=== PATIENT | female | born 1935 | race Caucasian/White ===

== ENCOUNTER → 2021-10-20 10:34 | Outpatient (CLI) | payer MEDICARE, SELFPAY ==
--- NOTE | ~2021-10-20 | US_ITS ---
EXAMINATION: US renal BI DATE: 10/20/2021 10:54 INDICATION: Chronic kidney disease, stage 3 unspecified TECHNIQUE: Multiple grayscale and Doppler ultrasound images of the kidneys were obtained. COMPARISON: None. FINDINGS: The right kidney measures 10.7 x 5.0 x 5.3 cm. The left kidney measures 8.4 x 5.0 x 4.3 cm. The kidne ys demonstrate normal parenchymal echogenicity. No renal mass. There is no hydronephrosis. The bladde r is normal. IMPRESSION: Unremarkable renal sonogram findings. Reviewed, dictated and finalized at location K.
== END ==
PROVIDERS: PCP Family Medicine; Visit Provider Internal Medicine
DX: N18.30 Chronic kidney disease, stage 3 unspecified (principal)
CPT/HCPCS: 76775

== ENCOUNTER 2023-04-22 17:14 | Emergency (ER) | payer MEDICARE, SELFPAY ==
[2023-04-22] VITALS (7 sets, daily range): BP systolic 117–131; BP diastolic 68–79; PULSE 60–91; RESP 17–18; TEMP 36.4–36.6; O2SAT 97–99
--- NOTE | ~2023-04-22 | CT_ITS ---
EXAMINATION: CT brain wo con INDICATION: Unsteady gait and weakness COMPARISON: None TECHNIQUE: Standard unenhanced head CT. The dose-length product (DLP) was 605.33 mGy-cm. The mA was a djusted according to patient size. Iterative reconstruction technique was employed. FINDINGS: No acute intraparenchymal hemorrhage. No evidence of mass lesion. No evidence of acute infa rction. There is mild periventricular and subcortical hypodensity probably related to small vessel is chemic disease. There is mild prominence of the sulci and ventricles related to cerebral atrophy. Int racranial calcified cerebral atherosclerosis is noted. No extra-axial collections. No mass effect or midline shift. Changes in the globes are likely from ocular lens surgery. There is mild mucosal thick ening of the paranasal sinuses. There are bilateral mastoid effusions. IMPRESSION: 1. No acute intracranial abnormality. 2. Age related findings. 3. Bilateral mastoid effusions. Reviewed, dictated and finalized at location F. PATIONAL THERAPY PROGRAM DIRECTOR
--- NOTE | ~2023-04-22 | XR_ITS ---
EXAMINATION: XR chest 1V portable INDICATION: Shortness of breath TECHNIQUE: Portable AP chest at 1945 hours COMPARISON: None available FINDINGS: There is mild atelectasis of the mid and lower lung zones. No pleural effusion or pneumotho rax. The heart size is normal. IMPRESSION: 1. Mild atelectasis of the mid and lower lung zones. Reviewed, dictated and finalized at location F. ICULUM AND ASSESSMENT DIRECTOR
--- NOTE | ~2023-04-22 | XR_ITS ---
EXAMINATION: XR shoulder LT min 2V INDICATION: Shoulder pain TECHNIQUE: Four views of the left shoulder are submitted. COMPARISON: None FINDINGS: Normal alignment. No fracture. 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 Soft tissues are unremarkable. IMPRESSION: 1. No acute osseous abnormality. Reviewed, dictated and finalized at location F. ESSING MACHINE OPERATOR
--- NOTE | 2023-04-22 19:27 | ECG_ITS ---
Measurements Intervals Reading Rate: 58 P: 83 AL: 181 QRS: -15 QRSD: 101 T: 23 QT: 418 QTc: 412 Interpretive Statements SINUS BRADYCARDIA LOW QRS VOLTAGE IN PRECORDIAL LEADS LEFT VENTRICULAR HYPERTROPHY WITH ST-T CHANGE CONSIDER ANTERIOR INFARCT, AGE INDETERMINATE BASELINE ARTIFACT- I, II, III, AVR, AVL, AVF, V3 ABNORMAL ECG NO PREVIOUS ECG AVAILABLE FOR COMPARISON Electronically Signed On 04-22-2023 20:24:36 MACHINE ROOM OPERATOR by Joseph Mccain D.O.
--- NOTE | 2023-04-22 20:02 | ED.GENADULT ---
HPI - General Adult General Chief complaint: Weakness Stated complaint: SOB, left shoulder pain Time Seen by Provider: 04/22/23 19:17 History of Present Illness HPI narrative: Patient is a 87-year-old female who presents emergency department with chief complaint of generalized weakness that has been increasing over the last week. Patient reports that the she has also had some discomfort in her left shoulder. The patient reports he has not seen her primary care provider about dose denies fever denies chills denies urinary symptoms. Related Data Home Medications Medication Instructions Recorded Confirmed aspirin 81 mg tablet,delayed 81 mg PO DAILY 01/08/19 02/04/23 release (Bogdan Low Dose Aspirin) ergocalciferol (vitamin D2) 1,250 1,250 mcg PO WEEKLY 12/16/21 02/04/23 mcg (50,000 unit) capsule (Vitamin D2) Allergies Allergy/AdvReac Type Severity Reaction Status Date / Time nitrofurantoin Allergy Unknown unknown Verified 02/04/23 14:18 [From Macrobid] Review of Systems Review of Systems: A 10 system review of systems was completed on the patient and is negative except for what is stated in the HPI. Nursing and ancillary documentation was reviewed. [facility] Past Medical History Medical History CKD (chronic kidney disease) Depression HLD (hyperlipidemia) Hypertensive CKD (chronic kidney disease) Hypothyroidism IgA nephropathy Vitamin D deficiency Family History Family History Mother Hypertension Heart disease Social History Social History Smoking status: Never smoker Second hand tobacco smoke exposure: No Alcohol intake: never Substance use: never Substance use type: does not use Living arrangements: alone Occupation/Education: retired Gender identity (if verbalized by the patient): Female Sexual Orientation (if Verbalized by the Patient): Straight or Heterosexual Exam Narrative: GENERAL: Well-appearing, well-nourished, and in no acute distress. HEAD: Normocephalic, atraumatic. EYES: PERRLA and EOMI. ENT: Nares clear, no rhinorrhea or epistaxis. Mucous membranes moist. NECK: Supple. CHEST: Clear to auscultation. No respiratory distress. HEART: Regular rate and rhythm. No murmur heard. Normal peripheral pulses. ABDOMEN: Soft, nontender, nondistended, normal active bowel sounds. EXTREMITIES: Normal range of motion. No edema. SKIN: Warm, dry, no rash. NEURO: No focal deficits. Alert and oriented x3. PSYCH: Normal mood and affect. Course Vital Signs Vital signs: Vital Signs Temperature 36.4 C 04/22/23 17:23 Pulse Rate 91 04/22/23 17:23 Respiratory Rate 18 04/22/23 17:23 Blood Pressure 124/79 04/22/23 17:23 Pulse Oximetry 97 04/22/23 17:23 Oxygen Delivery Room Air 04/22/23 17:23 Temperature 36.4 C 04/22/23 17:23 Pulse Rate 80 04/22/23 21:07 Respiratory Rate 18 04/22/23 17:23 Blood Pressure 131/73 04/22/23 21:07 Pulse Oximetry 97 04/22/23 20:08 Oxygen Delivery Room Air 04/22/23 20:08 Medical Decision Making [facility] Narrative Medical decision making narrative: Differential diagnosis includes UTI, electrolyte abnormality, dehydration, pneumonia, CVA, ACS CT head showed no acute abnormalities chest x-ray showed no significant abnormalities laboratory studies were obtained showed a normal white blood cell count electrolytes showed a BUN of 27 creatinine 1.1 the patient did receive fluids in the emergency department troponin was less than 0.012 BNP was slightly elevated at 325 given the patient's age is within normal limits. Procalcitonin 0.1 urinalysis showed 1+ leukocyte esterase 11-20 white blood cells and 4+ bacteria and positive nitrate Patient will be started on Augmentin after reviewing of the patient's previous urine cul
[2023-04-22] MEDS: SODIUM CHLORIDE 0.9% IV 1,000 ML 500 ML IV CONT (20:14)
[2023-04-22 20:15] LABS: Basophils Percent Auto 0.6 % (0.2-1.2); Eosinophils Absolute Auto 0.2 K/mm3 (0-0.3); Hematocrit 40.5 % (37.0-47.0); Hemoglobin 13.4 g/dL (12.0-15.0); Immature Granulocyte Absolute 0.02 K/mm3 (0.00-0.031); Immature Granulocyte Percent A 0.3 % (0-0.5); Lymphocytes Percent Auto 24.7 % (18.3-44.2); Mean Corpuscular HGB Conc 33.1 g/dl (32-36); Mean Corpuscular Hemoglobin 33.8 pg (26-34); Mean Corpuscular Volume 102.3 fl (80-100); Mean Platelet Volume 9.4 fl (7.4-10.4); Monocytes Absolute Auto 0.7 K/mm3 (0.1-0.6); Monocytes Percent Auto 10.7 % (2.6-8.5); Neutrophils Absolute Auto 4.2 K/mm3 (1.3-6.7); Neutrophils Percent Auto 60.7 % (45.5-73.1); Platelet Count Result 176 k/mm3 (150-375); Red Blood Count 3.96 M/mm3 (4.2-5.4); White Blood Count 6.9 K/mm3 (4.5-10.0)
[2023-04-22 20:19] LABS: Appearance Urine Clear (Clear); Bacteria Urine 4+ /hpf; Bilirubin Urine Negative (Negative); Blood Urine Negative (Negative); Color Urine Yellow (Yellow); Glucose Urine UA Negative (Negative); Ketones Urine Negative (Negative); Leukocyte Esterase Ur 1+ LEU/UL (Negative); Nitrate Urine Positive (Negative); Non Pathogenic Casts 0-2; Protein Urine Negative (Negative); RBC Urine 0-2 /hpf (0-2); Specific Grav Ur 1.011 (1.001-1.035); Squamous Epithelial Cell Urine None seen /hpf (Few); Urobilinogen Urine 0.2 mg/dL (<2.0)
[2023-04-22 20:27] LABS: Alanine Aminotransferase 21 U/L (6-35); Albumin Level 4.3 g/dL (3.5-5.1); Alkaline Phosphatase 69 U/L (38-126); Anion Gap 7 mmol/L (8-16); Aspartate Amino Transferase 31 U/L (14-36); Bilirubin,Total 0.7 mg/dL (0.2-1.3); Blood Urea Nitrogen 27 mg/dL (7-17); Calcium 10.4 mg/dL (8.4-10.2); Carbon Dioxide 28 mmol/L (22-30); Chloride 102 mmol/L (98-107); Estimated CRCL calculation 33 ml/min; Estimated Glomerular Filt Rate 47; Glucose 102 mg/dL (65-110); Magnesium 2.2 mg/dL (1.6-2.3); Potassium 3.8 mmol/L (3.4-5.0); Sodium 137 mmol/L (137-145)
[2023-04-22 20:29] LABS: Add Urine Microscopic? YES
[2023-04-22 20:35] LABS: Partial Thromboplastin Time 27.1 SECONDS (22.3-36.8)
[2023-04-22 20:38] LABS: Troponin I < 0.012 ng/mL (0.000-0.034)
[2023-04-22 20:50] LABS: Influenza A QL RT-PCR Negative (Negative); Influenza B QL RT-PCR Negative (Negative); RSV RNA, RT-PCR Negative (Negative); SARS-CoV-2 RNA PCR Negative (Negative)
[2023-04-22 20:53] LABS: Procalcitonin 0.1 ng/mL
[2023-04-22 21:22] LABS: Lipase 225 U/L (23-300)
[2023-04-22 21:32] LABS: NT Pro B Type Natriuretic Pept 325 pg/mL (19.9-100)
--- NOTE | 2023-04-22 22:07 | PC.NURSE ---
Patient states she is not supposed to take Augmentin. Patient unable to recall why she cannot take Augmentin. Notified EDP Dr. Moss.
== END 2023-04-22 22:20 | disposition home or self-care (01) ==
PROVIDERS: Emergency Provider Emergency Medicine; PCP Family Medicine
DX: N39.0 Urinary tract infection, site not specified (principal); R53.1 Weakness; Z20.822 Contact with and (suspected) exposure to COVID-19; I12.9 Hypertensive chronic kidney disease with stage 1 through stage 4 chronic kidney disease, or unspecified chronic kidney disease; N18.9 Chronic kidney disease, unspecified; E03.9 Hypothyroidism, unspecified; E78.5 Hyperlipidemia, unspecified; F32.A Depression, unspecified; Z79.82 Long term (current) use of aspirin
CPT/HCPCS: 36415; 70450; 71045; 73030; 80053; 81001; 83605; 83690; 83735; 83880; 84145; 84484; 85025; 85610; 85730; 87077; 87086; 87088; 87186; 87637; 93005; 96360; 96361; 99284; J7030

== ENCOUNTER 2024-03-27 16:33 | Inpatient (IN) | payer MEDICARE, SELFPAY ==
--- NOTE | ~2024-03-27 | XR_ITS ---
EXAMINATION: XR chest 1V portable DATE: 04/01/2024 09:33 INDICATION: Congestive heart failure TECHNIQUE: frontal view of the chest was obtained. COMPARISON: Chest radiograph dated 03/30/2024 FINDINGS: There is been some decrease in airspace opacities in bilateral mid and lower lung zones which include s likely small bilateral pleural effusions. Calcified nodule at the right lower lung zone consistent with old granulomatous disease. No pneumothorax. Cardiomegaly. Distal tip of a left internal jugular central venous catheter at the cephalad superior vena cava. IMPRESSION: 1. Interval decrease in opacities in bilateral mid and lower lung zones consistent with decreasing sm all bilateral pleural effusions with associated atelectasis and/or pneumonia. 2. Cardiomegaly. Reviewed, dictated and finalized at location A. UARD LOOM FIXER IMPRESSION: 1. Interval decrease in opacities in bilateral mid and lower lung zones consist ent with decreasing small bilateral pleural effusions with associated atelectas is and/or pneumonia. 2. Cardiomegaly.
--- NOTE | ~2024-03-27 | CT_ITS ---
CT of the Abdomen and Pelvis: Indication: Abdominal pain Technique: 2.5 mm axial scans were obtained through the abdomen and pelvis following intravenous adm inistration of 100 cc of Omnipaque 350. Dose reduction technique was used on this scan by utilizing a utomated exposure control and iterative reconstruction technique. The dose-length product (DLP) was 7 12.85 mGy-cm. Findings: Scans through the lung bases demonstrate minimal atelectatic changes and calcified right b asilar granuloma. The liver, spleen, pancreas, gallbladder, adrenals and right kidney are within normal limits. There i s a 6 mm distal left ureteral stone (axial image 136), with mild to moderate left hydroureteronephros is to this level, and asymmetric left perinephric stranding/fluid. There are atherosclerotic calcific ations of the aorta. No lymphadenopathy. No bowel obstruction or bowel wall thickening. There is no evidence to suggest acute appendicitis. Images through the pelvis were performed. Urinary bladder unremarkable. 5.6 cm right ovarian cyst pre sent. No ascites. T12 compression fracture present. Impression: 6 mm distal left ureteral stone with mild to moderate left hydroureteronephrosis and asymmetric left perinephric stranding/fluid. 5.6 cm right ovarian cyst. Gynecologic follow-up advised given patient age and size of the cystic les ion. T12 compression fracture, age-indeterminate. Reviewed, dictated and finalized at [facility]. LY CONSULTANT Impression: 6 mm distal left ureteral stone with mild to moderate left hydroureteronephrosi s and asymmetric left perinephric stranding/fluid. 5.6 cm right ovarian cyst. Gynecologic follow-up advised given patient age and size of the cystic lesion. T12 compression fracture, age-indeterminate.
--- NOTE | ~2024-03-27 | XR_ITS ---
CHEST RADIOGRAPH CLINICAL HISTORY: chest discomfort . COMPARISON: 04/22/2023 TECHNIQUE: Single portable view of the chest. FINDINGS The cardiomediastinal silhouette is enlarged, unchanged. Increased interstitial markings are identified bilaterally, findings suggesting mild pulmonary vascul ar congestion. Calcified granuloma within the right mid to lower lung field. The lungs are otherwise clear. IMPRESSION: Mild pulmonary vascular focal infiltrate or effusion. Reviewed, dictated and finalized at location A. ONAL ATTENDANT
--- NOTE | ~2024-03-27 | XR_ITS ---
INTRAOPERATIVE FLUOROSCOPY: CLINICAL HISTORY: 88 years old Female; LEFT STENT WITH RETROGRADE PROCEDURE COMMENTS: Limited intraoperative fluoroscopy of the left flank was performed. CUMULATIVE DOSE: 26.3 mGy FLUOROSCOPY TIME: 50 seconds FINDINGS/IMPRESSION: Please refer to operative note for further details. Reviewed, dictated and finalized at location A. HING MUSIC LESSONS
--- NOTE | ~2024-03-27 | XR_ITS ---
EXAMINATION: XR chest 1V portable DATE: 03/29/2024 14:12 INDICATION: Increased oxygen requirement. TECHNIQUE: A single frontal view of the chest was obtained. COMPARISON: Chest view 03/28/2024, chest CT 03/28/2024 FINDINGS: There are airspace opacities in the lower lung zones. There is an interstitial pattern in t he lungs, consistent with pulmonary edema. A calcified right lung nodule and calcified right hilar ly mph nodes are consistent with old granulomatous disease. There are small pleural effusions. No pneumo thorax. The heart size is normal. A left internal jugular central venous catheter is seen with tip in the superior vena cava. IMPRESSION: 1. Worsened small pleural effusions. 2. Mild pulmonary edema. 3. Airspace opacities in the lower lung zones, consistent with atelectasis versus pneumonia. Reviewed, dictated and finalized at location A. N ANATOMY TEACHER IMPRESSION: 1. Worsened small pleural effusions. 2. Mild pulmonary edema. 3. Airspace opacities in the lower lung zones, consistent with atelectasis vers us pneumonia.
--- NOTE | ~2024-03-27 | CT_ITS ---
Clinical Indication: Hypoxia CT Scan of the Chest with Contrast: Technique: Contiguous sections were acquired throughout the chest after intravenous administration of 100 cc of Omnipaque 350. Dose reduction technique was used on this scan by utilizing automated expos ure control and iterative reconstruction technique. The dose-length product (DLP) was 617.28 mGy-cm. Findings: Thyroid gland is enlarged with substernal extension of the left thyroid lobe. There is no evidence of any significant mediastinal, hilar or axillary lymphadenopathy. There is no filling defect in the pu lmonary arterial tree to suggest pulmonary embolus. There is no evidence of aortic dissection or aneu rysm. There is no evidence of pleural or pericardial effusion. Probable minimal bibasilar atelectatic changes. No suspicious pulmonary nodule or consolidation. Images through the upper abdomen reveal mild to moderate left hydronephrosis and asymmetric left david nephric stranding/fluid. Small hiatal hernia noted. T12 compression fracture noted. Impression: No evidence of pulmonary embolus, aortic dissection, or aortic aneurysm. No significant pulmonary abnormality. Mild to moderate left hydronephrosis and asymmetric left perinephric stranding. Consider more distal left ureteral stone. T12 compression fracture, age-indeterminate. Reviewed, dictated and finalized at [facility]. ER AGENT Impression: No evidence of pulmonary embolus, aortic dissection, or aortic aneurysm. No significant pulmonary abnormality. Mild to moderate left hydronephrosis and asymmetric left perinephric stranding. Consider more distal left ureteral stone. T12 compression fracture, age-indeterminate.
--- NOTE | ~2024-03-27 | XR_ITS ---
EXAMINATION: XR chest port-a-cath/central DATE: 03/28/2024 08:32 INDICATION: Central line placement. TECHNIQUE: A single frontal view of the chest was obtained. COMPARISON: Chest single view 03/27/2024, CT chest 03/28/2024 FINDINGS: There is mild atelectasis in the mid and lower lung zones. No pleural effusion or pneumotho rax. Cardiomegaly is noted. A left internal jugular central venous catheter is seen with tip in the s uperior vena cava. IMPRESSION: 1. Central line tip in the superior vena cava. 2. Mild atelectasis in the mid and lower lung zones. 3. Cardiomegaly. Reviewed, dictated and finalized at location A. SHING TRIMMER
--- NOTE | ~2024-03-27 | XR_ITS ---
Portable chest x-ray Comparison: 03/29/2024 Clinical History: Pulmonary edema Findings: Left-sided central venous line is unchanged. Moderate to advanced pulmonary edema pattern present with small bilateral pleural effusions. Cardiomediastinal silhouette is stable. Bones and so ft tissues are unremarkable. Impression: Moderate to advanced pulmonary edema pattern with small bilateral pleural effusions. Stable cardiomegaly. Stable support line. Reviewed, dictated and finalized at location . AGE BRINE WORKER Impression: Moderate to advanced pulmonary edema pattern with small bilateral pleural effus ions. Stable cardiomegaly. Stable support line.
--- OUTSIDE RECORDS SUMMARY | 2024-03-27 16:38 | XMS_ITS | Referral Summary ---
Author Organization [facility] [address] [facility] [address] [place] [address] Care Team Providers Care Turn Laster Name Role Phone Julián Wells MD Primary Care Provider Social History Tobacco Use Types Packs/Day Years Used Date Smoking Tobacco: Never Assessed Personal Safety Answer Date Recorded Getting School Help Needed Not on file 05/05 Comments Unknown Sex and Gender Information Value Date Recorded Sex Assigned at Not on file Legal Sex Female 9:16 PM RUG CLEANING SUPERVISOR Gender Identity Not on file Sexual Orientation Not on file Last Filed Vital Signs Vital Sign Reading Time Taken Comments Blood Pressure 127/76 12/31/2014 8:14 AM RUG CLEANING SUPERVISOR Pulse 95 12/31/2014 8:14 AM RUG CLEANING SUPERVISOR Temperature - - Respiratory Rate - - Oxygen Saturation - - Inhaled Oxygen Concentration - - Weight 66.8 kg (147 lb 4.3 oz) 12/30/2014 3:34 P M RUG CLEANING SUPERVISOR Height 170.2 cm (5' 7.01 ) 12/30/2014 3:34 PM CS T Body Mass Index 23.06 12/30/2014 3:34 PM RUG CLEANING SUPERVISOR Plan of Treatment Not on file Insurance [employer] MCR ADV REF Care Teams Turn Laster Relationship Specialty Start Date End Date Julián Wells MD [address] [facility] [address] [place] [address] PCP - General Family Medicine 11/06/20
--- OUTSIDE RECORDS SUMMARY | 2024-03-27 16:38 | XMS_ITS | Data Portability ---
Author Organization [place] [employer] [facility], Main Office Address [address] [place] [address] Care Team Providers Care Gusset Maker Name Role Phone ANAY INGRAM Primary Care Provider Assessment Encounter Date Assessment Date Assessment LastModified by Organization Details LastModified Time 01/18/2023 01/18/2023 This note is dictated and transcribed by [employer]. Clinical Appeals Rn variances may occur. Despite proofreading, typographical errors may occur. Occasional wrong-word or 'sxkhe-e-wnne' substitutions may have occurred due to the inherent limitations of voice recording. Read the chart carefully and recognize, using context, where substitutions have occurred. Not available 01/18/2023 14:16:35 08/09/2023 08/09/2023 This note is dictated and transcribed by [employer]. Clinical Appeals Rn variances may occur. Despite proofreading, typographical errors may occur. Occasional wrong-word or 'nrxvd-h-nfli' substitutions may have occurred due to the inherent limitations of voice recording. Read the chart carefully and recognize, using context, where substitutions have occurred. Not available 08/09/2023 17:17:28 11/08/2023 11/08/2023 This note is dictated and transcribed by [employer]. Clinical Appeals Rn variances may occur. Despite proofreading, typographical errors may occur. Occasional wrong-word or 'cxyvd-n-rotp' substitutions may have occurred due to the inherent limitations of voice recording. Read the chart carefully and recognize, using context, where substitutions have occurred. Not available 11/08/2023 16:52:19 03/13/2024 03/13/2024 This note is dictated and transcribed by [employer]. Clinical Appeals Rn variances may occur. Despite proofreading, typographical errors may occur. Occasional wrong-word or 'yxukv-i-sovs' substitutions may have occurred due to the inherent limitations of voice recording. Read the chart carefully and recognize, using context, where substitutions have occurred. [email or web address] Not available 03/14/2024 10:38:32 Plan of Treatment Reminders Order Date Submit Date Provider Last Modified By Organization Details Last Modified Time Details Appointments Establish ed Patient 15 2024 02:00P M Rodri Chacon DPM Not available Not available Not available Lab None recorded. Referral None recorded. Procedures None recorded. Surgeries None recorded. Imaging None recorded. Medication Orders clotrimaz ole 1 % topical cream 2022 023 [id number], [address] [place], [address], 01/18/2023 14:12:16 betametha sone dipropion ate 0.05 % topical cream 2022 023 [email or web address] [id number] [address] [place], [address], 08/09/2023 15:13:22 Miconazor b AF 2 % topical powder 2022 023 [id number], [address] [place], [address], 01/18/2023 14:13:11 clotrimaz ole 1 % topical cream 2023 024 [id number], [address] [place], [address], 04/19/2023 14:50:23 Miconazor b AF 2 % topical powder 2023 024 [facility] #[id number], [address] [place], [address], 04/19/2023 14:50:24 Patient TargetsNo targets recorded. Patient InstructionsNo instructions recorded. Reason for Referral None Reported. Problems Name Problem SNOMED Code Status Onset Date Resolution Date Notes Provider Name and Address Organization Details Recorded Time Dry skin 71435338 Active 2021 Not Available [facility] 3 15:17:16 Atopic dermatitis 94465247 Active 2021 Not Available [facility] 3 15:17:16 Onychomycosis of toenails 503817262 Active 2020 Not Available [facility] 3 15:17:16 Eczema 76374986 Active 2020 Not Available [facility] 3 15:17:16 Acute nephropathy 67891003 Active 2018 Not Available [facility] 3 15:17:16 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 Procedures Surgical History Date Name Laterality Status Provider Name and Address Organization Details Recorded Time 5 Nail Debridement completed Rodri Chacon DPM [address], [address], [place], [address], [place] [facility] [employer] 03/14/2024 10:37:32 4 Nail Debridement completed Rodri Chacon DPM [address], [address], [place], [address], [facility] [employer] [facility] [employer] [facility] 11/08/2023 16:52:08 4 Nail Debridement completed Rodri Chacon DPM [address], [address], [place], [address], [employer] [facility] [employer] [facility] 08/11/2023 13:54:04 4 Nail Debridement completed Rodri Chacon DPM [address], [address], [place], [address], [employer] [facility] [employer] [facility] 04/19/2023 14:50:32 3 Nail Debridement completed Rodri Chacon DPM [address], [address], [place], [address], [employer] [facility] [employer] [facility] 01/18/2023 14:15:01 3 Nail Debridement completed Rodri Chacon DPM [address], [place], [address], [employer] [facility] [employer] 05/11/2022 11:40:34 Imaging Results None recorded. Procedure Notes None recorded. Medical Equipment None Reported. Medications Name Sig Start Date Stop Date Status Note LastModified by Organization Details LastModified Time losartan 50 mg tablet Take 1 tablet every day by oral route for 90 days. active Not Available Not Available No t Available amoxicilli n 500 mg capsule TAKE 1 CAPSULE BY MOUTH EVERY 8 HOURS FOR 7 DAYS active Not Available Not Available No t Available furosemide 40 mg tablet TAKE 1 TABLET BY MOUTH EVERY DAY active Not Available Not Available No t Available atorvastat in 40 mg tablet TAKE 1 TABLET BY MOUTH EVERY DAY active Not Available Not Available No t Available carvedilol 25 mg tablet TAKE 1 TABLET BY MOUTH EVERY 12 HOURS *MUST TAKE WITH A MEAL/NERY D active Not Available Not Available No t Available potassium chloride ER 10 mEq capsule,ex tended release TAKE 1 CAPSULE BY MOUTH EVERY DAY active Not Available Not Available No t Available cefuroxime axetil 250 mg tablet TAKE 1 TABLET BY MOUTH EVERY 12 HOURS FOR 7 DAYS 06/18 /2024 completed Not Available Not Available Not Available carvedilol 12.5 mg tablet 12.5 MG ORALLY EVERY 12 HOURS MUST ADMINIST ER WITH A MEAL/NERY D 08/08 completed Not Available Not Available Not Available ampicillin 500 mg capsule Take 1 capsule every 6 hours by oral route. 03/30 completed Not Available Not Available Not Available prednisone 5 mg tablet TAKE 1/2 TABLET DAILY BY MOUTH FOR 90 DAYS active Not Available Not Available No t Available amlodipine 2.5 mg tablet TAKE 1 TABLET BY MOUTH EVERY DAY 08/08 completed Not Available Not Available Not Available potassium chloride ER 10 mEq tablet,ext ended release TAKE ONE TABLET TWICE DAILY 08/11 completed Not Available Not Available Not Available ciprofloxa john 250 mg tablet TAKE 1 TABLET BY MOUTH EVERY 12 HOURS FOR 10 DAYS active Not Available Not Available No t Available amlodipine 5 mg tablet TAKE 1 TABLET BY MOUTH EVERY DAY 08/08 completed Not Available Not Available Not Available ciprofloxa john 500 mg tablet TAKE 1 TABLET BY MOUTH EVERY 12 HOURS FOR 10 DAYS active Not Available Not Available No t Available tramadol 50 mg tablet TAKE 1 TABLET BY MOUTH EVERY 12 HOURS NEEDED FOR PAIN active Not Available Not Available No t Available triamcinol one acetonide 0.1 % topical cream APPLY A THIN LAYER TO THE AFFECTED AREA(S) BY TOPICAL ROUTE 2 TIMES PER DAY, 10 days active Not Available Not Available No t Available levothyrox ine 100 mcg tablet TAKE 1 TABLET BY MOUTH EVERY DAY 08/08 completed Not Available Not Available Not Available ofloxacin 0.3 % ear drops INSTILL 3-4 DROPS INTO THE RIGHT EAR EVERY 12 HOURS X7 DAYS active Not Available Not Available No t Available amlodipine 10 mg tablet TAKE 1 TABLET BY MOUTH EVERY DAY active Not Available Not Available No t Available desloratad ine 5 mg tablet TAKE ONE TABLET DAILY NEEDED 08/11 completed Not Available Not Available Not Available prednisone 2.5 mg tablet TAKE 1 TABLET BY MOUTH DAILY active Not Available Not Available No t Available cephalexin 500 mg capsule TAKE 1 CAPSULE BY MOUTH TWICE A DAY FOR 14 DAYS (2 WEEKS) 04/06 completed Not Available Not Available Not Available triamcinol one acetonide 0.1 % topical ointment APPLY TO THE AFFECTED AREA(S) ON THE BODY TWICE DAILY FOR 2 3 WEEKS, AVOIDING THE ARMPITS/ GROIN/FA CE 04/06 completed Not Available Not Available Not Available clotrimazo le-betamet hasone 1 %-0.05 % topical cream APPLY TO AFFECTED AREA TWICE A DAY IN THE MORNING AND IN THE EVENING FOR 2 WEEKS 08/08 completed Not Available Not Available Not Available betamethas one dipropiona te 0.05 % topical cream APPLY A THIN LAYER TO THE AFFECTED AREA(S) OF FOOT TWICE DAILY X10 DAYS 08/08 completed Not Available Not Available Not Available sertraline 25 mg tablet TAKE 1 TABLET BY MOUTH EVERY DAY 08/08 completed Not Available Not Available Not Available cephalexin 500 mg tablet TAKE 1 TABLET BY MOUTH EVERY 8 HOURS X5 DAYS 08/08 completed Not Available Not Available Not Available ergocalcif nadira (vitamin D2) 1,250 mcg (50,000 unit) capsule TAKE 1 CAPSULE BY MOUTH ONCE MONTHLY active Not Available Not Available No t Available clobetasol 0.05 % topical ointment APPLY TO THE AFFECTED AREA(S) ON THE BODY TWICE DAILY FOR 3 WEEKS. AVOID THE FACE/ARM PITS/HENRY IN 05/21 completed Not Available Not Available Not Available triamcinol one acetonide 0.1 % lotion APPLY A THIN LAYER TO THE AFFECTED AREA(S) ON THE LOWER LEGS TWICE DAILY 08/08 completed Not Available Not Available Not Available estradiol 0.01% (0.1 mg/gram) vaginal cream APPLY BEFORE BED NIGHTLY FOR 4 WEEKS VAGINAL 30 DAYS active Not Available Not Available No t Available methylpred nisolone 4 mg tablets in a dose pack TAKE 1 DOSE PACK BY MOUTH DIRECTED 08/08 completed Not Available Not Available Not Available ketoconazo le 2 % topical cream APPLY 1 APPLICAT ION ONTO THE TOENAIL ON BOTH FEET ONCE DAILY 08/08 completed Not Available Not Available Not Available cefdinir 300 mg capsule TAKE 1 CAPSULE BY MOUTH EVERY 12 HOURS FOR 10 DAYS 08/08 completed Not Available Not Available Not Available losartan 100 mg tablet TAKE 1 TABLET BY MOUTH EVERY DAY 08/08 completed Not Available Not Available Not Available clotrimazo le 1 % topical cream APPLY TO THE AFFECTED AND SURROUND ING AREAS OF SKIN BY TOPICAL ROUTE 2 TIMES PER DAY IN THE MORNING AND EVENING, 10 days active Not Available Not Available No t Available sertraline 50 mg tablet TAKE 1 & 1/2 TABLETS BY MOUTH EVERY DAY active Not Available Not Available No t Available calcitriol 0.25 mcg capsule TAKE 1 CAPSULE BY MOUTH EVERY DAY active Not Available Not Available No t Available irbesartan 300 mg tablet TAKE 1 TABLET BY MOUTH EVERY DAY active Not Available Not Available No t Available levothyrox ine 112 mcg tablet TAKE 1 TABLET BY MOUTH EVERY DAY active Not Available Not Available No t Available amoxicilli n 875 mg-potassi um clavulanat e 125 mg tablet TAKE 1 TABLET BY MOUTH EVERY 12 HOURS FOR 10 DAYS active Not Available Not Available No t Available amoxicilli n 500 mg-potassi um clavulanat e 125 mg tablet TAKE 1 TABLET BY MOUTH EVERY 12 HOURS 04/06 completed Not Available Not Available Not Available valsartan 160 mg tablet TAKE ONE TABLET DAILY 10/27 completed Due to recall Not Available Not Available Not Available Pneumovax- 23 25 mcg/0.5 mL injection syringe active Not Available Not Available Not Available ciprofloxa john 0.3 %-dexameth asone 0.1 % ear drops,susp ension INSTILL 4-5 DROPS INTO THE RIGHT EAR TWICE DAILY X7 DAYS active Not Available Not Available No t Available nitrofuran toin monohydrat e/macrocry stals 100 mg capsule TAKE 1 CAPSULE EVERY 12 HOURS FOR 10 DAYS 08/08 completed Not Available Not Available Not Available aspirin 81 mg 2016 active Not Available Not Available Not Avai lable Calcium 500 2 qd 2017 active Not Available Not Available Not Avai lable Miconazorb AF 2 % topical powder APPLY TO THE AFFECTED AREA(S) feet once daily in the morning 2023 active Not Available Not Available Not Avai lable Fish Oil 1,000 mg (120 mg-180 mg) capsule Take every day by oral route. 2016 active Not Available Not Available Not Avai lable Fluzone High-Dose 4256-0582 (PF) 180 mcg/0.5 mL intramuscu lar syringe 08/11 completed Not Available Not Available Not Available Shingrix (PF) 50 mcg/0.5 mL intramuscu lar suspension , kit TO BE ADMINIST ERED BY PHARMACI ST FOR IMMUNIZA TION 06/18 /2024 completed Not Available Not Available Not Available Fluzone High-Dose 3390-9022 (PF) 180 mcg/0.5 mL intramuscu lar syringe 12/12 completed Not Available Not Available Not Available Fluad 2018- 65yr up(PF)45 mcg(15 mcgx3)/0.5 mL intramuscu lar syringe 12/13 completed Not Available Not Available Not Available Vitals Date Recorded Body height Heart rate Respiratory rate Oxygen saturation Oxygen saturation in Arterial blood by Pulse oximetry Systolic blood pressure Diastolic blood pressure Provider Name and Address Organization Details Last Updated DateTime 3 165.1 cm 61 /min 14 /min 98 % 98 % 137 mm[Hg] 72 mm[Hg] Gisel Carroll [facility] 3 14:11:27 Date Recorded Body height Heart rate Respiratory rate Oxygen saturation Oxygen saturation in Arterial blood by Pulse oximetry Systolic blood pressure Diastolic blood pressure Provider Name and Address Organization Details Last Updated DateTime 4 165.1 cm 60 /min 14 /min 98 % 98 % 81 mm[Hg] 43 mm[Hg] Gisel Carroll [employer] [facility] 4 14:32:50 Date Recorded Body height Heart rate Respiratory rate Oxygen saturation Oxygen saturation in Arterial blood by Pulse oximetry Systolic blood pressure Diastolic blood pressure Provider Name and Address Organization Details Last Updated DateTime 4 165.1 cm 59 /min 14 /min 98 % 98 % 115 mm[Hg] 55 mm[Hg] Gisel Carroll [employer] [facility] 4 15:13:55 Date Recorded Body height Respiratory rate Body temperature Body mass index (BMI) Body weight Heart rate Oxygen saturation Oxygen saturation in Arterial blood by Pulse oximetry Systolic blood pressure Diastolic blood pressure Provider Name and Address Organization Details Last Updated DateTime 4 165.1 cm 14 /min 98.7 [degF] 27.6 kg/m2 49993.3 3 g 66 /min 97 % 97 % 120 mm[Hg] 82 mm[Hg] Xiao Villarreal [facility] 4 16:27:20 Date Recorded Body height Body mass index (BMI) Body weight Heart rate Respiratory rate Oxygen saturation Oxygen saturation in Arterial blood by Pulse oximetry Systolic blood pressure Diastolic blood pressure Provider Name and Address Organization Details Last Updated DateTime 5 165.1 cm 27.6 kg/m2 44755.3 3 g 64 /min 14 /min 97 % 97 % 94 mm[Hg] 55 mm[Hg] Gisel GAMA - [employer] [place] [employer] [facility] 5 14:11:18 Social History Question Answer Notes LastModified by Organizat ion Details LastModified Time Tobacco Smoking Status Never Smoker Not Available [facility] 04/21/2022 15:14:07 What Is Your Level Of Alcohol Consumption? None [id number] Information not available 04/21/2022 What Is Your Level Of Caffeine Consumption? Occasional [id number] Information not available 04/21/2022 What Was The Date Of Your Most Recent Tobacco Screening? 09/22/2020 [id number] Information not available 04/21/2022 Do You Use Any Illicit Or Recreational Drugs? No [id number] Information not available 04/21/2022 Has Tobacco Cessation Counseling Been Provided? No [id number] Information not available 04/21/2022 Do You Or Have You Ever Used Any Other Forms Of Tobacco Or Nicotine? No [id number] Information not available 04/21/2022 Sex: Unknown Functional Status None recorded. Mental Status None recorded. Family History Relationship Description Onset Age of this Age Resolved Age Notes LastModified by Organization Details LastModified Time Father Diabetes mellitus [id number] Not available 04/21/2022 15:14:10 Mother Arthritis [id number] Not available 04/21/2022 15:14:10 Mother Heart disease [id number] Not available 04/21/2022 15:14:10 Medical History No medical history recorded. Gynecological HistoryNo gynecological history recorded. Obstetrics History GPAL:G 0 P 0 0 0 0 Immunizations Vaccine Type Date Status Note Provider Nam e and Address Organization Details Recorded Time influenza, unspecified formulation 8 completed Not Available [facility] 04/21/2022 15:20:53 Influenza, split virus, quadrivalent, preservative 9 completed Not Available [facility] 04/21/2022 15:20:53 pneumococcal polysaccharide PPV23 9 completed Not Available [facility] 04/21/2022 15:20:53 influenza, unspecified formulation 7 completed Not Available [facility] 04/21/2022 15:20:53 pneumococcal polysaccharide PPV23 7 completed Not Available [facility] 04/21/2022 15:20:53 Past Encounters Encounter ID Performer Location Encounter Start Date Encounter Closed Date Diagnosis/Indication Diagnosis SNOMED-CT Code Diagnosis ICD10 Code Diagnosis Note [id number] [facility] [place] [address], [facility] [address] [place] [address] 09/22/2020 00:00:00 09/22/2020 11:26:04 [id number] [facility] [place] [address], [address] [address] 10/06/2020 00:00:00 10/06/2020 12:06:59 [id number] [facility] [place] [address], [address] [address] 12/22/2020 00:00:00 12/22/2020 11:48:02 [id number] [facility] [place] [address], [facility] [address] [place] [address] 04/06/2021 00:00:00 04/06/2021 12:23:07 [id number] [facility] [place] [address], [address] [address] 04/20/2021 00:00:00 04/20/2021 11:36:55 [id number] [facility] [place] [address], [facility] [address] [place] [address] 05/21/2021 00:00:00 05/21/2021 11:10:36 [id number] [facility] [place] [address], [address] [address] 06/04/2021 00:00:00 06/04/2021 11:40:48 [id number] [facility] [place] [address], [address] [address] 09/10/2021 00:00:00 09/10/2021 13:51:09 [id number] [facility] [place] [address] [facility], [address] [address] 12/10/2021 00:00:00 12/10/2021 14:56:21 [id number] Rodri Chacon DPM [facility] [place] [address], [address] [address] 05/11/2022 11:22:01 05/11/2022 14:14:45 Onychomycosis of toenails 693897539 B35.1 reviewed treatment options with patientNai ls 1 through 10 were debrided with sharp mechanical debridemen t without incident. Nails were debrided and greater than 50% length and thickness where needed.Rx ketoconazo leFollow-u p in 3 months Pain in toe 927187169 M7 9.674 secondary to thickened toenailDeb rided todayConti nue offloading Educated on offloading optionsFol low-up in 3 months possible total nail avulsion if continues to be problemati c and painful [id number] Rodri Chacon DPM [facility] [place] [address] [place] [address], [address] [address] 01/18/2023 14:00:16 01/19/2023 09:56:41 Tinea pedis 6349909 B35.3 educated on foot hygiene and shoe hygienefol low-up in 2 weeks if not resolved Onychomyco sis of toenails 534977301 B35.1 reviewed treatment options with patientNai ls 1 through 10 were debrided with sharp mechanical debridemen t without incident. Nails were debrided and greater than 50% length and thickness where needed.Rx clotrimazo le- apply to nails dailyFollo w-up in 3 months Atopic dermatitis 635033 01 L20.9 Rx betamethas one [id number] Rodri Chacon DPM [facility] [place] [address], [address] [address] 04/19/2023 14:19:30 04/22/2023 08:03:54 Tinea pedis 6714393 B35.3 educated on foot hygiene and shoe hygienefol low-up in 2 weeks if not resolved Onychomyco sis of toenails 640921556 B35.1 reviewed treatment options with patientNai ls 1 through 10 were debrided with sharp mechanical debridemen t without incident. Nails were debrided and greater than 50% length and thickness where needed.Rx clotrimazo le- apply to nails dailyFollo w-up in 3 months [id number] Rodri Chacon DPM [facility] [address], [address] [address] 08/09/2023 15:08:07 08/12/2023 09:43:05 Dystrophia unguium 85798332 L60.3 nails debrided without incident Unable to cut own toenails 421160992 Z74.1 Pain in toe 870026944 M7 9.674 secondary to thickened toenailCon tinue offloading Educated on offloading optionsFol low-up in 3 months possible total nail avulsion if continues to be problemati c and painful [id number] [facility] [address], [address] [address] 11/08/2023 15:59:27 11/09/2023 15:38:51 Pain in toe 378419309 M79.674 secondary to thickened toenailCon tinue offloading Educated on offloading optionsFol low-up in 3 months possible total nail avulsion if continues to be problemati c and painful Dystrophia unguium 33871 009 L60.3 nails debrided without incident Unable to cut own toenails 286669089 Z74.1 [id number] Rodri Chacon DPM [facility] Pod[facility] [address], [address] [address] 03/13/2024 13:56:30 03/19/2024 11:51:24 Dystrophia unguium 76425361 L60.3 nails debrided without incident Unable to cut own toenails 212485470 Z74.1 Health Concerns Section Related Observation LastModified by Organization Detai ls LastModified Time None Recorded Concern Status LastModified by Organization Details LastModified Time None Recorded Advance Directives Directive None Recorded Payers Encounter Date Sequence Insurance Name Policy Number Policy Parmar Covered Member ID Parmar Member ID Guarantor Name 01/18/2023 1 [employer] (MEDICARE REPLACEMENT HMO) [id number] Vianca M Evangelist [id number] Vianca M Leeds 04/19/2023 1 [employer] (MEDICARE REPLACEMENT HMO) [id number] Vianca M Evangelist [id number] Vianca M Evangelist 08/09/2023 1 [employer] (MEDICARE REPLACEMENT HMO) [id number] Vianca M Leeds [id number] Vianca M Leeds 11/08/2023 1 [employer] (MEDICARE REPLACEMENT HMO) [id number] Vianca M Leeds [id number] Vianca M Leeds 03/13/2024 1 [employer] (MEDICARE REPLACEMENT HMO) [id number] Vianca M Leeds [id number] Vianca M Leeds Notes Date Note Type Note Provider Name and Address Organization Details Recorded Time 01/18/2023 text/html . Patient is an 87-year-old female who returns the office for a itchy rash on the dorsal foot and ankle area. Patient has several open dermal excoriations secondary to scratching. Patient states that the medications prescribed resolve the issue but does not remember which medication it was. Patient states that she has no acute signs of infection. Patient states her toenails are also thick and long and would like to have them cut as she is unable to cut them. Patient denies any other complaints. Rodri Chacon DPM [address], [address], [place], [address], [facility] [place] [employer] 01/18/2023 14:16:51 04/19/2023 text/html . Patient is a 87-year-old female who returns for routine foot care. Patient states overall she's doing well. She continues to have thickening of the toenails which she cannot cut them and states they are painful. Patient denies any redness or drainage. Patient states that she did develop the rash on the dorsal foot about a week ago. Patient Will continue the topical antifungal powder. Patient denies any other complaints. Rodri Chacon DPM [address], [place], [address], [place] 04/21/2023 20:15:36 08/09/2023 text/html . Patient is an 87-year-old female who returns the office for follow-up on routine foot care. Patient states her nails are long and painful she is unable to cut them. Patient states that they are causing pain in her shoes with walking. Patient denies any redness or drainage. Patient denies any other complaints. Rodri Chacon DPM [address], [place], [address], [place] 08/11/2023 13:54:31 11/08/2023 text/html . Patient is an 87-year-old female who returns the office for painful thick toenails. Patient denies any open wounds or injury the foot. Patient denies any other complaints. Rodri Chacon DPM [address], [place], [address], [place] 11/08/2023 16:52:31 03/13/2024 text/html . Patient is at 88-year-old female. She returns to the office for routine foot care. Patient denies any new complaints or wounds of the feet. She states that she has thick and painful toenails and is unable to cut them. Patient denies any other complaints. Rodri Chacon DPM [address], [place], [address], [place] 03/14/2024 10:38:50 OBGyn Episode No OBEpisode recorded.
--- OUTSIDE RECORDS SUMMARY | 2024-03-27 16:38 | XMS_ITS | Clinical Summary ---
Author Organization [facility] Address [address] 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,non-owned Affiliates and Associated Physician Practices is amultiple site organization consisting of ambulatory clinics and hospital sitesin [place], [place], [place] and [place]. This disclosure is being madepursuant to the Care Everywhere program and may not contain all information available regarding this patient. Last updated 17.[facility] Allergies No known active allergies Medications * Be aware that medications may not be up to date on this document. Alwaysverify current medications with the patient. Medication Sig Dispensed Refills Start Date End Date Status diclofenac sodium (VOLTAREN) 75 MG tablet Take 1 Tab by mouth 2 times daily. 60 Tab 4 07/01/2010 Active Active Problems Problem Noted Date Diagnosed Date Degeneration of lumbar or lumbosacral interverte bral disc 07/06/2010 Lumbosacral spondylosis 07/06/2010 Social History Tobacco Use Types Packs/Day Years Used Date Smoking Tobacco: Never Smokeless Tobacco: Never Alcohol Use Standard Drinks/Week Comments No 0 (1 standard drink = 0.6 oz pur e alcohol) Sex and Gender Information Value Date Recorded Sex Assigned at Not on file Gender Identity Not on file Sexual Orientation Not on file Last Filed Vital Signs Vital Sign Reading Time Taken Comments Blood Pressure - - Pulse - - Temperature - - Respiratory Rate - - Oxygen Saturation - - Inhaled Oxygen Concentration - - Weight 75.8 kg (167 lb) 07/06/2010 9:59 AM CDT Height 170.2 cm (5' 7 ) 07/06/2010 9:59 AM CDT Body Mass Index 26.16 07/06/2010 9:59 AM CDT Plan of Treatment Health Maintenance Due Date Last Done Comments BONE DENSITY TESTING 1936 DTAP/TDAP/TD VACCINES (1 - Tdap) 11/18/1955 PNEUMOCOCCAL VACCINE 50+ (1 of 1 - PCV) 1986 ZOSTER VACCINE (1 of 2) 1986 Respiratory Syncytial Virus (RSV) Vaccine Pt: or over 60 yrs (1 - 1-dose 75+ series) 11/18/2011 COVID-19 VACCINE ( - 2023-2 5 season) 2023 INFLUENZA VACCINE (#1) 2023 DEPRESSION SCREENING 02/22/2024 HEPATITIS B VACCINE Aged Out No longe r eligible based on patient's age to complete this topic HIB VACCINE Aged Out No longer eligi ble based on patient's age to complete this topic HPV VACCINE Aged Out No longer eligi ble based on patient's age to complete this topic MENINGOCOCCAL (Group B) VACCINE Aged Out No longer eligible based on patient's age to complete this topic MENINGOCOCCAL VACCINE Aged Out No nancy chidi eligible based on patient's age to complete this topic
--- OUTSIDE RECORDS SUMMARY | 2024-03-27 16:38 | XMS_ITS | Clinical Summary ---
Author Organization [facility] [facility] [address] Address [address] [place] [address] Care Team Providers Care Gas Leak Inspector Name Role Phone Julián Wells MD Primary Care Provider Social History Tobacco Use Types Packs/Day Years Used Date Smoking Tobacco: Never Assessed Personal Safety Answer Date Recorded Getting School Help Needed Not on file 05/05 Comments Unknown Sex and Gender Information Value Date Recorded Sex Assigned at Not on file Legal Sex Female 9:16 PM PAPER CONSERVATOR Gender Identity Not on file Sexual Orientation Not on file Last Filed Vital Signs Vital Sign Reading Time Taken Comments Blood Pressure 127/76 12/31/2014 8:14 AM PAPER CONSERVATOR Pulse 95 12/31/2014 8:14 AM PAPER CONSERVATOR Temperature - - Respiratory Rate - - Oxygen Saturation - - Inhaled Oxygen Concentration - - Weight 66.8 kg (147 lb 4.3 oz) 12/30/2014 3:34 P M PAPER CONSERVATOR Height 170.2 cm (5' 7.01 ) 12/30/2014 3:34 PM CS T Body Mass Index 23.06 12/30/2014 3:34 PM PAPER CONSERVATOR Plan of Treatment Not on file Insurance [employer] MCR ADV REF Care Teams Gas Leak Inspector Relationship Specialty Start Date End Date Julián Wells MD [address] [facility] [address] [place] [address] PCP - General Family Medicine 11/06/20
--- OUTSIDE RECORDS SUMMARY | 2024-03-27 16:38 | XMS_ITS | Patient Health Summary ---
Author Organization [facility] Address [address] [facility] [place] [address] Care Team Providers Care General Office Assistant Name Role Phone Unavailable Primary Care Provider Unavailabl e Note from [facility],non-owned Affiliates and Associated Physician Practices is amultiple site organization consisting of ambulatory clinics and hospital sitesin [place], [place], [place] and [place]. This disclosure is being madepursuant to the Care Everywhere program and may not contain all information available regarding this patient. Last updated 17.[facility] Allergies No known active allergies Medications * Be aware that medications may not be up to date on this document. Alwaysverify current medications with the patient. * diclofenac sodium (VOLTAREN) 75 MG tablet(Started 07/01/2010) Take 1 Tab by mouth 2 times daily. 4 refills left Active Problems Problem Noted Date Diagnosed Date [...]
--- OUTSIDE RECORDS SUMMARY | 2024-03-27 16:38 | XMS_ITS | CONTINUITY OF CARE DOCUMENT ---
Author Name lauryn, franciscoser Address Unknown Organization [facility] Address [address] [place] [address] Phone [phone] Care Team Providers Care Nuclear Medicine Tech Name Role Phone Darrell ANDINO, Sugey Unavailable [phone] DACIA ANDINO, ASHOK Unavailable CHRISTY REYNOSO MD Unavailable PROBLEMS Condition Status Date Provider Notes Hypothyroidism active CHRISTY REYNOSO MD Anemia active CHRISTY REYNOSO MD HTN essential active CHRISTY REYNOSO MD Unspecified hypothyroidism active ELBERT ZAMORA MD Other and unspecified peripheral vertigo active 10/25 CHRISTY REYNOSO MD Edema active CHRISTY REYNOSO MD Hyperlipidemia active CHRISTY REYNOSO MD ENCOUNTERS Date Type Provider Location Encounter Diag nosis - In-person encounter Office Visit CHRISTY REYNOSO MD [facility] - In-person encounter Office Visit CHRISTY REYNOSO MD [facility] - In-person encounter Office Visit CHRISTY REYNOSO MD [place] [facility] - In-person encounter Office Visit CHRISTY REYNOSO MD [place] [facility] - In-person encounter Office Visit CHRISTY REYNOSO MD [place] [facility] - In-person encounter Office Visit CHRISTY REYNOSO MD [place] [facility] - In-person encounter Office Visit CHRISTY REYNOSO MD [place] [facility] - In-person encounter Office Visit CHRISTY REYNOSO MD [place] [facility] - In-person encounter Office Visit CHRISTY REYNOSO MD [place] [facility] - In-person encounter Office Visit CHRISTY REYNOSO MD [place] [facility] - In-person encounter Office Visit CHRISTY REYNOSO MD [place] [facility] - In-person encounter Office Visit CHRISTY REYNOSO MD [facility] Hyperlipidemia - In-person encounter Office Visit CHRISTY REYNOSO MD [place] [facility] - In-person encounter Office Visit CHRISTY REYNOSO MD [facility] - In-person encounter Office Visit CHRISTY REYNOSO MD [place] [facility] - In-person encounter Office Visit CHRISTY REYNOSO MD [place] [facility] - In-person encounter Office Visit CHRISTY REYNOSO MD [place] [facility] - In-person encounter Office Visit CHRISTY REYNOSO MD [place] [facility] - In-person encounter Office Visit CHRISTY REYNOSO MD [place] [facility] - In-person encounter Office Visit CHRISTY REYNOSO MD [place] [facility] - In-person encounter Office Visit CHRISTY REYNOSO MD [place] [facility] - In-person encounter Office Visit CHRISTY REYNOSO MD [place] [facility] - In-person encounter Office Visit CHRISTY REYNOSO MD [place] [facility] - In-person encounter Office Visit CHRISTY REYNOSO MD [place] [facility] - In-person encounter Office Visit CHRISTY REYNOSO MD [place] [facility] - In-person encounter Office Visit CHRISTY REYNOSO MD [place] [facility] - In-person encounter Office Visit CHRISTY REYNOSO MD [place] [facility] - In-person encounter Office Visit CHRISTY REYNOSO MD [place] [facility] - In-person encounter Office Visit CHRISTY REYNOSO MD [place] [facility] - In-person encounter Office Visit CHRISTY REYNOSO MD [facility] Other and unspecified peripheral vertigoEdema - In-person encounter Office Visit CHRISTY REYNOSO MD [facility] - In-person encounter Office Visit CHRISTY REYNOSO MD [facility] HTN essentialUnspecified hypothyroidism - In-person encounter Office Visit Chelsey Elizalde [facility] - In-person encounter Office Visit Chelsey Elizalde [facility] - In-person encounter Office Visit [facility] - In-person encounter Office Visit Chelsey Elizalde [facility] - In-person encounter Office Visit Chelsey Elizalde [facility] - In-person encounter Office Visit Chelsey Elizalde [facility] - In-person encounter Office Visit Chelsey Elizalde [facility] - In-person encounter Office Visit Chelsey Elizalde [facility] - In-person encounter Office Visit Chelsey Elizalde [facility] - In-person encounter Office Visit Chelsey Elizalde [facility] - In-person encounter Office Visit Chelsey Elizalde [facility] - In-person encounter Office Visit [facility] ALLERGIES No Known Drug Allergies RESULTS Date Observation Value Provider Reference Range Interpretation Location triiodothyronine uptake 1.0 TBI [facility] 0.8-1.3 thyroxine, serum, total 7.9 ???G/DL [facility] 4.5-11.7 thyroid stimulating hormone, serum 4.61 ?IU /ML [facility] 0.27-4.20 High very low density lipoproteins 13.2 mg/dL [facility] 5.0-40.0 LDL/HDL (low-density lipoprotein/high-de nsity lipoprotein) ratio 0 mg/dL [facility] 0-5 lipoprotein, beta, serum, point, quantitative, calculated 22 mg/dL [facility] 0-100 HDL cholesterol, serum 70 mg/dL [facility] 45-65 High cholesterol, serum 105 mg/dL [facility] 0-200 triglyceride, serum, fasting 66 mg/dL [facility] 0-150 Estimated Glomerular Filtration Rate (calc) 74 (?) [facility] >59 chloride, serum 106 mmol/L [facility] 98-107 potassium, serum 3.7 mmol/L [facility] 3.5-5.1 sodium, serum 148 mmol/L [facility] 136-145 High creatinine, serum 0.8 mg/dL [facility] 0.5-0.9 carbon dioxide, venous blood 28 mmol/L [facility] 23-31 albumin, serum 4.3 g/dL [facility] 3.5-5.2 calcium, serum 9.4 mg/dL [facility] 8.6-10.2 aspartate aminotransferase (SGOT), serum 15 1/L [facility] 0-32 alkaline phosphatase, serum 50 1/L [facility] 40-130 alanine aminotransferase (SGPT), serum 14 1/L [facility] 0-33 protein, total, serum 6.3 g/dL [facility] 6.6-8.7 Low bilirubin, serum, total 0.5 mg/dL [facility] 0.0-1.2 urea nitrogen, blood 16 mg/dL [facility] 8-23 blood glucose, random 102 mg/dL [facility] 74-99 High hemoglobin A1C, blood, as % of total hemoglobin 5.6 % [facility] 4.0-5.6 platelet count 194 THOUSAND /UL [facility] 203-098 3716/11 /16 Absolute Basophils 0.0 CELLS/UL [facility] 0.0-0.2 Absolute Monocytes 0.5 CELLS/UL [facility] 0.2-1.0 Absolute Lymphocytes 1.25 CELLS/UL [facility] 0.85-3.90 Absolute Neutrophils 2.5 CELLS/UL [facility] 1.5-7.8 mean corpuscular volume, RBC 107 fL [facility] 75-100 High mean corpuscular hemoglobin concentration, RBC 32 G/DL [facility] 31-38 mean corpuscular hemoglobin, RBC 34 pg [facility] 25-35 hematocrit, blood 42 % [facility] 35-55 hemoglobin, blood 13.3 g/dL [facility] 11.5-16.5 erythrocyte count, whole blood 4.0 MILLION/ UL [facility] 3.5-5.5 free thyroxine index 7.6 ??g/dL [facility] 4.4 - 11.4 triiodothyronine uptake 1.0 TBI [facility] 0.8 - 1.3 thyroxine, serum, total 7.6 ??G/DL [facility] 4.5 - 11.7 thyroid stimulating hormone, serum 2.770 ??IU/ML [facility] 0.270 - 4.200 very low density lipoproteins 15.8 mg/dL [facility] 5.0 - 40.0 LDL/HDL (low-density lipoprotein/high-de nsity lipoprotein) ratio 0.4 RATIO [facility] - lipoprotein, beta, serum, point, quantitative, calculated 33.2 (?) [facility] 0.0 - 100.0 HDL cholesterol, serum 75.0 mg/dL [facility] 45.0 - 65.0 High cholesterol, serum 124.0 mg/dL [facility] 0.0 - 200.0 triglyceride, serum, fasting 79.0 mg/dL [facility] 0.0 - 150.0 anion gap, serum 11.0 [facility] - albumin/globulin ratio, serum 1.4 g/dL [facility] 1.1 - 2.5 globulin, serum 2.7 [facility] 2.3 - 3.8 urea nitrogen/creatinine ratio, serum 16.7 [facility] - Estimated Glomerular Filtration Rate (calc) 64.2 (?) [facility] 59.0 - chloride, serum 104.0 mmol/L [facility] 98.0 - 107.0 potassium, serum 3.7 mmol/L [facility] 3.5 - 5.1 sodium, serum 147.0 mmol/L [facility] 136.0 - 145.0 High creatinine, serum 0.9 mg/dL [facility] 0.5 - 1.0 carbon dioxide, venous blood 32.0 mmol/L [facility] 23.0 - 31.0 High albumin, serum 3.9 g/dL [facility] 3.5 - 5.2 calcium, serum 10.0 mg/dL [facility] 8.6 - 10.2 aspartate aminotransferase (SGOT), serum 13.0 1/L [facility] 0.0 - 32.0 alkaline phosphatase, serum 53.0 1/L [facility] 40.0 - 130.0 alanine aminotransferase (SGPT), serum 16.0 1/L [facility] 0.0 - 33.0 protein, total, serum 6.6 g/dL [facility] 6.6 - 8.7 bilirubin, serum, total 0.5 mg/dL [facility] 0.0 - 1.2 urea nitrogen, blood 15.0 mg/dL [facility] 8.0 - 23.0 blood glucose, random 103.0 mg/dL [facility] 74.0 - 99.0 High red blood cell distribution width, size density 54.2 fL [facility] - immature granulocytes, percentage of total cells, blood 0.3 % [facility] - nucleated red blood cells as percent of blood leukocytes 0.0 % [facility] - red blood cell (erythrocyte) count, per high power field 0.0 10*3/UL [facility] - eosinophils as percent of blood leukocytes 2.1 % [facility] - neutrophils as percent of blood leukocytes 57.0 % [facility] - Absolute Neutrophils 3.8 CELLS/UL [facility] 1.5 - 7.8 basophils as percent of blood leukocytes 0.8 % [facility] - Absolute Basophils 0.1 CELLS/UL [facility] 0.0 - 0.2 monocytes as percent of blood leukocytes 10.0 % [facility] - Absolute Monocytes 0.7 CELLS/UL [facility] 0.2 - 1.0 lymphocytes as percent of blood leukocytes 29.8 % [facility] - Absolute Lymphocytes 2.0 CELLS/UL [facility] 0.9 - 3.9 mean platelet volume 10.7 (?) [facility] - platelet count 214.0 THOUSAND /UL [facility] 100.0 - 400.0 mean corpuscular hemoglobin concentration, RBC 31.3 G/DL [facility] 31.0 - 38.0 mean corpuscular hemoglobin, RBC 33.3 pg [facility] 25.0 - 35.0 mean corpuscular volume, RBC 106.2 fL [facility] 75.0 - 100.0 High hematocrit, blood 46.0 % [facility] 35.0 - 55.0 hemoglobin, blood 14.4 g/dL [facility] 11.5 - 16.5 erythrocyte count, whole blood 4.3 MILLION/ UL [facility] 3.5 - 5.5 hemoglobin A1C, blood, as % of total hemoglobin 5.6 % [facility] 4.0 - 5.6 thyroxine, serum, total 6.7 ??G/DL [facility] 4.5 - 11.7 thyroid stimulating hormone, serum 4.330 ??IU/ML [facility] 0.270 - 4.200 High very low density lipoproteins 14.2 mg/dL [facility] 5.0 - 40.0 LDL/HDL (low-density lipoprotein/high-de nsity lipoprotein) ratio 0.3 RATIO [facility] - lipoprotein, beta, serum, point, quantitative, calculated 21.8 (?) [facility] 0.0 - 100.0 HDL cholesterol, serum 79.0 mg/dL [facility] 45.0 - 65.0 High cholesterol, serum 115.0 mg/dL [facility] 0.0 - 200.0 triglyceride, serum, fasting 71.0 mg/dL [facility] 0.0 - 150.0 anion gap, serum 12.2 [facility] - albumin/globulin ratio, serum 2.7 g/dL [facility] 1.1 - 2.5 High globulin, serum 2.3 [facility] 2.3 - 3.8 urea nitrogen/creatinine ratio, serum 15.6 [facility] - Estimated Glomerular Filtration Rate (calc) 64.4 (?) [facility] 59.0 - chloride, serum 101.8 mmol/L [facility] 98.0 - 107.0 potassium, serum 3.8 mmol/L [facility] 3.5 - 5.1 sodium, serum 144.0 mmol/L [facility] 136.0 - 145.0 creatinine, serum 0.9 mg/dL [facility] 0.5 - 0.9 carbon dioxide, venous blood 30.0 mmol/L [facility] 23.0 - 31.0 albumin, serum 4.2 g/dL [facility] 3.5 - 5.2 calcium, serum 9.8 mg/dL [facility] 8.6 - 10.2 aspartate aminotransferase (SGOT), serum 26.0 1/L [facility] 0.0 - 32.0 alkaline phosphatase, serum 59.0 1/L [facility] 40.0 - 130.0 alanine aminotransferase (SGPT), serum 34.0 1/L [facility] 0.0 - 33.0 High protein, total, serum 6.5 g/dL [facility] 6.6 - 8.7 Low bilirubin, serum, total 0.6 mg/dL [facility] 0.0 - 1.2 urea nitrogen, blood 14.0 mg/dL [facility] 8.0 - 23.0 blood glucose, random 101.0 mg/dL [facility] 74.0 - 99.0 High red blood cell distribution width, size density 51.4 fL [facility] - mean platelet volume 10.3 (?) [facility] - platelet count 212.0 THOUSAND /UL [facility] 100.0 - 400.0 mean corpuscular hemoglobin concentration, RBC 31.8 G/DL [facility] 31.0 - 38.0 mean corpuscular hemoglobin, RBC 33.0 pg [facility] 25.0 - 35.0 mean corpuscular volume, RBC 103.8 fL [facility] 75.0 - 100.0 High hematocrit, blood 40.9 % [facility] 35.0 - 55.0 hemoglobin, blood 13.0 g/dL [facility] 11.5 - 16.5 erythrocyte count, whole blood 3.9 MILLION/ UL [facility] 3.5 - 5.5 hemoglobin A1C, blood, as % of total hemoglobin 5.8 % [facility] 4.0 - 6.0 red blood cell distribution width, size density 52.3 fL [facility] - immature granulocytes, percentage of total cells, blood 0.2 % [facility] - nucleated red blood cells as percent of blood leukocytes 0.5 % [facility] - red blood cell (erythrocyte) count, per high power field 0.0 10*3/UL [facility] - eosinophils as percent of blood leukocytes 3.6 % [facility] - neutrophils as percent of blood leukocytes 60.2 % [facility] - Absolute Neutrophils 2.5 CELLS/UL [facility] 1.5 - 7.8 basophils as percent of blood leukocytes 1.0 % [facility] - Absolute Basophils 0.0 CELLS/UL [facility] 0.0 - 0.2 monocytes as percent of blood leukocytes 10.1 % [facility] - Absolute Monocytes 0.4 CELLS/UL [facility] 0.2 - 1.0 lymphocytes as percent of blood leukocytes 24.9 % [facility] - Absolute Lymphocytes 1.0 CELLS/UL [facility] 0.9 - 3.9 mean platelet volume 10.3 (?) [facility] - platelet count 256.0 THOUSAND /UL [facility] 100.0 - 400.0 mean corpuscular hemoglobin concentration, RBC 31.1 G/DL [facility] 31.0 - 38.0 mean corpuscular hemoglobin, RBC 32.1 pg [facility] 25.0 - 35.0 mean corpuscular volume, RBC 103.2 fL [facility] 75.0 - 100.0 High hematocrit, blood 45.7 % [facility] 35.0 - 55.0 hemoglobin, blood 14.2 g/dL [facility] 11.5 - 16.5 erythrocyte count, whole blood 4.4 MILLION/ UL [facility] 3.5 - 5.5 prothrombin time (patient) 10.4 s [facility] 9.0 - 11.5 international normalized ratio (INR) 1.0 [facility] 0.9 - 1.1 very low density lipoproteins 34.4 mg/dL [facility] 5.0 - 40.0 LDL/HDL (low-density lipoprotein/high-de nsity lipoprotein) ratio 3.0 RATIO [facility] - HDL cholesterol, serum 83.0 mg/dL [facility] 45.0 - 65.0 High cholesterol, serum 364.0 mg/dL [facility] 0.0 - 200.0 High Triglycerides-direc t 172.0 mg/dL [facility] 0.0 - 150.0 High urea nitrogen/creatinine ratio, serum 26.3 [facility] - Estimated Glomerular Filtration Rate (calc) 73.7 (?) [facility] 59.0 - chloride, serum 102.2 mmol/L [facility] 98.0 - 107.0 potassium, serum 4.7 mmol/L [facility] 3.5 - 5.1 sodium, serum 141.0 mmol/L [facility] 136.0 - 145.0 creatinine, serum 0.8 mg/dL [facility] 0.5 - 0.9 carbon dioxide, venous blood 28.0 mmol/L [facility] 23.0 - 31.0 calcium, serum 8.4 mg/dL [facility] 8.6 - 10.2 Low urea nitrogen, blood 21.0 mg/dL [facility] 8.0 - 23.0 Glucose Urine 107.0 mg/dL [facility] 74.0 - 99.0 High international normalized ratio (INR) 1.0 Kassandra Roquecatherinevaruncolleenshannen Normal prothrombin time (patient) 12.1 s Kassandra Franklin red blood cell distribution width, size density 50.6 fL [facility] - immature granulocytes, percentage of total cells, blood 0.2 % [facility] - nucleated red blood cells as percent of blood leukocytes 0.0 % [facility] - red blood cell (erythrocyte) count, per high power field 0.0 10*3/UL [facility] - eosinophils as percent of blood leukocytes 2.8 % [facility] - neutrophils as percent of blood leukocytes 67.3 % [facility] - Absolute Neutrophils 3.9 CELLS/UL [facility] 1.5 - 7.8 basophils as percent of blood leukocytes 1.0 % [facility] - Absolute Basophils 0.1 CELLS/UL [facility] 0.0 - 0.2 monocytes as percent of blood leukocytes 7.1 % [facility] - Absolute Monocytes 0.4 CELLS/UL [facility] 0.2 - 1.0 lymphocytes as percent of blood leukocytes 21.6 % [facility] - Absolute Lymphocytes 1.3 CELLS/UL [facility] 0.9 - 3.9 mean platelet volume 10.3 (?) [facility] - platelet count 262.0 THOUSAND /UL [facility] 100.0 - 400.0 mean corpuscular hemoglobin concentration, RBC 31.8 G/DL [facility] 31.0 - 38.0 mean corpuscular hemoglobin, RBC 32.3 pg [facility] 25.0 - 35.0 mean corpuscular volume, RBC 101.4 fL [facility] 75.0 - 100.0 High hematocrit, blood 44.3 % [facility] 35.0 - 55.0 hemoglobin, blood 14.1 g/dL [facility] 11.5 - 16.5 erythrocyte count, whole blood 4.4 MILLION/ UL [facility] 3.5 - 5.5 thyroid stimulating hormone, serum 10.150 ?IU/M L [facility] 0.270 - 4.200 High very low density lipoproteins 70.6 mg/dL [facility] 5.0 - 40.0 High LDL/HDL (low-density lipoprotein/high-de nsity lipoprotein) ratio 2.8 RATIO [facility] - HDL cholesterol, serum 70.0 mg/dL [facility] 45.0 - 65.0 High cholesterol, serum 340.0 mg/dL [facility] 0.0 - 200.0 High Triglycerides-direc t 353.0 mg/dL [facility] 0.0 - 150.0 High anion gap, serum 11.6 [facility] - albumin/globulin ratio, serum 1.0 g/dL [facility] 1.1 - 2.5 Low globulin, serum 2.3 [facility] 2.3 - 3.8 urea nitrogen/creatinine ratio, serum 17.5 [facility] - Estimated Glomerular Filtration Rate (calc) 73.7 (?) [facility] 59.0 - chloride, serum 103.4 mmol/L [facility] 98.0 - 107.0 potassium, serum 4.0 mmol/L [facility] 3.5 - 5.1 sodium, serum 143.0 mmol/L [facility] 136.0 - 145.0 creatinine, serum 0.8 mg/dL [facility] 0.5 - 0.9 carbon dioxide, venous blood 28.0 mmol/L [facility] 23.0 - 31.0 albumin, serum 2.1 g/dL [facility] 3.5 - 5.2 Low calcium, serum 8.8 mg/dL [facility] 8.6 - 10.2 aspartate aminotransferase (SGOT), serum 30.0 1/L [facility] 0.0 - 32.0 alkaline phosphatase, serum 69.0 1/L [facility] 40.0 - 130.0 alanine aminotransferase (SGPT), serum 29.0 1/L [facility] 0.0 - 33.0 protein, total, serum 4.4 g/dL [facility] 6.6 - 8.7 Low urea nitrogen, blood 14.0 mg/dL [facility] 8.0 - 23.0 Glucose Urine 101.0 mg/dL [facility] 74.0 - 99.0 High bilirubin, serum, total 0.1 mg/dL [facility] 0.0 - 1.2 HISTORY OF MEDICATION USE Medication Status Instructions Dates Provider Indications Com ments FISH OIL CAPSULE active 2 CAPSULES THRE E TIMES DAILY 8 CHRISTY REYNOSO MD OSCAL 500/200 D-3 500-200 MG-UNIT ORAL TABLET active ONE TABLET TWICE DAILY 8 CHRISTY REYNOSO MD ASPIRIN 81 MG ORAL TABLET active ONE TAB. DAILY 8 CHRISTY REYNOSO MD DIOVAN 160 MG ORAL TABLET active ONE TABLET TWICE DAILY 8 CHRISTY REYNOSO MD TRAMADOL HCL 50 MG ORAL TABLET active ONE TABLET DAILY NEEDED 8 CHRISTY REYNOSO MD VITAMIN D3 74587 UNIT ORAL CAPSULE active ONE CAPSULE TWICE WEEKLY 8 CHRISTY REYNOSO MD PREDNISONE 5 MG ORAL TABLET active ONE TABLET DAILY 8 CHRISTY REYNOSO MD POTASSIUM CHLORIDE DOROTHEA ER 10 MEQ ORAL TABLET EXTENDED RELEASE active ONE TAB. DAILY 5 CHRISTY REYNOSO MD CARVEDILOL 25 MG ORAL TABLET active one tab twice daily 5 CHRISTY REYNOSO MD NIFEDIPINE ER 60 MG ORAL TABLET EXTENDED RELEASE 24 HOUR completed ONE TABLET DAILY 5 - 8 CHRISTY REYNOSO MD ATORVASTATIN CALCIUM 40 MG ORAL TABLET active ONE TABLET DAILY 5 CHRISTY REYNOSO MD FUROSEMIDE 40 MG ORAL TABLET active ONE TABLET DAILY 5 CHRISTY REYNOSO MD MECLIZINE HCL 12.5 MG ORAL TABLET completed ONE TABLET IN THE EVENING NEEDED 4 - 5 CHRISTY REYNOSO MD SERTRALINE HCL 25 MG ORAL TABLET active 1 TABLET DAILY 4 CHRISTY REYNOSO MD ASPIRIN 81 MG ORAL TABLET completed ONE TAB. DAILY 2 - 5 CHRISTY REYNOSO MD DICLOFENAC SODIUM 75 MG ORAL TABLET DELAYED RELEASE completed TWO TABLETS ONCE OR TWICE WEEKLY NEEDED 2 - 5 CHRISTY REYNOSO MD OS-EDWIN CALCIUM + D3 500-200 MG-UNIT ORAL TABLET completed ONE TABLET TWICE DAILY 2 - 5 CHRISTY REYNOSO MD LEVOXYL 100 MCG ORAL TABLET active ONE TAB. DAILY 2 CHRISTY REYNOSO MD NORVASC 10 MG ORAL TABLET completed ONE TAB. DAILY 2 - 5 CHRISTY REYNOSO MD [place]AN POTASSIUM 50 MG ORAL TABLET completed ONE TABLET DAILY 5 - 8 CHRISTY REYNOSO MD INSURANCE PROVIDERS Payer name Policy type / Coverage type [id number] Other [id number] TREATMENT PLAN Date Name HEMOGLOBIN A1c THYROID PANEL WITH T SH, 3RD GENERATION LIPID PANEL COMPREHENSIVE METABO LIC PANEL, W/EGFR CBC (INCLUDES DIFF/P LT) THYROID PANEL HEMOGLOBIN A1c LIPID PANEL COMPREHENSIVE METABO LIC PANEL W/EGFR CBC (INCLUDES DIFF/P LT) T-4 (THYROXINE), TOT AL TSH, 3RD GENERATION HEMOGLOBIN A1c LIPID PANEL COMPREHENSIVE METABO LIC PANEL W/EGFR CBC (H/H, RBC, INDIC ES, WBC, PLT) PROTHROMBIN TIME WIT H INR CBC (INCLUDES DIFF/P LT) LIPID PANEL BASIC METABOLIC PANE L W/EGFR TSH, 3RD GENERATION W/REFLEX TO FT4 LIPID PANEL COMPREHENSIVE METABO LIC PANEL W/EGFR CBC (INCLUDES DIFF/P LT) HISTORY OF PROCEDURES Procedure Date Procedure Name Provider Procedure Notes S tatus Etta Hurt MD complet ed
--- OUTSIDE RECORDS SUMMARY | 2024-03-27 16:38 | XMS_ITS | Referral Summary ---
Author Organization [facility] Address [address] [place] [address] Care Team Providers Care Supervisor Product Inspection Name Role Phone Unavailable Primary Care Provider Unavailabl e Source Comments [facility],non-owned Affiliates and Associated Physician Practices is amultiple site organization consisting of ambulatory clinics and hospital sitesin [place], [place], [place] and [place]. This disclosure is being madepursuant to the Care Everywhere program and may not contain all information available regarding this patient. Last updated 17.[employer] [facility] Allergies No known active allergies Medications * [...] 07/06/2010 9:59 AM CDT Plan of Treatment Not on file
[2024-03-27 19:14] VITALS: BP 134/75; PULSE 104; RESP 18; TEMP 37.4; O2SAT 96
[2024-03-27 22:39] LABS: Add Urine Microscopic? YES; Appearance Urine Cloudy (Clear); Bacteria Urine 4+ /hpf; Bilirubin Urine Negative (Negative); Blood Urine 1+ (Negative); Color Urine Yellow (Yellow); Glucose Urine UA Negative (Negative); Ketones Urine Negative (Negative); Leukocyte Esterase Ur 1+ LEU/UL (Negative); Nitrate Urine Positive (Negative); Non Pathogenic Casts 0-2; Protein Urine Trace mg/dL (Negative); Specific Grav Ur 1.011 (1.001-1.035); Squamous Epithelial Cell Urine Few /hpf (Few); Urobilinogen Urine 0.2 mg/dL (<2.0); WBC Urine 21-50 /hpf (0-3)
--- OUTSIDE RECORDS SUMMARY | 2024-03-27 22:56 | XMS_ITS | Referral Summary ---
Author Organization [email or web address] Address [address] [place] [address] Care Team Providers Care Cloth Pattern Maker Name Role Phone Unavailable Primary Care Provider Unavailabl e Source Comments [email or web address],non-owned Affiliates and Associated Physician Practices is amultiple site organization consisting of ambulatory clinics and hospital sitesin [place], [place], [place] and [place]. This disclosure is being madepursuant to the Care Everywhere program and may not contain all information available regarding this patient. Last updated 11/11/[employer] [email or web address] Allergies No known active allergies Medications * [...]
--- OUTSIDE RECORDS SUMMARY | 2024-03-27 22:56 | XMS_ITS | Clinical Summary ---
Author Organization [facility] [address] [address] Address [address] [place] [address] Care Team Providers Care Machine Worker Name Role Phone Julián Wells MD Primary Care Provider Social History Tobacco Use Types Packs/Day Years Used Date Smoking Tobacco: Never Assessed Personal Safety Answer Date Recorded Getting School Help Needed Not on file 05/05 Comments Unknown Sex and Gender Information Value Date Recorded Sex Assigned at Not on file Legal Sex Female 9:16 PM FOOD CASHIER Gender Identity Not on file Sexual Orientation Not on file Last Filed Vital Signs Vital Sign Reading Time Taken Comments Blood Pressure 127/76 12/31/2014 8:14 AM FOOD CASHIER Pulse 95 12/31/2014 8:14 AM FOOD CASHIER Temperature - - Respiratory Rate - - Oxygen Saturation - - Inhaled Oxygen Concentration - - Weight 66.8 kg (147 lb 4.3 oz) 12/30/2014 3:34 P M FOOD CASHIER Height 170.2 cm (5' 7.01 ) 12/30/2014 3:34 PM CS T Body Mass Index 23.06 12/30/2014 3:34 PM FOOD CASHIER Plan of Treatment Not on file Insurance [employer] MCR ADV REF Care Teams Machine Worker Relationship Specialty Start Date End Date Julián Wells MD [address] [facility] [address] [place] [address] PCP - General Family Medicine 11/06/20
--- OUTSIDE RECORDS SUMMARY | 2024-03-27 22:56 | XMS_ITS | Referral Summary ---
Author Organization [facility] [address] [facility] [address] Address [address] [place] [address] Care Team Providers Care Leach Runner Name Role Phone Julián Wells MD Primary Care Provider Social History Tobacco Use Types Packs/Day Years Used Date Smoking Tobacco: Never Assessed Personal Safety Answer Date Recorded Getting School Help Needed Not on file 05/05 Comments Unknown Sex and Gender Information Value Date Recorded Sex Assigned at Not on file Legal Sex Female 9:16 PM PRE BILLING SPECIALIST Gender Identity Not on file Sexual Orientation Not on file Last Filed Vital Signs Vital Sign Reading Time Taken Comments Blood Pressure 127/76 12/31/2014 8:14 AM PRE BILLING SPECIALIST Pulse 95 12/31/2014 8:14 AM PRE BILLING SPECIALIST Temperature - - Respiratory Rate - - Oxygen Saturation - - Inhaled Oxygen Concentration - - Weight 66.8 kg (147 lb 4.3 oz) 12/30/2014 3:34 P M PRE BILLING SPECIALIST Height 170.2 cm (5' 7.01 ) 12/30/2014 3:34 PM CS T Body Mass Index 23.06 12/30/2014 3:34 PM PRE BILLING SPECIALIST Plan of Treatment Not on file Insurance [employer] MCR ADV REF Care Teams Leach Runner Relationship Specialty Start Date End Date Julián Wells MD [address] [facility] [address] [place] [address] PCP - General Family Medicine 11/06/20
--- OUTSIDE RECORDS SUMMARY | 2024-03-27 22:56 | XMS_ITS | Patient Health Summary ---
Author Organization [facility] Address [address] [facility] [place] [address] Care Team Providers Care Sausage Linker Name Role Phone Unavailable Primary Care Provider Unavailabl e Note from [facility],non-owned Affiliates and Associated Physician Practices is amultiple site organization consisting of ambulatory clinics and hospital sitesin [place], [place], [place] and [place]. This disclosure is being madepursuant to the Care Everywhere program and may not contain all information available regarding this patient. Last updated 17.[facility] Allergies No known active allergies Medications * [...]
--- OUTSIDE RECORDS SUMMARY | 2024-03-27 22:57 | XMS_ITS | CONTINUITY OF CARE DOCUMENT ---
Author Name lauryn, franciscoser Address Unknown Organization [facility] Address [address] [place] [address] Phone [phone] Care Team Providers Care Golf Sales Manager Name Role Phone Darrell ANDINO, Sugey Unavailable [phone] DACIA ANDINO, ASHOK Unavailable [phone] CHRISTY REYNOSO MD Unavailable PROBLEMS Condition Status [...] In-person encounter Office Visit CHRISTY REYNOSO MD [place] - In-person encounter Office Visit CHRISTY REYNOSO MD [place] - In-person encounter Office Visit CHRISTY REYNOSO MD [place] [facility] - In-person encounter Office Visit CHRISTY REYNOSO MD [place] [facility] - In-person encounter Office Visit CHRISTY REYNOSO MD [place] [facility] - In-person encounter Office Visit CHRISTY REYNOSO MD [place] [facility] - In-person encounter Office Visit CHRISTY REYNOSO MD [place] [facility] - In-person encounter Office Visit CHRISTY REYNOSO MD [place] [facility] - In-person encounter Office Visit CHRISTY REYNOSO MD [place] [facility] - In-person encounter Office Visit CHRISTY REYNOSO MD [place] [facility] - In-person encounter Office Visit CHRISTY REYNOSO MD [place] [facility] - In-person encounter Office Visit CHRISTY REYNOSO MD [place] [facility] Hyperlipidemia - In-person encounter Office Visit CHRISTY REYNOSO MD [place] [facility] - In-person encounter Office Visit CHRISTY REYNOSO MD [place] [facility] - In-person encounter Office Visit CHRISTY REYNOSO MD [place] [facility] - In-person encounter Office Visit CHRISTY REYNOSO MD [place] [facility] - In-person encounter Office Visit CHRISTY REYNOSO MD [place] [facility] - In-person encounter Office Visit CHRISTY REYNOSO MD [place] [facility] - In-person encounter Office Visit CHRISTY REYNOSO MD [place] [facility] - In-person encounter Office Visit CHRISTY REYNOSO MD [place] [facility] - In-person encounter Office Visit CHRISTY REYNOSO MD [place] [facility] - In-person encounter Office Visit CHRISTY REYNOSO MD [place] [facility] - In-person encounter Office Visit CHRISTY REYNOSO MD [place] [facility] - In-person encounter Office Visit CHRISTY REYNOSO MD [place] [facility] - In-person encounter Office Visit CHRISTY REYNOSO MD [place] [facility] - In-person encounter Office Visit CHRISTY REYNOSO MD [place] [facility] - In-person encounter Office Visit CHRISTY REYNOSO MD [place] [facility] - In-person encounter Office Visit CHRISTY REYNOSO MD [facility] - In-person encounter Office Visit CHRISTY REYNOSO MD [facility] - In-person encounter Office Visit CHRISTY REYNOSO MD [facility] Other and unspecified peripheral vertigoEdema - In-person encounter Office Visit CHRISTY REYNOSO MD [facility] - In-person encounter Office Visit CHRISTY REYNOSO MD [facility] HTN essentialUnspecified hypothyroidism - In-person encounter Office Visit Chelsey Elizalde [facility] [place] - In-person encounter Office Visit Chelsey Elizalde [facility] - In-person encounter Office Visit Chelsey [facility] - In-person encounter Office Visit Chelsey Elizalde [place] - In-person encounter Office Visit Chelsey Elizalde [facility] - In-person encounter Office Visit Chelsey Elizalde [facility] [place] - In-person encounter Office Visit Chelsey Elizalde [place] [facility] - In-person encounter Office Visit Chelsey Elizalde [place] - In-person encounter Office Visit Chelsey Elizalde [facility] - In-person encounter Office Visit Chelsey Elizalde [facility] - In-person encounter Office Visit Chelsey Elizalde [facility] - In-person encounter Office Visit Chelsey [facility] ALLERGIES No Known Drug Allergies RESULTS [...] 4.0-5.6 platelet count 194 THOUSAND /UL [employer] [phone]/11 /16 Absolute Basophils 0.0 CELLS/UL [employer] 0.0-0.2 [...] cell distribution width, size density 54.2 fL [facility] - immature granulocytes, percentage of total cells, blood 0.3 % [facility] - nucleated red blood cells as percent of blood leukocytes 0.0 % [facility] - red blood cell (erythrocyte) count, per high power field 0.0 10*3/UL [facility] - eosinophils as percent of blood leukocytes 2.1 % [facility] - neutrophils as percent of blood leukocytes 57.0 % [facility] - Absolute Neutrophils 3.8 CELLS/UL [employer] 1.5 - 7.8 basophils as percent of blood leukocytes 0.8 % [facility] - Absolute Basophils 0.1 CELLS/UL [employer] 0.0 - 0.2 monocytes as percent of blood leukocytes 10.0 % [facility] - Absolute Monocytes 0.7 CELLS/UL [employer] 0.2 - 1.0 lymphocytes as percent of blood leukocytes 29.8 % [facility] - Absolute Lymphocytes 2.0 CELLS/UL [employer] 0.9 - 3.9 mean platelet volume 10.7 (?) [facility] - platelet count 214.0 THOUSAND /UL [employer] [...] NEEDED 8 CHRISTY REYNOSO MD VITAMIN D3 30098 UNIT ORAL CAPSULE active ONE CAPSULE TWICE [...] THE EVENING NEEDED 4 - 5 CHRISTY REYONSO MD SERTRALINE HCL 25 MG ORAL TABLET [...] Payer name Policy type / Coverage type [place] [employer] party ID [employer] HMO Other [id number] TREATMENT PLAN Date Name HEMOGLOBIN A1c THYROID [...]
--- OUTSIDE RECORDS SUMMARY | 2024-03-27 22:57 | XMS_ITS | Clinical Summary ---
Author Organization [facility] [employer] Address [address] [place] [address] Care Team Providers Care Derrick Man Name Role Phone Unavailable Primary Care Provider Unavailabl e Source Comments [facility] [employer],non-owned Affiliates and Associated Physician Practices is amultiple site organization consisting of ambulatory clinics and hospital sitesin [place], [place], [place] and [place]. This disclosure is being madepursuant to the Care Everywhere program and may not contain all information available regarding this patient. Last updated 17.[facility] [employer] Allergies No known active allergies Medications * [...]
[2024-03-27 22:58] VITALS: O2SAT 91
--- NOTE | 2024-03-27 22:59 | PC.NURSE ---
pts family who is at bedside believes that pt has a UTI and says pts urine has a strong odor. Pt states she is feeling better and no longer is having back pain
[2024-03-27 23:01] VITALS: BP 114/65; O2SAT 88
[2024-03-27 23:16] VITALS: BP 104/60; O2SAT 92
[2024-03-27 23:30] VITALS: O2SAT 90
[2024-03-27 23:31] VITALS: BP 112/66; O2SAT 95
--- NOTE | 2024-03-27 23:41 | ED.BACK ---
HPI - Back Pain/Injury General Chief Complaint: Back Pain/Injury Stated Complaint: Nausea, back pain, chest discomfort, no pain Time Seen by Provider: 03/27/24 22:53 Source: patient and family (daughter and son) Mode of arrival: ambulatory (brought by family) Limitations: no limitations History of Present Illness HPI Narrative: Patient presents with complaint of generally not feeling well. She lives by herself. She had been nauseated and with low back pain. Endorses chest discomfort but not isha pain. Occasionally short of breath. Had been having nausea but no vomiting. No fevers or chills. COughing a little, not productive. No sick contacts. When asked about flank pain she states no. She has been weak. History of CKD for which she sees flooring salesperson Dr Ramírez. She lives across the [address] from her granddaughter. Does not wear oxygen at baseline. Has had some loose stool but not bloody. Possibly on antibiotics 2 weeks ago. Related Data Home Medications ?Medication ?Instructions ?Recorded ?Confirmed ?Last Taken ?Type aspirin 81 mg tablet,delayed 81 mg PO DAILY 01/08/19 03/28/24 03/27/24 History release (Bogdan Low Dose Aspirin) calcium 500 mg tablet 1,000 mg PO DAILY 03/28/24 03/28/24 03/27/24 History relaxium 03/28/24 03/26/24 History vinia 03/28/24 03/27/24 History Allergies Allergy/AdvReac Type Severity Reaction Status Date / Time nitrofurantoin (From Allergy Unknown unknown Verified 03/22/24 13:06 Macrobid) [facility] Past Medical History Medical History Sepsis Vitamin D deficiency Depression Hypothyroidism HLD (hyperlipidemia) CKD (chronic kidney disease) Hypertensive CKD (chronic kidney disease) IgA nephropathy Family History Family History Mother Hypertension Heart disease Social History Social History (Updated 03/30/24 @ 06:11 by Ale Medina MD) Social History: Has a son and daughter. Smoking status: Never smoker Second hand tobacco smoke exposure: No Alcohol intake: never Substance use: never Substance use type: does not use Do You Feel Safe in your Home?: Yes Lack of Transportation: YES Lack of Food: Never True Current Housing: I Have Housing Concerned About Future Housing: No Difficulty Paying Gas/Electric Bills: No Difficulty Paying for Meds: No Currently Unemployed: No Education: High School Diploma/GED Difficulty w/ Childcare or Family Care: No Living arrangements: alone Additional living arrangements comments: Granddaughter lives across the street Occupation/Education: retired Gender identity (if verbalized by the patient): Female Sexual Orientation (if Verbalized by the Patient): Straight or Heterosexual Spiritual care concerns: No Exam Narrative: GENERAL: Well-appearing, well-nourished, and in no acute distress. HEAD: Normocephalic, atraumatic. EYES: Non injected, non icteric ENT: Nares clear, no rhinorrhea or epistaxis. NECK: Supple. CHEST: Speaking in full sentences. No respiratory distress. Lungs clear to auscultation. Nasal cannula in place. HEART: Regular rate and rhythm. . ABDOMEN: Soft, nondistended. No tenderness to palpation. EXTREMITIES: Normal range of motion. No lower extremity edema. SKIN: Warm, dry, no rash. NEURO: No focal deficits. Alert and oriented x3. PSYCH: Normal mood and affect. Course Vital Signs Vital signs: Vital Signs Temperature 99.3 F 03/27/24 19:14 Pulse Rate 104 H 03/27/24 19:14 Respiratory Rate 18 03/27/24 19:14 Blood Pressure 134/75 03/27/24 19:14 Pulse Oximetry 96 03/27/24 19:14 Oxygen Delivery Room Air 03/27/24 19:14 Temperature 98 F 03/30/24 04:00 Pulse Rate 74 03/30/24 05:01 Respiratory Rate 13 03/30/24 05:01 Blood Pressure 104/61 03/30/24 05:01 Pulse Oximetry 98 03/30/24 05:01 Oxygen Delivery High Flow Therapy with Nasal Cannula 03/29/24 15:07 Oxygen Flow Rate 50 03/29/24 15:07 Fraction of Inspired Oxygen 65 03/29/24 15:07 Procedures ABG Interpretation ABG Interpretation 1: ABG Results: pH 7.493 / pCO2 27.9 / p O2 53.0 / P CO3 20.9 Acute primary respiratory alkalosis; metabolic acidosis Central Line Placement Left IJ: Central Line Date: 03/28/24 Discussed w/ the patient/family/POA,the placement of a central venous catheter, including its clinical necessity/indication & associated potential risks, benifits and alternatives.: Yes Time Out Performed: Yes Patient Placed on Monitor/Pulse Ox: Yes Max. Sterile Barrier Technique: Caps and large sterile sheet Central Line Prep: 2% chlorhexidine scrub and sterile drapes applied Technique: US-Guided Local Anesthetic: lidocaine 1% Amount of anesthesia used (mL): 3 Ultrasound Used for Placement: Yes Central Line Lumen Inserted: triple Post Procedure: sutured in place, good blood return, all ports aspirated, flushed, capped and sterile dressing applied Post Procedure X-Ray: tip of catheter in good position and no pneumothorax seen Patient Tolerated Procedure: well and no complications Complications: none MDM - Back Pain/Injury MDM Narrative Medical decision making narrative: Patient presents with generally not feeling well. She has been weak and nauseated and occasionally short of breath with soem chest discomfort. Also coughing a little with low back pain. In the emergency department she is afebrile with vital signs notable for mild tachycardia. Urinalysis is concerning for urinary tract infection. Previous culture from 02/07/2023 is reviewed which at that time grew E coli which was resistant to ampicillin, ciprofloxacin, levofloxacin and indeterminate 2 cefuroxime but was sensitive to: amoxicillin/clavulanic acid, cefepime, ceftriaxone, ertapenem, gentamicin, imipenem, meropenem, nitrofurantoin, potato, tetracycline, tobramycin, and Bactrim. Will give first dose of ceftriaxone. Patient is noted to be hypoxic on room air by report from the nurse, although initially not hypoxic she was 87% on room air when brought back to ED room and thus nasal cannula was applied and she is on this at the time of my examination. Hyponatremia and hypokalemia. Patient already receiving 500 cc IV fluid to start. Will replete potassium. Dimer is elevated greater than 1. Will proceed with CT imaging. She does appear to have an RICHARD, will add additional 500cc given this and for renal protection given proceeding with CT. Leukocytosis and thrombocytopenia. Troponin is elevated, NSTEMI. 3 hr troponin is ordered and patient to be given aspirin. Elevated BNP. On reassessment she states she did recall having some pain along her left lateral abdomen. CT abd/pelvis ordered. CT shows no acute pulmonary embolism. Called to bedside at 3:15 a.m. given patient is having more labored breathing. She appears to be using more abdominal muscles. She denies any increased work of breathing however she is not hypoxic ranging from 82-84% on 2LPM. Uptitrated to 4LPM with only improvement to 86%. Will put on NRB and obtain stat EKG as well given now heart rate in the high 120s-low 130s. Obstructing stone seen on CT imaging. Discussed with urologist Dr. Goldstein at 4:50 a.m. who recommends making patient NPO. She then becomes hypotensive. Notified Dr Mccurdy. 2nd liter fluid bolus with minimal response. 3rd bolus ordered; still hypotensive as nearly assisted infused so peripehral pressors ordered and started after 3rd L completed but remains hypotensive. DIscussed with patient and she verifies understanding of the need for central line. She does ask numerous times that her family be notified. Attempted to call both son and daughter prior to performing Central Line procedure but no answer. Told the propellant charge zone assembler to please notify her family if they call back. Patient otherwise has capacity to make medical decisions for herself, just wanted them to be aware. Central line inserted as above due to need for administration of vasoactive substances. Discussed with Dr Lewis and hospitalist Dr Vergara. ICU orders placed. Dr Mccurdy in the ED to assess patient and notes she will be the priority this morning to the OR. he is able to contact family and notify them/provide updates. == Critical Care: 1 or more organ systems involved at risk of decompensation and requiring frequent intervention and assessment. Time spent includes discussing with patient and family, ordering and interpreting studies, discussing with consulting / admitting teams, documenting, etc. Time spent is independent of separately billable procedures. Differential Diagnosis Differential diagnosis: Likely other (acute viral syndrome/influenza/covid; UTI/pyelonephritis, PNA; acute heart failure; pulmonary embolism) Lab Data Attestation: I reviewed the patient's lab results. 03/30/24 04:26 03/30/24 04:26 Labs: Lab Results 03/27/24 03/27/24 03/28/24 Range/Units 22:26 23:56 00:03 WBC 16.0 H (4.5-10.0) K/mm3 RBC 3.73 L (4.2-5.4) M/mm3 Hgb 12.8 (12.0-15.0) g/dL Hct 37.6 (37.0-47.0) % MCV 100.8 H (80-100) fl MCH 34.3 H (26-34) pg MCHC 34.0 (32-36) g/dl RDW 14.0 (11.5-14.5) % Plt Count 115 L (150-375) k/mm3 MPV 10.3 (7.4-10.4) fl Immature Gran % (Auto) Not Reportable Neut % (Auto) Not Reportable Lymph % (Auto) Not Reportable [place] % (Auto) Not Reportable Eos % (Auto) Not Reportable Baso % (Auto) Not Reportable Lymph # (Auto) Not Reportable [place] # (Auto) Not Reportable Eos # (Auto) Not Reportable Baso # (Auto) Not Reportable Abs Immat Gran (auto) Not Reportable Absolute Neuts (auto) Not Reportable Absolute Nucleated RBC Not Reportable Total Counted 100 Neutrophils % (Manual) 86 H (46-73) % Band Neutrophils % 10 H (0-6) % Lymphocytes % (Manual) 1 L (18-44) % Monocytes % (Manual) 3 (3-9) % Nucleated RBC % Not Reportable Abs Neuts (Manual) 15.36 H (1.7-7.2) K/mm3 Abs Lymphs (Manual) 0.16 L (1.1-4.5) K/mm3 Abs Monocytes (Manual) 0.48 (0.1-0.90) K/mm3 Platelet Estimate Decreased (Adequate) Ovalocytes 1+ Schistocytes None seen PT 16.4 H (11.1-14.7) Seconds INR 1.3 APTT 28.2 (22.3-36.8) Seconds D-Dimer 3.05 H (<0.48) ug/mL Sodium 131 L (137-145) mmol/L Potassium 3.1 L (3.4-5.0) mmol/L Chloride 102 (98-107) mmol/L Carbon Dioxide 19 L (22-30) mmol/L Anion Gap 10 (4-12) mmol/L BUN 32 H (7-17) mg/dL Creatinine 1.47 H (0.7-1.0) mg/dL Estim Creat Clear Calc 23 ml/min Estimated GFR 34 L (59 - ) Glucose 127 H (65-110) mg/dL Calcium 8.9 (8.4-10.2) mg/dL Magnesium 1.8 (1.6-2.3) mg/dL Total Bilirubin 1.0 (0.2-1.3) mg/dL AST 26 (14-36) U/L ALT 20 (6-35) U/L Alkaline Phosphatase 73 (38-126) U/L Total Creatine Kinase 128 (30-135) U/L Troponin I 0.085 H* (0.000-0.034) ng/mL NT-Pro-B Natriuret Pep 4320 H (19.9-100) pg/mL Total Protein 6.0 L (6.3-8.2) g/dL Albumin 3.4 L (3.5-5.1) g/dL TSH 2.480 (0.465-4.680) uIU/mL Urine Color Yellow (Yellow) Urine Appearance Cloudy H (Clear) Urine pH 7.0 (5.0-9.0) Ur Specific [place] 1.011 (1.001-1.035) Urine Protein Trace (Negative) mg/dL Urine Glucose (UA) Negative (Negative) mg/dL Urine Ketones Negative (Negative) mg/dL Ur Blood (Man) 1+ H (Negative) Urine Nitrate Positive H (Negative) Urine Bilirubin Negative (Negative) Urine Urobilinogen 0.2 (<2.0) mg/dL Leukocyte Esterase Rfl 1+ H (Negative) AMAIRANI/UL Urine RBC 3-5 H (0-2) /hpf Urine WBC 21-50 H (0-3) /hpf Ur Squamous Epith Cells Few (Few) /hpf Urine Bacteria 4+ /hpf Urine Casts 0-2 Influenza A (RT-PCR) Negative (Negative) Influenza B (RT-PCR) Negative (Negative) RSV (RT-PCR) Negative (Negative) SARS-CoV-2 RNA (RT-PCR) Negative (Negative) 03/28/24 Range/Units 03:33 WBC (4.5-10.0) K/mm3 RBC (4.2-5.4) M/mm3 Hgb (12.0-15.0) g/dL Hct (37.0-47.0) % MCV (80-100) fl MCH (26-34) pg MCHC (32-36) g/dl RDW (11.5-14.5) % Plt Count (150-375) k/mm3 MPV (7.4-10.4) fl Immature Gran % (Auto) Neut % (Auto) Lymph % (Auto) [place] % (Auto) Eos % (Auto) Baso % (Auto) Lymph # (Auto) [place] # (Auto) Eos # (Auto) Baso # (Auto) Abs Immat Gran (auto) Absolute Neuts (auto) Absolute Nucleated RBC Total Counted Neutrophils % (Manual) (46-73) % Band Neutrophils % (0-6) % Lymphocytes % (Manual) (18-44) % Monocytes % (Manual) (3-9) % Nucleated RBC % Abs Neuts (Manual) (1.7-7.2) K/mm3 Abs Lymphs (Manual) (1.1-4.5) K/mm3 Abs Monocytes (Manual) (0.1-0.90) K/mm3 Platelet Estimate (Adequate) Ovalocytes Schistocytes PT (11.1-14.7) Seconds INR APTT (22.3-36.8) Seconds D-Dimer (<0.48) ug/mL Sodium (137-145) mmol/L Potassium (3.4-5.0) mmol/L Chloride (98-107) mmol/L Carbon Dioxide (22-30) mmol/L Anion Gap (4-12) mmol/L BUN (7-17) mg/dL Creatinine (0.7-1.0) mg/dL Estim Creat Clear Calc ml/min Estimated GFR (59 - ) Glucose (65-110) mg/dL Calcium (8.4-10.2) mg/dL Magnesium (1.6-2.3) mg/dL Total Bilirubin (0.2-1.3) mg/dL AST (14-36) U/L ALT (6-35) U/L Alkaline Phosphatase (38-126) U/L Total Creatine Kinase (30-135) U/L Troponin I 0.089 H* (0.000-0.034) ng/mL NT-Pro-B Natriuret Pep (19.9-100) pg/mL Total Protein (6.3-8.2) g/dL Albumin (3.5-5.1) g/dL TSH (0.465-4.680) uIU/mL Urine Color (Yellow) Urine Appearance (Clear) Urine pH (5.0-9.0) Ur Specific [place] (1.001-1.035) Urine Protein (Negative) mg/dL Urine Glucose (UA) (Negative) mg/dL Urine Ketones (Negative) mg/dL Ur Blood (Man) (Negative) Urine Nitrate (Negative) Urine Bilirubin (Negative) Urine Urobilinogen (<2.0) mg/dL Leukocyte Esterase Rfl (Negative) AMAIRANI/UL Urine RBC (0-2) /hpf Urine WBC (0-3) /hpf Ur Squamous Epith Cells (Few) /hpf Urine Bacteria /hpf Urine Casts Influenza A (RT-PCR) (Negative) Influenza B (RT-PCR) (Negative) RSV (RT-PCR) (Negative) SARS-CoV-2 RNA (RT-PCR) (Negative) Imaging Data Radiologist's impression: STAT RAD CTA Chest: Lungs: No focal consolidation, pleural effusion, or pneumothorax. Atelectasis at the lung bases. Vasculature: No acute pulmonary embolism. Atherosclerotic changes the a order. Thyroid: Enlarged left thyroid gland. Mediastinum and lymph nodes. Within normal limits. Superior abdomen: Hepatic steatosis. Left-sided perinephric stranding. Small hiatal hernia. Musculoskeletal: Degenerative changes Impression: No acute pulmonary embolism. STAT RAD CT Abd /Pelvis with Contrast: Obstructing 9 mm stone in the left distal ureter. Mild hydronephrosis of the left kidney with delayed nephrogram and perinephric stranding. ECG Data EKG #1: Attestation: I personally reviewed and interpreted this ECG as follows: ECG completion date: 03/28/24 ECG completion time: 00:22 Interpretation: Normal sinus rhythm at a rate of 89 beats per minute. WI interval 154. QRS 109. QT/QTC 370/417. EKG #2: Attestation: I personally reviewed and interpreted this ECG as follows: ECG completion date: 03/28/24 ECG completion time: 03:24 Interpretation: Sinus tachycardia at a rate of 121 beats per minute. WI interval 162. QRS 101. QT/QTC 3 weight/380. Good R-wave progression across the precordial leads. Critical Care Time Critical Care Time Critical Care Time: Yes Total Critical Care Time: 45 Discharge Plan Discharge Clinical Impression: UTI (urinary tract infection), Hyponatremia, Hypokalemia, RICHARD (acute kidney injury), Leukocytosis, Thrombocytopenia, Non-ST elevation PR (NSTEMI), Elevated brain natriuretic peptide (BNP) level, Enlarged thyroid gland, Hepatic steatosis, Calculus of distal left ureter, Hydronephrosis of left kidney, Hypotension Patient Disposition: Still a Patient Condition: Critical
[2024-03-28] VITALS (54 sets, daily range): BP systolic 71–161; BP diastolic 49–105; PULSE 74–129; RESP 15–34; TEMP 36.6–37.4; O2SAT 81–100
[2024-03-28 00:25] LABS: Alveolar/Arterial O2 Gradient 113.7 mmHg; Base Excess ABG -1.1 mEq/l (+/-2.0); Fractional Inspired Oxygen 28 %; HCO3 ABG 20.9 mEq/l (22.0-26.0); Oxygen Saturation ABG 90.6 % (95.0-100.0); Oxyhemoglobin 88.9 % THb (90.0-100.0); PCO2 ABG 27.9 mmHg (35.0-45.0); PO2 FiO2 Ratio Arterial Blood 1.89 %; Total Hemoglobin 13.6 g/dL (12.0-18.0); pH ABG 7.493 (7.350-7.450)
[2024-03-28 00:26] LABS: Device NASAL CANNULA; Modified Allen's Test Pass; Site Drawn RIGHT RADIAL
[2024-03-28 00:26] LABS: Alanine Aminotransferase 20 U/L (6-35); Albumin Level 3.4 g/dL (3.5-5.1); Alkaline Phosphatase 73 U/L (38-126); Anion Gap 10 mmol/L (4-12); Aspartate Amino Transferase 26 U/L (14-36); Blood Urea Nitrogen 32 mg/dL (7-17); Calcium 8.9 mg/dL (8.4-10.2); Carbon Dioxide 19 mmol/L (22-30); Chloride 102 mmol/L (98-107); Estimated CRCL calculation 23 ml/min; Estimated Glomerular Filt Rate 34; Glucose 127 mg/dL (65-110); INR 1.3; Partial Thromboplastin Time 28.2 Seconds (22.3-36.8); Potassium 3.1 mmol/L (3.4-5.0); Prothrombin Time 16.4 Seconds (11.1-14.7); Sodium 131 mmol/L (137-145)
[2024-03-28] MEDS: ONDANSETRON INJ 4 MG/2 ML VIAL IV PUSH (00:30)
[2024-03-28] MEDS: SODIUM CHLORIDE 0.9% IV 500 ML 999 ML IV CONT ×2 (00:30→01:50)
[2024-03-28 00:43] LABS: D Dimer 3.05 ug/mL (<0.48)
[2024-03-28 00:45] LABS: NT Pro B Type Natriuretic Pept 4320 pg/mL (19.9-100)
[2024-03-28 00:47] LABS: Hematocrit 37.6 % (37.0-47.0); Hemoglobin 12.8 g/dL (12.0-15.0); Mean Corpuscular Hemoglobin 34.3 pg (26-34); Mean Corpuscular Volume 100.8 fl (80-100); Mean Platelet Volume 10.3 fl (7.4-10.4); Platelet Count Result 115 k/mm3 (150-375); Red Blood Count 3.73 M/mm3 (4.2-5.4)
[2024-03-28 00:49] LABS: Influenza A QL RT-PCR Negative (Negative); Influenza B QL RT-PCR Negative (Negative); RSV RNA, RT-PCR Negative (Negative); SARS-CoV-2 RNA PCR Negative (Negative)
[2024-03-28 01:00] LABS: Band Neutrophils Percent 10 % (0-6); Lymphocytes Absolute Manual 0.16 K/mm3 (1.1-4.5); Lymphocytes Percent Manual 1 % (18-44); Monocytes Absolute Manual 0.48 K/mm3 (0.1-0.90); Monocytes Percent Manual 3 % (3-9); Neutrophils Absolute Manual 15.36 K/mm3 (1.7-7.2); Neutrophils Percent Manual 86 % (46-73); Platelet Estimate Decreased (Adequate); Total Cells Counted 100
[2024-03-28 01:01] LABS: Ovalocytes 1+; Schistocytes None Seen
[2024-03-28 01:05] LABS: Troponin I 0.085 ng/mL (0.000-0.034)
[2024-03-28 01:16] LABS: Creatine Kinase 128 U/L (30-135); Magnesium 1.8 mg/dL (1.6-2.3)
[2024-03-28] MEDS: ASPIRIN 81 MG CHEWABLE TABLET 324 MG PO (01:50)
[2024-03-28] MEDS: POTASSIUM BICARBONATE 25 MEQ TABEF 50 MEQ PO (01:51)
--- NOTE | 2024-03-28 02:14 | PC.NURSE ---
ptt had episode of incontinence of stool, pt cleaned up and placed on purewick. Pt attempted to drink PO potassium, she states she began throwing up, pt states she is not nauseous but says I just choked a little bit that's why I threw up
--- NOTE | 2024-03-28 03:14 | ECG_ITS ---
Test Date: 2024-03-28 00:22:17 Measurements Intervals [place] Rate: 89 P: 46 AL: 154 QRS: -5 QRSD: 109 T: 21 QT: 370 QTc: 452 Interpretive Statements SINUS RHYTHM WITH OCCASIONAL SUPRAVENTRICULAR PREMATURE COMPLEXES LOW QRS VOLTAGE IN PRECORDIAL LEADS POSSIBLE ANTERIOR MYOCARDIAL INFARCTION , PROBABLY OLD CONSIDER INFERIOR INFARCT, AGE INDETERMINATE BASELINE WANDER- II, III, AVR, AVL, AVF ABNORMAL ECG No previous ECG available for comparison Electronically Signed On 03-28-2024 07:01:10 BAKERY MANAGER by Joseph Mccain D.O.
--- NOTE | 2024-03-28 03:15 | ECG_ITS ---
Test Date: 2024-03-28 03:24:32 Measurements Intervals [place] Rate: 121 P: 58 AK: 162 QRS: 15 QRSD: 101 T: 48 QT: 308 QTc: 439 Interpretive Statements SINUS TACHYCARDIA DELAYED PRECORDIAL R/S TRANSITION LOW QRS VOLTAGE IN PRECORDIAL LEADS CONSIDER ANTERIOR INFARCT, AGE INDETERMINATE BORDERLINE ST-T WAVE ABNORMALITY- LAT/HIGH LAT LEADS BASELINE ARTIFACT- I, II, III, AVR, AVL, AVF, V1-V6 ABNORMAL ECG Compared to ECG 03/28/2024 00:22:17 HEART RATE HAS INCREASED Electronically Signed On 03-28-2024 07:12:22 IT TECHNICIAN by Joseph Mccain D.O.
[2024-03-28] MEDS: ACETAMINOPHEN 500 MG TABLET 1000 MG PO (03:40)
[2024-03-28 04:02] LABS: Troponin I 0.089 ng/mL (0.000-0.034)
--- NOTE | 2024-03-28 04:33 | PC.NURSE ---
Pt abdomen appears distended, pts daughter says pts abdomen always looks as distended as it is today, pts daughter says pts abdomen appears more red than usual
[2024-03-28] MEDS: SODIUM CHLORIDE 0.9% IV 1,000 ML 999 ML IV CONT ×2 (05:45→06:34)
[2024-03-28] MEDS: NOREPINEPHRINE 8 MG/D5W 250 ML 8 MG/250 ML BAG 9.38 MG IV CONT (06:33)
--- NOTE | 2024-03-28 06:59 | PC.NURSE ---
Dr. Medina attempted to contact pts daughter saurav and pts son stiven upon pt request to inform them of pt blood pressure and central line insertion, neither call was answered. Messages left
--- NOTE | 2024-03-28 08:41 | PC.NURSE ---
Report called to Perry in the OR
--- NOTE | 2024-03-28 09:10 | WPDANESEPPF ---
Anes - Initial Pre Proc Eval Procedure: Operation Date: 03/28/24 09:30 Proposed Procedures p Cystoscopy, Left Stent Placement - Basilia Mccurdy MD Date/Time: 03/28/24 09:10 Surgeon: Magali Vergara DO Pre Op Diagnosis: septic stone, hypotensive on pressors; NSTEMI Patient Data Age: 88 Gender: F Height: 1.68 m Weight: 75.3 kg Last Vital Signs Temp 37.4 C 03/27/24 19:14 Pulse 96 03/28/24 08:06 Resp 31 H 03/28/24 08:06 BP 90/69 L 03/28/24 08:06 Pulse Ox 97 03/28/24 08:06 O2 Del Method Room Air 03/27/24 19:14 Allergies Allergy/AdvReac Type Severity Reaction Status Date / Time nitrofurantoin (From Allergy Unknown unknown Verified 03/22/24 13:06 Macrobid) Home Medications ?Medication ?Instructions ?Recorded ?Confirmed ?Type aspirin 81 mg tablet,delayed 81 mg PO DAILY 01/08/19 03/22/24 History release (Bogdan Low Dose Aspirin) prednisone 2.5 mg tablet 2.5 mg PO DAILY #90 tabs 08/08/23 03/22/24 Rx ergocalciferol (vitamin D2) 1,250 50,000 unit PO MONTHLY #12 caps 08/12/23 03/22/24 Rx mcg (50,000 unit) capsule irbesartan 300 mg tablet See Rx Instructions .Route 08/12/23 03/22/24 Rx .COMPLEX #90 tabs levothyroxine 112 mcg tablet See Rx Instructions .Route 08/15/23 03/22/24 Rx .COMPLEX #90 tabs amlodipine 10 mg tablet 10 mg PO DAILY #90 tabs 09/06/23 03/22/24 Rx atorvastatin 40 mg tablet See Rx Instructions .Route 11/18/23 03/22/24 Rx .COMPLEX #90 tabs furosemide 40 mg tablet See Rx Instructions .Route 12/23/23 03/22/24 Rx .COMPLEX #90 tabs potassium chloride 10 mEq See Rx Instructions .Route 12/23/23 03/22/24 Rx capsule,extended release .COMPLEX #90 caps sertraline 50 mg tablet 75 mg (1.5 x 50 mg) PO DAILY 90 02/10/24 03/22/24 Rx days #135 tabs carvedilol 12.5 mg tablet 12.5 mg PO Q12H #60 tabs 03/22/24 03/22/24 Rx naloxone 4 mg/actuation nasal 4 mg intranasal Q3M PRN opioid 03/22/24 03/22/24 Rx spray (Narcan) overdose #2 ea omega 4-tnh-anx-fish oil 1,200 mg 3 cap PO DAILY #1 cap 03/22/24 03/22/24 Rx (144 mg-216 mg) capsule (Fish Oil) tramadol 50 mg tablet 50 mg PO Q12H PRN pain #60 tabs 03/22/24 03/22/24 Rx Laboratory Tests 03/27/24 03/27/24 03/28/24 22:26 23:56 00:03 WBC 16.0 H K/mm3 (4.5-10.0) RBC 3.73 L M/mm3 (4.2-5.4) Hgb 12.8 g/dL (12.0-15.0) Hct 37.6 % (37.0-47.0) MCV 100.8 H fl (80-100) MCH 34.3 H pg (26-34) MCHC 34.0 g/dl (32-36) RDW 14.0 % (11.5-14.5) Plt Count 115 L k/mm3 (150-375) MPV 10.3 fl (7.4-10.4) Immature Gran % (Auto) Not Reportable Neut % (Auto) Not Reportable Lymph % (Auto) Not Reportable [place] % (Auto) Not Reportable Eos % (Auto) Not Reportable Baso % (Auto) Not Reportable Lymph # (Auto) Not Reportable [place] # (Auto) Not Reportable Eos # (Auto) Not Reportable Baso # (Auto) Not Reportable Abs Immat Gran (auto) Not Reportable Absolute Neuts (auto) Not Reportable Absolute Nucleated RBC Not Reportable Total Counted 100 Neutrophils % (Manual) 86 H % (46-73) Band Neutrophils % 10 H % (0-6) Lymphocytes % (Manual) 1 L % (18-44) Monocytes % (Manual) 3 % (3-9) Nucleated RBC % Not Reportable Abs Neuts (Manual) 15.36 H K/mm3 (1.7-7.2) Abs Lymphs (Manual) 0.16 L K/mm3 (1.1-4.5) Abs Monocytes (Manual) 0.48 K/mm3 (0.1-0.90) Platelet Estimate Decreased (Adequate) Ovalocytes 1+ Schistocytes None seen PT 16.4 H Seconds (11.1-14.7) INR 1.3 APTT 28.2 Seconds (22.3-36.8) D-Dimer 3.05 H ug/mL (<0.48) Puncture Site ABG pH ABG pCO2 ABG pO2 ABG PO2/FiO2 Ratio ABG HCO3 ABG O2 Saturation ABG O2 Content ABG Base Excess A-a Gradient Oxyhemoglobin Total Hemoglobin O2 Delivery Device O2 Liters/Min FiO2 Sodium 131 L mmol/L (137-145) Potassium 3.1 L mmol/L (3.4-5.0) Chloride 102 mmol/L (98-107) Carbon Dioxide 19 L mmol/L (22-30) Anion Gap 10 mmol/L (4-12) BUN 32 H mg/dL (7-17) Creatinine 1.47 H mg/dL (0.7-1.0) Estim Creat Clear Calc 23 ml/min Estimated GFR 34 L (59 - ) Glucose 127 H mg/dL (65-110) Calcium 8.9 mg/dL (8.4-10.2) Magnesium 1.8 mg/dL (1.6-2.3) Total Bilirubin 1.0 mg/dL (0.2-1.3) AST 26 U/L (14-36) ALT 20 U/L (6-35) Alkaline Phosphatase 73 U/L (38-126) Total Creatine Kinase 128 U/L (30-135) Troponin I 0.085 H* ng/mL (0.000-0.034) NT-Pro-B Natriuret Pep 4320 H pg/mL (19.9-100) Total Protein 6.0 L g/dL (6.3-8.2) Albumin 3.4 L g/dL (3.5-5.1) TSH 2.480 uIU/mL (0.465-4.680) Urine Color Yellow (Yellow) Urine Appearance Cloudy H (Clear) Urine pH 7.0 (5.0-9.0) Ur Specific [place] 1.011 (1.001-1.035) Urine Protein Trace mg/dL (Negative) Urine Glucose (UA) Negative mg/dL (Negative) Urine Ketones Negative mg/dL (Negative) Ur Blood (Man) 1+ H (Negative) Urine Nitrate Positive H (Negative) Urine Bilirubin Negative (Negative) Urine Urobilinogen 0.2 mg/dL (<2.0) Leukocyte Esterase Rfl 1+ H AMAIRANI/UL (Negative) Urine RBC 3-5 H /hpf (0-2) Urine WBC 21-50 H /hpf (0-3) Ur Squamous Epith Cells Few /hpf (Few) Urine Bacteria 4+ /hpf Urine Casts 0-2 Influenza A (RT-PCR) Negative (Negative) Influenza B (RT-PCR) Negative (Negative) RSV (RT-PCR) Negative (Negative) SARS-CoV-2 RNA (RT-PCR) Negative (Negative) 03/28/24 03/28/24 00:12 03:33 WBC RBC Hgb Hct MCV MCH MCHC RDW Plt Count MPV Immature Gran % (Auto) Neut % (Auto) Lymph % (Auto) [place] % (Auto) Eos % (Auto) Baso % (Auto) Lymph # (Auto) [place] # (Auto) Eos # (Auto) Baso # (Auto) Abs Immat Gran (auto) Absolute Neuts (auto) Absolute Nucleated RBC Total Counted Neutrophils % (Manual) Band Neutrophils % Lymphocytes % (Manual) Monocytes % (Manual) Nucleated RBC % Abs Neuts (Manual) Abs Lymphs (Manual) Abs Monocytes (Manual) Platelet Estimate Ovalocytes Schistocytes PT INR APTT D-Dimer Puncture Site Right radial ABG pH 7.493 H (7.350-7.450) ABG pCO2 27.9 L mmHg (35.0-45.0) ABG pO2 53.0 L mmHg (80.0-100.0) ABG PO2/FiO2 Ratio 1.89 % ABG HCO3 20.9 L mEq/l (22.0-26.0) ABG O2 Saturation 90.6 L % (95.0-100.0) ABG O2 Content 17.0 %vol (16.0-22.0) ABG Base Excess -1.1 mEq/l (+/-2.0) A-a Gradient 113.7 mmHg Oxyhemoglobin 88.9 L % THb (90.0-100.0) Total Hemoglobin 13.6 g/dL (12.0-18.0) O2 Delivery Device Nasal cannula O2 Liters/Min 2.0 LPM FiO2 28 % Sodium Potassium Chloride Carbon Dioxide Anion Gap BUN Creatinine Estim Creat Clear Calc Estimated GFR Glucose Calcium Magnesium Total Bilirubin AST ALT Alkaline Phosphatase Total Creatine Kinase Troponin I 0.089 H* ng/mL (0.000-0.034) NT-Pro-B Natriuret Pep Total Protein Albumin TSH Urine Color Urine Appearance Urine pH Ur Specific [place] Urine Protein Urine Glucose (UA) Urine Ketones Ur Blood (Man) Urine Nitrate Urine Bilirubin Urine Urobilinogen Leukocyte Esterase Rfl Urine RBC Urine WBC Ur Squamous Epith Cells Urine Bacteria Urine Casts Influenza A (RT-PCR) Influenza B (RT-PCR) RSV (RT-PCR) SARS-CoV-2 RNA (RT-PCR) Patient hx anesthesia problems: none Family hx anesthesia problems: none Results Review: All pre-operative results and documents have been reviewed as part of the pre-operative evaluation. [facility] Past Medical History Medical History Sepsis Vitamin D deficiency Depression Hypothyroidism HLD (hyperlipidemia) CKD (chronic kidney disease) Hypertensive CKD (chronic kidney disease) IgA nephropathy Family History Family History Mother Hypertension Heart disease Social History Social History Smoking status: Never smoker Second hand tobacco smoke exposure: No Alcohol intake: never Substance use: never Substance use type: does not use Living arrangements: alone Occupation/Education: retired Gender identity (if verbalized by the patient): Female Sexual Orientation (if Verbalized by the Patient): Straight or Heterosexual Anes - Eval Final PreProcedure Day of Procedure 03/28/24 09:10 Patient weight: overweight Heart: tachycardia Lungs: decreased breath sounds Airway: Mallampati scale class II Neurological: alert and oriented Last oral intake: >/= 8 hours ASA classification: IV Emergent: yes Anesthetic plan: proceed Anesthesia type and monitoring: general Results Review: All pre-operative results and documents have been reviewed as part of the pre-operative evaluation. Informed Consent: The patient's anesthetic plan and its attendant risks and benefits were discussed with the patient/family/POA. Questions were solicited and answers provided to the satisfaction of the patient/family/POA.
--- NOTE | 2024-03-28 09:36 | SUR.OPER ---
Left renal pelvis culture
--- NOTE | 2024-03-28 09:44 | P.OP_ITS ---
Procedure Note - Detailed Date of Procedure 03/28/24 Pre-op Diagnosis septic stone- Left distal ureter, hypotensive on pressors; NSTEMI Post-op Diagnosis Same Procedure Performed Cystoscopy, left retrograde pyelogram, left ureteral stent insertion, Marshall catheter insertion Surgeon Basilia Mccurdy MD Anesthesia MAC Description of Procedure Informed consent was obtained. Patient taken the operating. She was given preoperative IV antibiotics in the emergency department. She was given minimal MAC anesthetic due to her septic condition. Sales Office Assistant imaging revealed residual contrast from recent CT scan present in both kidneys and a distended bladder, there was left hydroureteronephrosis and delicate right collecting system. A 22 F cystoscope was inserted through the urethra into the bladder. Bladder was emptied with infected appearing urine evacuated. We inspected the bladder and there was inflammation consistent with her known UTI, no other mucosal abnormalities. The patient had bilateral orthotopic orifices. We identified the left ureteral orifice was cannulated. Urine from left collecting system sent for culture. A gentle retrograde pyelogram was performed to confirm correct placement of the wire and then over a wire a 6 F variable length stent was placed with a curl in the upper pole and a curl in bladder. The bladder was then emptied with Marshall catheter. Patient was then transferred directly to the ICU in critical condition. Complications No immediate complications Condition Critical Disposition ICU
--- NOTE | 2024-03-28 09:58 | SUR.OPER ---
specimen delivered to [facility]
--- NOTE | 2024-03-28 10:08 | ADMGEN ---
This patient, Vianca Blanca, was admitted to Intensive Care Unit-7. Patient/family oriented to hospital policies and general routines including ID bracelet, bed and alarms, visiting hours, pain management, procedures, bathroom and other care routines, personal items, smoking policy, room service/diet, and visiting hours. Information on how to activate the Rapid Response Team has been discussed. Patient/Family are encouraged to report perceived risks to care and to ask questions if they do not understand what they are told or what they should do.
--- NOTE | 2024-03-28 10:40 | P.HP_ITS ---
H&P: HPI History of Present Illness Date/Time: 03/28/24 10:40 Chief Complaint: Back pain Narrative: 88 years old lady with history of hypertension, CKD, IgA nephropathy, hypothyroidism, hyperlipidemia, present ED with a chief complaint of back. Patient had sudden bilateral flank pain yesterday, associated with nausea denies vomiting diarrhea. Patient also has chills, denies fever. Patient has dysuria, cannot pass urine. Patient denies chest pain shortness breath, headache, focal weakness. Patient feels generally weak. Patient was brought to ED for evaluation treatment. Upon arrival to ED, patient has low-grade fever 99.3, tachycardia 104, tachycardia 129 hypertension 80/57, lab showed leukocytosis 1600,, ABG showed hypoxemic respiratory failure, chemistry showed hyponatremia 131, hypokalemia 3.1, elevated BUN creatinine ratio 32/1.47, baseline creatinine 1.1 April 21, UA shows pyuria and microscopic hematuria, cloudy urine, elevated troponin, elevated BNP 4320, I read the EKG, EKG shows sinus tachycardia 121, no specific ST or T-wave changes. X-ray showed cardiomegaly, atelectasis in mid and lower lung zone. CT scan showed left hydronephrosis, pyelonephritis, distal urethral stone. Patient received antibiotics, vasopressors, and patient underwent emergent cystoscope, left ureter stone insertion, [facility] Past Medical History Medical History Sepsis Vitamin D deficiency Depression Hypothyroidism HLD (hyperlipidemia) CKD (chronic kidney disease) Hypertensive CKD (chronic kidney disease) IgA nephropathy Family History Family History Mother Hypertension Heart disease Social History Social History Smoking status: Never smoker Second hand tobacco smoke exposure: No Alcohol intake: never Substance use: never Substance use type: does not use Do You Feel Safe in your Home?: Yes Lack of Transportation: YES Lack of Food: Never True Current Housing: I Have Housing Concerned About Future Housing: No Difficulty Paying Gas/Electric Bills: No Difficulty Paying for Meds: No Currently Unemployed: No Education: High School Diploma/GED Difficulty w/ Childcare or Family Care: No Living arrangements: alone Occupation/Education: retired Gender identity (if verbalized by the patient): Female Sexual Orientation (if Verbalized by the Patient): Straight or Heterosexual Spiritual care concerns: No Meds Home Medications and Allergies Home Medications ?Medication ?Instructions ?Recorded ?Confirmed ?Type aspirin 81 mg tablet,delayed 81 mg PO DAILY 01/08/19 03/28/24 History release (Bogdan Low Dose Aspirin) prednisone 2.5 mg tablet 2.5 mg PO DAILY #90 tabs 08/08/23 03/28/24 Rx ergocalciferol (vitamin D2) 1,250 50,000 unit PO MONTHLY #12 caps 08/12/23 03/28/24 Rx mcg (50,000 unit) capsule irbesartan 300 mg tablet See Rx Instructions .Route 08/12/23 03/28/24 Rx .COMPLEX #90 tabs levothyroxine 112 mcg tablet See Rx Instructions .Route 08/15/23 03/28/24 Rx .COMPLEX #90 tabs amlodipine 10 mg tablet 10 mg PO DAILY #90 tabs 09/06/23 03/28/24 Rx atorvastatin 40 mg tablet See Rx Instructions .Route 11/18/23 03/28/24 Rx .COMPLEX #90 tabs furosemide 40 mg tablet See Rx Instructions .Route 12/23/23 03/28/24 Rx .COMPLEX #90 tabs potassium chloride 10 mEq See Rx Instructions .Route 12/23/23 03/28/24 Rx capsule,extended release .COMPLEX #90 caps sertraline 50 mg tablet 75 mg (1.5 x 50 mg) PO DAILY 90 02/10/24 03/28/24 Rx days #135 tabs carvedilol 12.5 mg tablet 12.5 mg PO Q12H #60 tabs 03/22/24 03/28/24 Rx naloxone 4 mg/actuation nasal 4 mg intranasal Q3M PRN opioid 03/22/24 03/28/24 Rx spray (Narcan) overdose #2 ea omega 1-ilg-qsx-fish oil 1,200 mg 3 cap PO DAILY #1 cap 03/22/24 03/28/24 Rx (144 mg-216 mg) capsule (Fish Oil) tramadol 50 mg tablet 50 mg PO Q12H PRN pain #60 tabs 03/22/24 03/28/24 Rx calcium 500 mg tablet 1,000 mg PO DAILY 03/28/24 03/28/24 History relaxium 03/28/24 History vinia 03/28/24 History Allergies Allergy/AdvReac Type Severity Reaction Status Date / Time nitrofurantoin (From Allergy Unknown unknown Verified 03/22/24 13:06 Macrobid) Vital Signs Vital Signs - 24 hr 03/27/24 19:14 03/27/24 22:58 03/27/24 23:01 Temperature 99.3 F Pulse Rate 104 H Respiratory Rate 18 Blood Pressure 134/75 114/65 Pulse Oximetry 96 91 88 L Oxygen Delivery Room Air 03/27/24 23:16 03/27/24 23:30 03/27/24 23:31 Temperature Pulse Rate Respiratory Rate Blood Pressure 104/60 112/66 Pulse Oximetry 92 90 95 Oxygen Delivery 03/28/24 01:22 03/28/24 02:17 03/28/24 02:49 Temperature Pulse Rate 92 100 122 H Respiratory Rate 24 H 24 H 33 H Blood Pressure 99/65 L 112/91 H 142/105 H Pulse Oximetry 93 93 Oxygen Delivery 03/28/24 03:12 03/28/24 03:17 03/28/24 04:12 Temperature Pulse Rate 129 H 120 H 115 H Respiratory Rate 34 H 34 H 29 H Blood Pressure 142/105 H 161/95 H 110/78 Pulse Oximetry 81 L 97 97 Oxygen Delivery 03/28/24 04:28 03/28/24 05:30 03/28/24 05:45 Temperature Pulse Rate 100 96 Respiratory Rate 34 H 29 H 26 H Blood Pressure 79/51 L 71/49 L Pulse Oximetry 98 99 98 Oxygen Delivery 03/28/24 05:46 03/28/24 06:20 03/28/24 06:33 Temperature Pulse Rate 95 94 95 Respiratory Rate 24 H 26 H Blood Pressure 82/54 L 73/53 L Pulse Oximetry 99 100 Oxygen Delivery 03/28/24 06:49 03/28/24 06:54 03/28/24 07:02 Temperature Pulse Rate 103 H 94 92 Respiratory Rate Blood Pressure 75/53 L 80/57 L 81/64 L Pulse Oximetry Oxygen Delivery 03/28/24 07:31 03/28/24 07:50 03/28/24 08:06 Temperature Pulse Rate 91 91 96 Respiratory Rate 27 H 31 H Blood Pressure 83/61 L 76/53 L 90/69 L Pulse Oximetry 98 97 Oxygen Delivery Exam Narrative: GENERAL: Ill-appearing in no acute distress. Well-nourished. - EYES: EOMI. Anicteric. - HENT: Moist mucous membranes. - LUNGS: Clear to auscultation bilateral ly, no wheezing, rhonchi, or rales. - CARDIOVASCULAR: Regular rate and rhyth m. No murmur. No JVD. - ABDOMEN: Soft, non-tender and non-dist ended. No palpable masses. - EXTREMITIES: No edema. Peripheral puls es 2+. Non-tender. - NEUROLOGIC: No focal neurological defi cits. CN II-XII grossly intact. - PSYCHIATRIC: Awake, Alert and oriented x 3. Appropriate mood and affect. - SKIN: No rashes or lesions. Warm. - LYMPH: No cervical lymphadenopathy. H&P: Results Labs Labs: Short CBC 03/28/24 Range/Units 00:03 WBC 16.0 H (4.5-10.0) K/mm3 Hgb 12.8 (12.0-15.0) g/dL Hct 37.6 (37.0-47.0) % Plt Count 115 L (150-375) k/mm3 BMP 03/28/24 00:03 Sodium 131 L Potassium 3.1 L Chloride 102 Carbon Dioxide 19 L BUN 32 H Creatinine 1.47 H Glucose 127 H Calcium 8.9 Cardiac Enzymes 03/28/24 03/28/24 Range/Units 00:03 03:33 Total Creatine Kinase 128 (30-135) U/L Troponin I 0.085 H* 0.089 H* (0.000-0.034) ng/mL Liver Function 03/28/24 Range/Units 00:03 Total Bilirubin 1.0 (0.2-1.3) mg/dL AST 26 (14-36) U/L ALT 20 (6-35) U/L Alkaline Phosphatase 73 (38-126) U/L Albumin 3.4 L (3.5-5.1) g/dL Urine 03/27/24 Range/Units 22:26 Urine Color Yellow (Yellow) Urine Appearance Cloudy H (Clear) Urine pH 7.0 (5.0-9.0) Ur Specific [place] 1.011 (1.001-1.035) Urine Protein Trace (Negative) mg/dL Urine Glucose (UA) Negative (Negative) mg/dL Assessment and Plan Assessment and plan (1) Septic shock: Code(s): A41.9 - Sepsis, unspecified organism; R65.21 - Severe sepsis with septic shock Status: Acute (2) Non-ST elevation [place] (NSTEMI): Code(s): I21.4 - Non-ST elevation (NSTEMI) myocardial infarction Status: Acute (3) Hypothyroidism: Code(s): E03.9 - Hypothyroidism, unspecified Status: Acute (4) Hyponatremia: Code(s): E87.1 - Hypo-osmolality and hyponatremia Status: Acute (5) Acute kidney injury superimposed on stage 1 chronic kidney disease: Code(s): N17.9 - Acute kidney failure, unspecified; N18.1 - Chronic kidney disease, stage 1 Status: Acute (6) Hypertensive CKD (chronic kidney disease): Code(s): I12.9 - Hypertensive chronic kidney disease with stage 1 through stage 4 chronic kidney disease, or unspecified chronic kidney disease Status: Acute (7) RICHARD (acute kidney injury): Code(s): N17.9 - Acute kidney failure, unspecified Status: Acute (8) Calculus of distal left ureter: Code(s): N20.1 - Calculus of ureter Status: Acute (9) UTI (urinary tract infection): Code(s): N39.0 - Urinary tract infection, site not specified Status: Acute (10) Pyelonephritis: Code(s): N12 - Tubulo-interstitial nephritis, not specified as acute or chronic Status: Acute Plan Septic shock, pyelonephritis, obstructing kidney stone Upon arrival to ED patient had low-grade fever 99.3, tachycardia 104, tachycardia 129 hypertension 80/57, lab showed leukocytosis 1600, consistent with criteria of septic shock, resulting from pyelonephritis due to obstructing kidney stone UA shows pyuria and microscopic hematuria, cloudy urine CT scan showed left hydronephrosis, pyelonephritis, distal urethral stone. Patient received ceftriaxone 2 g IV once and continue ceftriaxone 2 g IV daily, added vancomycin IV Patient received fluid resuscitation and norepinephrine IV Titrate vasopressors to keep map above 65, patient underwent emergent cystoscope, left ureter stone insertion Appreciate consultation of color specialist and urologist Acute respiratory failure Upon arrival to ED, patient was found have hypoxemia ABG showed hypoxemic respiratory failure, CT shows no PE but med atelectasis Likely resulting from sepsis Continue O2 therapy to keep pulse ox above 95 RICHARD on CKD, hyponatremia, hypokalemia Likely secondary to septic shock, UTI, inadequate intake of of electrolyte Patient is on fluid resuscitation with lactated Ringer and vasopressor repleted with potassium chloride Avoid nephrotoxic medication Follow-up BMP NSTEMI Possible demand ischemia elevated troponin, elevated BNP 4320, I read the EKG, EKG shows sinus tachycardia 121, no specific ST or T-wave changes. Received aspirin 325 mg once 81 mg daily p.o. Lipitor 40 mg daily p.o. Follow-up echocardiogram Consult service secretary Acute heart failure elevated BNP 4320 Pending echocardiogram Patient is on norepinephrine IV Consult service secretary Hypothyroidism continue Synthroid 112 mcg daily p.o. Thrombocytopenia Platelet 371401 lower than baseline, likely secondary to septic shock No active bleeding Essential hypertension Hold amlodipine 10 mg daily p.o., cortisol 12.5 mg b.i.d. p.o.irbesartan 300 mg daily p.o. due to septic shock Patient condition is critical, prognosis poor Monitor patient closely in ICU I have discussed case with color specialist Patient may stay more than 2 midnight in the hospital based on patient's conditions and clinic evaluations Hospitalist MIPS Advance Care Plan I have confirmed that the patient's Advanced Care Plan is present, code status is documented, or surrogate decision maker is listed in patient medical record.: Yes Medication Reconciliation I have utilized all available resources to obtain, update and review the patients current medications (includes all prescriptions, OTC, herbals, cannabis, and nutritional supplements).: Yes
[2024-03-28 11:23] LABS: Hemoglobin 11.5 g/dL (12.0-15.0); Immature Platelet Fraction Pct 3.9 % (0.9-11.2); Mean Corpuscular HGB Conc 32.9 g/dl (32-36); Mean Corpuscular Hemoglobin 34.5 pg (26-34); Mean Corpuscular Volume 105.1 fl (80-100); Mean Platelet Volume 10.2 fl (7.4-10.4); Platelet Count Result 97 k/mm3 (150-375); Red Blood Count 3.33 M/mm3 (4.2-5.4); Red Cell Distribution Width 14.6 % (11.5-14.5); White Blood Count 19.6 K/mm3 (4.5-10.0)
[2024-03-28 11:33] LABS: Lactic Acid Reflex 2.9 mmol/L (0.7-2.0)
[2024-03-28 11:34] LABS: INR 1.8; Prothrombin Time 20.8 Seconds (11.1-14.7)
[2024-03-28 11:35] LABS: Alanine Aminotransferase 23 U/L (6-35); Albumin Level 2.8 g/dL (3.5-5.1); Alkaline Phosphatase 87 U/L (38-126); Anion Gap 9 mmol/L (4-12); Aspartate Amino Transferase 41 U/L (14-36); Bilirubin,Total 0.9 mg/dL (0.2-1.3); Blood Urea Nitrogen 30 mg/dL (7-17); Calcium 7.7 mg/dL (8.4-10.2); Carbon Dioxide 20 mmol/L (22-30); Chloride 104 mmol/L (98-107); Creatine Kinase 830 U/L (30-135); Estimated CRCL calculation 23 ml/min; Estimated Glomerular Filt Rate 35; Glucose 123 mg/dL (65-110); Lipase 33 U/L (23-300); Magnesium 1.5 mg/dL (1.6-2.3); Partial Thromboplastin Time 37.1 Seconds (22.3-36.8); Phosphorus 4.4 mg/dL (2.5-4.5); Potassium 4.1 mmol/L (3.4-5.0); Sodium 133 mmol/L (137-145)
[2024-03-28] MEDS: LACTATED RINGERS 1,000 ML 75 ML IV CONT (11:40)
[2024-03-28] MEDS: ATORVASTATIN 40 MG TABLET PO (11:41)
[2024-03-28] MEDS: LEVOTHYROXINE SODIUM 112 MCG TABLET PO (11:41)
[2024-03-28 11:53] LABS: Total Cells Counted 100
[2024-03-28 11:54] LABS: Band Neutrophils Percent 13 % (0-6); Lymphocytes Absolute Manual 0.78 K/mm3 (1.1-4.5); Lymphocytes Percent Manual 4 % (18-44); Monocytes Absolute Manual 0.98 K/mm3 (0.1-0.90); Monocytes Percent Manual 5 % (3-9); Neutrophils Absolute Manual 17.83 K/mm3 (1.7-7.2); Neutrophils Percent Manual 78 % (46-73); Platelet Estimate Decreased (Adequate)
[2024-03-28 11:55] LABS: Anisocytosis 1+; Burr Cells 3+; Macrocytosis 1+ (NORMAL); Schistocytes None Seen
[2024-03-28] MEDS: VANCOMYCIN 2,000 MG/NS 500 ML 2,000 MG/500 ML BAG 250 MG IVPB (12:00)
--- NOTE | 2024-03-28 12:20 | P.CONCA_ITS ---
Assessment and Plan Assessment and plan (1) Elevated troponin: Code(s): R79.89 - Other specified abnormal findings of blood chemistry Status: Acute Assessment and Plan: Elevated troponins are likely secondary to acute coronary syndrome. More likely from either septic state in and of itself or from renal failure. No evidence of acute left plaque rupture. Will repeat a troponin on her now. 2D echocardiogram Doppler will be ordered and reviewed. Assuming no significant bump in troponin or surprising result from her echo such as the cardiomyopathy or wall motion abnormality, would continue supportive care for her septic shock and gradually restart her home regimen when able or needed (2) Hypotension: Code(s): I95.9 - Hypotension, unspecified Status: Acute Assessment and Plan: Related 2 septic shock (3) HLD (hyperlipidemia): Code(s): E78.5 - Hyperlipidemia, unspecified Status: Acute Assessment and Plan: On statin (4) Septic shock: Code(s): A41.9 - Sepsis, unspecified organism; R65.21 - Severe sepsis with septic shock Status: Acute Assessment and Plan: Related to ureteral stone (5) History of hypertension: Code(s): Z86.79 - Personal history of other diseases of the circulatory system Status: Acute Assessment and Plan: History of hypertension but now currently hypotensive secondary to shock. Gradually reintroduce her meds when need be. History of Present Illness History of Present Illness Consult date/time: 03/28/24 12:20 Requesting physician: Ale Medina MD Consult reason: pre-op evaluation and Other (Elevated troponin, non STEMI) Reason For Visit: septic stone, hypotensive on pressors; NSTEMI Narrative: Date of service 03/28/2024 Reason consultation: Elevated troponin, non-STEMI Requesting provider: Dr. Medina History: 88-year-old with a history of hypertension, CKD, IgA nephropathy, hypothyroidism, hyperlipidemia, present ED with a chief complaint of back pain. She was found to be tachycardic hypotensive with an elevated white blood cell count. CT scan shows left hydronephrosis pyelonephritis and distal uteral stone. In the process workup troponin was performed was minimally elevated. Cardiology was therefore consulted. Patient states she had a few seconds of discomfort left upper chest yesterday which was brief and transient. Overall though she has been having some cloudy urine at some back and flank pain. She denies any recent exertional chest pain, syncope, presyncope, paroxysmal nocturnal dyspnea, orthopnea, edema palpitations. EKG does not show any acute ST or T-wave abnormalities. Review of Systems 2 Review of Systems: All systems reviewed & are unremarkable except as noted in HPI and below Constitutional: Constitutional: Reports weakness Eyes: Eyes: Denies blurry vision ENT: Reports Normal hearing present Cardiovascular: Cardiovascular: Reports chest pain Respiratory: Respiratory: Denies hemoptysis Gastrointestinal: Gastrointestinal: Denies abdominal pain Genitourinary: Genitourinary: Denies hematuria Musculoskeletal: Musculoskeletal: Denies back pain Integumentary/Breasts: Skin/Breast: Denies dry skin Neurologic: Denies Abnormal speech present Psychiatric: Psychiatric: Denies anxiety Endocrine: Endocrine: Denies excessive sweating Hematologic/Lymphatic: Hematologic/Lymphatic: Denies easy bleeding Allergic/Immunologic: Allergic/Immunologic: Denies GI upset with certain foods PMFSH Past Medical History Medical History Sepsis Vitamin D deficiency Depression Hypothyroidism HLD (hyperlipidemia) CKD (chronic kidney disease) Hypertensive CKD (chronic kidney disease) IgA nephropathy Family History Family History Mother Hypertension Heart disease Social History Social History Smoking status: Never smoker Second hand tobacco smoke exposure: No Alcohol intake: never Substance use: never Substance use type: does not use Do You Feel Safe in your Home?: Yes Lack of Transportation: YES Lack of Food: Never True Current Housing: I Have Housing Concerned About Future Housing: No Difficulty Paying Gas/Electric Bills: No Difficulty Paying for Meds: No Currently Unemployed: No Education: High School Diploma/GED Difficulty w/ Childcare or Family Care: No Living arrangements: alone Occupation/Education: retired Gender identity (if verbalized by the patient): Female Sexual Orientation (if Verbalized by the Patient): Straight or Heterosexual Spiritual care concerns: No Meds Home Medications and Allergies Home Medications ?Medication ?Instructions ?Recorded ?Confirmed ?Type aspirin 81 mg tablet,delayed 81 mg PO DAILY 01/08/19 03/28/24 History release (Bogdan Low Dose Aspirin) prednisone 2.5 mg tablet 2.5 mg PO DAILY #90 tabs 06/17/24 02/05/25 Rx ergocalciferol (vitamin D2) 1,250 50,000 unit PO MONTHLY #12 caps 08/12/23 03/28/24 Rx mcg (50,000 unit) capsule irbesartan 300 mg tablet See Rx Instructions .Route 08/12/23 03/28/24 Rx .COMPLEX #90 tabs levothyroxine 112 mcg tablet See Rx Instructions .Route 08/15/23 03/28/24 Rx .COMPLEX #90 tabs amlodipine 10 mg tablet 10 mg PO DAILY #90 tabs 09/06/23 03/28/24 Rx atorvastatin 40 mg tablet See Rx Instructions .Route 11/18/23 03/28/24 Rx .COMPLEX #90 tabs furosemide 40 mg tablet See Rx Instructions .Route 12/23/23 03/28/24 Rx .COMPLEX #90 tabs potassium chloride 10 mEq See Rx Instructions .Route 12/23/23 03/28/24 Rx capsule,extended release .COMPLEX #90 caps sertraline 50 mg tablet 75 mg (1.5 x 50 mg) PO DAILY 90 02/10/24 03/28/24 Rx days #135 tabs carvedilol 12.5 mg tablet 12.5 mg PO Q12H #60 tabs 03/22/24 03/28/24 Rx naloxone 4 mg/actuation nasal 4 mg intranasal Q3M PRN opioid 03/22/24 03/28/24 Rx spray (Narcan) overdose #2 ea omega 6-ers-vrv-fish oil 1,200 mg 3 cap PO DAILY #1 cap 03/22/24 03/28/24 Rx (144 mg-216 mg) capsule (Fish Oil) tramadol 50 mg tablet 50 mg PO Q12H PRN pain #60 tabs 03/22/24 03/28/24 Rx calcium 500 mg tablet 1,000 mg PO DAILY 03/28/24 03/28/24 History relaxium 03/28/24 History vinia 03/28/24 History Allergies Allergy/AdvReac Type Severity Reaction Status Date / Time nitrofurantoin (From Allergy Unknown unknown Verified 03/22/24 13:06 Macrobid) Vital Signs Vital Signs - 24 hr 03/27/24 19:14 03/27/24 22:58 03/27/24 23:01 Temperature 37.4 C Pulse Rate 104 H Respiratory Rate 18 Blood Pressure 134/75 114/65 Pulse Oximetry 96 91 88 L Oxygen Delivery Room Air Oxygen Flow Rate Fraction of Inspired Oxygen 03/27/24 23:16 03/27/24 23:30 03/27/24 23:31 Temperature Pulse Rate Respiratory Rate Blood Pressure 104/60 112/66 Pulse Oximetry 92 90 95 Oxygen Delivery Oxygen Flow Rate Fraction of Inspired Oxygen 03/28/24 01:22 03/28/24 02:17 03/28/24 02:49 Temperature Pulse Rate 92 100 122 H Respiratory Rate 24 H 24 H 33 H Blood Pressure 99/65 L 112/91 H 142/105 H Pulse Oximetry 93 93 Oxygen Delivery Oxygen Flow Rate Fraction of Inspired Oxygen 03/28/24 03:12 03/28/24 03:17 03/28/24 04:12 Temperature Pulse Rate 129 H 120 H 115 H Respiratory Rate 34 H 34 H 29 H Blood Pressure 142/105 H 161/95 H 110/78 Pulse Oximetry 81 L 97 97 Oxygen Delivery Oxygen Flow Rate Fraction of Inspired Oxygen 03/28/24 04:28 03/28/24 05:30 03/28/24 05:45 Temperature Pulse Rate 100 96 Respiratory Rate 34 H 29 H 26 H Blood Pressure 79/51 L 71/49 L Pulse Oximetry 98 99 98 Oxygen Delivery Oxygen Flow Rate Fraction of Inspired Oxygen 03/28/24 05:46 03/28/24 06:20 03/28/24 06:33 Temperature Pulse Rate 95 94 95 Respiratory Rate 24 H 26 H Blood Pressure 82/54 L 73/53 L Pulse Oximetry 99 100 Oxygen Delivery Oxygen Flow Rate Fraction of Inspired Oxygen 03/28/24 06:49 03/28/24 06:54 03/28/24 07:02 Temperature Pulse Rate 103 H 94 92 Respiratory Rate Blood Pressure 75/53 L 80/57 L 81/64 L Pulse Oximetry Oxygen Delivery Oxygen Flow Rate Fraction of Inspired Oxygen 03/28/24 07:31 03/28/24 07:50 03/28/24 08:06 Temperature Pulse Rate 91 91 96 Respiratory Rate 27 H 31 H Blood Pressure 83/61 L 76/53 L 90/69 L Pulse Oximetry 98 97 Oxygen Delivery Oxygen Flow Rate Fraction of Inspired Oxygen 03/28/24 11:44 Temperature Pulse Rate 85 Respiratory Rate 18 Blood Pressure Pulse Oximetry 95 Oxygen Delivery High Flow Therapy with Na Oxygen Flow Rate 40 Fraction of Inspired Oxygen 50 Exam 2 Narrative: Awake alert oriented appears to be no acute distress. Appears stated age Const: General: comfortable and no acute distress HENMT: Face/Nose/Sinus: Normal nares present Mouth: Yes moist mucous membranes Eyes: Sclera: sclerae normal Neck: Neck: supple and no JVD Chest: Other: No reproducible chest wall pain to palpation Resp: Effort & Inspection: normal respiratory effort Auscultation: d iminished lung sounds Cardio: Rate: tachycardic Rhythm: regular rhythm Heart sounds: no murmurs GI: Inspection: non-distended GI Palp: Yes Soft to palpation Skin: General skin exam: normal color and no rashes or lesions noted Neuro: Speech: normal speech Extrem: General: normal to inspection Psych: Mental Status: mental status grossly normal Affect: normal affect Results Labs and Meds 03/28/24 11:10 03/28/24 11:10 Lab results: Cardiac Enzymes 03/28/24 03/28/24 03/28/24 Range/Units 00:03 03:33 11:10 AST 26 41 H (14-36) U/L Troponin I 0.085 H* 0.089 H* (0.000-0.034) ng/mL Coagulation 03/28/24 03/28/24 Range/Units 00:03 11:10 PT 16.4 H 20.8 H D (11.1-14.7) Seconds APTT 28.2 37.1 H (22.3-36.8) Seconds CBC 03/28/24 03/28/24 Range/Units 00:03 11:10 WBC 16.0 H 19.6 H (4.5-10.0) K/mm3 RBC 3.73 L 3.33 L (4.2-5.4) M/mm3 Hgb 12.8 11.5 L (12.0-15.0) g/dL Hct 37.6 35.0 L (37.0-47.0) % Plt Count 115 L 97 L (150-375) k/mm3 Lymph # (Auto) Not Reportable Not Reportable [place] # (Auto) Not Reportable Not Reportable Eos # (Auto) Not Reportable Not Reportable Baso # (Auto) Not Reportable Not Reportable Comprehensive Metabolic Panel 03/28/24 03/28/24 Range/Units 00:03 11:10 Sodium 131 L 133 L (137-145) mmol/L Potassium 3.1 L 4.1 (3.4-5.0) mmol/L Chloride 102 104 (98-107) mmol/L Carbon Dioxide 19 L 20 L (22-30) mmol/L BUN 32 H 30 H (7-17) mg/dL Creatinine 1.47 H 1.43 H (0.7-1.0) mg/dL Glucose 127 H 123 H (65-110) mg/dL Calcium 8.9 7.7 L (8.4-10.2) mg/dL AST 26 41 H (14-36) U/L ALT 20 23 (6-35) U/L Alkaline Phosphatase 73 87 (38-126) U/L Total Protein 6.0 L 6.0 L (6.3-8.2) g/dL Albumin 3.4 L 2.8 L (3.5-5.1) g/dL Intake and Output 03/27/24 03/28/24 03/28/24 23:59 07:59 15:59 Intake Total 2072.4 1000 Balance 2072.4 1000 Intake: IV 2072.4 1000 Norepinephrine 8 mg/D5w 250 ml 22.4 8 mg In 250 ml @ 5 MCG/MIN 9. 375 mls/hr IV CONT .Q24H DANE Rx #:[id number] Sodium Chloride 0.9% IV 1,000 1000 1000 ml @ 999 mls/hr IV CONT .Q1H1M STA Rx#:[id number] Sodium Chloride 0.9% IV 500 ml 1000 @ 999 mls/hr IV CONT .Q31M STA Rx#:[id number] cefTRIAXone 1 GM/NS 50 ML 1 gm 50 In 50 ml @ 100 mls/hr IVPB ONCE STA Rx#:[id number] EKG is personally reviewed and independently interpreted showing sinus tachycardia and delayed R-wave progression. Nonspecific ST and T-wave abnormality. Abnormal ECG
[2024-03-28 12:33] LABS: MRSA (PCR) NOT DETECTED (NOT DETECTE)
[2024-03-28] MEDS: CENTRAL LINE FLUSH 10 ML IV PUSH ×2 (13:15→21:31)
[2024-03-28] MEDS: ACETAMINOPHEN 325 MG TABLET 650 MG PO ×2 (13:33→19:43)
[2024-03-28 14:07] LABS: Troponin I 0.473 ng/mL (0.000-0.034)
[2024-03-28] MEDS: NOREPINEPHRINE 8 MG/D5W 250 ML 8 MG/250 ML BAG 41.25 MG IV CONT (14:11)
[2024-03-28 14:18] LABS: Reflex Lactic Acid Yes or No Add Lactic
--- NOTE | 2024-03-28 14:49 | P.CONIN_ITS ---
Assessment and Plan Assessment and plan (1) Septic shock: Code(s): A41.9 - Sepsis, unspecified organism; R65.21 - Severe sepsis with septic shock Status: Acute Assessment and Plan: Patient presented with back pain, left flank pain. UA reflective of UTI, patient has left ureteral stone with hydronephrosis -03/28: Status post cystoscopy, left retrograde pyelogram, left ureteral stent insertion, Marshall catheter insertion -received 3 L IV fluid bolus in the ER despite which she was hypotensive, central line was inserted and patient started on Levophed -continue Levophed, maintain MAP > 65 mmHg at all times for adequate end organ perfusion -patient started on ceftriaxone 2 g IV Q 24 hours and vancomycin (03/28) -patient has a history of multiple E coli UTIs in the past susceptible to ceftriaxone -03/28: blood cultures have been obtained and pending -03/27: Urine cultures have been obtained and pending (2) RICHARD (acute kidney injury): Code(s): N17.9 - Acute kidney failure, unspecified Status: Acute Assessment and Plan: Acute kidney injury likely related to septic shock, hypotension, UTI, pyelonephritis -adequately fluid-resuscitated -continue maintenance IV fluids -monitor urine output, electrolytes and renal function (3) Calculus of distal left ureter: Code(s): N20.1 - Calculus of ureter Status: Acute Assessment and Plan: Status post cystoscopy, left retrograde pyelogram, left ureteral stent insertion, Marshall catheter insertion -appreciate urology following the patient (4) Hydronephrosis of left kidney: Code(s): N13.30 - Unspecified hydronephrosis Status: Acute Assessment and Plan: As above (5) HLD (hyperlipidemia): Code(s): E78.5 - Hyperlipidemia, unspecified Status: Acute Assessment and Plan: Continue statin (6) History of hypertension: Code(s): Z86.79 - Personal history of other diseases of the circulatory system Status: Acute Assessment and Plan: Will hold all antihypertensives for now as patient is in septic shock and on vasopressors (7) Hypothyroidism: Code(s): E03.9 - Hypothyroidism, unspecified Status: Acute Assessment and Plan: Continue levothyroxine (8) Thrombocytopenia: Code(s): D69.6 - Thrombocytopenia, unspecified Status: Acute Assessment and Plan: Thrombocytopenia likely related to septic shock, -hold subQ heparin for now -continue to monitor platelet level (9) UTI (urinary tract infection): Code(s): N39.0 - Urinary tract infection, site not specified Status: Acute Assessment and Plan: Urine was reflective of UTI, cultures have been obtained, continue antibiotics as above Plan DVT prophylaxis: SCDs Stress ulcer prophylaxis: [place] not applicable Nutrition: Heart healthy diet Code Status: Modified code, meds only Critical Care Time Spent: 49 minutes -discussed with patient and her family at bedside and updated them with patient's condition and plan of care. They are aware the patient was blood pressure support medication, antibiotics. They aware that she did receive a stent in the left ureter. I answered all question Due to a high probability of clinically significant, life threatening deterioration, the patient required my highest level of preparedness to intervene emergently and I personally spent this critical care time directly and personally managing the patient. This critical care time included obtaining a history; examining the patient; pulse oximetry; ordering and review of studies; arranging urgent treatment with development of a management plan; evaluation of patient's response to treatment; frequent reassessment; and discussions with other providers. It was exclusive of separately billable procedures and treating other patients and teaching time. Please see Assessment and Plan section and the rest of the note for further information on patient assessment and treatment This dictation may have been done utilizing a voice recognition system. Attempts have been made to correct errors. However, there may be uncorrected grammatical, spelling, and recognitions errors present. Combat Control Manager Consult Note Consult date: 03/28/24 Reason for consult: Septic shock, left flank pain, back pain, hypotension, leukocytosis 03/28: Status post cystoscopy, left retrograde pyelogram, left ureteral stent insertion, Marshall catheter insertion HPI: Vianca Blanca is a 88 year old female with past medical history of sepsis, depression, hypothyroidism, hyperlipidemia, chronic d kidney disease, IgA nephropathy presented the ED with chief complains of back pain and left flank pain and not feeling well. Patient was also lethargic. In the ER patient was found to be tachycardic and hypotensive urinalysis was concerning for UTI. Patient will also hypoxic. She received a total of 3 L IV fluid bolus due to hypotension. CT abdomen and pelvis showed a 6 mm distal left ureteral stone with [id number] left hydronephrosis and asymmetric left perinephric stranding/fluid. 5.6 cm right ovarian cyst. T12 compression fracture age indeterminate. Patient also had a CTA chest due to hypoxia. No evidence of pulmonary embolism, aortic dissection or aortic aneurysm. No significant pulmonary MR abnormality, [id number] left hydronephrosis and asymmetric left perinephric standing T12 compression fracture age indeterminate. Urology to evaluate the patient in the ER for hydronephrosis had a left ureteral stone. In the ER patient was hypotensive despite receiving 3 L IV fluids, central line was inserted and patient was started on Levophed. Patient was taken to the OR, Status post cystoscopy, left retrograde pyelogram, left ureteral stent insertion, Marshall catheter insertion. Patient was transferred from the PACU to the ICU for further management. Patient seen and examined the ICU upon arrival, patient is awake, alert, denies any back pain or left flank in at this time. Patient was still under the influence of anesthesia, was hypoxic, was placed initially on non-rebreather which was switched high-flow therapy Airvo. Remains on Levophed patient is currently afebrile. Continues to have urine output. Denies any chest pain, abdominal pain, nausea, vomiting at this time. Review of Systems 2 Review of Systems: All systems reviewed & are unremarkable except as noted in HPI and below PMFSH Past Medical History Medical History Sepsis Vitamin D deficiency Depression Hypothyroidism HLD (hyperlipidemia) CKD (chronic kidney disease) Hypertensive CKD (chronic kidney disease) IgA nephropathy Family History Family History Mother Hypertension Heart disease Social History Social History Smoking status: Never smoker Second hand tobacco smoke exposure: No Alcohol intake: never Substance use: never Substance use type: does not use Do You Feel Safe in your Home?: Yes Lack of Transportation: YES Lack of Food: Never True Current Housing: I Have Housing Concerned About Future Housing: No Difficulty Paying Gas/Electric Bills: No Difficulty Paying for Meds: No Currently Unemployed: No Education: High School Diploma/GED Difficulty w/ Childcare or Family Care: No Living arrangements: alone Occupation/Education: retired Gender identity (if verbalized by the patient): Female Sexual Orientation (if Verbalized by the Patient): Straight or Heterosexual Spiritual care concerns: No Meds Home Medications and Allergies Home Medications ?Medication ?Instructions ?Recorded ?Confirmed ?Type aspirin 81 mg tablet,delayed 81 mg PO DAILY 01/08/19 03/28/24 History release (Bogdan Low Dose Aspirin) prednisone 2.5 mg tablet 2.5 mg PO DAILY #90 tabs 08/08/23 03/28/24 Rx ergocalciferol (vitamin D2) 1,250 50,000 unit PO MONTHLY #12 caps 08/12/23 03/28/24 Rx mcg (50,000 unit) capsule irbesartan 300 mg tablet See Rx Instructions .Route 08/12/23 03/28/24 Rx .COMPLEX #90 tabs levothyroxine 112 mcg tablet See Rx Instructions .Route 08/15/23 03/28/24 Rx .COMPLEX #90 tabs amlodipine 10 mg tablet 10 mg PO DAILY #90 tabs 09/06/23 03/28/24 Rx atorvastatin 40 mg tablet See Rx Instructions .Route 11/18/23 03/28/24 Rx .COMPLEX #90 tabs furosemide 40 mg tablet See Rx Instructions .Route 12/23/23 03/28/24 Rx .COMPLEX #90 tabs potassium chloride 10 mEq See Rx Instructions .Route 12/23/23 03/28/24 Rx capsule,extended release .COMPLEX #90 caps sertraline 50 mg tablet 75 mg (1.5 x 50 mg) PO DAILY 90 02/10/24 03/28/24 Rx days #135 tabs carvedilol 12.5 mg tablet 12.5 mg PO Q12H #60 tabs 03/22/24 03/28/24 Rx naloxone 4 mg/actuation nasal 4 mg intranasal Q3M PRN opioid 03/22/24 03/28/24 Rx spray (Narcan) overdose #2 ea omega 2-fyr-fko-fish oil 1,200 mg 3 cap PO DAILY #1 cap 03/22/24 03/28/24 Rx (144 mg-216 mg) capsule (Fish Oil) tramadol 50 mg tablet 50 mg PO Q12H PRN pain #60 tabs 03/22/24 03/28/24 Rx calcium 500 mg tablet 1,000 mg PO DAILY 03/28/24 03/28/24 History relaxium 03/28/24 History vinia 03/28/24 History Allergies Allergy/AdvReac Type Severity Reaction Status Date / Time nitrofurantoin (From Allergy Unknown unknown Verified 03/22/24 13:06 Macrobid) Vital Signs Vital Signs - 24 hr 03/27/24 19:14 03/27/24 22:58 03/27/24 23:01 Temperature 99.3 F Pulse Rate 104 H Respiratory Rate 18 Blood Pressure 134/75 114/65 Pulse Oximetry 96 91 88 L Oxygen Delivery Room Air Oxygen Flow Rate Fraction of Inspired Oxygen 03/27/24 23:16 03/27/24 23:30 03/27/24 23:31 Temperature Pulse Rate Respiratory Rate Blood Pressure 104/60 112/66 Pulse Oximetry 92 90 95 Oxygen Delivery Oxygen Flow Rate Fraction of Inspired Oxygen 03/28/24 01:22 03/28/24 02:17 03/28/24 02:49 Temperature Pulse Rate 92 100 122 H Respiratory Rate 24 H 24 H 33 H Blood Pressure 99/65 L 112/91 H 142/105 H Pulse Oximetry 93 93 Oxygen Delivery Oxygen Flow Rate Fraction of Inspired Oxygen 03/28/24 03:12 03/28/24 03:17 03/28/24 04:12 Temperature Pulse Rate 129 H 120 H 115 H Respiratory Rate 34 H 34 H 29 H Blood Pressure 142/105 H 161/95 H 110/78 Pulse Oximetry 81 L 97 97 Oxygen Delivery Oxygen Flow Rate Fraction of Inspired Oxygen 03/28/24 04:28 03/28/24 05:30 03/28/24 05:45 Temperature Pulse Rate 100 96 Respiratory Rate 34 H 29 H 26 H Blood Pressure 79/51 L 71/49 L Pulse Oximetry 98 99 98 Oxygen Delivery Oxygen Flow Rate Fraction of Inspired Oxygen 03/28/24 05:46 03/28/24 06:20 03/28/24 06:33 Temperature Pulse Rate 95 94 95 Respiratory Rate 24 H 26 H Blood Pressure 82/54 L 73/53 L Pulse Oximetry 99 100 Oxygen Delivery Oxygen Flow Rate Fraction of Inspired Oxygen 03/28/24 06:49 03/28/24 06:54 03/28/24 07:02 Temperature Pulse Rate 103 H 94 92 Respiratory Rate Blood Pressure 75/53 L 80/57 L 81/64 L Pulse Oximetry Oxygen Delivery Oxygen Flow Rate Fraction of Inspired Oxygen 03/28/24 07:31 02/05/25 07:50 03/28/24 08:06 Temperature Pulse Rate 91 91 96 Respiratory Rate 27 H 31 H Blood Pressure 83/61 L 76/53 L 90/69 L Pulse Oximetry 98 97 Oxygen Delivery Oxygen Flow Rate Fraction of Inspired Oxygen 03/28/24 10:00 03/28/24 11:44 03/28/24 12:00 Temperature 98.3 F Pulse Rate 90 85 87 Respiratory Rate 18 23 H Blood Pressure 101/59 L 124/100 H Pulse Oximetry 95 94 Oxygen Delivery High Flow Therapy with Na Oxygen Flow Rate 40 Fraction of Inspired Oxygen 50 03/28/24 12:00 03/28/24 13:30 03/28/24 13:45 Temperature Pulse Rate 84 83 83 Respiratory Rate Blood Pressure 124/100 H 101/67 100/69 Pulse Oximetry Oxygen Delivery Oxygen Flow Rate Fraction of Inspired Oxygen 03/28/24 14:00 03/28/24 14:11 03/28/24 14:15 Temperature 99.0 F Pulse Rate 81 95 87 Respiratory Rate 25 H Blood Pressure 102/68 102/68 104/62 Pulse Oximetry 95 Oxygen Delivery Oxygen Flow Rate Fraction of Inspired Oxygen 03/28/24 14:36 03/28/24 14:43 Temperature Pulse Rate 84 91 Respiratory Rate 18 Blood Pressure 105/69 Pulse Oximetry 95 Oxygen Delivery High Flow Therapy with Na Oxygen Flow Rate 40 Fraction of Inspired Oxygen 50 Exam 2 Narrative: General: Pleasant female in no acute this HEENT:? Pupils equal and reactive, sclerae is clear, moist oral mucosa Neck:? Supple Respiratory:? Clear to auscultation bilaterally, decreased at bases, adequate air entry Cardiac:? S1 S2 is normal, regular rate and rhythm Abdomen:? Soft, nontender, nondistended, normoactive bowel sounds Extremities:? No edema, palpable pedal pulses Neuro:? Patient is awake, alert, oriented, nonfocal, answers to questions appropriately and follows simple commands in all extremities Skin:? No skin lesions noted Psych:? Normal mentation and affect Results Labs 03/28/24 11:10 03/28/24 11:10 Labs: Short CBC 03/28/24 03/28/24 Range/Units 00:03 11:10 WBC 16.0 H 19.6 H (4.5-10.0) K/mm3 Hgb 12.8 11.5 L (12.0-15.0) g/dL Hct 37.6 35.0 L (37.0-47.0) % Plt Count 115 L 97 L (150-375) k/mm3 BMP 03/28/24 03/28/24 00:03 11:10 Sodium 131 L 133 L Potassium 3.1 L 4.1 Chloride 102 104 Carbon Dioxide 19 L 20 L BUN 32 H 30 H Creatinine 1.47 H 1.43 H Glucose 127 H 123 H Calcium 8.9 7.7 L Cardiac Enzymes 03/28/24 03/28/24 03/28/24 Range/Units 00:03 03:33 11:10 Total Creatine Kinase 128 830 H (30-135) U/L Troponin I 0.085 H* 0.089 H* (0.000-0.034) ng/mL 03/28/24 Range/Units 13:30 Total Creatine Kinase (30-135) U/L Troponin I 0.473 H* (0.000-0.034) ng/mL Liver Function 03/28/24 03/28/24 Range/Units 00:03 11:10 Total Bilirubin 1.0 0.9 (0.2-1.3) mg/dL AST 26 41 H (14-36) U/L ALT 20 23 (6-35) U/L Alkaline Phosphatase 73 87 (38-126) U/L Albumin 3.4 L 2.8 L (3.5-5.1) g/dL Urine 03/27/24 Range/Units 22:26 Urine Color Yellow (Yellow) Urine Appearance Cloudy H (Clear) Urine pH 7.0 (5.0-9.0) Ur Specific [place] 1.011 (1.001-1.035) Urine Protein Trace (Negative) mg/dL Urine Glucose (UA) Negative (Negative) mg/dL
[2024-03-28 15:30] LABS: Lactic Acid 2.4 mmol/L (0.7-2.0)
[2024-03-28] MEDS: MAGNESIUM SULF 2 GM/WATER 50ML 2 GM/50 ML BAG IVPB (16:32)
[2024-03-28 19:10] LABS: Troponin I 0.536 ng/mL (0.000-0.034)
[2024-03-28] MEDS: cefTRIAXone 2 GM/NS 100 ML 2 GM/100 ML BAG IVPB (21:31)
[2024-03-28] MEDS: NOREPINEPHRINE 8 MG/D5W 250 ML 8 MG/250 ML BAG 18.75 MG IV CONT (22:06)
[2024-03-29] VITALS (60 sets, daily range): BP systolic 81–130; BP diastolic 50–80; PULSE 74–109; RESP 12–25; TEMP 36.3–38.4; O2SAT 90–97
[2024-03-29] MEDS: HYDROcodone/acetaminophen (*CRX) 5-325 MG TABLET 1 TAB PO ×3 (00:06→22:38)
[2024-03-29] MEDS: LACTATED RINGERS 1,000 ML 75 ML IV CONT (01:00)
[2024-03-29] MEDS: CENTRAL LINE FLUSH 10 ML IV PUSH ×3 (06:15→20:49)
[2024-03-29] MEDS: LEVOTHYROXINE SODIUM 112 MCG TABLET PO (06:15)
[2024-03-29 06:45] LABS: Hematocrit 34.7 % (37.0-47.0); Hemoglobin 11.3 g/dL (12.0-15.0); Immature Platelet Fraction Pct 4.4 % (0.9-11.2); Mean Corpuscular HGB Conc 32.6 g/dl (32-36); Mean Corpuscular Hemoglobin 34.2 pg (26-34); Mean Corpuscular Volume 105.2 fl (80-100); Mean Platelet Volume 10.2 fl (7.4-10.4); Platelet Count Result 75 k/mm3 (150-375); Red Cell Distribution Width 14.7 % (11.5-14.5); White Blood Count 15.9 K/mm3 (4.5-10.0)
[2024-03-29 06:50] LABS: Alanine Aminotransferase 25 U/L (6-35); Albumin Level 2.7 g/dL (3.5-5.1); Alkaline Phosphatase 89 U/L (38-126); Anion Gap 9 mmol/L (4-12); Aspartate Amino Transferase 50 U/L (14-36); Bilirubin,Total 0.9 mg/dL (0.2-1.3); Blood Urea Nitrogen 32 mg/dL (7-17); Calcium 7.7 mg/dL (8.4-10.2); Carbon Dioxide 19 mmol/L (22-30); Chloride 104 mmol/L (98-107); Estimated CRCL calculation 29 ml/min; Estimated Glomerular Filt Rate 39; Glucose 86 mg/dL (65-110); Lactic Acid Reflex 1.3 mmol/L (0.7-2.0); Magnesium 2.1 mg/dL (1.6-2.3); Phosphorus 4.1 mg/dL (2.5-4.5); Potassium 3.8 mmol/L (3.4-5.0); Sodium 132 mmol/L (137-145)
[2024-03-29] MEDS: ASPIRIN 81 MG ENTERIC TABLET PO (09:00)
[2024-03-29] MEDS: ATORVASTATIN 40 MG TABLET PO (09:00)
[2024-03-29] MEDS: PERFLUTREN LIPID MICROSPHERES 1.5 ML VIAL DILUTED TO 10 ML TOTAL VOLUME IV PUSH (09:45)
[2024-03-29 10:03] LABS: Neutrophils Percent Manual 79 % (46-73); Total Cells Counted 100
[2024-03-29 10:04] LABS: Band Neutrophils Percent 17 % (0-6); Burr Cells 1+; Lymphocytes Absolute Manual 0.31 K/mm3 (1.1-4.5); Monocytes Absolute Manual 0.31 K/mm3 (0.1-0.90); Monocytes Percent Manual 2 % (3-9); Neutrophils Absolute Manual 15.26 K/mm3 (1.7-7.2); Platelet Estimate Decreased (Adequate); Schistocytes None Seen
[2024-03-29] MEDS: NOREPINEPHRINE 8 MG/D5W 250 ML 8 MG/250 ML BAG 11.25 MG IV CONT (11:00)
--- NOTE | 2024-03-29 11:09 | ECHO_ITS ---
Patient Info Name: Vianca Blanca Age: 88 years : 1935 Gender: Female Ht: 66 in Wt: 166 lbs BSA: 1.89 m2 HR: 95 bpm BP: 129 / 75 mmHg Technical Quality: Poor Exam Date: 03/29/2024 9:12 AM Exam Location: Echo Lab Patient Status: Inpatient Admit Date: 03/28/2024 Staff Ordering Physician: Wali Middleton MD Insurance Rater: Edy Koenig RDCS Attending Provider: Magali Vergara DO Exam Type: CA echo dop color flow w con Study Info Indications - ELEVATED TROPONIN - HYPOTENSION Complete two-dimensional, color flow and Doppler transthoracic echocardiogram is performed with contrast to opacify the left ventricle and to improve the deliniation of the left ventricle endocardial borders. Contrast/Agitated Saline Contrast/Ag. Saline: Definity Amount: 2.00 ml Existing IV Access: Yes Reason for Poor Study: poor echocardiographic windows Summary 1. The left ventricle is normal in size and systolic function. There is mild concentric left ventricular hypertrophy. The left ventricular ejection fraction is visually estimated to be 55-60%. 2. The right ventricle is mildly dilated with reduced systolic function. RV strain pattern is present. Left Ventricle The left ventricle is normal in size and systolic function. There is mild concentric left ventricular hypertrophy. The left ventricular ejection fraction is visually estimated to be 55-60%. Right Ventricle The right ventricle is mildly dilated with reduced systolic function. RV strain pattern is present. Left Atria The left atrium is normal size. Right Atria The right atrium is normal size. Atrial Septum The atrial septum is not well visualized. Aortic Valve The aortic valve leaflets are not well visualized. There is at least mild aortic stenosis by Doppler gradients. Pulmonic Valve The pulmonic valve is not well visualized. There is no color Doppler evidence of pulmonic valve regurgitation. Mitral Valve The mitral valve is normal. There is no significant mitral regurgitation in this study. Tricuspid Valve The tricuspid valve is not well visualized. There is no detectable tricuspid regurgitation by color Doppler. Pericardium/Pleural Pericardium is normal in appearance with no evidence for significant pericardial effusion. Inferior Vena Cava Inferior vena cava is not well visualized. Left Ventricular Outflow Tract Name Value Normal LVOT 2D LVOT Diameter 1.97 cm LVOT Doppler LVOT Peak Gradient 3 mmHg LVOT Mean Gradient 2 mmHg LVOT VTI 20.39 cm LVOT VTI/AV VTI Ratio 0.66 LVOT Stroke Volume 49.68 ml LVOT CO 4.00 l/min LVOT CI 2.16 L/min/m2 Pulmonic Valve Name Value Normal RVOT Doppler RVOT Peak Gradient 4 mmHg PV Doppler PV Peak Gradient 4 mmHg Mitral Valve Name Value Normal MV Doppler MV Decel Schuyler 551.72 cm/s2 MV PHT 0 s MV Area (PHT) 8.18 cm2 4.00-5.00 MV Diastolic Function MV E Peak Velocity 51.16 cm/s MV A Peak Velocity 95.11 cm/s MV E/A 0.54 MV Decel Time 0 s MV Annular TDI MV E/e' (Septal) 7.78 <=8.00 MV E/e' (Lateral) 7.21 <=8.00 MV E/e' (Average) 7.49 Tricuspid Valve Name Value Normal Estimated PAP/RSVP RA Pressure 10 mmHg <=5 Aorta Name Value Normal Ascending Aorta Ao Root Diameter (MM) 3.63 cm Ao Root Diam Index (MM) 1.92 cm/m2 Aortic Valve Name Value Normal AV Doppler AV Peak Velocity 167.27 cm/s AV Peak Gradient 10 mmHg AV Mean Gradient 7 mmHg AV VTI 30.78 cm AV Area (Cont Eq VTI) 1.69 cm2 >=3.00 AV Area (Cont Eq Patrick) 1.70 cm2 AV Regurgitation 2D LVOT Area 3.05 cm2 Ventricles Name Value Normal LV Dimensions 2D/MM IVS Diastolic Thickness (2D) 1.20 cm 0.60-1.00 LVID Diastole (2D) 3.46 cm 3.80-5.20 LVIW Diastolic Thickness (2D) 1.48 cm 0.60-0.90 LVID Systole (2D) 2.58 cm 2.20-3.50 LVOT Diameter 1.97 cm LV Mass (2D Cubed) 158.51 g 67.00-162.00 LV Mass Index (2D Cubed) 0.01 g/cm2 0.00-0.01 Relative Wall Thickness (2D) 0.86 LV Fractional Shortening/Ejection Fraction 2D/MM LV Fractional Shortening (2D) 31 % 27-45 LV EF (2D Teicholz) 59 % 54-74 LV Diastolic Volume (4C MOD) 67.71 ml LV EF (4C MOD) 57 % LV Diastolic Volume (2C MOD) 68.28 ml LV EF (2C MOD) 58 % LV Diastolic Volume (BP MOD) 71.25 ml 46.00-106.00 LV Diastolic Volume Index (BP MOD) 0.04 l/m2 0.03-0.06 LV Systolic Volume (BP MOD) 31.87 ml 14.00-42.00 LV Systolic Volume Index (BP MOD) 0.02 l/m2 0.01-0.02 LV EF (BP MOD) 55 % 54-74 LV Diastolic Length (4C) 7.95 cm LV Systolic Length (4C) 6.95 cm LV Stroke Volume (4C MOD) 38.45 ml Atria Name Value Normal LA Dimensions LA Dimension (MM) 3.99 cm 2.70-3.80 LA Volume (4C A-L) 40.15 ml LA Volume (BP A-L) 54.90 ml RA Dimensions RA Area (4C) 20.54 cm2 <=18.00 Report Signatures
[2024-03-29] MEDS: ACETAMINOPHEN 325 MG TABLET 650 MG PO ×2 (12:53→20:36)
--- NOTE | 2024-03-29 13:43 | IVDEFINITY ---
Prior to administration of IV Definity the patient was educated on the risks and benefits of the imaging enhancing agent including potential adverse side effects. The patient verbalized understanding. Allergies were verified. No exclusion criteria were identified and at least one of the following inclusion criteria were met: 1) physician request, 2) patient technically difficult to image (per the [place] [employer] guidelines of two or more segments not discernable within the apical view), or 3) questionable left ventricular function. ?
--- NOTE | 2024-03-29 13:53 | WPDINTPN ---
Progress Note: A&P Assessment and Plan (1) Septic shock: Code(s): A41.9 - Sepsis, unspecified organism; R65.21 - Severe sepsis with septic shock Status: Acute Assessment and Plan: Patient presented with back pain, left flank pain. UA reflective of UTI, patient has left ureteral stone with hydronephrosis -03/28: Status post cystoscopy, left retrograde pyelogram, left ureteral stent insertion, Marshall catheter insertion -received 3 L IV fluid bolus in the ER despite which she was hypotensive, central line was inserted and patient started on Levophed -continue Levophed, maintain MAP > 65 mmHg at all times for adequate end organ perfusion -continue ceftriaxone 2 g IV Q 24 hours -03/29: DC vancomycin vancomycin -patient has a history of multiple E coli UTIs in the past susceptible to ceftriaxone -03/28: blood cultures have been obtained and pending -03/27: Urine cultures growing E coli, susceptible to ceftriaxone (2) RICHARD (acute kidney injury): Code(s): N17.9 - Acute kidney failure, unspecified Status: Acute Assessment and Plan: Acute kidney injury likely related to septic shock, hypotension, UTI, pyelonephritis -adequately fluid-resuscitated -continue maintenance IV fluids -renal function improving, adequate urine output -monitor urine output, electrolytes and renal function (3) Calculus of distal left ureter: Code(s): N20.1 - Calculus of ureter Status: Acute Assessment and Plan: Status post cystoscopy, left retrograde pyelogram, left ureteral stent insertion, Marshall catheter insertion -appreciate urology following the patient (4) Hydronephrosis of left kidney: Code(s): N13.30 - Unspecified hydronephrosis Status: Acute Assessment and Plan: As above (5) HLD (hyperlipidemia): Code(s): E78.5 - Hyperlipidemia, unspecified Status: Acute Assessment and Plan: Continue statin (6) History of hypertension: Code(s): Z86.79 - Personal history of other diseases of the circulatory system Status: Acute Assessment and Plan: Will hold all antihypertensives for now as patient is in septic shock and on vasopressors (7) Hypothyroidism: Code(s): E03.9 - Hypothyroidism, unspecified Status: Acute Assessment and Plan: Continue levothyroxine (8) Thrombocytopenia: Code(s): D69.6 - Thrombocytopenia, unspecified Status: Acute Assessment and Plan: Thrombocytopenia likely related to septic shock, -hold subQ heparin for now -continue to monitor platelet level (9) UTI (urinary tract infection): Code(s): N39.0 - Urinary tract infection, site not specified Status: Acute Assessment and Plan: Urine was reflective of UTI, cultures have been obtained, continue antibiotics as above Plan DVT prophylaxis: SCDs Stress ulcer prophylaxis: Not applicable Nutrition: Heart healthy diet Code Status: Modified code, meds only Critical Care Time Spent: 32 minutes -discussed with patient and her family at bedside and updated them with patient's condition and plan of care. They are aware the patient was blood pressure support medication, antibiotics. They aware that she did receive a stent in the left ureter. I answered all question Due to a high probability of clinically significant, life threatening deterioration, the patient required my highest level of preparedness to intervene emergently and I personally spent this critical care time directly and personally managing the patient. This critical care time included obtaining a history; examining the patient; pulse oximetry; ordering and review of studies; arranging urgent treatment with development of a management plan; evaluation of patient's response to treatment; frequent reassessment; and discussions with other providers. It was exclusive of separately billable procedures and treating other patients and teaching time. Please see Assessment and Plan section and the rest of the note for further information on patient assessment and treatment This dictation may have been done utilizing a voice recognition system. Attempts have been made to correct errors. However, there may be uncorrected grammatical, spelling, and recognitions errors present. Subjective Date/time seen: 03/29/24 13:53 Interval history: Reason for consult: Septic shock, left flank pain, back pain, hypotension, leukocytosis 03/28: Status post cystoscopy, left retrograde pyelogram, left ureteral stent insertion, Marshall catheter insertion 03/29/2024: Patient seen and examined the ICU, the is awake, alert, oriented x3. Levophed is being weaned down. Patient feels generalized weakness, denies any chest pain, shortness of breath, abdominal pain, nausea vomiting. Urine output has been adequate, patient has been afebrile. Urine cultures growing E coli susceptible to ceftriaxone Review of Systems Review of Systems: All systems reviewed & are unremarkable except as noted in HPI and below Exam Narrative: General: Pleasant female in no acute distress HEENT:? Pupils equal and reactive, sclerae is clear, moist oral mucosa Neck:? Supple Respiratory:? Coarse breath sounds bilaterally, decreased at bases, adequate air entry Cardiac:? S1 S2 is normal, regular rate and rhythm Abdomen:? Soft, nontender, nondistended, normoactive bowel sounds Extremities:? No edema, palpable pedal pulses Neuro:? Patient is awake, alert, oriented, nonfocal, answers to questions appropriately and follows simple commands in all extremities Skin:? No skin lesions noted Psych:? Normal mentation and affect Objective Data Vital Signs Vital Signs: Vital Signs - 24 hr 03/28/24 14:00 03/28/24 14:00 03/28/24 14:11 Temperature 99.0 F Pulse Rate 81 81 95 Respiratory Rate 25 H Blood Pressure 102/68 102/68 Pulse Oximetry 95 Oxygen Delivery Oxygen Flow Rate Fraction of Inspired Oxygen 03/28/24 14:15 03/28/24 14:36 03/28/24 14:43 Temperature Pulse Rate 87 84 91 Respiratory Rate 18 Blood Pressure 104/62 105/69 Pulse Oximetry 95 Oxygen Delivery High Flow Therapy with Na Oxygen Flow Rate 40 Fraction of Inspired Oxygen 50 03/28/24 14:45 03/28/24 15:00 03/28/24 15:15 Temperature Pulse Rate 82 78 79 Respiratory Rate Blood Pressure 95/61 L 92/59 L 96/63 L Pulse Oximetry Oxygen Delivery Oxygen Flow Rate Fraction of Inspired Oxygen 03/28/24 15:30 03/28/24 16:00 03/28/24 16:00 Temperature 99.3 F Pulse Rate 80 75 Respiratory Rate 19 Blood Pressure 95/64 L 90/58 L Pulse Oximetry 95 92 Oxygen Delivery High Flow Therapy with Na Oxygen Flow Rate 40 Fraction of Inspired Oxygen 50 03/28/24 16:00 03/28/24 16:00 03/28/24 17:15 Temperature Pulse Rate 75 74 76 Respiratory Rate Blood Pressure 89/61 L 94/61 L Pulse Oximetry Oxygen Delivery Oxygen Flow Rate Fraction of Inspired Oxygen 03/28/24 17:30 03/28/24 17:45 03/28/24 18:00 Temperature Pulse Rate 75 77 77 Respiratory Rate Blood Pressure 94/59 L 98/61 L Pulse Oximetry Oxygen Delivery Oxygen Flow Rate Fraction of Inspired Oxygen 03/28/24 18:00 03/28/24 18:00 03/28/24 18:15 Temperature Pulse Rate 77 77 77 Respiratory Rate 24 H Blood Pressure 93/61 L 93/61 L 98/64 L Pulse Oximetry 91 Oxygen Delivery Oxygen Flow Rate Fraction of Inspired Oxygen 03/28/24 18:30 03/28/24 18:45 03/28/24 19:01 Temperature Pulse Rate 79 77 77 Respiratory Rate Blood Pressure 95/66 L 102/64 99/68 L Pulse Oximetry Oxygen Delivery Oxygen Flow Rate Fraction of Inspired Oxygen 03/28/24 19:15 03/28/24 20:00 03/28/24 20:00 Temperature 98.9 F Pulse Rate 87 91 83 Respiratory Rate 16 Blood Pressure 102/88 109/63 95/59 L Pulse Oximetry 95 Oxygen Delivery Oxygen Flow Rate Fraction of Inspired Oxygen 03/28/24 20:00 03/28/24 20:45 03/28/24 21:50 Temperature Pulse Rate 86 76 87 Respiratory Rate 16 Blood Pressure 116/77 Pulse Oximetry 95 Oxygen Delivery High Flow Therapy with Na Oxygen Flow Rate 40 Fraction of Inspired Oxygen 65 03/28/24 21:58 03/28/24 22:00 03/28/24 22:06 Temperature 97.9 F Pulse Rate 92 93 95 Respiratory Rate 27 H Blood Pressure 116/77 120/75 Pulse Oximetry 94 Oxygen Delivery Oxygen Flow Rate Fraction of Inspired Oxygen 03/28/24 22:06 03/28/24 22:30 03/28/24 22:45 Temperature Pulse Rate 95 96 93 Respiratory Rate 21 H 21 H Blood Pressure 120/75 121/68 114/64 Pulse Oximetry 93 92 Oxygen Delivery Oxygen Flow Rate Fraction of Inspired Oxygen 03/28/24 23:07 03/28/24 23:15 03/28/24 23:27 Temperature Pulse Rate 92 100 99 Respiratory Rate 22 H 22 H Blood Pressure 111/62 81/68 L 106/67 Pulse Oximetry 95 85 L Oxygen Delivery Oxygen Flow Rate Fraction of Inspired Oxygen 03/28/24 23:30 03/28/24 23:30 03/29/24 00:00 Temperature 98.7 F Pulse Rate 92 78 78 Respiratory Rate 23 H 15 15 Blood Pressure 98/60 L 86/52 L Pulse Oximetry 93 93 93 Oxygen Delivery High Flow Therapy with Na Oxygen Flow Rate 60 Fraction of Inspired Oxygen 65 03/29/24 00:00 03/29/24 00:00 03/29/24 00:15 Temperature Pulse Rate 78 90 80 Respiratory Rate 16 Blood Pressure 86/52 L 98/58 L Pulse Oximetry 91 Oxygen Delivery Oxygen Flow Rate Fraction of Inspired Oxygen 03/29/24 01:15 03/29/24 01:15 03/29/24 01:42 Temperature Pulse Rate 80 76 77 Respiratory Rate 17 17 Blood Pressure 88/50 L 88/50 L 89/55 L Pulse Oximetry 92 93 Oxygen Delivery Oxygen Flow Rate Fraction of Inspired Oxygen 03/29/24 02:00 03/29/24 02:00 03/29/24 02:00 Temperature Pulse Rate 81 78 77 Respiratory Rate 16 Blood Pressure 102/57 L 102/57 L Pulse Oximetry 93 Oxygen Delivery Oxygen Flow Rate Fraction of Inspired Oxygen 03/29/24 04:00 03/29/24 04:00 03/29/24 04:00 Temperature 97.6 F Pulse Rate 86 76 79 Respiratory Rate 16 Blood Pressure 96/63 L 96/63 L Pulse Oximetry 94 Oxygen Delivery Oxygen Flow Rate Fraction of Inspired Oxygen 03/29/24 04:10 03/29/24 06:00 03/29/24 06:00 Temperature Pulse Rate 81 95 95 Respiratory Rate 16 15 Blood Pressure 129/75 Pulse Oximetry 92 91 Oxygen Delivery High Flow Therapy with Na Oxygen Flow Rate 60 Fraction of Inspired Oxygen 65 03/29/24 06:00 03/29/24 06:15 03/29/24 06:18 Temperature Pulse Rate 93 109 H 93 Respiratory Rate 20 Blood Pressure 129/75 130/74 130/74 Pulse Oximetry 90 Oxygen Delivery Oxygen Flow Rate Fraction of Inspired Oxygen 03/29/24 06:24 03/29/24 06:25 03/29/24 06:30 Temperature Pulse Rate 94 95 103 H Respiratory Rate 25 H 21 H Blood Pressure 120/75 120/75 124/73 Pulse Oximetry 95 92 Oxygen Delivery Oxygen Flow Rate Fraction of Inspired Oxygen 03/29/24 06:31 03/29/24 06:45 03/29/24 07:00 Temperature Pulse Rate 96 97 88 Respiratory Rate 19 Blood Pressure 124/73 123/73 91/58 L Pulse Oximetry 94 Oxygen Delivery Oxygen Flow Rate Fraction of Inspired Oxygen 03/29/24 08:00 03/29/24 08:00 03/29/24 08:00 Temperature 97.3 F L Pulse Rate 79 79 76 Respiratory Rate 12 Blood Pressure 92/58 L 92/58 L Pulse Oximetry 95 Oxygen Delivery Oxygen Flow Rate Fraction of Inspired Oxygen 03/29/24 08:00 03/29/24 08:51 03/29/24 09:00 Temperature Pulse Rate 74 95 Respiratory Rate 20 19 Blood Pressure 123/68 Pulse Oximetry 95 93 93 Oxygen Delivery High Flow Therapy with Na High Flow Therapy with Na Oxygen Flow Rate 50 50 Fraction of Inspired Oxygen 75 75 03/29/24 09:00 03/29/24 09:15 03/29/24 09:30 Temperature Pulse Rate 95 91 89 Respiratory Rate Blood Pressure 123/68 114/67 105/64 Pulse Oximetry Oxygen Delivery Oxygen Flow Rate Fraction of Inspired Oxygen 03/29/24 09:45 03/29/24 10:00 03/29/24 10:00 Temperature Pulse Rate 88 90 90 Respiratory Rate 20 Blood Pressure 110/80 106/62 106/62 Pulse Oximetry 95 Oxygen Delivery Oxygen Flow Rate Fraction of Inspired Oxygen 03/29/24 10:00 03/29/24 10:41 03/29/24 11:00 Temperature Pulse Rate 90 74 Respiratory Rate Blood Pressure 86/59 L Pulse Oximetry 95 Oxygen Delivery High Flow Therapy with Na Oxygen Flow Rate 50 Fraction of Inspired Oxygen 70 03/29/24 11:00 03/29/24 12:00 03/29/24 12:00 Temperature Pulse Rate 74 75 Respiratory Rate Blood Pressure 86/59 L Pulse Oximetry 90 Oxygen Delivery High Flow Therapy with Na Oxygen Flow Rate 50 Fraction of Inspired Oxygen 70 03/29/24 12:00 03/29/24 12:00 03/29/24 12:15 Temperature 99.0 F Pulse Rate 75 75 95 Respiratory Rate 22 H Blood Pressure 109/62 109/62 109/75 Pulse Oximetry 90 Oxygen Delivery Oxygen Flow Rate Fraction of Inspired Oxygen 03/29/24 12:30 03/29/24 12:45 03/29/24 13:00 Temperature Pulse Rate 92 92 85 Respiratory Rate Blood Pressure 127/61 120/72 106/74 Pulse Oximetry Oxygen Delivery Oxygen Flow Rate Fraction of Inspired Oxygen 03/29/24 13:15 03/29/24 13:30 03/29/24 13:45 Temperature Pulse Rate 81 81 84 Respiratory Rate Blood Pressure 118/66 108/66 107/63 Pulse Oximetry Oxygen Delivery Oxygen Flow Rate Fraction of Inspired Oxygen Intake/Output Intake/Output: Intake & Output 03/26/24 03/27/24 03/28/2403/29/25 23:59 23:59 23:59 23:59 Intake Total 3952.5 3182.5 Output Total 550 1275 Balance 3402.5 1907.5 Meds/Results Medications: Active Medications Generic Name Dose Route Start Last Admin Trade Name Freq PRN Reason Stop Dose Admin Acetaminophen 650 mg 03/28/24 13:18 03/29/24 12:53 Acetaminophen 325 Mg Tablet PO 650 mg Q6H PRN Administration Mild Pain (1-3) or Fever Hydrocodone Bitart/Acetaminophen 1 tab 03/28/24 23:39 03/29/24 06:14 Hydrocodone/Acetaminophen (*Crx) 5-325 Mg Tablet PO 1 tab Q4H PRN Administration Pain Rated 4-6 Aspirin 81 mg 03/29/24 09:00 03/29/24 09:00 Aspirin 81 Mg Enteric Tablet PO 81 mg DAILY DANE Administration Atorvastatin Calcium 40 mg 03/28/24 11:05 03/29/24 09:00 Atorvastatin 40 Mg Tablet PO 40 mg DAILY DANE Administration Heparin Sodium (Porcine) 5,000 units 03/28/24 14:00 03/28/24 13:25 Heparin Sodium 5,000 Units/Ml Vial SUB-Q Not Given Q8HR DANE Norepinephrine Bitartrate 8 mg in 250 mls @ 0 mls/hr 03/28/24 06:25 03/29/24 13:45 Levophed 8 Mg/D5w 250 Ml IV CONT 0 mcg/min .Q0M DANE 0 mls/hr Titration Protocol Ceftriaxone Sodium 2 gm in 100 mls @ 200 mls/hr 03/28/24 21:00 03/28/24 22:05 Rocephin 2 Gm/Ns 100 Ml IVPB Infused Q24H DANE Infusion Levothyroxine Sodium 112 mcg 03/28/24 11:05 03/29/24 06:15 Levothyroxine Sodium 112 Mcg Tablet PO 112 mcg DAILY@0630 DANE Administration Ondansetron HCl 4 mg 03/28/24 07:31 Ondansetron Inj 4 Mg/2 Ml Vial IV PUSH Q4H PRN Nausea Sodium Chloride 10 ml 03/28/24 14:00 03/29/24 06:15 Central Line Flush IV PUSH 10 ml Q8HR DANE Administration Sodium Chloride 20 ml 03/28/24 08:28 Central Line Flush IV PUSH PRN PRN after blood draws Radiology Results: ITS Impressions Chest CTA 03/28/24 05:32 Impression: No evidence of pulmonary embolus, aortic dissection, or aortic aneurysm. No significant pulmonary abnormality. Mild to moderate left hydronephrosis and asymmetric left perinephric stranding. Consider more distal left ureteral stone. T12 compression fracture, age-indeterminate. Abdomen/Pelvis CT 03/28/24 06:01 Impression: 6 mm distal left ureteral stone with mild to moderate left hydroureteronephrosis and asymmetric left perinephric stranding/fluid. 5.6 cm right ovarian cyst. Gynecologic follow-up advised given patient age and size of the cystic lesion. T12 compression fracture, age-indeterminate. Chest X-Ray 03/28/24 08:33 IMPRESSION: 1. Central line tip in the superior vena cava. 2. Mild atelectasis in the mid and lower lung zones. 3. Cardiomegaly. Labs Labs: Laboratory Results - last 24 hr 03/28/24 03/28/24 03/28/24 13:30 15:12 18:34 WBC RBC Hgb Hct MCV MCH MCHC RDW Plt Count MPV Immature Gran % (Auto) Neut % (Auto) Lymph % (Auto) [place] % (Auto) Eos % (Auto) Baso % (Auto) Lymph # (Auto) [place] # (Auto) Eos # (Auto) Baso # (Auto) Abs Immat Gran (auto) Absolute Neuts (auto) Absolute Nucleated RBC Total Counted Neutrophils % (Manual) Band Neutrophils % Lymphocytes % (Manual) Monocytes % (Manual) Nucleated RBC % Abs Neuts (Manual) Abs Lymphs (Manual) Abs Monocytes (Manual) Platelet Estimate % Immature Plt Fraction Orient Cells Schistocytes Sodium Potassium Chloride Carbon Dioxide Anion Gap BUN Creatinine Estim Creat Clear Calc Estimated GFR Glucose Lactic Acid 2.4 H Calcium Phosphorus Magnesium Total Bilirubin AST ALT Alkaline Phosphatase Troponin I 0.473 H* 0.536 H* Total Protein Albumin 03/29/24 06:33 WBC 15.9 H RBC 3.30 L Hgb 11.3 L Hct 34.7 L MCV 105.2 H MCH 34.2 H MCHC 32.6 RDW 14.7 H Plt Count 75 L MPV 10.2 Immature Gran % (Auto) Not Reportable Neut % (Auto) Not Reportable Lymph % (Auto) Not Reportable [place] % (Auto) Not Reportable Eos % (Auto) Not Reportable Baso % (Auto) Not Reportable Lymph # (Auto) Not Reportable [place] # (Auto) Not Reportable Eos # (Auto) Not Reportable Baso # (Auto) Not Reportable Abs Immat Gran (auto) Not Reportable Absolute Neuts (auto) Not Reportable Absolute Nucleated RBC Not Reportable Total Counted 100 Neutrophils % (Manual) 79 H Band Neutrophils % 17 H Lymphocytes % (Manual) 2.0 L Monocytes % (Manual) 2 L Nucleated RBC % Not Reportable Abs Neuts (Manual) 15.26 H Abs Lymphs (Manual) 0.31 L Abs Monocytes (Manual) 0.31 Platelet Estimate Decreased % Immature Plt Fraction 4.4 [place] Cells 1+ Schistocytes None seen Sodium 132 L Potassium 3.8 Chloride 104 Carbon Dioxide 19 L Anion Gap 9 BUN 32 H Creatinine 1.29 H Estim Creat Clear Calc 29 Estimated GFR 39 L Glucose 86 Lactic Acid 1.3 Calcium 7.7 L Phosphorus 4.1 Magnesium 2.1 Total Bilirubin 0.9 AST 50 H ALT 25 Alkaline Phosphatase 89 Troponin I Total Protein 5.0 L Albumin 2.7 L
[2024-03-29] MEDS: FUROSEMIDE INJ 40 MG/4 ML VIAL IV PUSH (14:32)
--- NOTE | 2024-03-29 15:36 | P.PNUR_ITS ---
Progress Note: A&P Assessment and Plan (1) Septic shock: Code(s): A41.9 - Sepsis, unspecified organism; R65.21 - Severe sepsis with septic shock Status: Acute (2) UTI (urinary tract infection): Code(s): N39.0 - Urinary tract infection, site not specified Status: Acute (3) Calculus of distal left ureter: Code(s): N20.1 - Calculus of ureter Status: Acute (4) Hydronephrosis of left kidney: Code(s): N13.30 - Unspecified hydronephrosis Status: Acute (5) Acute kidney injury superimposed on stage 1 chronic kidney disease: Code(s): N17.9 - Acute kidney failure, unspecified; N18.1 - Chronic kidney disease, stage 1 Status: Acute Plan [id number] admitted 03/28/24 with septic shock requiring pressor support, RICHARD, UTI, obstructing left ureteral stone, hydronephrosis. s/p left ureteral stent and indwelling Marshall placement with Dr. Mccurdy 03/28/24. She remains in the ICU for critical care management. Urine culture - gram negative bacilli. Blood culture pending on IV ceftriaxone. Marshall draining clear yellow. Persistent leukocytosis, WBC 15.9 from 19.6. Renal function improving, Cr 1.29 from 1.47 (baseline 1.1). Afebrile. - Maintain indwelling Marshall while in the ICU. Void trial prior to discharge - Agree with culture-directed abx - Plan for outpatient stone treatment/stent management in the coming weeks with Dr. Mccurdy after she recovers from acute illness. Subjective Subjective Date/Time Seen: 03/29/24 15:36 Interval history: Fatigued, drowsy on exam. Patient continues to recover in ICU. High-flow O2 requirement. Family at bedside, updates given. Exam Const: Other: Drowsy, fatigued, weakness Resp: Other: High-flow O2 requirement Urinary Catheter: Urinary Catheter: patent and draining and urine clear Objective Data Vital Signs Vital Signs: Vital Signs - 24 hr 03/28/24 16:00 03/28/24 16:00 03/28/24 16:00 Temperature 99.3 F Pulse Rate 75 75 Respiratory Rate 19 Blood Pressure 90/58 L Pulse Oximetry 95 92 Oxygen Delivery High Flow Therapy with Na Oxygen Flow Rate 40 Fraction of Inspired Oxygen 50 03/28/24 16:00 03/28/24 17:15 03/28/24 17:30 Temperature Pulse Rate 74 76 75 Respiratory Rate Blood Pressure 89/61 L 94/61 L 94/59 L Pulse Oximetry Oxygen Delivery Oxygen Flow Rate Fraction of Inspired Oxygen 03/28/24 17:45 03/28/24 18:00 03/28/24 18:00 Temperature Pulse Rate 77 77 77 Respiratory Rate Blood Pressure 98/61 L 93/61 L Pulse Oximetry Oxygen Delivery Oxygen Flow Rate Fraction of Inspired Oxygen 03/28/24 18:00 03/28/24 18:15 03/28/24 18:30 Temperature Pulse Rate 77 77 79 Respiratory Rate 24 H Blood Pressure 93/61 L 98/64 L 95/66 L Pulse Oximetry 91 Oxygen Delivery Oxygen Flow Rate Fraction of Inspired Oxygen 03/28/24 18:45 03/28/24 19:01 03/28/24 19:15 Temperature Pulse Rate 77 77 87 Respiratory Rate Blood Pressure 102/64 99/68 L 102/88 Pulse Oximetry Oxygen Delivery Oxygen Flow Rate Fraction of Inspired Oxygen 03/28/24 20:00 03/28/24 20:00 03/28/24 20:00 Temperature 98.9 F Pulse Rate 91 83 86 Respiratory Rate 16 Blood Pressure 109/63 95/59 L Pulse Oximetry 95 Oxygen Delivery Oxygen Flow Rate Fraction of Inspired Oxygen 03/28/24 20:45 03/28/24 21:50 03/28/24 21:58 Temperature 97.9 F Pulse Rate 76 87 92 Respiratory Rate 16 27 H Blood Pressure 116/77 116/77 Pulse Oximetry 95 94 Oxygen Delivery High Flow Therapy with Na Oxygen Flow Rate 40 Fraction of Inspired Oxygen 65 03/28/24 22:00 03/28/24 22:06 03/28/24 22:06 Temperature Pulse Rate 93 95 95 Respiratory Rate Blood Pressure 120/75 120/75 Pulse Oximetry Oxygen Delivery Oxygen Flow Rate Fraction of Inspired Oxygen 03/28/24 22:30 03/28/24 22:45 03/28/24 23:07 Temperature Pulse Rate 96 93 92 Respiratory Rate 21 H 21 H Blood Pressure 121/68 114/64 111/62 Pulse Oximetry 93 92 Oxygen Delivery Oxygen Flow Rate Fraction of Inspired Oxygen 03/28/24 23:15 03/28/24 23:27 03/28/24 23:30 Temperature Pulse Rate 100 99 92 Respiratory Rate 22 H 22 H 23 H Blood Pressure 81/68 L 106/67 98/60 L Pulse Oximetry 95 85 L 93 Oxygen Delivery Oxygen Flow Rate Fraction of Inspired Oxygen 03/28/24 23:30 03/29/24 00:00 03/29/24 00:00 Temperature 98.7 F Pulse Rate 78 78 78 Respiratory Rate 15 15 Blood Pressure 86/52 L 86/52 L Pulse Oximetry 93 93 Oxygen Delivery High Flow Therapy with Na Oxygen Flow Rate 60 Fraction of Inspired Oxygen 65 03/29/24 00:00 03/29/24 00:15 03/29/24 01:15 Temperature Pulse Rate 90 80 80 Respiratory Rate 16 Blood Pressure 98/58 L 88/50 L Pulse Oximetry 91 Oxygen Delivery Oxygen Flow Rate Fraction of Inspired Oxygen 03/29/24 01:15 03/29/24 01:42 03/29/24 02:00 Temperature Pulse Rate 76 77 81 Respiratory Rate 17 17 Blood Pressure 88/50 L 89/55 L 102/57 L Pulse Oximetry 92 93 Oxygen Delivery Oxygen Flow Rate Fraction of Inspired Oxygen 03/29/24 02:00 03/29/24 02:00 03/29/24 04:00 Temperature Pulse Rate 78 77 86 Respiratory Rate 16 Blood Pressure 102/57 L 96/63 L Pulse Oximetry 93 Oxygen Delivery Oxygen Flow Rate Fraction of Inspired Oxygen 03/29/24 04:00 03/29/24 04:00 03/29/24 04:10 Temperature 97.6 F Pulse Rate 76 79 81 Respiratory Rate 16 16 Blood Pressure 96/63 L Pulse Oximetry 94 92 Oxygen Delivery High Flow Therapy with Na Oxygen Flow Rate 60 Fraction of Inspired Oxygen 65 03/29/24 06:00 03/29/24 06:00 03/29/24 06:00 Temperature Pulse Rate 95 95 93 Respiratory Rate 15 Blood Pressure 129/75 129/75 Pulse Oximetry 91 Oxygen Delivery Oxygen Flow Rate Fraction of Inspired Oxygen 03/29/24 06:15 03/29/24 06:18 03/29/24 06:24 Temperature Pulse Rate 109 H 93 94 Respiratory Rate 20 25 H Blood Pressure 130/74 130/74 120/75 Pulse Oximetry 90 95 Oxygen Delivery Oxygen Flow Rate Fraction of Inspired Oxygen 03/29/24 06:25 03/29/24 06:30 03/29/24 06:31 Temperature Pulse Rate 95 103 H 96 Respiratory Rate 21 H Blood Pressure 120/75 124/73 124/73 Pulse Oximetry 92 Oxygen Delivery Oxygen Flow Rate Fraction of Inspired Oxygen 03/29/24 06:45 03/29/24 07:00 03/29/24 08:00 Temperature 97.3 F L Pulse Rate 97 88 79 Respiratory Rate 19 12 Blood Pressure 123/73 91/58 L 92/58 L Pulse Oximetry 94 95 Oxygen Delivery Oxygen Flow Rate Fraction of Inspired Oxygen 03/29/24 08:00 03/29/24 08:00 03/29/24 08:00 Temperature Pulse Rate 79 76 Respiratory Rate Blood Pressure 92/58 L Pulse Oximetry 95 Oxygen Delivery High Flow Therapy with Na Oxygen Flow Rate 50 Fraction of Inspired Oxygen 75 03/29/24 08:51 03/29/24 09:00 03/29/24 09:00 Temperature Pulse Rate 74 95 95 Respiratory Rate 20 19 Blood Pressure 123/68 123/68 Pulse Oximetry 93 93 Oxygen Delivery High Flow Therapy with Na Oxygen Flow Rate 50 Fraction of Inspired Oxygen 75 03/29/24 09:15 03/29/24 09:30 03/29/24 09:45 Temperature Pulse Rate 91 89 88 Respiratory Rate Blood Pressure 114/67 105/64 110/80 Pulse Oximetry Oxygen Delivery Oxygen Flow Rate Fraction of Inspired Oxygen 03/29/24 10:00 03/29/24 10:00 03/29/24 10:00 Temperature Pulse Rate 90 90 90 Respiratory Rate 20 Blood Pressure 106/62 106/62 Pulse Oximetry 95 Oxygen Delivery Oxygen Flow Rate Fraction of Inspired Oxygen 03/29/24 10:41 03/29/24 11:00 03/29/24 11:00 Temperature Pulse Rate 74 74 Respiratory Rate Blood Pressure 86/59 L 86/59 L Pulse Oximetry 95 Oxygen Delivery High Flow Therapy with Na Oxygen Flow Rate 50 Fraction of Inspired Oxygen 70 03/29/24 12:00 03/29/24 12:00 03/29/24 12:00 Temperature 99.0 F Pulse Rate 75 75 Respiratory Rate 22 H Blood Pressure 109/62 Pulse Oximetry 90 90 Oxygen Delivery High Flow Therapy with Na Oxygen Flow Rate 50 Fraction of Inspired Oxygen 70 03/29/24 12:00 03/29/24 12:15 03/29/24 12:30 Temperature Pulse Rate 75 95 92 Respiratory Rate Blood Pressure 109/62 109/75 127/61 Pulse Oximetry Oxygen Delivery Oxygen Flow Rate Fraction of Inspired Oxygen 03/29/24 12:45 03/29/24 13:00 03/29/24 13:15 Temperature Pulse Rate 92 85 81 Respiratory Rate Blood Pressure 120/72 106/74 118/66 Pulse Oximetry Oxygen Delivery Oxygen Flow Rate Fraction of Inspired Oxygen 03/29/24 13:30 03/29/24 13:45 03/29/24 14:00 Temperature Pulse Rate 81 84 84 Respiratory Rate Blood Pressure 108/66 107/63 98/71 L Pulse Oximetry Oxygen Delivery Oxygen Flow Rate Fraction of Inspired Oxygen 03/29/24 14:00 03/29/24 14:00 03/29/24 14:39 Temperature 98.3 F Pulse Rate 82 82 Respiratory Rate 19 Blood Pressure 98/71 L Pulse Oximetry 94 93 Oxygen Delivery High Flow Therapy with Na Oxygen Flow Rate 50 Fraction of Inspired Oxygen 65 03/29/24 14:47 03/29/24 15:00 03/29/24 15:07 Temperature Pulse Rate 94 Respiratory Rate Blood Pressure 114/72 Pulse Oximetry 93 Oxygen Delivery High Flow Therapy with Na High Flow Therapy with Na Oxygen Flow Rate 50 50 Fraction of Inspired Oxygen 65 Intake/Output Intake/Output: Intake & Output 03/26/24 03/27/24 03/28/24 03/29/24 23:59 23:59 23:59 23:59 Intake Total 3952.5 3182.5 Output Total 550 1275 Balance 3402.5 1907.5 Meds/Results Medications: Active Medications Generic Name Dose Route Start Last Admin Trade Name Freq PRN Reason Stop Dose Admin Acetaminophen 650 mg 03/28/24 13:18 03/29/24 12:53 Acetaminophen 325 Mg Tablet PO 650 mg Q6H PRN Administration Mild Pain (1-3) or Fever Hydrocodone Bitart/Acetaminophen 1 tab 03/28/24 23:39 03/29/24 06:14 Hydrocodone/Acetaminophen (*Crx) 5-325 Mg Tablet PO 1 tab Q4H PRN Administration Pain Rated 4-6 Aspirin 81 mg 03/29/24 09:00 03/29/24 09:00 Aspirin 81 Mg Enteric Tablet PO 81 mg DAILY DANE Administration Atorvastatin Calcium 40 mg 03/28/24 11:05 03/29/24 09:00 Atorvastatin 40 Mg Tablet PO 40 mg DAILY DANE Administration Heparin Sodium (Porcine) 5,000 units 03/28/24 14:00 03/28/24 13:25 Heparin Sodium 5,000 Units/Ml Vial SUB-Q Not Given Q8HR DANE Norepinephrine Bitartrate 8 mg in 250 mls @ 0 mls/hr 03/28/24 06:25 03/29/24 15:00 Levophed 8 Mg/D5w 250 Ml IV CONT 0 mcg/min .Q0M DANE 0 mls/hr Titration Protocol Ceftriaxone Sodium 2 gm in 100 mls @ 200 mls/hr 03/28/24 21:00 03/28/24 22:05 Rocephin 2 Gm/Ns 100 Ml IVPB Infused Q24H DANE Infusion Levothyroxine Sodium 112 mcg 03/28/24 11:05 03/29/24 06:15 Levothyroxine Sodium 112 Mcg Tablet PO 112 mcg DAILY@0630 DANE Administration Ondansetron HCl 4 mg 03/28/24 07:31 Ondansetron Inj 4 Mg/2 Ml Vial IV PUSH Q4H PRN Nausea Sodium Chloride 10 ml 03/28/24 14:00 03/29/24 14:32 Central Line Flush IV PUSH 10 ml Q8HR DANE Administration Sodium Chloride 20 ml 03/28/24 08:28 Central Line Flush IV PUSH PRN PRN after blood draws Radiology Results: ITS Impressions Chest CTA 03/28/24 05:32 Impression: No evidence of pulmonary embolus, aortic dissection, or aortic aneurysm. No significant pulmonary abnormality. Mild to moderate left hydronephrosis and asymmetric left perinephric stranding. Consider more distal left ureteral stone. T12 compression fracture, age-indeterminate. Abdomen/Pelvis CT 03/28/24 06:01 Impression: 6 mm distal left ureteral stone with mild to moderate left hydroureteronephrosis and asymmetric left perinephric stranding/fluid. 5.6 cm right ovarian cyst. Gynecologic follow-up advised given patient age and size of the cystic lesion. T12 compression fracture, age-indeterminate. Chest X-Ray 03/29/24 14:17 IMPRESSION: 1. Worsened small pleural effusions. 2. Mild pulmonary edema. 3. Airspace opacities in the lower lung zones, consistent with atelectasis versus pneumonia. Labs Labs: Laboratory Results - last 24 hr 03/28/24 03/29/24 18:34 06:33 WBC 15.9 H RBC 3.30 L Hgb 11.3 L Hct 34.7 L MCV 105.2 H MCH 34.2 H MCHC 32.6 RDW 14.7 H Plt Count 75 L MPV 10.2 Immature Gran % (Auto) Not Reportable Neut % (Auto) Not Reportable Lymph % (Auto) Not Reportable [place] % (Auto) Not Reportable Eos % (Auto) Not Reportable Baso % (Auto) Not Reportable Lymph # (Auto) Not Reportable [place] # (Auto) Not Reportable Eos # (Auto) Not Reportable Baso # (Auto) Not Reportable Abs Immat Gran (auto) Not Reportable Absolute Neuts (auto) Not Reportable Absolute Nucleated RBC Not Reportable Total Counted 100 Neutrophils % (Manual) 79 H Band Neutrophils % 17 H Lymphocytes % (Manual) 2.0 L Monocytes % (Manual) 2 L Nucleated RBC % Not Reportable Abs Neuts (Manual) 15.26 H Abs Lymphs (Manual) 0.31 L Abs Monocytes (Manual) 0.31 Platelet Estimate Decreased % Immature Plt Fraction 4.4 [place] Cells 1+ Schistocytes None seen Sodium 132 L Potassium 3.8 Chloride 104 Carbon Dioxide 19 L Anion Gap 9 BUN 32 H Creatinine 1.29 H Estim Creat Clear Calc 29 Estimated GFR 39 L Glucose 86 Lactic Acid 1.3 Calcium 7.7 L Phosphorus 4.1 Magnesium 2.1 Total Bilirubin 0.9 AST 50 H ALT 25 Alkaline Phosphatase 89 Troponin I 0.536 H* Total Protein 5.0 L Albumin 2.7 L
[2024-03-29] MEDS: ONDANSETRON INJ 4 MG/2 ML VIAL IV PUSH (17:16)
[2024-03-29] MEDS: cefTRIAXone 2 GM/NS 100 ML 2 GM/100 ML BAG IVPB (20:38)
[2024-03-29] MEDS: NOREPINEPHRINE 8 MG/D5W 250 ML 8 MG/250 ML BAG 7.5 MG IV CONT (22:30)
[2024-03-30] VITALS (71 sets, daily range): BP systolic 84–118; BP diastolic 52–80; PULSE 61–101; RESP 10–25; TEMP 36.6–37; O2SAT 89–99
[2024-03-30 04:33] LABS: Basophils Absolute Auto 0.1 K/mm3 (0.0-0.1); Basophils Percent Auto 0.6 % (0.2-1.2); Eosinophils Absolute Auto 0.2 K/mm3 (0-0.3); Eosinophils Percent Auto 1.6 % (0-4.4); Hematocrit 31.4 % (37.0-47.0); Hemoglobin 10.3 g/dL (12.0-15.0); Immature Granulocyte Absolute 0.05 K/mm3 (0.00-0.031); Immature Granulocyte Percent A 0.4 % (0-0.5); Immature Platelet Fraction Pct 4.6 % (0.9-11.2); Lymphocytes Absolute Auto 0.54 K/mm3 (0.9-3.2); Lymphocytes Percent Auto 3.9 % (18.3-44.2); Mean Corpuscular HGB Conc 32.8 g/dl (32-36); Mean Corpuscular Hemoglobin 33.7 pg (26-34); Mean Corpuscular Volume 102.6 fl (80-100); Mean Platelet Volume 10.4 fl (7.4-10.4); Monocytes Absolute Auto 0.9 K/mm3 (0.1-0.6); Monocytes Percent Auto 6.5 % (2.6-8.5); Red Blood Count 3.06 M/mm3 (4.2-5.4); Red Cell Distribution Width 14.6 % (11.5-14.5); White Blood Count 13.8 K/mm3 (4.5-10.0)
[2024-03-30 04:50] LABS: Alanine Aminotransferase 22 U/L (6-35); Albumin Level 2.4 g/dL (3.5-5.1); Alkaline Phosphatase 91 U/L (38-126); Anion Gap 4 mmol/L (4-12); Aspartate Amino Transferase 35 U/L (14-36); Bilirubin,Total 0.6 mg/dL (0.2-1.3); Blood Urea Nitrogen 33 mg/dL (7-17); Calcium 7.5 mg/dL (8.4-10.2); Carbon Dioxide 24 mmol/L (22-30); Chloride 101 mmol/L (98-107); Estimated CRCL calculation 30 ml/min; Estimated Glomerular Filt Rate 40; Glucose 106 mg/dL (65-110); Magnesium 2.1 mg/dL (1.6-2.3); Phosphorus 3.3 mg/dL (2.5-4.5); Potassium 3.2 mmol/L (3.4-5.0); Sodium 129 mmol/L (137-145)
[2024-03-30 04:51] LABS: Lactic Acid Reflex 0.8 mmol/L (0.7-2.0)
[2024-03-30 04:55] LABS: Anisocytosis 1+; Burr Cells 2+; Ovalocytes 1+; Platelet Count Result 84 k/mm3 (150-375); Platelet Estimate Decreased (Adequate); Schistocytes None Seen
[2024-03-30] MEDS: LEVOTHYROXINE SODIUM 112 MCG TABLET PO (06:36)
[2024-03-30] MEDS: CENTRAL LINE FLUSH 10 ML IV PUSH ×3 (06:36→20:21)
[2024-03-30] MEDS: ONDANSETRON INJ 4 MG/2 ML VIAL IV PUSH ×2 (08:25→20:22)
[2024-03-30] MEDS: ASPIRIN 81 MG ENTERIC TABLET PO (08:25)
[2024-03-30] MEDS: ATORVASTATIN 40 MG TABLET PO (08:25)
[2024-03-30] MEDS: KCL 40 MEQ/WATER 100 ML 100 ML 25 ML IVPB (08:27)
[2024-03-30] MEDS: ALBUMIN HUMAN 25% 25 GM/100 ML 100 ML IVPB (08:28)
--- NOTE | 2024-03-30 09:16 | WPDINTPN ---
Progress Note: A&P Assessment and Plan (1) Septic shock: Code(s): A41.9 - Sepsis, unspecified organism; R65.21 - Severe sepsis with septic shock Status: Acute Assessment and Plan: Patient presented with back pain, left flank pain. UA reflective of UTI, patient has left ureteral stone with hydronephrosis -03/28: Status post cystoscopy, left retrograde pyelogram, left ureteral stent insertion, Marshall catheter insertion -received 3 L IV fluid bolus in the ER despite which she was hypotensive, central line was inserted and patient started on Levophed -continue Levophed, maintain MAP > 65 mmHg at all times for adequate end organ perfusion -continue ceftriaxone 2 g IV Q 24 hours -03/29: DC vancomycin vancomycin -patient has a history of multiple E coli UTIs in the past susceptible to ceftriaxone -03/28: blood cultures no growth so far -03/27: Urine cultures growing E coli, susceptible to ceftriaxone (2) RICHARD (acute kidney injury): Code(s): N17.9 - Acute kidney failure, unspecified Status: Acute Assessment and Plan: Acute kidney injury likely related to septic shock, hypotension, UTI, pyelonephritis -adequately fluid-resuscitated -continue maintenance IV fluids -renal function improving, adequate urine output after receiving Lasix 40 mg IV x1 on 03/29 -will replace potassium -continue to monitor urine output, renal function and electrolyte (3) Calculus of distal left ureter: Code(s): N20.1 - Calculus of ureter Status: Acute Assessment and Plan: Status post cystoscopy, left retrograde pyelogram, left ureteral stent insertion, Mar[place] catheter insertion -appreciate urology following the patient (4) Hydronephrosis of left kidney: Code(s): N13.30 - Unspecified hydronephrosis Status: Acute Assessment and Plan: As above (5) HLD (hyperlipidemia): Code(s): E78.5 - Hyperlipidemia, unspecified Status: Acute Assessment and Plan: Continue statin (6) History of hypertension: Code(s): Z86.79 - Personal history of other diseases of the circulatory system Status: Acute Assessment and Plan: Will hold all antihypertensives for now as patient is in septic shock and on vasopressors (7) Hypothyroidism: Code(s): E03.9 - Hypothyroidism, unspecified Status: Acute Assessment and Plan: Continue levothyroxine (8) Thrombocytopenia: Code(s): D69.6 - Thrombocytopenia, unspecified Status: Acute Assessment and Plan: Thrombocytopenia likely related to septic shock, -hold subQ heparin for now -platelet counts are improving, continue to monitor (9) UTI (urinary tract infection): Code(s): N39.0 - Urinary tract infection, site not specified Status: Acute Assessment and Plan: Urine was reflective of UTI, cultures have been obtained, continue antibiotics as above Plan DVT prophylaxis: SCDs, no a chemoprophylaxis secondary to thrombocytopenia Stress ulcer prophylaxis: Not applicable Nutrition: Heart healthy diet Code Status: Modified code, meds only Critical Care Time Spent: 32 minutes -will update family Due to a high probability of clinically significant, life threatening deterioration, the patient required my highest level of preparedness to intervene emergently and I personally spent this critical care time directly and personally managing the patient. This critical care time included obtaining a history; examining the patient; pulse oximetry; ordering and review of studies; arranging urgent treatment with development of a management plan; evaluation of patient's response to treatment; frequent reassessment; and discussions with other providers. It was exclusive of separately billable procedures and treating other patients and teaching time. Please see Assessment and Plan section and the rest of the note for further information on patient assessment and treatment This dictation may have been done utilizing a voice recognition system. Attempts have been made to correct errors. However, there may be uncorrected grammatical, spelling, and recognitions errors present. Subjective Date/time seen: 03/30/24 09:16 Interval history: Reason for consult: Septic shock, left flank pain, back pain, hypotension, leukocytosis 03/28: Status post cystoscopy, left retrograde pyelogram, left ureteral stent insertion, Marshall catheter insertion 03/30/2024: Patient seen and examined the ICU, is awake, alert, oriented x3. Patient was on high-flow therapy at 70% FiO2, chest x-ray yesterday showed pulmonary edema, was patient was off Levophed and was given Lasix 40 mg IV x1 with adequate urine output. Remains on high-flow therapy on 50% FiO2 with adequate O2 sats. Patient had to be restarted on Levophed overnight. Patient does not complain of any pain, shortness of breath, nausea vomiting. She just feels weak Review of Systems Review of Systems: All systems reviewed & are unremarkable except as noted in HPI and below Exam Narrative: General: Pleasant female in no acute distress HEENT:? Pupils equal and reactive, sclerae is clear, moist oral mucosa Neck:? Supple Respiratory:? Coarse breath sounds bilaterally, decreased at bases, adequate air entry Cardiac:? S1 S2 is normal, regular rate and rhythm Abdomen:? Soft, nontender, nondistended, normoactive bowel sounds Extremities:? No edema, palpable pedal pulses Neuro:? Patient is awake, alert, oriented, nonfocal, answers to questions appropriately and follows simple commands in all extremities Skin:? No skin lesions noted Psych:? Normal mentation and affect Objective Data Vital Signs Vital Signs: Vital Signs - 24 hr 03/29/24 09:30 03/29/24 09:45 03/29/24 10:00 Temperature Pulse Rate 89 88 90 Respiratory Rate 20 Blood Pressure 105/64 110/80 106/62 Pulse Oximetry 95 Oxygen Delivery Oxygen Flow Rate Fraction of Inspired Oxygen 03/29/24 10:00 03/29/24 10:00 03/29/24 10:41 Temperature Pulse Rate 90 90 Respiratory Rate Blood Pressure 106/62 Pulse Oximetry 95 Oxygen Delivery High Flow Therapy with Na Oxygen Flow Rate 50 Fraction of Inspired Oxygen 70 03/29/24 11:00 03/29/24 11:00 03/29/24 12:00 Temperature Pulse Rate 74 74 Respiratory Rate Blood Pressure 86/59 L 86/59 L Pulse Oximetry 90 Oxygen Delivery High Flow Therapy with Na Oxygen Flow Rate 50 Fraction of Inspired Oxygen 70 03/29/24 12:00 03/29/24 12:00 03/29/24 12:00 Temperature 99.0 F Pulse Rate 75 75 75 Respiratory Rate 22 H Blood Pressure 109/62 109/62 Pulse Oximetry 90 Oxygen Delivery Oxygen Flow Rate Fraction of Inspired Oxygen 03/29/24 12:15 03/29/24 12:30 03/29/24 12:45 Temperature Pulse Rate 95 92 92 Respiratory Rate Blood Pressure 109/75 127/61 120/72 Pulse Oximetry Oxygen Delivery Oxygen Flow Rate Fraction of Inspired Oxygen 03/29/24 13:00 03/29/24 13:15 03/29/24 13:30 Temperature Pulse Rate 85 81 81 Respiratory Rate Blood Pressure 106/74 118/66 108/66 Pulse Oximetry Oxygen Delivery Oxygen Flow Rate Fraction of Inspired Oxygen 03/29/24 13:45 03/29/24 14:00 03/29/24 14:00 Temperature 98.3 F Pulse Rate 84 84 82 Respiratory Rate 19 Blood Pressure 107/63 98/71 L 98/71 L Pulse Oximetry 94 Oxygen Delivery Oxygen Flow Rate Fraction of Inspired Oxygen 03/29/24 14:00 03/29/24 14:39 03/29/24 14:47 Temperature Pulse Rate 82 Respiratory Rate Blood Pressure Pulse Oximetry 93 Oxygen Delivery High Flow Therapy with Na High Flow Therapy with Na Oxygen Flow Rate 50 50 Fraction of Inspired Oxygen 65 03/29/24 15:00 03/29/24 15:07 03/29/24 16:00 Temperature Pulse Rate 94 87 Respiratory Rate Blood Pressure 114/72 Pulse Oximetry 93 Oxygen Delivery High Flow Therapy with Na Oxygen Flow Rate 50 Fraction of Inspired Oxygen 65 03/29/24 16:00 03/29/24 16:00 03/29/24 18:00 Temperature 98.5 F Pulse Rate 87 92 88 Respiratory Rate 19 Blood Pressure 105/65 105/65 94/59 L Pulse Oximetry 93 Oxygen Delivery Oxygen Flow Rate Fraction of Inspired Oxygen 03/29/24 18:00 03/29/24 18:00 03/29/24 20:00 Temperature Pulse Rate 88 88 85 Respiratory Rate 18 Blood Pressure 94/56 L 93/53 L Pulse Oximetry 95 Oxygen Delivery Oxygen Flow Rate Fraction of Inspired Oxygen 03/29/24 20:00 03/29/24 20:00 03/29/24 20:31 Temperature 101.2 F H Pulse Rate 87 89 89 Respiratory Rate 16 15 Blood Pressure 93/53 L 81/71 L Pulse Oximetry 94 94 Oxygen Delivery Oxygen Flow Rate Fraction of Inspired Oxygen 03/29/24 20:36 03/29/24 20:41 03/29/24 21:00 Temperature 101.2 F H Pulse Rate 92 89 Respiratory Rate 23 H 17 Blood Pressure 111/59 L 98/61 L Pulse Oximetry 95 97 Oxygen Delivery Oxygen Flow Rate Fraction of Inspired Oxygen 03/29/24 21:30 03/29/24 22:00 03/29/24 22:00 Temperature Pulse Rate 92 82 77 Respiratory Rate 17 15 Blood Pressure 84/53 L 81/51 L 81/51 L Pulse Oximetry 95 96 Oxygen Delivery Oxygen Flow Rate Fraction of Inspired Oxygen 03/29/24 22:00 03/29/24 22:02 03/29/24 22:13 Temperature Pulse Rate 80 84 82 Respiratory Rate 16 15 Blood Pressure 87/52 L 92/50 L Pulse Oximetry 96 96 Oxygen Delivery Oxygen Flow Rate Fraction of Inspired Oxygen 03/29/24 22:15 03/29/24 22:30 03/29/24 22:31 Temperature Pulse Rate 78 80 81 Respiratory Rate 17 Blood Pressure 92/50 L 99/65 L 99/65 L Pulse Oximetry 96 Oxygen Delivery Oxygen Flow Rate Fraction of Inspired Oxygen 03/29/24 22:45 03/29/24 23:00 03/29/24 23:00 Temperature Pulse Rate 79 78 77 Respiratory Rate 21 H Blood Pressure 104/62 103/61 104/62 Pulse Oximetry 96 Oxygen Delivery Oxygen Flow Rate Fraction of Inspired Oxygen 03/29/24 23:01 03/29/24 23:15 03/29/24 23:16 Temperature Pulse Rate 79 79 80 Respiratory Rate 20 17 Blood Pressure 103/61 89/65 L 89/65 L Pulse Oximetry 96 95 Oxygen Delivery Oxygen Flow Rate Fraction of Inspired Oxygen 03/29/24 23:30 03/29/24 23:31 03/29/24 23:45 Temperature Pulse Rate 78 80 78 Respiratory Rate 16 Blood Pressure 96/61 L 96/61 L 97/57 L Pulse Oximetry 95 Oxygen Delivery Oxygen Flow Rate Fraction of Inspired Oxygen 03/29/24 23:46 03/30/24 00:00 03/30/24 00:00 Temperature Pulse Rate 79 79 79 Respiratory Rate 18 Blood Pressure 97/57 L 94/56 L Pulse Oximetry 95 Oxygen Delivery Oxygen Flow Rate Fraction of Inspired Oxygen 03/30/24 00:01 03/30/24 00:15 03/30/24 00:16 Temperature 98.4 F Pulse Rate 79 77 77 Respiratory Rate 17 18 Blood Pressure 94/56 L 84/53 L 84/53 L Pulse Oximetry 96 96 Oxygen Delivery Oxygen Flow Rate Fraction of Inspired Oxygen 03/30/24 00:30 03/30/24 00:31 03/30/24 00:45 Temperature Pulse Rate 74 75 69 Respiratory Rate 15 Blood Pressure 94/56 L 94/56 L 88/53 L Pulse Oximetry 96 Oxygen Delivery Oxygen Flow Rate Fraction of Inspired Oxygen 03/30/24 00:46 03/30/24 01:00 03/30/24 01:01 Temperature Pulse Rate 70 67 68 Respiratory Rate 13 13 Blood Pressure 88/53 L 85/52 L 85/52 L Pulse Oximetry 96 96 Oxygen Delivery Oxygen Flow Rate Fraction of Inspired Oxygen 03/30/24 01:15 03/30/24 01:16 03/30/24 01:30 Temperature Pulse Rate 70 70 67 Respiratory Rate 12 Blood Pressure 100/57 L 100/57 L 85/57 L Pulse Oximetry 96 Oxygen Delivery Oxygen Flow Rate Fraction of Inspired Oxygen 03/30/24 01:33 03/30/24 01:45 03/30/24 01:46 Temperature Pulse Rate 71 64 69 Respiratory Rate 14 20 Blood Pressure 85/57 L 98/54 L 98/54 L Pulse Oximetry 95 96 Oxygen Delivery Oxygen Flow Rate Fraction of Inspired Oxygen 03/30/24 02:00 03/30/24 02:00 03/30/24 02:01 Temperature Pulse Rate 69 61 61 Respiratory Rate 20 Blood Pressure 87/52 L 87/52 L Pulse Oximetry 97 Oxygen Delivery Oxygen Flow Rate Fraction of Inspired Oxygen 03/30/24 02:15 03/30/24 02:16 03/30/24 02:30 Temperature Pulse Rate 66 66 66 Respiratory Rate 21 H Blood Pressure 91/56 L 91/56 L 107/60 Pulse Oximetry 96 Oxygen Delivery Oxygen Flow Rate Fraction of Inspired Oxygen 03/30/24 02:31 03/30/24 02:45 03/30/24 02:46 Temperature Pulse Rate 70 66 66 Respiratory Rate 11 L 14 Blood Pressure 107/60 85/57 L 85/57 L Pulse Oximetry 97 97 Oxygen Delivery Oxygen Flow Rate Fraction of Inspired Oxygen 03/30/24 03:00 03/30/24 03:01 03/30/24 03:15 Temperature Pulse Rate 66 66 63 Respiratory Rate 15 Blood Pressure 88/53 L 88/53 L 91/58 L Pulse Oximetry 97 Oxygen Delivery Oxygen Flow Rate Fraction of Inspired Oxygen 03/30/24 03:15 03/30/24 03:30 03/30/24 03:31 Temperature Pulse Rate 63 63 63 Respiratory Rate 12 14 Blood Pressure 91/58 L 95/57 L 95/57 L Pulse Oximetry 97 97 Oxygen Delivery Oxygen Flow Rate Fraction of Inspired Oxygen 03/30/24 03:45 03/30/24 03:45 03/30/24 04:00 Temperature Pulse Rate 81 81 78 Respiratory Rate 19 Blood Pressure 107/59 L 107/59 L 96/59 L Pulse Oximetry 97 Oxygen Delivery Oxygen Flow Rate Fraction of Inspired Oxygen 03/30/24 04:00 03/30/24 04:00 03/30/24 04:01 Temperature 98 F Pulse Rate 78 78 80 Respiratory Rate 12 11 L Blood Pressure 96/59 L 96/59 L Pulse Oximetry 97 97 Oxygen Delivery Oxygen Flow Rate Fraction of Inspired Oxygen 03/30/24 04:15 03/30/24 04:16 03/30/24 04:30 Temperature Pulse Rate 79 79 77 Respiratory Rate 12 Blood Pressure 100/62 100/62 98/63 L Pulse Oximetry 97 Oxygen Delivery Oxygen Flow Rate Fraction of Inspired Oxygen 03/30/24 04:31 03/30/24 04:45 03/30/24 04:45 Temperature Pulse Rate 70 69 68 Respiratory Rate 10 L 12 Blood Pressure 98/63 L 100/58 L 100/58 L Pulse Oximetry 98 97 Oxygen Delivery Oxygen Flow Rate Fraction of Inspired Oxygen 03/30/24 05:00 03/30/24 05:01 03/30/24 05:15 Temperature Pulse Rate 72 74 70 Respiratory Rate 13 Blood Pressure 104/61 104/61 91/56 L Pulse Oximetry 98 Oxygen Delivery Oxygen Flow Rate Fraction of Inspired Oxygen 03/30/24 05:16 03/30/24 05:30 03/30/24 05:32 Temperature Pulse Rate 75 71 72 Respiratory Rate 15 11 L Blood Pressure 91/56 L 109/62 109/62 Pulse Oximetry 98 95 Oxygen Delivery Oxygen Flow Rate Fraction of Inspired Oxygen 03/30/24 05:45 03/30/24 05:46 03/30/24 06:00 Temperature Pulse Rate 74 70 73 Respiratory Rate 13 Blood Pressure 101/60 101/60 104/60 Pulse Oximetry 99 Oxygen Delivery Oxygen Flow Rate Fraction of Inspired Oxygen 03/30/24 06:00 03/30/24 06:01 03/30/24 06:15 Temperature Pulse Rate 73 71 69 Respiratory Rate 12 Blood Pressure 104/60 100/59 L Pulse Oximetry 97 Oxygen Delivery Oxygen Flow Rate Fraction of Inspired Oxygen 03/30/24 06:15 03/30/24 06:30 03/30/24 06:31 Temperature Pulse Rate 69 70 73 Respiratory Rate 12 14 Blood Pressure 100/59 L 105/62 91/80 L Pulse Oximetry 98 97 Oxygen Delivery Oxygen Flow Rate Fraction of Inspired Oxygen 03/30/24 06:36 03/30/24 06:39 03/30/24 06:45 Temperature Pulse Rate 80 75 72 Respiratory Rate 12 15 Blood Pressure 87/71 L 105/62 105/66 Pulse Oximetry 99 96 Oxygen Delivery Oxygen Flow Rate Fraction of Inspired Oxygen 03/30/24 06:53 03/30/24 07:00 03/30/24 07:00 Temperature Pulse Rate 73 69 69 Respiratory Rate 11 L 12 Blood Pressure 105/66 98/59 L 98/59 L Pulse Oximetry 98 97 Oxygen Delivery Oxygen Flow Rate Fraction of Inspired Oxygen 03/30/24 08:00 03/30/24 08:00 03/30/24 08:00 Temperature 98.2 F Pulse Rate 71 71 76 Respiratory Rate 18 18 Blood Pressure 109/69 Pulse Oximetry 96 96 Oxygen Delivery High Flow Therapy with Na Oxygen Flow Rate 50 Fraction of Inspired Oxygen 60 03/30/24 09:10 Temperature Pulse Rate 67 Respiratory Rate 13 Blood Pressure Pulse Oximetry 97 Oxygen Delivery High Flow Therapy with Na Oxygen Flow Rate 50 Fraction of Inspired Oxygen 53 Intake/Output Intake/Output: Intake & Output 03/27/24 03/28/24 03/29/24 03/30/24 23:59 23:59 23:59 23:59 Intake Total 3952.5 3409.5 887.3 Output Total 550 2675 900 Balance 3402.5 734.5 -12.7 Meds/Results Medications: Active Medications Generic Name Dose Route Start Last Admin Trade Name Freq PRN Reason Stop Dose Admin Acetaminophen 650 mg 03/28/24 13:18 03/29/24 20:36 Acetaminophen 325 Mg Tablet PO 650 mg Q6H PRN Administration Mild Pain (1-3) or Fever Hydrocodone Bitart/Acetaminophen 1 tab 03/28/24 23:39 03/29/24 22:38 Hydrocodone/Acetaminophen (*Crx) 5-325 Mg Tablet PO 1 tab Q4H PRN Administration Pain Rated 4-6 Aspirin 81 mg 03/29/24 09:00 03/30/24 08:25 Aspirin 81 Mg Enteric Tablet PO 81 mg DAILY DANE Administration Atorvastatin Calcium 40 mg 03/28/24 11:05 03/30/24 08:25 Atorvastatin 40 Mg Tablet PO 40 mg DAILY DANE Administration Heparin Sodium (Porcine) 5,000 units 03/28/24 14:00 03/28/24 13:25 Heparin Sodium 5,000 Units/Ml Vial SUB-Q Not Given Q8HR [facility] Ceftriaxone Sodium 2 gm in 100 mls @ 200 mls/hr 03/28/24 21:00 03/29/24 21:08 Rocephin 2 Gm/Ns 100 Ml IVPB Infused Q24H DANE Infusion Norepinephrine Bitartrate 8 mg in 250 mls @ 5.625 mls/hr 03/29/24 22:50 03/30/24 07:00 Levophed 8 Mg/D5w 250 Ml IV CONT 3 mcg/min .Q24H DANE 5.63 mls/hr Titration Protocol 3 MCG/MIN Potassium Chloride 100 mls @ 25 mls/hr 03/30/24 07:29 03/30/24 08:27 Kcl 40 Meq/Water 100 Ml IVPB 03/30/24 11:28 25 mls/hr ONCE ONE Administration Levothyroxine Sodium 112 mcg 03/28/24 11:05 03/30/24 06:36 Levothyroxine Sodium 112 Mcg Tablet PO 112 mcg DAILY@0630 DANE Administration Ondansetron HCl 4 mg 03/28/24 07:31 03/30/24 08:25 Ondansetron Inj 4 Mg/2 Ml Vial IV PUSH 4 mg Q4H PRN Administration Nausea Sodium Chloride 10 ml 03/28/24 14:00 03/30/24 06:36 Central Line Flush IV PUSH 10 ml Q8HR DANE Administration Sodium Chloride 20 ml 03/28/24 08:28 Central Line Flush IV PUSH PRN PRN after blood draws Radiology Results: ITS Impressions Chest CTA 03/28/24 05:32 Impression: No evidence of pulmonary embolus, aortic dissection, or aortic aneurysm. No significant pulmonary abnormality. Mild to moderate left hydronephrosis and asymmetric left perinephric stranding. Consider more distal left ureteral stone. T12 compression fracture, age-indeterminate. Abdomen/Pelvis CT 03/28/24 06:01 Impression: 6 mm distal left ureteral stone with mild to moderate left hydroureteronephrosis and asymmetric left perinephric stranding/fluid. 5.6 cm right ovarian cyst. Gynecologic follow-up advised given patient age and size of the cystic lesion. T12 compression fracture, age-indeterminate. Chest X-Ray 03/30/24 06:48 Impression: Moderate to advanced pulmonary edema pattern with small bilateral pleural effusions. Stable cardiomegaly. Stable support line. Labs Labs: Laboratory Results - last 24 hr 03/29/24 03/30/24 06:33 04:26 WBC 13.8 H RBC 3.06 L Hgb 10.3 L Hct 31.4 L MCV 102.6 H MCH 33.7 MCHC 32.8 RDW 14.6 H Plt Count 84 L MPV 10.4 Immature Gran % (Auto) 0.4 Neut % (Auto) 87.0 H Lymph % (Auto) 3.9 L [place] % (Auto) 6.5 Eos % (Auto) 1.6 Baso % (Auto) 0.6 Lymph # (Auto) 0.54 L [place] # (Auto) 0.9 H Eos # (Auto) 0.2 Baso # (Auto) 0.1 Abs Immat Gran (auto) 0.05 H Absolute Neuts (auto) 12.0 H Absolute Nucleated RBC 0.000 Total Counted 100 Neutrophils % (Manual) 79 H Band Neutrophils % 17 H Lymphocytes % (Manual) 2.0 L Monocytes % (Manual) 2 L Nucleated RBC % 0.0 Abs Neuts (Manual) 15.26 H Abs Lymphs (Manual) 0.31 L Abs Monocytes (Manual) 0.31 Platelet Estimate Decreased Decreased % Immature Plt Fraction 4.6 Anisocytosis 1+ Ovalocytes 1+ [place] Cells 1+ 2+ Schistocytes None seen None seen Sodium 129 L Potassium 3.2 L Chloride 101 Carbon Dioxide 24 Anion Gap 4 BUN 33 H Creatinine 1.26 H Estim Creat Clear Calc 30 Estimated GFR 40 L Glucose 106 Lactic Acid 0.8 Calcium 7.5 L Phosphorus 3.3 Magnesium 2.1 Total Bilirubin 0.6 AST 35 ALT 22 Alkaline Phosphatase 91 Total Protein 5.0 L Albumin 2.4 L
--- NOTE | 2024-03-30 15:33 | PCOTNOTE ---
The patient treatment was not able to be completed. Patient is working with PT for her Evaluation. Will plan to continue treatment per plan of care.
[2024-03-30] MEDS: cefTRIAXone 2 GM/NS 100 ML 2 GM/100 ML BAG IVPB (20:18)
[2024-03-30] MEDS: HYDROcodone/acetaminophen (*CRX) 5-325 MG TABLET 1 TAB PO (20:36)
[2024-03-31] VITALS (19 sets, daily range): BP systolic 98–125; BP diastolic 51–99; PULSE 70–98; RESP 16–20; TEMP 36.3–37.2; O2SAT 91–99
[2024-03-31] MEDS: LEVOTHYROXINE SODIUM 112 MCG TABLET PO (05:19)
[2024-03-31] MEDS: CENTRAL LINE FLUSH 10 ML IV PUSH ×3 (05:19→20:41)
[2024-03-31 05:45] LABS: Basophils Absolute Auto 0.1 K/mm3 (0.0-0.1); Basophils Percent Auto 0.5 % (0.2-1.2); Eosinophils Absolute Auto 0.3 K/mm3 (0-0.3); Eosinophils Percent Auto 2.6 % (0-4.4); Hematocrit 31.3 % (37.0-47.0); Hemoglobin 10.3 g/dL (12.0-15.0); Immature Granulocyte Absolute 0.05 K/mm3 (0.00-0.031); Immature Granulocyte Percent A 0.5 % (0-0.5); Immature Platelet Fraction Pct 4.8 % (0.9-11.2); Lymphocytes Absolute Auto 0.49 K/mm3 (0.9-3.2); Mean Corpuscular HGB Conc 32.9 g/dl (32-36); Mean Corpuscular Volume 103.3 fl (80-100); Mean Platelet Volume 10.3 fl (7.4-10.4); Monocytes Absolute Auto 0.9 K/mm3 (0.1-0.6); Monocytes Percent Auto 9.7 % (2.6-8.5); Neutrophils Percent Auto 81.7 % (45.5-73.1); Platelet Count Result 84 k/mm3 (150-375); Red Blood Count 3.03 M/mm3 (4.2-5.4); Red Cell Distribution Width 14.8 % (11.5-14.5); White Blood Count 9.7 K/mm3 (4.5-10.0)
[2024-03-31 06:42] LABS: Platelet Estimate Decreased (Adequate)
[2024-03-31 06:43] LABS: Acanthocytes 1+; Burr Cells 1+; Ovalocytes 1+; Schistocytes None Seen
[2024-03-31] MEDS: ASPIRIN 81 MG ENTERIC TABLET PO (08:28)
[2024-03-31] MEDS: ACETAMINOPHEN 325 MG TABLET 650 MG PO ×2 (08:28→16:44)
[2024-03-31] MEDS: ATORVASTATIN 40 MG TABLET PO (08:28)
[2024-03-31 09:40] LABS: Alanine Aminotransferase 21 U/L (6-35); Albumin Level 2.6 g/dL (3.5-5.1); Alkaline Phosphatase 98 U/L (38-126); Anion Gap 5 mmol/L (4-12); Aspartate Amino Transferase 28 U/L (14-36); Bilirubin,Total 0.5 mg/dL (0.2-1.3); Blood Urea Nitrogen 21 mg/dL (7-17); Calcium 8.3 mg/dL (8.4-10.2); Carbon Dioxide 24 mmol/L (22-30); Chloride 104 mmol/L (98-107); Estimated CRCL calculation 40 ml/min; Estimated Glomerular Filt Rate 56; Glucose 90 mg/dL (65-110); Magnesium 2.1 mg/dL (1.6-2.3); Phosphorus 2.1 mg/dL (2.5-4.5); Potassium 3.9 mmol/L (3.4-5.0); Sodium 133 mmol/L (137-145)
--- NOTE | 2024-03-31 11:08 | WPDINTPN ---
Progress Note: A&P Assessment and Plan (1) Septic shock: Code(s): A41.9 - Sepsis, unspecified organism; R65.21 - Severe sepsis with septic shock Status: Acute Assessment and Plan: Patient presented with back pain, left flank pain. UA reflective of UTI, patient has left ureteral stone with hydronephrosis -03/28: Status post cystoscopy, left retrograde pyelogram, left ureteral stent insertion, Marshall catheter insertion -received 3 L IV fluid bolus in the ER despite which she was hypotensive, central line was inserted and patient started on Levophed OFF LEVOPHED since 2:00 p.m. on 03/30/2024 -patient has a history of multiple E coli UTIs in the past susceptible to ceftriaxone -03/28: blood cultures no growth so far -03/27: Urine cultures growing E coli, susceptible to ceftriaxone -continue ceftriaxone 2 g IV Q 24 hours -03/29: DC vancomycin vancomycin (2) RICHARD (acute kidney injury): Code(s): N17.9 - Acute kidney failure, unspecified Status: Acute Assessment and Plan: Acute kidney injury likely related to septic shock, hypotension, UTI, pyelonephritis -adequately fluid-resuscitated -continue maintenance IV fluids -renal function improving, adequate urine output after receiving Lasix 40 mg IV x1 on 03/29 01/27: Auto diuresing very well -potassium has normalized after replacement -continue to monitor urine output, renal function and electrolyte (3) Calculus of distal left ureter: Code(s): N20.1 - Calculus of ureter Status: Acute Assessment and Plan: Status post cystoscopy, left retrograde pyelogram, left ureteral stent insertion, Marshall catheter insertion -appreciate urology following the patient (4) Hydronephrosis of left kidney: Code(s): N13.30 - Unspecified hydronephrosis Status: Acute Assessment and Plan: As above (5) HLD (hyperlipidemia): Code(s): E78.5 - Hyperlipidemia, unspecified Status: Acute Assessment and Plan: Continue statin (6) History of hypertension: Code(s): Z86.79 - Personal history of other diseases of the circulatory system Status: Acute Assessment and Plan: Will hold all antihypertensives for now as patient is in septic shock and on vasopressors (7) Hypothyroidism: Code(s): E03.9 - Hypothyroidism, unspecified Status: Acute Assessment and Plan: Continue levothyroxine (8) Thrombocytopenia: Code(s): D69.6 - Thrombocytopenia, unspecified Status: Acute Assessment and Plan: Thrombocytopenia likely related to septic shock, -hold subQ heparin for now -platelet counts are improving, continue to monitor (9) UTI (urinary tract infection): Code(s): N39.0 - Urinary tract infection, site not specified Status: Acute Assessment and Plan: Urine was reflective of UTI, cultures have been obtained, continue antibiotics as above Plan DVT prophylaxis: SCDs, no a chemoprophylaxis secondary to thrombocytopenia Stress ulcer prophylaxis: Not applicable Nutrition: Heart healthy diet Code Status: Modified code, meds only Critical Care Time Spent: 32 minutes Family was updated Patient may be transferred to IMU Due to a high probability of clinically significant, life threatening deterioration, the patient required my highest level of preparedness to intervene emergently and I personally spent this critical care time directly and personally managing the patient. This critical care time included obtaining a history; examining the patient; pulse oximetry; ordering and review of studies; arranging urgent treatment with development of a management plan; evaluation of patient's response to treatment; frequent reassessment; and discussions with other providers. It was exclusive of separately billable procedures and treating other patients and teaching time. Please see Assessment and Plan section and the rest of the note for further information on patient assessment and treatment This dictation may have been done utilizing a voice recognition system. Attempts have been made to correct errors. However, there may be uncorrected grammatical, spelling, and recognitions errors present. Subjective Date/time seen: 03/31/24 11:08 Interval history: Reason for consult: Septic shock, left flank pain, back pain, hypotension, leukocytosis 03/28: Status post cystoscopy, left retrograde pyelogram, left ureteral stent insertion, Marshall catheter insertion One hundred twenty-five: Patient seen and examined the ICU, remains on high-flow therapy, 30% FiO2, 30 L with adequate O2 sats. Remains off Levophed since 2:00 p.m. on 03/30/2024. Urine output has been very good. Hemodynamically stable, afebrile. States he feels better respiratory bailey but continues to remain weak. Tolerating p.o. diet Denies any chest pain nausea, vomiting at this time. Abdominal pain much improved Review of Systems Review of Systems: All systems reviewed & are unremarkable except as noted in HPI and below Exam Narrative: General: Pleasant female in no acute distress HEENT:? Pupils equal and reactive, sclerae is clear, moist oral mucosa Neck:? Supple Respiratory:? Coarse breath sounds bilaterally, decreased at bases, adequate air entry Cardiac:? S1 S2 is normal, regular rate and rhythm Abdomen:? Soft, nontender, nondistended, normoactive bowel sounds Extremities:? No edema, palpable pedal pulses Neuro:? Patient is awake, alert, oriented, nonfocal, answers to questions appropriately and follows simple commands in all extremities Skin:? No skin lesions noted Psych:? Normal mentation and affect Objective Data Vital Signs Vital Signs: Vital Signs - 24 hr 03/30/24 12:00 03/30/24 12:00 03/30/24 12:00 Temperature 98.5 F Pulse Rate 68 70 Respiratory Rate 16 Blood Pressure 105/60 105/60 Pulse Oximetry 93 96 Oxygen Delivery High Flow Therapy with Na Oxygen Flow Rate 40 Fraction of Inspired Oxygen 40 03/30/24 12:00 03/30/24 12:16 03/30/24 14:00 Temperature Pulse Rate 70 75 81 Respiratory Rate 20 Blood Pressure 107/65 Pulse Oximetry 93 Oxygen Delivery High Flow Therapy with Na Oxygen Flow Rate 40 Fraction of Inspired Oxygen 40 03/30/24 14:00 03/30/24 14:00 03/30/24 14:06 Temperature Pulse Rate 85 83 Respiratory Rate 23 H Blood Pressure 107/65 Pulse Oximetry 94 94 Oxygen Delivery High Flow Therapy with Na Oxygen Flow Rate 40 Fraction of Inspired Oxygen 35 03/30/24 14:56 03/30/24 15:05 03/30/24 15:05 Temperature Pulse Rate 78 Respiratory Rate 20 Blood Pressure Pulse Oximetry 90 89 L Oxygen Delivery High Flow Therapy with Na High Flow Therapy with Na High Flow Therapy with Na Oxygen Flow Rate 45 45 45 Fraction of Inspired Oxygen 45 45 03/30/24 16:00 03/30/24 16:00 03/30/24 16:00 Temperature 98.6 F Pulse Rate 97 101 H Respiratory Rate 25 H Blood Pressure 111/63 112/73 Pulse Oximetry 93 93 Oxygen Delivery High Flow Therapy with Na Oxygen Flow Rate 45 Fraction of Inspired Oxygen 45 03/30/24 16:00 03/30/24 18:00 03/30/24 18:00 Temperature Pulse Rate 98 94 94 Respiratory Rate 21 H Blood Pressure 109/63 Pulse Oximetry 95 Oxygen Delivery Oxygen Flow Rate Fraction of Inspired Oxygen 03/30/24 18:00 03/30/24 20:00 03/30/24 20:00 Temperature 98.3 F Pulse Rate 92 91 Respiratory Rate 20 Blood Pressure 118/70 112/72 Pulse Oximetry 96 96 Oxygen Delivery High Flow Therapy with Na Oxygen Flow Rate 45 Fraction of Inspired Oxygen 45 03/30/24 20:00 03/30/24 20:00 03/30/24 20:45 Temperature Pulse Rate 90 91 88 Respiratory Rate Blood Pressure 112/72 Pulse Oximetry 94 Oxygen Delivery High Flow Therapy with Na Oxygen Flow Rate 45 Fraction of Inspired Oxygen 45 03/30/24 22:00 03/30/24 22:00 03/30/24 22:00 Temperature Pulse Rate 84 84 84 Respiratory Rate 17 Blood Pressure 98/59 L 98/59 L Pulse Oximetry 94 Oxygen Delivery Oxygen Flow Rate Fraction of Inspired Oxygen 03/31/24 00:00 03/31/24 00:00 03/31/24 00:00 Temperature 97.5 F L Pulse Rate 79 76 Respiratory Rate 16 Blood Pressure 98/64 L Pulse Oximetry 97 97 Oxygen Delivery High Flow Therapy with Na Oxygen Flow Rate 45 Fraction of Inspired Oxygen 45 03/31/24 00:00 03/31/24 02:00 03/31/24 02:00 Temperature Pulse Rate 79 70 70 Respiratory Rate 17 Blood Pressure 98/64 L 99/67 L Pulse Oximetry 99 Oxygen Delivery Oxygen Flow Rate Fraction of Inspired Oxygen 03/31/24 02:00 03/31/24 04:00 03/31/24 04:00 Temperature Pulse Rate 70 71 Respiratory Rate Blood Pressure 99/67 L Pulse Oximetry 98 Oxygen Delivery High Flow Therapy with Na Oxygen Flow Rate 45 Fraction of Inspired Oxygen 45 03/31/24 04:00 03/31/24 04:00 03/31/24 05:00 Temperature 97.7 F Pulse Rate 71 78 Respiratory Rate 17 Blood Pressure 119/79 119/79 Pulse Oximetry 98 95 Oxygen Delivery High Flow Therapy with Na Oxygen Flow Rate 40 Fraction of Inspired Oxygen 40 03/31/24 06:00 03/31/24 06:00 03/31/24 06:00 Temperature Pulse Rate 80 80 80 Respiratory Rate 16 Blood Pressure 117/65 117/65 Pulse Oximetry 94 Oxygen Delivery Oxygen Flow Rate Fraction of Inspired Oxygen 03/31/24 08:00 03/31/24 08:00 03/31/24 08:00 Temperature 98.6 F Pulse Rate 98 98 Respiratory Rate 20 Blood Pressure 125/99 H 125/99 H Pulse Oximetry 95 96 Oxygen Delivery High Flow Therapy with Na Oxygen Flow Rate 50 Fraction of Inspired Oxygen 65 03/31/24 08:00 03/31/24 08:37 03/31/24 09:14 Temperature Pulse Rate 93 Respiratory Rate Blood Pressure Pulse Oximetry 97 92 Oxygen Delivery High Flow Therapy with Na High Flow Therapy with Na Oxygen Flow Rate 40 30 Fraction of Inspired Oxygen 40 30 Intake/Output Intake/Output: Intake & Output 03/28/24 03/29/24 03/30/24 03/31/24 23:59 23:59 23:59 23:59 Intake Total 3952.5 3409.5 2273.7 1140 Output Total 550 2675 2850 1625 Balance 3402.5 734.5 -576.3 -485 Meds/Results Medications: Active Medications Generic Name Dose Route Start Last Admin Trade Name Freq PRN Reason Stop Dose Admin Acetaminophen 650 mg 03/28/24 13:18 03/31/24 08:28 Acetaminophen 325 Mg Tablet PO 650 mg Q6H PRN Administration Mild Pain (1-3) or Fever Hydrocodone Bitart/Acetaminophen 1 tab 03/28/24 23:39 03/30/24 20:36 Hydrocodone/Acetaminophen (*Crx) 5-325 Mg Tablet PO 1 tab Q4H PRN Administration Pain Rated 4-6 Aspirin 81 mg 03/29/24 09:00 03/31/24 08:28 Aspirin 81 Mg Enteric Tablet PO 81 mg DAILY DANE Administration Atorvastatin Calcium 40 mg 03/28/24 11:05 03/31/24 08:28 Atorvastatin 40 Mg Tablet PO 40 mg DAILY DANE Administration Heparin Sodium (Porcine) 5,000 units 03/28/24 14:00 03/28/24 13:25 Heparin Sodium 5,000 Units/Ml Vial SUB-Q Not Given Q8HR [facility] Ceftriaxone Sodium 2 gm in 100 mls @ 200 mls/hr 03/28/24 21:00 03/30/24 20:48 Rocephin 2 Gm/Ns 100 Ml IVPB Infused Q24H DANE Infusion Levothyroxine Sodium 112 mcg 03/28/24 11:05 03/31/24 05:19 Levothyroxine Sodium 112 Mcg Tablet PO 112 mcg DAILY@0630 DANE Administration Ondansetron HCl 4 mg 03/28/24 07:31 03/30/24 20:22 Ondansetron Inj 4 Mg/2 Ml Vial IV PUSH 4 mg Q4H PRN Administration Nausea Sodium Chloride 10 ml 03/28/24 14:00 03/31/24 05:19 Central Line Flush IV PUSH 10 ml Q8HR DANE Administration Sodium Chloride 20 ml 03/28/24 08:28 Central Line Flush IV PUSH PRN PRN after blood draws Radiology Results: ITS Impressions Chest CTA 03/28/24 05:32 Impression: No evidence of pulmonary embolus, aortic dissection, or aortic aneurysm. No significant pulmonary abnormality. Mild to moderate left hydronephrosis and asymmetric left perinephric stranding. Consider more distal left ureteral stone. T12 compression fracture, age-indeterminate. Abdomen/Pelvis CT 03/28/24 06:01 Impression: 6 mm distal left ureteral stone with mild to moderate left hydroureteronephrosis and asymmetric left perinephric stranding/fluid. 5.6 cm right ovarian cyst. Gynecologic follow-up advised given patient age and size of the cystic lesion. T12 compression fracture, age-indeterminate. Chest X-Ray 03/30/24 06:48 Impression: Moderate to advanced pulmonary edema pattern with small bilateral pleural effusions. Stable cardiomegaly. Stable support line. Labs Labs: Laboratory Results - last 24 hr 03/31/24 05:33 WBC 9.7 RBC 3.03 L Hgb 10.3 L Hct 31.3 L MCV 103.3 H MCH 34.0 MCHC 32.9 RDW 14.8 H Plt Count 84 L MPV 10.3 Immature Gran % (Auto) 0.5 Neut % (Auto) 81.7 H Lymph % (Auto) 5.[address] [place] % (Auto) 9.7 H Eos % (Auto) 2.6 Baso % (Auto) 0.5 Lymph # (Auto) 0.[address] [place] # (Auto) 0.9 H Eos # (Auto) 0.3 Baso # (Auto) 0.1 Abs Immat Gran (auto) 0.05 H Absolute Neuts (auto) 8.0 H Absolute Nucleated RBC 0.000 Nucleated RBC % 0.0 Platelet Estimate Decreased % Immature Plt Fraction 4.8 Ovalocytes 1+ [place] Cells 1+ Acanthocytes (Spur) 1+ Schistocytes None seen Sodium 133 L Potassium 3.9 Chloride 104 Carbon Dioxide 24 Anion Gap 5 BUN 21 H D Creatinine 0.94 Estim Creat Clear Calc 40 Estimated GFR 56 L Glucose 90 Calcium 8.3 L Phosphorus 2.1 L Magnesium 2.1 Total Bilirubin 0.5 AST 28 ALT 21 Alkaline Phosphatase 98 Total Protein 6.0 L Albumin 2.6 L
--- NOTE | 2024-03-31 17:38 | PC.NURSE ---
This RN gave report to IMU RNJerilyn. This patient transferred to room 231 at 1758.
--- NOTE | 2024-03-31 18:32 | WPDUROPN2 ---
Progress Note: A&P Assessment and Plan (1) Calculus of distal left ureter: Code(s): N20.1 - Calculus of ureter Status: Acute Assessment and Plan: continue Marshall catheter; stent in place; will need definitive stone procedure once the infection has cleared. Will be outpatient surgery after she has recovered from current illness. (2) UTI (urinary tract infection): Code(s): N39.0 - Urinary tract infection, site not specified Status: Acute Assessment and Plan: Contninue antibiotics per the primary team Subjective Subjective Date/Time Seen: 03/31/24 18:32 Interval history: She is on oxygen. Marshall in place. Urine is clear. She is feeling better. Exam Urinary Catheter: Urinary Catheter: patent and draining Objective Data Vital Signs Vital Signs: Vital Signs - 24 hr 03/30/24 20:00 03/30/24 20:00 03/30/24 20:00 Temperature 36.8 C Pulse Rate 91 90 Respiratory Rate 20 Blood Pressure 112/72 Pulse Oximetry 96 96 Oxygen Delivery High Flow Therapy with Na Oxygen Flow Rate 45 Fraction of Inspired Oxygen 45 03/30/24 20:00 03/30/24 20:45 03/30/24 22:00 Temperature Pulse Rate 91 88 84 Respiratory Rate Blood Pressure 112/72 Pulse Oximetry 94 Oxygen Delivery High Flow Therapy with Na Oxygen Flow Rate 45 Fraction of Inspired Oxygen 45 03/30/24 22:00 03/30/24 22:00 03/31/24 00:00 Temperature Pulse Rate 84 84 Respiratory Rate 17 Blood Pressure 98/59 L 98/59 L Pulse Oximetry 94 97 Oxygen Delivery High Flow Therapy with Na Oxygen Flow Rate 45 Fraction of Inspired Oxygen 45 03/31/24 00:00 03/31/24 00:00 03/31/24 00:00 Temperature 36.4 C L Pulse Rate 79 76 79 Respiratory Rate 16 Blood Pressure 98/64 L 98/64 L Pulse Oximetry 97 Oxygen Delivery Oxygen Flow Rate Fraction of Inspired Oxygen 03/31/24 02:00 03/31/24 02:00 03/31/24 02:00 Temperature Pulse Rate 70 70 70 Respiratory Rate 17 Blood Pressure 99/67 L 99/67 L Pulse Oximetry 99 Oxygen Delivery Oxygen Flow Rate Fraction of Inspired Oxygen 03/31/24 04:00 03/31/24 04:00 03/31/24 04:00 Temperature 36.5 C Pulse Rate 71 71 Respiratory Rate 17 Blood Pressure 119/79 Pulse Oximetry 98 98 Oxygen Delivery High Flow Therapy with Na Oxygen Flow Rate 45 Fraction of Inspired Oxygen 45 03/31/24 04:00 03/31/24 05:00 03/31/24 06:00 Temperature Pulse Rate 78 80 Respiratory Rate Blood Pressure 119/79 Pulse Oximetry 95 Oxygen Delivery High Flow Therapy with Na Oxygen Flow Rate 40 Fraction of Inspired Oxygen 40 03/31/24 06:00 03/31/24 06:00 03/31/24 08:00 Temperature Pulse Rate 80 80 98 Respiratory Rate 16 Blood Pressure 117/65 117/65 125/99 H Pulse Oximetry 94 Oxygen Delivery Oxygen Flow Rate Fraction of Inspired Oxygen 03/31/24 08:00 03/31/24 08:00 03/31/24 08:00 Temperature 37.0 C Pulse Rate 98 93 Respiratory Rate 20 Blood Pressure 125/99 H Pulse Oximetry 95 96 Oxygen Delivery High Flow Therapy with Na Oxygen Flow Rate 50 Fraction of Inspired Oxygen 65 03/31/24 08:37 03/31/24 09:14 03/31/24 10:00 Temperature Pulse Rate 80 Respiratory Rate Blood Pressure Pulse Oximetry 97 92 Oxygen Delivery High Flow Therapy with Na High Flow Therapy with Na Oxygen Flow Rate 40 30 Fraction of Inspired Oxygen 40 30 03/31/24 12:00 03/31/24 12:00 03/31/24 12:00 Temperature 36.3 C L Pulse Rate 85 89 Respiratory Rate 19 Blood Pressure 115/51 L Pulse Oximetry 94 94 Oxygen Delivery High Flow Therapy with Na Oxygen Flow Rate 30 Fraction of Inspired Oxygen 30 03/31/24 17:50 03/31/24 18:05 Temperature Pulse Rate Respiratory Rate Blood Pressure Pulse Oximetry 94 96 Oxygen Delivery High Flow Therapy with Na High Flow Nasal Cannula Oxygen Flow Rate 30 6 Fraction of Inspired Oxygen 30 Intake/Output Intake/Output: Intake & Output 03/28/24 03/29/24 03/30/24 03/31/24 23:59 23:59 23:59 23:59 Intake Total 3952.5 3409.5 2273.7 1380 Output Total 550 1735 2850 3450 Balance 3402.5 734.5 -576.3 -2070 Meds/Results Medications: Active Medications Generic Name Dose Route Start Last Admin Trade Name Freq PRN Reason Stop Dose Admin Acetaminophen 650 mg 03/28/24 13:18 03/31/24 16:44 Acetaminophen 325 Mg Tablet PO 650 mg Q6H PRN Administration Mild Pain (1-3) or Fever Hydrocodone Bitart/Acetaminophen 1 tab 03/28/24 23:39 03/30/24 20:36 Hydrocodone/Acetaminophen (*Crx) 5-325 Mg Tablet PO 1 tab Q4H PRN Administration Pain Rated 4-6 Aspirin 81 mg 03/29/24 09:00 03/31/24 08:28 Aspirin 81 Mg Enteric Tablet PO 81 mg DAILY DANE Administration Atorvastatin Calcium 40 mg 03/28/24 11:05 03/31/24 08:28 Atorvastatin 40 Mg Tablet PO 40 mg DAILY DANE Administration Heparin Sodium (Porcine) 5,000 units 03/28/24 14:00 03/28/24 13:25 Heparin Sodium 5,000 Units/Ml Vial SUB-Q Not Given Q8HR DANE Ceftriaxone Sodium 2 gm in 100 mls @ 200 mls/hr 03/28/24 21:00 03/30/24 20:48 Rocephin 2 Gm/Ns 100 Ml IVPB Infused Q24H DANE Infusion Levothyroxine Sodium 112 mcg 03/28/24 11:05 03/31/24 05:19 Levothyroxine Sodium 112 Mcg Tablet PO 112 mcg DAILY@0630 DANE Administration Ondansetron HCl 4 mg 03/28/24 07:31 03/30/24 20:22 Ondansetron Inj 4 Mg/2 Ml Vial IV PUSH 4 mg Q4H PRN Administration Nausea Sodium Chloride 10 ml 03/28/24 14:00 03/31/24 13:44 Central Line Flush IV PUSH 10 ml Q8HR DANE Administration Sodium Chloride 20 ml 03/28/24 08:28 Central Line Flush IV PUSH PRN PRN after blood draws Radiology Results: ITS Impressions Chest CTA 03/28/24 05:32 Impression: No evidence of pulmonary embolus, aortic dissection, or aortic aneurysm. No significant pulmonary abnormality. Mild to moderate left hydronephrosis and asymmetric left perinephric stranding. Consider more distal left ureteral stone. T12 compression fracture, age-indeterminate. Abdomen/Pelvis CT 03/28/24 06:01 Impression: 6 mm distal left ureteral stone with mild to moderate left hydroureteronephrosis and asymmetric left perinephric stranding/fluid. 5.6 cm right ovarian cyst. Gynecologic follow-up advised given patient age and size of the cystic lesion. T12 compression fracture, age-indeterminate. Chest X-Ray 03/30/24 06:48 Impression: Moderate to advanced pulmonary edema pattern with small bilateral pleural effusions. Stable cardiomegaly. Stable support line. Labs Labs: Laboratory Results - last 24 hr 03/31/24 05:33 WBC 9.7 RBC 3.03 L Hgb 10.3 L Hct 31.3 L MCV 103.3 H MCH 34.0 MCHC 32.9 RDW 14.8 H Plt Count 84 L MPV 10.3 Immature Gran % (Auto) 0.5 Neut % (Auto) 81.7 H Lymph % (Auto) 5.0 L [place] % (Auto) 9.7 H Eos % (Auto) 2.6 Baso % (Auto) 0.5 Lymph # (Auto) 0.49 L [place] # (Auto) 0.9 H Eos # (Auto) 0.3 Baso # (Auto) 0.1 Abs Immat Gran (auto) 0.05 H Absolute Neuts (auto) 8.0 H Absolute Nucleated RBC 0.000 Nucleated RBC % 0.0 Platelet Estimate Decreased % Immature Plt Fraction 4.8 Ovalocytes 1+ [place] Cells 1+ Acanthocytes (Spur) 1+ Schistocytes None seen Sodium 133 L Potassium 3.9 Chloride 104 Carbon Dioxide 24 Anion Gap 5 BUN 21 H D Creatinine 0.94 Estim Creat Clear Calc 40 Estimated GFR 56 L Glucose 90 Calcium 8.3 L Phosphorus 2.1 L Magnesium 2.1 Total Bilirubin 0.5 AST 28 ALT 21 Alkaline Phosphatase 98 Total Protein 6.0 L Albumin 2.6 L
[2024-03-31] MEDS: cefTRIAXone 2 GM/NS 100 ML 2 GM/100 ML BAG IVPB (20:41)
[2024-04-01] VITALS (21 sets, daily range): BP systolic 103–133; BP diastolic 53–76; PULSE 66–99; RESP 18–28; TEMP 36.4–37.9; O2SAT 97–99
[2024-04-01] MEDS: HYDROcodone/acetaminophen (*CRX) 5-325 MG TABLET 1 TAB PO (00:30)
[2024-04-01] MEDS: CENTRAL LINE FLUSH 20 ML IV PUSH (04:13)
[2024-04-01] MEDS: CENTRAL LINE FLUSH 10 ML IV PUSH ×3 (04:13→20:35)
[2024-04-01 05:41] LABS: Alanine Aminotransferase 21 U/L (6-35); Albumin Level 2.5 g/dL (3.5-5.1); Alkaline Phosphatase 95 U/L (38-126); Anion Gap 6 mmol/L (4-12); Aspartate Amino Transferase 26 U/L (14-36); Bilirubin,Total 0.5 mg/dL (0.2-1.3); Blood Urea Nitrogen 16 mg/dL (7-17); Calcium 8.1 mg/dL (8.4-10.2); Carbon Dioxide 24 mmol/L (22-30); Chloride 105 mmol/L (98-107); Estimated CRCL calculation 46 ml/min; Estimated Glomerular Filt Rate > 60; Glucose 98 mg/dL (65-110); Magnesium 2.3 mg/dL (1.6-2.3); Phosphorus 2.2 mg/dL (2.5-4.5); Potassium 3.9 mmol/L (3.4-5.0); Sodium 135 mmol/L (137-145)
[2024-04-01 06:42] LABS: Basophils Absolute Auto 0.1 K/mm3 (0.0-0.1); Basophils Percent Auto 0.8 % (0.2-1.2); Eosinophils Absolute Auto 0.2 K/mm3 (0-0.3); Eosinophils Percent Auto 2.8 % (0-4.4); Hematocrit 32.4 % (37.0-47.0); Hemoglobin 10.4 g/dL (12.0-15.0); Immature Granulocyte Absolute 0.11 K/mm3 (0.00-0.031); Immature Granulocyte Percent A 1.5 % (0-0.5); Immature Platelet Fraction Pct 5.1 % (0.9-11.2); Lymphocytes Absolute Auto 0.55 K/mm3 (0.9-3.2); Lymphocytes Percent Auto 7.3 % (18.3-44.2); Mean Corpuscular HGB Conc 32.1 g/dl (32-36); Mean Corpuscular Hemoglobin 34.7 pg (26-34); Mean Platelet Volume 10.5 fl (7.4-10.4); Monocytes Absolute Auto 1.4 K/mm3 (0.1-0.6); Monocytes Percent Auto 19.1 % (2.6-8.5); Neutrophils Absolute Auto 5.2 K/mm3 (1.3-6.7); Neutrophils Percent Auto 68.5 % (45.5-73.1); Platelet Count Result 94 k/mm3 (150-375); White Blood Count 7.6 K/mm3 (4.5-10.0)
[2024-04-01] MEDS: LEVOTHYROXINE SODIUM 112 MCG TABLET PO (06:45)
[2024-04-01 07:36] LABS: Anisocytosis 1+; Platelet Estimate Decreased (Adequate)
[2024-04-01 07:37] LABS: Acanthocytes 1+; Crenated RBC 1+; Ovalocytes 1+; Schistocytes None Seen
[2024-04-01] MEDS: ASPIRIN 81 MG ENTERIC TABLET PO (08:16)
[2024-04-01] MEDS: ATORVASTATIN 40 MG TABLET PO (08:16)
[2024-04-01] MEDS: FUROSEMIDE INJ 40 MG/4 ML VIAL IV PUSH (08:33)
--- NOTE | 2024-04-01 09:01 | P.PNIM_ITS ---
Progress Note: A&P Assessment and Plan (1) RICHARD (acute kidney injury): Code(s): N17.9 - Acute kidney failure, unspecified Status: Acute (2) Acute kidney injury superimposed on stage 1 chronic kidney disease: Code(s): N17.9 - Acute kidney failure, unspecified; N18.1 - Chronic kidney disease, stage 1 Status: Acute (3) Septic shock: Code(s): A41.9 - Sepsis, unspecified organism; R65.21 - Severe sepsis with septic shock Status: Acute Plan Septic shock: Code(s): A41.9 - Sepsis, unspecified organism; R65.21 - Severe sepsis with septic shock Status: Acute Assessment and Plan: Patient presented with back pain, left flank pain. UA reflective of UTI, patient has left ureteral stone with hydronephrosis -03/28: Status post cystoscopy, left retrograde pyelogram, left ureteral stent insertion, Marshall catheter insertion -received 3 L IV fluid bolus in the ER despite which she was hypotensive, central line was inserted and patient started on Levophed OFF LEVOPHED since 2:00 p.m. on 03/30/2024 Urine cultures growing E coli, susceptible to ceftriaxone continue ceftriaxone 2 g IV Q 24 hours, 03/29: DC vancomycin vancomycin RICHARD (acute kidney injury): Code(s): N17.9 - Acute kidney failure, unspecified Status: Acute Assessment and Plan: Acute kidney injury likely related to septic shock, hypotension, UTI, pyelonephritis -adequately fluid-resuscitated -continue maintenance IV fluids -renal function improving, adequate urine output after receiving Lasix 40 mg IV x1 on 03/29 01/27: Auto diuresing very well -continue to monitor urine output, renal function and electrolyte Calculus of distal left ureter: Code(s): N20.1 - Calculus of ureter Status: Acute Assessment and Plan: Status post cystoscopy, left retrograde pyelogram, left ureteral stent insertion, Marshall catheter insertion -appreciate urology following the patient Hydronephrosis of left kidney: Code(s): N13.30 - Unspecified hydronephrosis Status: Acute Assessment and Plan: As above Acute respiratory failure, acute heart failure 04/01 Patient has respiratory distress today, hypoxemia Coarse breath sound bilateral base Suspecting acute heart failure due to fluid overload Provide Lasix 40 mg IV push once Follow-up chest x-ray Interval decrease in opacities in bilateral mid and lower lung zones consistent with decreasing small bilateral pleural effusions with associated atelectasis and/or pneumonia. ABG: Hypoxemic respiratory failure Continue Lasix of 20 mg b.i.d. IV push Multifocal pneumonia Changed to cefepime and add doxycycline IV. Discontinue ceftriaxone HLD (hyperlipidemia): Code(s): E78.5 - Hyperlipidemia, unspecified Status: Acute Assessment and Plan: Continue statin (6) History of hypertension: Code(s): Z86.79 - Personal history of other diseases of the circulatory system Status: Acute Assessment and Plan: Will hold all antihypertensives for now as patient is in septic shock and on vasopressors Hypothyroidism: Code(s): E03.9 - Hypothyroidism, unspecified Status: Acute Assessment and Plan: Continue levothyroxine Thrombocytopenia: Code(s): D69.6 - Thrombocytopenia, unspecified Status: Acute Assessment and Plan: Thrombocytopenia likely related to septic shock, -hold subQ heparin for now -platelet counts are improving, continue to monitor UTI (urinary tract infection): Code(s): N39.0 - Urinary tract infection, site not specified Status: Acute Assessment and Plan: Urine was reflective of UTI, cultures have been obtained, continue antibiotics as above Subjective Date/time seen: 04/01/24 09:01 Interval history: I saw examined patient today, patient has shortness breath, wheezing bilateral, cough or with a scant phlegm. Patient denies abdomen pain, back pain. Patient feels nauseous denies vomiting Exam Narrative: GENERAL: Ill-appearing, in no acute distress. Well-nourished. - EYES: EOMI. Anicteric. - HENT: Moist mucous membranes. - LUNGS: Crackles bilateral base, - CARDIOVASCULAR: Regular rate and rhyth m. No murmur. No JVD. - ABDOMEN: Soft, non-tender and non-dist ended. No palpable masses. - EXTREMITIES: No edema. Peripheral puls es 2+. Non-tender. - NEUROLOGIC: No focal neurological defi cits. CN II-XII grossly intact. - PSYCHIATRIC: Awake, Alert and oriented x 3. Appropriate mood and affect. - SKIN: No rashes or lesions. Warm. - LYMPH: No cervical lymphadenopathy. Objective Data Vital Signs Vital Signs: Vital Signs - 24 hr 03/31/24 09:14 03/31/24 10:00 03/31/24 12:00 Temperature 97.3 F L Pulse Rate 80 85 Respiratory Rate 19 Blood Pressure 115/51 L Pulse Oximetry 92 94 Oxygen Delivery High Flow Therapy with Na Oxygen Flow Rate 30 Fraction of Inspired Oxygen 30 03/31/24 12:00 03/31/24 12:00 03/31/24 14:00 Temperature Pulse Rate 89 87 Respiratory Rate Blood Pressure Pulse Oximetry 94 Oxygen Delivery High Flow Therapy with Na Oxygen Flow Rate 30 Fraction of Inspired Oxygen 30 03/31/24 16:00 03/31/24 16:00 03/31/24 16:00 Temperature 99.0 F Pulse Rate 85 83 Respiratory Rate 18 Blood Pressure 119/68 Pulse Oximetry 94 91 Oxygen Delivery High Flow Therapy with Na Oxygen Flow Rate 30 Fraction of Inspired Oxygen 30 03/31/24 17:50 03/31/24 18:00 03/31/24 18:05 Temperature Pulse Rate 87 Respiratory Rate Blood Pressure Pulse Oximetry 94 96 Oxygen Delivery High Flow Therapy with Na High Flow Nasal Cannula Oxygen Flow Rate 30 6 Fraction of Inspired Oxygen 30 03/31/24 20:00 03/31/24 20:29 03/31/24 20:30 Temperature 97.6 F Pulse Rate 74 73 73 Respiratory Rate 18 18 Blood Pressure 114/58 L Pulse Oximetry 96 96 Oxygen Delivery High Flow Nasal Cannula Oxygen Flow Rate 6 Fraction of Inspired Oxygen 03/31/24 22:00 04/01/24 00:00 04/01/24 00:09 Temperature 97.6 F Pulse Rate 72 75 72 Respiratory Rate 18 Blood Pressure 120/61 Pulse Oximetry 99 Oxygen Delivery Oxygen Flow Rate Fraction of Inspired Oxygen 04/01/24 00:30 04/01/24 02:00 04/01/24 04:00 Temperature Pulse Rate 72 78 66 Respiratory Rate 18 Blood Pressure Pulse Oximetry 99 Oxygen Delivery High Flow Nasal Cannula Oxygen Flow Rate 5 Fraction of Inspired Oxygen 04/01/24 04:11 04/01/24 04:15 04/01/24 05:49 Temperature 97.6 F Pulse Rate 66 66 77 Respiratory Rate 18 18 Blood Pressure 103/53 L Pulse Oximetry 97 97 Oxygen Delivery High Flow Nasal Cannula Oxygen Flow Rate 4 Fraction of Inspired Oxygen 04/01/24 08:00 Temperature 98.3 F Pulse Rate 97 Respiratory Rate 20 Blood Pressure 133/76 Pulse Oximetry 99 Oxygen Delivery Oxygen Flow Rate Fraction of Inspired Oxygen Intake/Output Intake/Output: Intake & Output 03/29/24 03/30/24 03/31/24 04/01/24 23:59 23:59 23:59 23:59 Intake Total 3409.5 2273.7 1960 Output Total 2675 2850 4220 800 Balance 734.5 -576.3 -2265 -800 Meds/Results Medications: Active Medications Generic Name Dose Route Start Last Admin Trade Name Freq PRN Reason Stop Dose Admin Acetaminophen 650 mg 03/28/24 13:18 03/31/24 16:44 Acetaminophen 325 Mg Tablet PO 650 mg Q6H PRN Administration Mild Pain (1-3) or Fever Hydrocodone Bitart/Acetaminophen 1 tab 03/28/24 23:39 04/01/24 00:30 Hydrocodone/Acetaminophen (*Crx) 5-325 Mg Tablet PO 1 tab Q4H PRN Administration Pain Rated 4-6 Albuterol/Ipratropium 3 ml 04/01/24 14:00 Ipratropium 0.5 Mg/Albuterol Sulfate 2.5 Mg Ampul.Neb 3 Ml INHALATION Q6HRT DANE Aspirin 81 mg 03/29/24 09:00 04/01/24 08:16 Aspirin 81 Mg Enteric Tablet PO 81 mg DAILY DANE Administration Atorvastatin Calcium 40 mg 03/28/24 11:05 04/01/24 08:16 Atorvastatin 40 Mg Tablet PO 40 mg DAILY DANE Administration Furosemide 40 mg 04/01/24 08:33 Furosemide Inj 40 Mg/4 Ml Vial IV PUSH 04/01/24 08:34 ONCE ONE Heparin Sodium (Porcine) 5,000 units 03/28/24 14:00 03/28/24 13:25 Heparin Sodium 5,000 Units/Ml Vial SUB-Q Not Given Q8HR [facility] Ceftriaxone Sodium 2 gm in 100 mls @ 200 mls/hr 03/28/24 21:00 03/31/24 21:19 Rocephin 2 Gm/Ns 100 Ml IVPB Infused Q24H DANE Infusion Levothyroxine Sodium 112 mcg 03/28/24 11:05 04/01/24 06:45 Levothyroxine Sodium 112 Mcg Tablet PO 112 mcg DAILY@0630 DANE Administration Ondansetron HCl 4 mg 03/28/24 07:31 03/30/24 20:22 Ondansetron Inj 4 Mg/2 Ml Vial IV PUSH 4 mg Q4H PRN Administration Nausea Sodium Chloride 10 ml 03/28/24 14:00 04/01/24 04:13 Central Line Flush IV PUSH 10 ml Q8HR DANE Administration Sodium Chloride 20 ml 03/28/24 08:28 04/01/24 04:13 Central Line Flush IV PUSH 20 ml PRN PRN Administration after blood draws Radiology Results: ITS Impressions Chest CTA 03/28/24 05:32 Impression: No evidence of pulmonary embolus, aortic dissection, or aortic aneurysm. No significant pulmonary abnormality. Mild to moderate left hydronephrosis and asymmetric left perinephric stranding. Consider more distal left ureteral stone. T12 compression fracture, age-indeterminate. Abdomen/Pelvis CT 03/28/24 06:01 Impression: 6 mm distal left ureteral stone with mild to moderate left hydroureteronephrosis and asymmetric left perinephric stranding/fluid. 5.6 cm right ovarian cyst. Gynecologic follow-up advised given patient age and size of the cystic lesion. T12 compression fracture, age-indeterminate. Chest X-Ray 03/30/24 06:48 Impression: Moderate to advanced pulmonary edema pattern with small bilateral pleural e ffusions. Stable cardiomegaly. Stable support line. Labs Labs: Laboratory Results - last 24 hr 03/31/24 04/01/24 04/01/24 05:33 04:32 06:09 WBC 7.6 RBC 3.00 L Hgb 10.4 L Hct 32.4 L MCV 108.0 H MCH 34.7 H MCHC 32.1 RDW 15.0 H Plt Count 94 L MPV 10.5 H Immature Gran % (Auto) 1.5 H Neut % (Auto) 68.5 Lymph % (Auto) 7.3 L [place] % (Auto) 19.1 H Eos % (Auto) 2.8 Baso % (Auto) 0.8 Lymph # (Auto) 0.55 L [place] # (Auto) 1.4 H Eos # (Auto) 0.2 Baso # (Auto) 0.1 Abs Immat Gran (auto) 0.11 H Absolute Neuts (auto) 5.2 Absolute Nucleated RBC 0.000 Nucleated RBC % 0.0 Platelet Estimate Decreased % Immature Plt Fraction 5.1 Anisocytosis 1+ Ovalocytes 1+ Crenated Cell 1+ Acanthocytes (Spur) 1+ Schistocytes None seen Sodium 133 L 135 L Potassium 3.9 3.9 Chloride 104 105 Carbon Dioxide 24 24 Anion Gap 5 6 BUN 21 H D 16 Creatinine 0.94 0.80 Estim Creat Clear Calc 40 46 Estimated GFR 56 L > 60 Glucose 90 98 Calcium 8.3 L 8.1 L Phosphorus 2.1 L 2.2 L Magnesium 2.1 2.3 Total Bilirubin 0.5 0.5 AST 28 26 ALT 21 21 Alkaline Phosphatase 98 95 Total Protein 6.0 L 5.0 L Albumin 2.6 L 2.5 L
[2024-04-01 10:58] LABS: Alveolar/Arterial O2 Gradient 240.8 mmHg; Base Excess ABG 1.5 mEq/l (+/-2.0); Fractional Inspired Oxygen 52 %; HCO3 ABG 25.5 mEq/l (22.0-26.0); Oxygen Content ABG 15.9 %vol (16.0-22.0); Oxyhemoglobin 97.2 % THb (90.0-100.0); PCO2 ABG 37.8 mmHg (35.0-45.0); PO2 ABG 87.6 mmHg (80.0-100.0); PO2 FiO2 Ratio Arterial Blood 1.68 %; Total Hemoglobin 11.6 g/dL (12.0-18.0); pH ABG 7.447 (7.350-7.450)
[2024-04-01 11:03] LABS: Device HIGH FLOW NASAL CANN; Modified Allen's Test Pass; Site Drawn RIGHT RADIAL
[2024-04-01] MEDS: IPRATROPIUM 0.5 MG/ALBUTEROL SULFATE 2.5 MG AMPUL.NEB 3 ML INHALATION ×2 (14:12→20:55)
[2024-04-01] MEDS: CEFEPIME 1 GM/NS 50 ML 1 GM/50 ML BAG IVPB (17:39)
[2024-04-01] MEDS: FUROSEMIDE INJ 40 MG/4 ML VIAL 20 MG IV PUSH (17:39)
[2024-04-01] MEDS: DOXYCYCLINE 100 MG/NS 100 ML 100 MG/100 ML BAG IVPB (17:39)
[2024-04-02] VITALS (22 sets, daily range): BP systolic 119–145; BP diastolic 62–83; PULSE 73–111; RESP 14–20; TEMP 36.1–37.5; O2SAT 92–100
[2024-04-02] MEDS: CEFEPIME 1 GM/NS 50 ML 1 GM/50 ML BAG IVPB ×3 (00:22→17:43)
[2024-04-02] MEDS: ACETAMINOPHEN 325 MG TABLET 650 MG PO ×2 (00:23→20:00)
[2024-04-02] MEDS: IPRATROPIUM 0.5 MG/ALBUTEROL SULFATE 2.5 MG AMPUL.NEB 3 ML INHALATION ×3 (01:55→20:20)
[2024-04-02] MEDS: DOXYCYCLINE 100 MG/NS 100 ML 100 MG/100 ML BAG IVPB ×2 (04:32→17:42)
[2024-04-02] MEDS: CENTRAL LINE FLUSH 20 ML IV PUSH (05:15)
[2024-04-02] MEDS: CENTRAL LINE FLUSH 10 ML IV PUSH ×2 (05:24→17:42)
[2024-04-02] MEDS: LEVOTHYROXINE SODIUM 112 MCG TABLET PO (05:25)
[2024-04-02 05:29] LABS: Basophils Percent Auto 0.5 % (0.2-1.2); Eosinophils Absolute Auto 0.1 K/mm3 (0-0.3); Eosinophils Percent Auto 1.7 % (0-4.4); Hematocrit 29.8 % (37.0-47.0); Hemoglobin 9.8 g/dL (12.0-15.0); Immature Granulocyte Absolute 0.17 K/mm3 (0.00-0.031); Immature Granulocyte Percent A 2.1 % (0-0.5); Lymphocytes Absolute Auto 0.68 K/mm3 (0.9-3.2); Lymphocytes Percent Auto 8.2 % (18.3-44.2); Mean Corpuscular HGB Conc 32.9 g/dl (32-36); Mean Corpuscular Hemoglobin 33.8 pg (26-34); Mean Corpuscular Volume 102.8 fl (80-100); Monocytes Absolute Auto 1.3 K/mm3 (0.1-0.6); Monocytes Percent Auto 15.2 % (2.6-8.5); Neutrophils Percent Auto 72.3 % (45.5-73.1); Platelet Count Result 113 k/mm3 (150-375); Red Cell Distribution Width 14.8 % (11.5-14.5); White Blood Count 8.3 K/mm3 (4.5-10.0)
[2024-04-02 05:51] LABS: Alanine Aminotransferase 25 U/L (6-35); Albumin Level 2.6 g/dL (3.5-5.1); Alkaline Phosphatase 99 U/L (38-126); Anion Gap 3 mmol/L (4-12); Aspartate Amino Transferase 28 U/L (14-36); Bilirubin,Total 0.7 mg/dL (0.2-1.3); Blood Urea Nitrogen 14 mg/dL (7-17); Calcium 8.4 mg/dL (8.4-10.2); Carbon Dioxide 30 mmol/L (22-30); Chloride 102 mmol/L (98-107); Estimated CRCL calculation 51 ml/min; Estimated Glomerular Filt Rate > 60; Glucose 108 mg/dL (65-110); Magnesium 1.7 mg/dL (1.6-2.3); Phosphorus 2.4 mg/dL (2.5-4.5); Potassium 3.5 mmol/L (3.4-5.0); Sodium 135 mmol/L (137-145)
[2024-04-02] MEDS: FUROSEMIDE INJ 40 MG/4 ML VIAL 20 MG IV PUSH ×2 (09:31→17:41)
[2024-04-02] MEDS: ASPIRIN 81 MG ENTERIC TABLET PO (09:31)
[2024-04-02] MEDS: ATORVASTATIN 40 MG TABLET PO (09:31)
--- NOTE | 2024-04-02 10:32 | PM.IMPN ---
Progress Note: A&P Assessment and Plan (1) RICHARD (acute kidney injury): Code(s): N17.9 - Acute kidney failure, unspecified Status: Acute (2) Acute kidney injury superimposed on stage 1 chronic kidney disease: Code(s): N17.9 - Acute kidney failure, unspecified; N18.1 - Chronic kidney disease, stage 1 Status: Acute (3) Septic shock: Code(s): A41.9 - Sepsis, unspecified organism; R65.21 - Severe sepsis with septic shock Status: Acute Plan Septic shock: Code(s): A41.9 - Sepsis, unspecified organism; R65.21 - Severe sepsis with septic shock Status: Acute Assessment and Plan: Patient presented with back pain, left flank pain. UA reflective of UTI, patient has left ureteral stone with hydronephrosis -03/28: Status post cystoscopy, left retrograde pyelogram, left ureteral stent insertion, Marshall catheter insertion -received 3 L IV fluid bolus in the ER despite which she was hypotensive, central line was inserted and patient started on Levophed OFF LEVOPHED since 2:00 p.m. on 03/30/2024 Urine cultures growing E coli, susceptible to ceftriaxone continue ceftriaxone 2 g IV Q 24 hours, 03/29: DC vancomycin vancomycin change to cefepime due to PNA 04/01 RICHARD (acute kidney injury): Code(s): N17.9 - Acute kidney failure, unspecified Status: Acute Assessment and Plan: Acute kidney injury likely related to septic shock, hypotension, UTI, pyelonephritis -adequately fluid-resuscitated -continue maintenance IV fluids -renal function improving, adequate urine output after receiving Lasix 40 mg IV x1 on 03/29 01/27: Auto diuresing very well -continue to monitor urine output, renal function and electrolyte Calculus of distal left ureter: Code(s): N20.1 - Calculus of ureter Status: Acute Assessment and Plan: Status post cystoscopy, left retrograde pyelogram, left ureteral stent insertion, Marshall catheter insertion -appreciate urology following the patient Hydronephrosis of left kidney: Code(s): N13.30 - Unspecified hydronephrosis Status: Acute Assessment and Plan: As above UTI (urinary tract infection): Code(s): N39.0 - Urinary tract infection, site not specified Status: Acute Assessment and Plan: Urine was reflective of UTI, antibiotics as above Acute respiratory failure, acute heart failure 04/01 Patient has respiratory distress today, hypoxemia Coarse breath sound bilateral base Suspecting acute heart failure due to fluid overload Provide Lasix 40 mg IV push once Follow-up chest x-ray Interval decrease in opacities in bilateral mid and lower lung zones consistent with decreasing small bilateral pleural effusions with associated atelectasis and/or pneumonia. ABG: Hypoxemic respiratory failure Continue Lasix of 20 mg b.i.d. IV push Multifocal pneumonia Changed to cefepime and add doxycycline IV. Discontinue ceftriaxone HLD (hyperlipidemia): Code(s): E78.5 - Hyperlipidemia, unspecified Status: Acute Assessment and Plan: Continue statin (6) History of hypertension: Code(s): Z86.79 - Personal history of other diseases of the circulatory system Status: Acute Assessment and Plan: Will hold all antihypertensives for now BP stable Hypothyroidism: Code(s): E03.9 - Hypothyroidism, unspecified Status: Acute Assessment and Plan: Continue levothyroxine Thrombocytopenia: Code(s): D69.6 - Thrombocytopenia, unspecified Status: Acute Assessment and Plan: Thrombocytopenia likely related to septic shock, -platelet counts are improving, continue to monitor Subjective Date/time seen: 04/02/24 10:32 Interval history: I saw examined patient today, patient has shortness breath, wheezing bilateral, cough or with a scant phlegm. Patient denies abdomen pain, back pain. Patient feels nauseous denies vomiting Exam Narrative: GENERAL: Ill-appearing, in no acute distress. Well-nourished. - EYES: EOMI. Anicteric. - HENT: Moist mucous membranes. - LUNGS: Crackles bilateral base, - CARDIOVASCULAR: Regular rate and rhythm. No murmur. No JVD. - ABDOMEN: Soft, non-tender and non-distended. No palpable masses. - EXTREMITIES: No edema. Peripheral pulses 2+. Non-tender. - NEUROLOGIC: No focal neurological deficits. CN II-XII grossly intact. - PSYCHIATRIC: Awake, Alert and oriented x 3. Appropriate mood and affect. - SKIN: No rashes or lesions. Warm. - LYMPH: No cervical lymphadenopathy. Objective Data Vital Signs Vital Signs: Vital Signs - 24 hr 04/01/24 12:00 04/01/24 12:00 04/01/24 12:00 Temperature 100.2 F H Pulse Rate 99 99 99 Respiratory Rate 20 20 Blood Pressure 126/70 Pulse Oximetry 98 98 Oxygen Delivery High Flow Nasal Cannula Oxygen Flow Rate 5 Fraction of Inspired Oxygen 30 04/01/24 13:28 04/01/24 14:12 04/01/24 14:22 Temperature Pulse Rate 99 71 83 Respiratory Rate 20 20 Blood Pressure Pulse Oximetry Oxygen Delivery Oxygen Flow Rate Fraction of Inspired Oxygen 04/01/24 16:00 04/01/24 16:00 04/01/24 16:00 Temperature 99.5 F Pulse Rate 83 83 92 Respiratory Rate 20 24 H Blood Pressure 113/65 Pulse Oximetry 98 98 Oxygen Delivery High Flow Nasal Cannula Oxygen Flow Rate 6 Fraction of Inspired Oxygen 30 04/01/24 16:33 04/01/24 20:00 04/01/24 20:00 Temperature 97.6 F Pulse Rate 83 76 77 Respiratory Rate 28 H Blood Pressure 117/62 Pulse Oximetry 98 Oxygen Delivery Oxygen Flow Rate Fraction of Inspired Oxygen 04/01/24 20:10 04/01/24 20:57 04/01/24 20:57 Temperature Pulse Rate 76 81 Respiratory Rate 28 H 18 Blood Pressure Pulse Oximetry 98 99 Oxygen Delivery High Flow Nasal Cannula High Flow Nasal Cannula Oxygen Flow Rate 6 5 Fraction of Inspired Oxygen 04/01/24 21:07 04/01/24 22:00 04/02/24 00:00 Temperature Pulse Rate 84 81 88 Respiratory Rate 18 Blood Pressure Pulse Oximetry Oxygen Delivery Oxygen Flow Rate Fraction of Inspired Oxygen 04/02/24 00:22 04/02/24 00:22 04/02/24 01:57 Temperature 97.7 F Pulse Rate 91 91 87 Respiratory Rate 20 20 18 Blood Pressure 125/79 Pulse Oximetry 97 97 Oxygen Delivery High Flow Nasal Cannula Oxygen Flow Rate 5 Fraction of Inspired Oxygen 04/02/24 02:00 04/02/24 02:07 04/02/24 04:00 Temperature Pulse Rate 84 90 73 Respiratory Rate 18 Blood Pressure Pulse Oximetry Oxygen Delivery Oxygen Flow Rate Fraction of Inspired Oxygen 04/02/24 04:09 04/02/24 04:10 04/02/24 06:00 Temperature 97.7 F Pulse Rate 73 73 78 Respiratory Rate 16 16 Blood Pressure 119/80 Pulse Oximetry 94 94 Oxygen Delivery High Flow Nasal Cannula Oxygen Flow Rate 4 Fraction of Inspired Oxygen 04/02/24 07:26 04/02/24 10:11 04/02/24 10:11 Temperature 97.0 F L Pulse Rate 88 87 Respiratory Rate 20 18 Blood Pressure 135/75 Pulse Oximetry 95 100 Oxygen Delivery High Flow Nasal Cannula Oxygen Flow Rate 4 Fraction of Inspired Oxygen 04/02/24 10:26 Temperature Pulse Rate 96 Respiratory Rate 18 Blood Pressure Pulse Oximetry Oxygen Delivery Oxygen Flow Rate Fraction of Inspired Oxygen Intake/Output Intake/Output: Intake & Output 03/30/24 03/31/24 04/01/24 04/02/24 23:59 23:59 23:59 23:59 Intake Total 2273.7 0023 291 2345 Output Total 2850 4225 5650 800 [facility]576.3 -4892 -5345 340 Meds/Results Medications: Active Medications Generic Name Dose Route Start Last Admin Trade Name Freq PRN Reason Stop Dose Admin Acetaminophen 650 mg 03/28/24 13:18 04/02/24 00:23 Acetaminophen 325 Mg Tablet PO 650 mg Q6H PRN Administration Mild Pain (1-3) or Fever Hydrocodone Bitart/Acetaminophen 1 tab 03/28/24 23:39 04/01/24 00:30 Hydrocodone/Acetaminophen (*Crx) 5-325 Mg Tablet PO 1 tab Q4H PRN Administration Pain Rated 4-6 Albuterol/Ipratropium 3 ml 04/01/24 14:00 04/02/24 10:11 Ipratropium 0.5 Mg/Albuterol Sulfate 2.5 Mg Ampul.Neb 3 Ml INHALATION 3 ml Q6HRT DANE Administration Aspirin 81 mg 03/29/24 09:00 04/02/24 09:31 Aspirin 81 Mg Enteric Tablet PO 81 mg DAILY DANE Administration Atorvastatin Calcium 40 mg 03/28/24 11:05 04/02/24 09:31 Atorvastatin 40 Mg Tablet PO 40 mg DAILY DANE Administration Furosemide 20 mg 04/01/24 17:00 04/02/24 09:31 Furosemide Inj 40 Mg/4 Ml Vial IV PUSH 20 mg BID ADNE Administration Heparin Sodium (Porcine) 5,000 units 03/28/24 14:00 03/28/24 13:25 Heparin Sodium 5,000 Units/Ml Vial SUB-Q Not Given Q8HR DANE Cefepime HCl 1 gm in 50 mls @ 100 mls/hr 04/01/24 16:00 04/02/24 09:30 Maxipime 1 Gm/Ns 50 Ml IVPB 100 mls/hr Q8H DANE Administration Doxycycline Hyclate 100 mg in 100 mls @ 100 mls/hr 04/01/24 17:00 04/02/24 05:32 Vibramycin 100 Mg/Ns 100 Ml IVPB Infused Q12H DANE Infusion Levothyroxine Sodium 112 mcg 03/28/24 11:05 04/02/24 05:25 Levothyroxine Sodium 112 Mcg Tablet PO 112 mcg DAILY@0630 DANE Administration Ondansetron HCl 4 mg 03/28/24 07:31 03/30/24 20:22 Ondansetron Inj 4 Mg/2 Ml Vial IV PUSH 4 mg Q4H PRN Administration Nausea Sodium Chloride 10 ml 03/28/24 14:00 04/02/24 05:24 Central Line Flush IV PUSH 10 ml Q8HR DANE Administration Sodium Chloride 20 ml 03/28/24 08:28 04/02/24 05:15 Central Line Flush IV PUSH 20 ml PRN PRN Administration after blood draws Radiology Results: ITS Impressions Chest CTA 03/28/24 05:32 Impression: No evidence of pulmonary embolus, aortic dissection, or aortic aneurysm. No significant pulmonary abnormality. Mild to moderate left hydronephrosis and asymmetric left perinephric stranding. Consider more distal left ureteral stone. T12 compression fracture, age-indeterminate. Abdomen/Pelvis CT 03/28/24 06:01 Impression: 6 mm distal left ureteral stone with mild to moderate left hydroureteronephrosis and asymmetric left perinephric stranding/fluid. 5.6 cm right ovarian cyst. Gynecologic follow-up advised given patient age and size of the cystic lesion. T12 compression fracture, age-indeterminate. Chest X-Ray 04/01/24 09:41 IMPRESSION: 1. Interval decrease in opacities in bilateral mid and lower lung zones consistent with decreasing small bilateral pleural effusions with associated atelectasis and/or pneumonia. 2. Cardiomegaly. Labs Labs: Laboratory Results - last 24 hr 04/01/24 04/02/24 10:52 05:22 WBC 8.3 RBC 2.90 L Hgb 9.8 L Hct 29.8 L MCV 102.8 H MCH 33.8 MCHC 32.9 RDW 14.8 H Plt Count 113 L MPV 10.0 Immature Gran % (Auto) 2.1 H Neut % (Auto) 72.3 Lymph % (Auto) 8.2 L [place] % (Auto) 15.2 H Eos % (Auto) 1.7 Baso % (Auto) 0.5 Lymph # (Auto) 0.68 L [place] # (Auto) 1.3 H Eos # (Auto) 0.1 Baso # (Auto) 0.0 Abs Immat Gran (auto) 0.17 H Absolute Neuts (auto) 6.0 Absolute Nucleated RBC 0.000 Nucleated RBC % 0.0 Puncture Site Right radial ABG pH 7.447 ABG pCO2 37.8 ABG pO2 87.6 ABG PO2/FiO2 Ratio 1.68 ABG HCO3 25.5 ABG O2 Saturation 97.0 ABG O2 Content 15.9 L ABG Base Excess 1.5 A-a Gradient 240.8 Oxyhemoglobin 97.2 Total Hemoglobin 11.6 L O2 Delivery Device High flow nasal warren O2 Liters/Min 8.0 FiO2 52 Sodium 135 L Potassium 3.5 Chloride 102 Carbon Dioxide 30 Anion Gap 3 L BUN 14 Creatinine 0.72 Estim Creat Clear Calc 51 Estimated GFR > 60 Glucose 108 Calcium 8.4 Phosphorus 2.4 L Magnesium 1.7 Total Bilirubin 0.7 AST 28 ALT 25 Alkaline Phosphatase 99 Total Protein 5.0 L Albumin 2.6 L
--- NOTE | 2024-04-02 16:32 | PCRCNOTE ---
Window of time for administration has passed. See next scheduled administration.
[2024-04-02] MEDS: polyethylene glycoL 3350 17 GM POWD.PACK PO (17:41)
[2024-04-03] VITALS (16 sets, daily range): BP systolic 104–139; BP diastolic 54–77; PULSE 69–101; RESP 12–22; TEMP 35.6–38.3; O2SAT 91–100
[2024-04-03] MEDS: CEFEPIME 1 GM/NS 50 ML 1 GM/50 ML BAG IVPB ×2 (00:07→09:54)
[2024-04-03] MEDS: IPRATROPIUM 0.5 MG/ALBUTEROL SULFATE 2.5 MG AMPUL.NEB 3 ML INHALATION ×4 (02:21→20:13)
[2024-04-03] MEDS: DOXYCYCLINE 100 MG/NS 100 ML 100 MG/100 ML BAG IVPB (04:30)
[2024-04-03] MEDS: ACETAMINOPHEN 325 MG TABLET 650 MG PO ×2 (04:30→16:54)
[2024-04-03] MEDS: LEVOTHYROXINE SODIUM 112 MCG TABLET PO (06:27)
[2024-04-03] MEDS: CENTRAL LINE FLUSH 10 ML IV PUSH (06:28)
[2024-04-03] MEDS: polyethylene glycoL 3350 17 GM POWD.PACK PO (09:59)
[2024-04-03] MEDS: ASPIRIN 81 MG ENTERIC TABLET PO (09:59)
[2024-04-03] MEDS: ATORVASTATIN 40 MG TABLET PO (10:00)
[2024-04-03] MEDS: FUROSEMIDE INJ 40 MG/4 ML VIAL 20 MG IV PUSH (10:02)
--- NOTE | 2024-04-03 13:24 | PM.IMPN ---
Progress Note: A&P Assessment and Plan (1) RICHARD (acute kidney injury): Code(s): N17.9 - Acute kidney failure, unspecified Status: Acute (2) Acute kidney injury superimposed on stage 1 chronic kidney disease: Code(s): N17.9 - Acute kidney failure, unspecified; N18.1 - Chronic kidney disease, stage 1 Status: Acute (3) Septic shock: Code(s): A41.9 - Sepsis, unspecified organism; R65.21 - Severe sepsis with septic shock Status: Acute Plan Septic shock: Code(s): A41.9 - Sepsis, unspecified organism; R65.21 - Severe sepsis with septic shock Status: Acute Assessment and Plan: Patient presented with back pain, left flank pain. UA reflective of UTI, patient has left ureteral stone with hydronephrosis -03/28: Status post cystoscopy, left retrograde pyelogram, left ureteral stent insertion, Marshall catheter insertion -received 3 L IV fluid bolus in the ER despite which she was hypotensive, central line was inserted and patient started on Levophed OFF LEVOPHED since 2:00 p.m. on 03/30/2024 Urine cultures growing E coli, susceptible to ceftriaxone continue ceftriaxone 2 g IV Q 24 hours, 03/29: DC vancomycin vancomycin change to cefepime due to PNA 04/01 change to cefdinir and doxy po 04/03 RICHARD (acute kidney injury): Code(s): N17.9 - Acute kidney failure, unspecified Status: Acute Assessment and Plan: Acute kidney injury likely related to septic shock, hypotension, UTI, pyelonephritis -adequately fluid-resuscitated -continue maintenance IV fluids -renal function improving, adequate urine output after receiving Lasix 40 mg IV x1 on 03/29 01/27: Auto diuresing very well -continue to monitor urine output, renal function and electrolyte Calculus of distal left ureter: Code(s): N20.1 - Calculus of ureter Status: Acute Assessment and Plan: Status post cystoscopy, left retrograde pyelogram, left ureteral stent insertion, Marshall catheter insertion -appreciate urology following the patient Hydronephrosis of left kidney: Code(s): N13.30 - Unspecified hydronephrosis Status: Acute Assessment and Plan: As above UTI (urinary tract infection): Code(s): N39.0 - Urinary tract infection, site not specified Status: Acute Assessment and Plan: Urine was reflective of UTI, antibiotics as above Acute respiratory failure, acute heart failure 04/01 Patient has respiratory distress today, hypoxemia Coarse breath sound bilateral base Suspecting acute heart failure due to fluid overload Provide Lasix 40 mg IV push once Follow-up chest x-ray Interval decrease in opacities in bilateral mid and lower lung zones consistent with decreasing small bilateral pleural effusions with associated atelectasis and/or pneumonia. ABG: Hypoxemic respiratory failure Continue Lasix of 20 mg b.i.d. IV push 04/01- now pt is on room air, dc lasix iv Multifocal pneumonia Changed to cefepime and add doxycycline IV. Discontinue ceftriaxone change to cefdinir and doxy po 04/03 HLD (hyperlipidemia): Code(s): E78.5 - Hyperlipidemia, unspecified Status: Acute Assessment and Plan: Continue statin (6) History of hypertension: Code(s): Z86.79 - Personal history of other diseases of the circulatory system Status: Acute Assessment and Plan: Will hold all antihypertensives for now BP stable Hypothyroidism: Code(s): E03.9 - Hypothyroidism, unspecified Status: Acute Assessment and Plan: Continue levothyroxine Thrombocytopenia: Code(s): D69.6 - Thrombocytopenia, unspecified Status: Acute Assessment and Plan: Thrombocytopenia likely related to septic shock, -platelet counts are improving, continue to monitor Patient is ready to be discharged, patient is waiting for placement in skilled nursing Subjective Date/time seen: 04/03/24 13:24 Interval history: I saw examined patient today, patient feels better today, still has general weakness, no new issue even over the night. Patient feels nauseous denies vomiting Exam Narrative: GENERAL: Ill-appearing, in no acute distress. Well-nourished. - EYES: EOMI. Anicteric. - HENT: Moist mucous membranes. - LUNGS: Lungs clear - CARDIOVASCULAR: Regular rate and rhythm. No murmur. No JVD. - ABDOMEN: Soft, non-tender and non-distended. No palpable masses. - EXTREMITIES: No edema. Peripheral pulses 2+. Non-tender. - NEUROLOGIC: No focal neurological deficits. CN II-XII grossly intact. - PSYCHIATRIC: Awake, Alert and oriented x 3. Appropriate mood and affect. - SKIN: No rashes or lesions. Warm. - LYMPH: No cervical lymphadenopathy. Objective Data Vital Signs Vital Signs: Vital Signs - 24 hr 04/02/24 15:12 04/02/24 16:00 04/02/24 20:00 Temperature 98.9 F Pulse Rate 98 111 H Respiratory Rate 18 Blood Pressure 141/83 H Pulse Oximetry 95 93 Oxygen Delivery Nasal Cannula Oxygen Flow Rate 2 04/02/24 20:20 04/02/24 20:20 04/02/24 20:29 Temperature Pulse Rate 93 94 Respiratory Rate 18 18 Blood Pressure Pulse Oximetry 94 Oxygen Delivery High Flow Nasal Cannula Oxygen Flow Rate 2 04/02/24 21:08 04/03/24 02:22 04/03/24 02:27 Temperature 99.5 F Pulse Rate 102 H 95 89 Respiratory Rate 14 18 18 Blood Pressure 128/62 Pulse Oximetry 93 Oxygen Delivery Oxygen Flow Rate 04/03/24 06:00 04/03/24 07:45 04/03/24 07:45 Temperature 97.8 F Pulse Rate 74 84 84 Respiratory Rate 12 18 18 Blood Pressure 124/54 L Pulse Oximetry 92 94 Oxygen Delivery Nasal Cannula Oxygen Flow Rate 2 04/03/24 07:55 04/03/24 08:00 04/03/24 08:43 Temperature 96.1 F L Pulse Rate 86 101 H 91 Respiratory Rate 18 22 H Blood Pressure 136/77 Pulse Oximetry 95 94 Oxygen Delivery Room Air Oxygen Flow Rate 04/03/24 12:58 04/03/24 13:08 Temperature Pulse Rate 86 87 Respiratory Rate 18 18 Blood Pressure Pulse Oximetry Oxygen Delivery Oxygen Flow Rate Intake/Output Intake/Output: Intake & Output 03/31/24 04/01/24 04/02/24 04/03/24 23:59 23:59 23:59 23:59 Intake Total 3015 722 8682 1540 Output Total 4220 5650 3300 3500 [facility] -[id number] [id number] [phone] -1960 Meds/Results Medications: Active Medications Generic Name Dose Route Start Last Admin Trade Name Freq PRN Reason Stop Dose Admin Acetaminophen 650 mg 03/28/24 13:18 04/03/24 04:30 Acetaminophen 325 Mg Tablet PO 650 mg Q6H PRN Administration Mild Pain (1-3) or Fever Hydrocodone Bitart/Acetaminophen 1 tab 03/28/24 23:39 04/01/24 00:30 Hydrocodone/Acetaminophen (*Crx) 5-325 Mg Tablet PO 1 tab Q4H PRN Administration Pain Rated 4-6 Albuterol/Ipratropium 3 ml 04/01/24 14:00 04/03/24 12:58 Ipratropium 0.5 Mg/Albuterol Sulfate 2.5 Mg Ampul.Neb 3 Ml INHALATION 3 ml Q6HRT DANE Administration Aspirin 81 mg 03/29/24 09:00 04/03/24 09:59 Aspirin 81 Mg Enteric Tablet PO 81 mg DAILY DANE Administration Atorvastatin Calcium 40 mg 03/28/24 11:05 04/03/24 10:00 Atorvastatin 40 Mg Tablet PO 40 mg DAILY DANE Administration Cefdinir 300 mg 04/03/24 21:00 Cefdinir 300 Mg Capsule PO Q12HR DANE Doxycycline Hyclate 100 mg 04/03/24 21:00 Doxycycline Hyclate 100 Mg Tablet PO Q12HR DANE Furosemide 20 mg 04/01/24 17:00 04/03/24 10:02 Furosemide Inj 40 Mg/4 Ml Vial IV PUSH 20 mg BID DANE Administration Heparin Sodium (Porcine) 5,000 units 03/28/24 14:00 03/28/24 13:25 Heparin Sodium 5,000 Units/Ml Vial SUB-Q Not Given Q8HR DANE Levothyroxine Sodium 112 mcg 03/28/24 11:05 04/03/24 06:27 Levothyroxine Sodium 112 Mcg Tablet PO 112 mcg DAILY@0630 DANE Administration Ondansetron HCl 4 mg 03/28/24 07:31 03/30/24 20:22 Ondansetron Inj 4 Mg/2 Ml Vial IV PUSH 4 mg Q4H PRN Administration Nausea Polyethylene Glycol 17 gm 04/02/24 09:00 04/03/24 09:59 Polyethylene Glycol 3350 17 Gm Powd.Pack PO 17 gm QAM DANE Administration Polyethylene Glycol 17 gm 04/02/24 12:56 04/02/24 17:41 Polyethylene Glycol 3350 17 Gm Powd.Pack PO 17 gm QAM PRN Administration Constipation Sodium Chloride 10 ml 03/28/24 14:00 04/03/24 06:28 Central Line Flush IV PUSH 10 ml Q8HR DANE Administration Sodium Chloride 20 ml 03/28/24 08:28 04/02/24 05:15 Central Line Flush IV PUSH 20 ml PRN PRN Administration after blood draws Radiology Results: ITS Impressions Chest CTA 03/28/24 05:32 Impression: No evidence of pulmonary embolus, aortic dissection, or aortic aneurysm. No significant pulmonary abnormality. Mild to moderate left hydronephrosis and asymmetric left perinephric stranding. Consider more distal left ureteral stone. T12 compression fracture, age-indeterminate. Abdomen/Pelvis CT 03/28/24 06:01 Impression: 6 mm distal left ureteral stone with mild to moderate left hydroureteronephrosis and asymmetric left perinephric stranding/fluid. 5.6 cm right ovarian cyst. Gynecologic follow-up advised given patient age and size of the cystic lesion. T12 compression fracture, age-indeterminate. Chest X-Ray 04/01/24 09:41 IMPRESSION: 1. Interval decrease in opacities in bilateral mid and lower lung zones consistent with decreasing small bilateral pleural effusions with associated atelectasis and/or pneumonia. 2. Cardiomegaly.
[2024-04-03] MEDS: CEFDINIR 300 MG CAPSULE PO (20:29)
[2024-04-03] MEDS: DOXYCYCLINE HYCLATE 100 MG TABLET PO (20:29)
[2024-04-04] VITALS (12 sets, daily range): BP systolic 114–138; BP diastolic 63–75; PULSE 79–110; RESP 16–20; TEMP 36.4–36.9; O2SAT 92–100
[2024-04-04] MEDS: IPRATROPIUM 0.5 MG/ALBUTEROL SULFATE 2.5 MG AMPUL.NEB 3 ML INHALATION ×4 (02:45→21:23)
[2024-04-04] MEDS: LEVOTHYROXINE SODIUM 112 MCG TABLET PO (04:58)
[2024-04-04] MEDS: ACETAMINOPHEN 325 MG TABLET 650 MG PO ×2 (09:03→18:18)
[2024-04-04] MEDS: ATORVASTATIN 40 MG TABLET PO (09:03)
[2024-04-04] MEDS: CEFDINIR 300 MG CAPSULE PO ×2 (09:03→21:54)
[2024-04-04] MEDS: DOXYCYCLINE HYCLATE 100 MG TABLET PO ×2 (09:03→21:54)
[2024-04-04] MEDS: ASPIRIN 81 MG ENTERIC TABLET PO (09:04)
--- NOTE | 2024-04-04 10:37 | PCNWS ---
Weekly nutritional screen. Patient is tolerating current diet, heart healthy with adequate intake 50-75%. No weight loss reported. No nutritional needs at this time.
--- NOTE | 2024-04-04 10:42 | PM.IMPN ---
Progress Note: A&P Assessment and Plan (1) RICHARD (acute kidney injury): Code(s): N17.9 - Acute kidney failure, unspecified Status: Acute (2) Acute kidney injury superimposed on stage 1 chronic kidney disease: Code(s): N17.9 - Acute kidney failure, unspecified; N18.1 - Chronic kidney disease, stage 1 Status: Acute (3) Septic shock: Code(s): A41.9 - Sepsis, unspecified organism; R65.21 - Severe sepsis with septic shock Status: Acute Plan Septic shock: Code(s): A41.9 - Sepsis, unspecified organism; R65.21 - Severe sepsis with septic shock Status: Acute Assessment and Plan: Patient presented with back pain, left flank pain. UA reflective of UTI, patient has left ureteral stone with hydronephrosis -03/28: Status post cystoscopy, left retrograde pyelogram, left ureteral stent insertion, Marshall catheter insertion -received 3 L IV fluid bolus in the ER despite which she was hypotensive, central line was inserted and patient started on Levophed OFF LEVOPHED since 2:00 p.m. on 03/30/2024 Urine cultures growing E coli, susceptible to ceftriaxone continue ceftriaxone 2 g IV Q 24 hours, 03/29: DC vancomycin vancomycin change to cefepime due to PNA 04/01 change to cefdinir and doxy po 04/03 RICHARD (acute kidney injury): Code(s): N17.9 - Acute kidney failure, unspecified Status: Acute Assessment and Plan: Acute kidney injury likely related to septic shock, hypotension, UTI, pyelonephritis -adequately fluid-resuscitated -continue maintenance IV fluids -renal function improving, adequate urine output after receiving Lasix 40 mg IV x1 on 03/29 01/27: Auto diuresing very well -continue to monitor urine output, renal function and electrolyte Calculus of distal left ureter: Code(s): N20.1 - Calculus of ureter Status: Acute Assessment and Plan: Status post cystoscopy, left retrograde pyelogram, left ureteral stent insertion, Marshall catheter insertion -appreciate urology following the patient Hydronephrosis of left kidney: Code(s): N13.30 - Unspecified hydronephrosis Status: Acute Assessment and Plan: As above UTI (urinary tract infection): Code(s): N39.0 - Urinary tract infection, site not specified Status: Acute Assessment and Plan: Urine was reflective of UTI, antibiotics as above Acute respiratory failure, acute heart failure 04/01 Patient has respiratory distress today, hypoxemia Coarse breath sound bilateral base Suspecting acute heart failure due to fluid overload Provide Lasix 40 mg IV push once Follow-up chest x-ray Interval decrease in opacities in bilateral mid and lower lung zones consistent with decreasing small bilateral pleural effusions with associated atelectasis and/or pneumonia. ABG: Hypoxemic respiratory failure Continue Lasix of 20 mg b.i.d. IV push 04/01- now pt is on room air, dc lasix iv Multifocal pneumonia Changed to cefepime and add doxycycline IV. Discontinue ceftriaxone change to cefdinir and doxy po 04/03 HLD (hyperlipidemia): Code(s): E78.5 - Hyperlipidemia, unspecified Status: Acute Assessment and Plan: Continue statin (6) History of hypertension: Code(s): Z86.79 - Personal history of other diseases of the circulatory system Status: Acute Assessment and Plan: Will hold all antihypertensives for now BP stable Hypothyroidism: Code(s): E03.9 - Hypothyroidism, unspecified Status: Acute Assessment and Plan: Continue levothyroxine Thrombocytopenia: Code(s): D69.6 - Thrombocytopenia, unspecified Status: Acute Assessment and Plan: Thrombocytopenia likely related to septic shock, -platelet counts are improving, continue to monitor Patient is ready to be discharged, patient is waiting for placement in [facility] Subjective Date/time seen: 04/04/24 10:42 Interval history: I saw examined patient today, patient feels better today, still has general weakness, able to ambulate with assistance, no new issue even over the night. Patient denies abdomen pain nausea vomiting diarrhea. Exam Narrative: GENERAL: in no acute distress. Well-nourished. - EYES: EOMI. Anicteric. - HENT: Moist mucous membranes. - LUNGS: Lungs clear - CARDIOVASCULAR: Regular rate and rhythm. No murmur. No JVD. - ABDOMEN: Soft, non-tender and non-distended. No palpable masses. - EXTREMITIES: No edema. Peripheral pulses 2+. Non-tender. - NEUROLOGIC: No focal neurological deficits. CN II-XII grossly intact. - PSYCHIATRIC: Awake, Alert and oriented x 3. Appropriate mood and affect. - SKIN: No rashes or lesions. Warm. - LYMPH: No cervical lymphadenopathy. Objective Data Vital Signs Vital Signs: Vital Signs - 24 hr 04/03/24 12:58 04/03/24 13:08 04/03/24 16:00 Temperature 100.1 F H Pulse Rate 86 87 69 Respiratory Rate 18 18 16 Blood Pressure 104/65 Pulse Oximetry 100 Oxygen Delivery Oxygen Flow Rate Fraction of Inspired Oxygen 04/03/24 16:54 04/03/24 17:51 04/03/24 19:44 Temperature 101 F H 98.9 F Pulse Rate 69 Respiratory Rate 16 Blood Pressure Pulse Oximetry 100 Oxygen Delivery Room Air Oxygen Flow Rate Fraction of Inspired Oxygen 30 04/03/24 20:13 04/03/24 20:16 04/03/24 21:34 Temperature 98.1 F Pulse Rate 83 99 Respiratory Rate 18 18 Blood Pressure 139/74 Pulse Oximetry 91 92 Oxygen Delivery Nasal Cannula Oxygen Flow Rate 1 Fraction of Inspired Oxygen 04/04/24 02:45 04/04/24 03:00 04/04/24 06:13 Temperature 98.5 F Pulse Rate 99 98 83 Respiratory Rate 18 18 18 Blood Pressure 138/75 Pulse Oximetry 93 Oxygen Delivery Oxygen Flow Rate Fraction of Inspired Oxygen 04/04/24 08:00 04/04/24 09:24 04/04/24 09:24 Temperature Pulse Rate 99 93 Respiratory Rate 18 Blood Pressure Pulse Oximetry 92 97 Oxygen Delivery Room Air Room Air Oxygen Flow Rate Fraction of Inspired Oxygen 04/04/24 09:37 Temperature Pulse Rate 96 Respiratory Rate 20 Blood Pressure Pulse Oximetry Oxygen Delivery Oxygen Flow Rate Fraction of Inspired Oxygen Intake/Output Intake/Output: Intake & Output 04/01/24 04/02/24 04/03/24 04/04/24 23:59 23:59 23:59 23:59 Intake Total 990 2410 2980 120 Output Total 5650 3300 [address] [facility] -[phone] -[phone] -1380 Meds/Results Medications: Active Medications Generic Name Dose Route Start Last Admin Trade Name Freq PRN Reason Stop Dose Admin Acetaminophen 650 mg 03/28/24 13:18 04/04/24 09:03 Acetaminophen 325 Mg Tablet PO 650 mg Q6H PRN Administration Mild Pain (1-3) or Fever Hydrocodone Bitart/Acetaminophen 1 tab 03/28/24 23:39 04/01/24 00:30 Hydrocodone/Acetaminophen (*Crx) 5-325 Mg Tablet PO 1 tab Q4H PRN Administration Pain Rated 4-6 Albuterol/Ipratropium 3 ml 04/01/24 14:00 04/04/24 09:23 Ipratropium 0.5 Mg/Albuterol Sulfate 2.5 Mg Ampul.Neb 3 Ml INHALATION 3 ml Q6HRT DANE Administration Aspirin 81 mg 03/29/24 09:00 04/04/24 09:04 Aspirin 81 Mg Enteric Tablet PO 81 mg DAILY DANE Administration Atorvastatin Calcium 40 mg 03/28/24 11:05 04/04/24 09:03 Atorvastatin 40 Mg Tablet PO 40 mg DAILY DANE Administration Cefdinir 300 mg 04/03/24 21:00 04/04/24 09:03 Cefdinir 300 Mg Capsule PO 300 mg Q12HR DANE Administration Doxycycline Hyclate 100 mg 04/03/24 21:00 04/04/24 09:03 Doxycycline Hyclate 100 Mg Tablet PO 100 mg Q12HR DANE Administration Heparin Sodium (Porcine) 5,000 units 03/28/24 14:00 03/28/24 13:25 Heparin Sodium 5,000 Units/Ml Vial SUB-Q Not Given Q8HR DANE Levothyroxine Sodium 112 mcg 03/28/24 11:05 04/04/24 04:58 Levothyroxine Sodium 112 Mcg Tablet PO 112 mcg DAILY@0630 DANE Administration Ondansetron HCl 4 mg 03/28/24 07:31 03/30/24 20:22 Ondansetron Inj 4 Mg/2 Ml Vial IV PUSH 4 mg Q4H PRN Administration Nausea Polyethylene Glycol 17 gm 04/02/24 09:00 04/04/24 09:03 Polyethylene Glycol 3350 17 Gm Powd.Pack PO Not Given QAM DANE Polyethylene Glycol 17 gm 04/02/24 12:56 04/02/24 17:41 Polyethylene Glycol 3350 17 Gm Powd.Pack PO 17 gm QAM PRN Administration Constipation Sodium Chloride 20 ml 03/28/24 08:28 04/02/24 05:15 Central Line Flush IV PUSH 20 ml PRN PRN Administration after blood draws Radiology Results: ITS Impressions Chest CTA 03/28/24 05:32 Impression: No evidence of pulmonary embolus, aortic dissection, or aortic aneurysm. No significant pulmonary abnormality. Mild to moderate left hydronephrosis and asymmetric left perinephric stranding. Consider more distal left ureteral stone. T12 compression fracture, age-indeterminate. Abdomen/Pelvis CT 03/28/24 06:01 Impression: 6 mm distal left ureteral stone with mild to moderate left hydroureteronephrosis and asymmetric left perinephric stranding/fluid. 5.6 cm right ovarian cyst. Gynecologic follow-up advised given patient age and size of the cystic lesion. T12 compression fracture, age-indeterminate. Chest X-Ray 04/01/24 09:41 IMPRESSION: 1. Interval decrease in opacities in bilateral mid and lower lung zones consistent with decreasing small bilateral pleural effusions with associated atelectasis and/or pneumonia. 2. Cardiomegaly.
[2024-04-04 18:37] LABS: Anion Gap 7 mmol/L (4-12); Blood Urea Nitrogen 9 mg/dL (7-17); Calcium 8.9 mg/dL (8.4-10.2); Carbon Dioxide 31 mmol/L (22-30); Chloride 98 mmol/L (98-107); Estimated CRCL calculation 68 ml/min; Estimated Glomerular Filt Rate > 60; Glucose 131 mg/dL (65-110); Sodium 136 mmol/L (137-145)
[2024-04-05] VITALS (11 sets, daily range): BP systolic 128–151; BP diastolic 73–87; PULSE 92–105; RESP 16–22; TEMP 35.8–37.2; O2SAT 91–93
[2024-04-05] MEDS: IPRATROPIUM 0.5 MG/ALBUTEROL SULFATE 2.5 MG AMPUL.NEB 3 ML INHALATION ×3 (02:31→14:27)
[2024-04-05] MEDS: LEVOTHYROXINE SODIUM 112 MCG TABLET PO (05:50)
[2024-04-05] MEDS: DOXYCYCLINE HYCLATE 100 MG TABLET PO ×2 (09:23→20:16)
[2024-04-05] MEDS: ASPIRIN 81 MG ENTERIC TABLET PO (09:23)
[2024-04-05] MEDS: polyethylene glycoL 3350 17 GM POWD.PACK PO (09:23)
[2024-04-05] MEDS: CEFDINIR 300 MG CAPSULE PO ×2 (09:23→20:16)
[2024-04-05] MEDS: ATORVASTATIN 40 MG TABLET PO (09:23)
[2024-04-05] MEDS: HYDROcodone/acetaminophen (*CRX) 5-325 MG TABLET 1 TAB PO ×2 (09:29→20:55)
--- NOTE | 2024-04-05 14:22 | P.PNIM_ITS ---
Progress Note: A&P Assessment and Plan (1) RICHARD (acute kidney injury): Code(s): N17.9 - Acute kidney failure, unspecified Status: Acute (2) Acute kidney injury superimposed on stage 1 chronic kidney disease: Code(s): N17.9 - Acute kidney failure, unspecified; N18.1 - Chronic kidney disease, stage 1 Status: Acute (3) Septic shock: Code(s): A41.9 - Sepsis, unspecified organism; R65.21 - Severe sepsis with septic shock Status: Acute Plan Septic shock: Code(s): A41.9 - Sepsis, unspecified organism; R65.21 - Severe sepsis with septic shock Status: Acute Assessment and Plan: Patient presented with back pain, left flank pain. UA reflective of UTI, patient has left ureteral stone with hydronephrosis -03/28: Status post cystoscopy, left retrograde pyelogram, left ureteral stent insertion, Marshall catheter insertion -received 3 L IV fluid bolus in the ER despite which she was hypotensive, central line was inserted and patient started on Levophed OFF LEVOPHED since 2:00 p.m. on 03/30/2024 Urine cultures growing E coli, susceptible to ceftriaxone continue ceftriaxone 2 g IV Q 24 hours, 03/29: DC vancomycin vancomycin change to cefepime due to PNA 04/01 change to cefdinir and doxy po 04/03 RICHARD (acute kidney injury): Code(s): N17.9 - Acute kidney failure, unspecified Status: Acute Assessment and Plan: Acute kidney injury likely related to septic shock, hypotension, UTI, pyelonephritis -adequately fluid-resuscitated -continue maintenance IV fluids -renal function improving, adequate urine output after receiving Lasix 40 mg IV x1 on 03/29 01/27: Auto diuresing very well -continue to monitor urine output, renal function and electrolyte Calculus of distal left ureter: Code(s): N20.1 - Calculus of ureter Status: Acute Assessment and Plan: Status post cystoscopy, left retrograde pyelogram, left ureteral stent insertion, Marshall catheter insertion -appreciate urology following the patient Hydronephrosis of left kidney: Code(s): N13.30 - Unspecified hydronephrosis Status: Acute Assessment and Plan: As above UTI (urinary tract infection): Code(s): N39.0 - Urinary tract infection, site not specified Status: Acute Assessment and Plan: Urine was reflective of UTI, antibiotics as above Acute respiratory failure, acute heart failure 04/01 Patient has respiratory distress today, hypoxemia Coarse breath sound bilateral base Suspecting acute heart failure due to fluid overload Provide Lasix 40 mg IV push once Follow-up chest x-ray Interval decrease in opacities in bilateral mid and lower lung zones consistent with decreasing small bilateral pleural effusions with associated atelectasis and/or pneumonia. ABG: Hypoxemic respiratory failure Continue Lasix of 20 mg b.i.d. IV push 04/01- now pt is on room air, dc lasix iv Multifocal pneumonia Changed to cefepime and add doxycycline IV. Discontinue ceftriaxone change to cefdinir and doxy po 04/03 HLD (hyperlipidemia): Code(s): E78.5 - Hyperlipidemia, unspecified Status: Acute Assessment and Plan: Continue statin (6) History of hypertension: Code(s): Z86.79 - Personal history of other diseases of the circulatory system Status: Acute Assessment and Plan: Will hold all antihypertensives for now BP stable Hypothyroidism: Code(s): E03.9 - Hypothyroidism, unspecified Status: Acute Assessment and Plan: Continue levothyroxine Thrombocytopenia: Code(s): D69.6 - Thrombocytopenia, unspecified Status: Acute Assessment and Plan: Thrombocytopenia likely related to septic shock, -platelet counts are improving, continue to monitor Patient is ready to be discharged, patient is waiting for placement in senior living Subjective Date/time seen: 04/05/24 14:22 Interval history: I saw examined patient today, patient feels sad today because he cannot be discharged, still has general weakness, but feels improving. She participates the rehab in-hospital. no new issue even over the night. Patient denies abdomen pain nausea vomiting diarrhea. Exam Narrative: GENERAL: in no acute distress. Well-nourished. - EYES: EOMI. Anicteric. - HENT: Moist mucous membranes. - LUNGS: Lungs clear - CARDIOVASCULAR: Regular rate and rhyth m. No murmur. No JVD. - ABDOMEN: Soft, non-tender and non-dist ended. No palpable masses. - EXTREMITIES: No edema. Peripheral puls es 2+. Non-tender. - NEUROLOGIC: No focal neurological defi cits. CN II-XII grossly intact. - PSYCHIATRIC: Awake, Alert and oriented x 3. Appropriate mood and affect. - SKIN: No rashes or lesions. Warm. - LYMPH: No cervical lymphadenopathy. Objective Data Vital Signs Vital Signs: Vital Signs - 24 hr 04/04/24 21:23 04/04/24 21:31 04/04/24 21:54 Temperature Pulse Rate 96 100 Respiratory Rate 20 20 Blood Pressure Pulse Oximetry Oxygen Delivery Room Air 04/04/24 22:38 04/05/24 02:32 04/05/24 02:41 Temperature 98.3 F Pulse Rate 79 92 98 Respiratory Rate 16 20 20 Blood Pressure 137/63 Pulse Oximetry 100 Oxygen Delivery 04/05/24 05:42 04/05/24 07:53 04/05/24 07:53 Temperature 98.9 F Pulse Rate 97 98 Respiratory Rate 16 20 Blood Pressure 133/82 Pulse Oximetry 93 93 Oxygen Delivery Room Air 04/05/24 08:07 04/05/24 08:23 Temperature 97.9 F Pulse Rate 96 97 Respiratory Rate 20 18 Blood Pressure 128/87 Pulse Oximetry 92 Oxygen Delivery Intake/Output Intake/Output: Intake & Output 04/02/24 04/03/24 04/04/24 04/05/24 23:59 23:59 23:59 23:59 Intake Total 2410 2980 480 1746 Output Total 3300 5100 2150 4000 [id number] [id number] -[id number] -[id number] Meds/Results Medications: Active Medications Generic Name Dose Route Start Last Admin Trade Name Freq PRN Reason Stop Dose Admin Acetaminophen 650 mg 03/28/24 13:18 04/04/24 18:18 Acetaminophen 325 Mg Tablet PO 650 mg Q6H PRN Administration Mild Pain (1-3) or Fever Hydrocodone Bitart/Acetaminophen 1 tab 03/28/24 23:39 04/05/24 09:29 Hydrocodone/Acetaminophen (*Crx) 5-325 Mg Tablet PO 1 tab Q4H PRN Administration Pain Rated 4-6 Albuterol/Ipratropium 3 ml 04/01/24 14:00 04/05/24 07:51 Ipratropium 0.5 Mg/Albuterol Sulfate 2.5 Mg Ampul.Neb 3 Ml INHALATION 3 ml Q6HRT DANE Administration Aspirin 81 mg 03/29/24 09:00 04/05/24 09:23 Aspirin 81 Mg Enteric Tablet PO 81 mg DAILY DANE Administration Atorvastatin Calcium 40 mg 03/28/24 11:05 04/05/24 09:23 Atorvastatin 40 Mg Tablet PO 40 mg DAILY DANE Administration Cefdinir 300 mg 04/03/24 21:00 04/05/24 09:23 Cefdinir 300 Mg Capsule PO 300 mg Q12HR DANE Administration Doxycycline Hyclate 100 mg 04/03/24 21:00 04/05/24 09:23 Doxycycline Hyclate 100 Mg Tablet PO 100 mg Q12HR DANE Administration Heparin Sodium (Porcine) 5,000 units 03/28/24 14:00 03/28/24 13:25 Heparin Sodium 5,000 Units/Ml Vial SUB-Q Not Given Q8HR DANE Levothyroxine Sodium 112 mcg 03/28/24 11:05 04/05/24 05:50 Levothyroxine Sodium 112 Mcg Tablet PO 112 mcg DAILY@0630 DANE Administration Ondansetron HCl 4 mg 03/28/24 07:31 03/30/24 20:22 Ondansetron Inj 4 Mg/2 Ml Vial IV PUSH 4 mg Q4H PRN Administration Nausea Polyethylene Glycol 17 gm 04/02/24 09:00 04/05/24 09:23 Polyethylene Glycol 3350 17 Gm Powd.Pack PO 17 gm QAM DANE Administration Polyethylene Glycol 17 gm 04/02/24 12:56 04/02/24 17:41 Polyethylene Glycol 3350 17 Gm Powd.Pack PO 17 gm QAM PRN Administration Constipation Sodium Chloride 20 ml 03/28/24 08:28 04/02/24 05:15 Central Line Flush IV PUSH 20 ml PRN PRN Administration after blood draws Radiology Results: ITS Impressions Chest CTA 03/28/24 05:32 Impression: No evidence of pulmonary embolus, aortic dissection, or aortic aneurysm. No significant pulmonary abnormality. Mild to moderate left hydronephrosis and asymmetric left perinephric stranding. Consider more distal left ureteral stone. T12 compression fracture, age-indeterminate. Abdomen/Pelvis CT 03/28/24 06:01 Impression: 6 mm distal left ureteral stone with mild to moderate left hydroureteronephrosis and asymmetric left perinephric stranding/fluid. 5.6 cm right ovarian cyst. Gynecologic follow-up advised given patient age and size of the cystic lesion. T12 compression fracture, age-indeterminate. Chest X-Ray 04/01/24 09:41 IMPRESSION: 1. Interval decrease in opacities in bilateral mid and lower lung zones consistent with decreasing small bilateral pleural effusions with associated atelectasis and/or pneumonia. 2. Cardiomegaly. Labs Labs: Laboratory Results - last 24 hr 04/04/24 18:21 Sodium 136 L Potassium 3.0 L Chloride 98 Carbon Dioxide 31 H Anion Gap 7 BUN 9 D Creatinine 0.54 L Estim Creat Clear Calc 68 Estimated GFR > 60 Glucose 131 H Calcium 8.9
[2024-04-05 15:19] LABS: Hematocrit 32.5 % (37.0-47.0); Hemoglobin 10.4 g/dL (12.0-15.0); Mean Corpuscular Hemoglobin 33.1 pg (26-34); Mean Corpuscular Volume 103.5 fl (80-100); Mean Platelet Volume 9.2 fl (7.4-10.4); Platelet Count Result 382 k/mm3 (150-375); Red Blood Count 3.14 M/mm3 (4.2-5.4); Red Cell Distribution Width 14.6 % (11.5-14.5); White Blood Count 8.5 K/mm3 (4.5-10.0)
[2024-04-05 15:33] LABS: Anion Gap 5 mmol/L (4-12); Blood Urea Nitrogen 6 mg/dL (7-17); Calcium 9.3 mg/dL (8.4-10.2); Carbon Dioxide 31 mmol/L (22-30); Chloride 101 mmol/L (98-107); Estimated CRCL calculation 72 ml/min; Estimated Glomerular Filt Rate > 60; Glucose 131 mg/dL (65-110); Potassium 3.2 mmol/L (3.4-5.0); Sodium 137 mmol/L (137-145)
--- NOTE | 2024-04-05 21:53 | PCRCNOTE ---
Out of administration timeframe for 1999 breathing treatment, see next scheduled breathing treatment at 0200.
[2024-04-06] VITALS (11 sets, daily range): BP systolic 112–151; BP diastolic 64–81; PULSE 96–109; RESP 18–20; TEMP 36.2–36.9; O2SAT 92–93
[2024-04-06] MEDS: IPRATROPIUM 0.5 MG/ALBUTEROL SULFATE 2.5 MG AMPUL.NEB 3 ML INHALATION ×4 (01:54→20:28)
[2024-04-06] MEDS: LEVOTHYROXINE SODIUM 112 MCG TABLET PO (06:11)
[2024-04-06] MEDS: HYDROcodone/acetaminophen (*CRX) 5-325 MG TABLET 1 TAB PO (06:28)
[2024-04-06] MEDS: CEFDINIR 300 MG CAPSULE PO ×2 (08:52→20:33)
[2024-04-06] MEDS: ATORVASTATIN 40 MG TABLET PO (08:52)
[2024-04-06] MEDS: DOXYCYCLINE HYCLATE 100 MG TABLET PO ×2 (08:52→20:33)
[2024-04-06] MEDS: ASPIRIN 81 MG ENTERIC TABLET PO (08:52)
--- NOTE | 2024-04-06 11:06 | PM.IMPN ---
Progress Note: A&P Assessment and Plan (1) RICHARD (acute kidney injury): Code(s): N17.9 - Acute kidney failure, unspecified Status: Acute (2) Acute kidney injury superimposed on stage 1 chronic kidney disease: Code(s): N17.9 - Acute kidney failure, unspecified; N18.1 - Chronic kidney disease, stage 1 Status: Acute (3) Septic shock: Code(s): A41.9 - Sepsis, unspecified organism; R65.21 - Severe sepsis with septic shock Status: Acute Plan Septic shock: Code(s): A41.9 - Sepsis, unspecified organism; R65.21 - Severe sepsis with septic shock Status: Acute Assessment and Plan: Patient presented with back pain, left flank pain. UA reflective of UTI, patient has left ureteral stone with hydronephrosis -03/28: Status post cystoscopy, left retrograde pyelogram, left ureteral stent insertion, Marshall catheter insertion -received 3 L IV fluid bolus in the ER despite which she was hypotensive, central line was inserted and patient started on Levophed OFF LEVOPHED since 2:00 p.m. on 03/30/2024 Urine cultures growing E coli, susceptible to ceftriaxone continue ceftriaxone 2 g IV Q 24 hours, 03/29: DC vancomycin vancomycin change to cefepime due to PNA 04/01 change to cefdinir and doxy po 04/03 Patient will finish the course of antibiotics today RICHARD (acute kidney injury): Code(s): N17.9 - Acute kidney failure, unspecified Status: Acute Assessment and Plan: Acute kidney injury likely related to septic shock, hypotension, UTI, pyelonephritis -adequately fluid-resuscitated -continue maintenance IV fluids -renal function improving, adequate urine output after receiving Lasix 40 mg IV x1 on 03/29 01/27: Auto diuresing very well -continue to monitor urine output, renal function and electrolyte Calculus of distal left ureter: Code(s): N20.1 - Calculus of ureter Status: Acute Assessment and Plan: Status post cystoscopy, left retrograde pyelogram, left ureteral stent insertion, Marshall catheter insertion -appreciate urology following the patient Hydronephrosis of left kidney: Code(s): N13.30 - Unspecified hydronephrosis Status: Acute Assessment and Plan: As above UTI (urinary tract infection): Code(s): N39.0 - Urinary tract infection, site not specified Status: Acute Assessment and Plan: Urine was reflective of UTI, antibiotics as above Acute respiratory failure, acute heart failure 04/01 Patient has respiratory distress today, hypoxemia Coarse breath sound bilateral base Suspecting acute heart failure due to fluid overload Provide Lasix 40 mg IV push once Follow-up chest x-ray Interval decrease in opacities in bilateral mid and lower lung zones consistent with decreasing small bilateral pleural effusions with associated atelectasis and/or pneumonia. ABG: Hypoxemic respiratory failure Continue Lasix of 20 mg b.i.d. IV push 04/01- now pt is on room air, dc lasix iv Multifocal pneumonia Changed to cefepime and add doxycycline IV. Discontinue ceftriaxone change to cefdinir and doxy po 04/03 Patient will finish antibiotics today April 06 HLD (hyperlipidemia): Code(s): E78.5 - Hyperlipidemia, unspecified Status: Acute Assessment and Plan: Continue statin (6) History of hypertension: Code(s): Z86.79 - Personal history of other diseases of the circulatory system Status: Acute Assessment and Plan: hold all antihypertensives for now BP stable Hypothyroidism: Code(s): E03.9 - Hypothyroidism, unspecified Status: Acute Assessment and Plan: Continue levothyroxine Thrombocytopenia: Code(s): D69.6 - Thrombocytopenia, unspecified Status: Acute Assessment and Plan: Thrombocytopenia likely related to septic shock, Resolved Patient is ready to be discharged, patient is [facility] Subjective Date/time seen: 04/06/24 11:06 Interval history: I saw examined patient in presents of patient's family today, patient was sitting in a chair, comfortable, patient has good appetite. She participates in the rehab in-hospital. no new issue even over the night. Patient denies abdomen pain nausea vomiting diarrhea. Exam Narrative: GENERAL: in no acute distress. Well-nourished. - EYES: EOMI. Anicteric. - HENT: Moist mucous membranes. - LUNGS: Lungs clear - CARDIOVASCULAR: Regular rate and rhythm. No murmur. No JVD. - ABDOMEN: Soft, non-tender and non-distended. No palpable masses. - EXTREMITIES: No edema. Peripheral pulses 2+. Non-tender. - NEUROLOGIC: No focal neurological deficits. CN II-XII grossly intact. - PSYCHIATRIC: Awake, Alert and oriented x 3. Appropriate mood and affect. - SKIN: No rashes or lesions. Warm. - LYMPH: No cervical lymphadenopathy. Objective Data Vital Signs Vital Signs: Vital Signs - 24 hr 04/05/24 14:27 04/05/24 14:41 04/05/24 16:00 Temperature 97.8 F Pulse Rate 105 H 104 H 100 Respiratory Rate 22 H 22 H 18 Blood Pressure 128/73 Pulse Oximetry 93 Oxygen Delivery 04/05/24 20:00 04/05/24 20:35 04/05/24 23:00 Temperature 96.5 F L Pulse Rate 92 Respiratory Rate 20 Blood Pressure 151/86 H Pulse Oximetry 93 91 Oxygen Delivery Room Air Room Air 04/06/24 01:58 04/06/24 02:05 04/06/24 05:35 Temperature 97.1 F L Pulse Rate 98 99 96 Respiratory Rate 20 20 20 Blood Pressure 151/81 H Pulse Oximetry 92 Oxygen Delivery 04/06/24 09:44 04/06/24 09:44 04/06/24 10:00 Temperature Pulse Rate 103 H 102 H Respiratory Rate 20 20 Blood Pressure Pulse Oximetry 93 Oxygen Delivery Room Air Intake/Output Intake/Output: Intake & Output 04/03/24 04/04/24 04/05/24 04/06/24 23:59 23:59 23:59 23:59 Intake Total 2980 480 2146 750 Output Total 5100 2150 4000 1700 Balance -3933 -2145 -0848 -950 Meds/Results Medications: Active Medications Generic Name Dose Route Start Last Admin Trade Name Freq PRN Reason Stop Dose Admin Acetaminophen 650 mg 03/28/24 13:18 04/04/24 18:18 Acetaminophen 325 Mg Tablet PO 650 mg Q6H PRN Administration Mild Pain (1-3) or Fever Hydrocodone Bitart/Acetaminophen 1 tab 03/28/24 23:39 04/06/24 06:28 Hydrocodone/Acetaminophen (*Crx) 5-325 Mg Tablet PO 1 tab Q4H PRN Administration Pain Rated 4-6 Albuterol/Ipratropium 3 ml 04/01/24 14:00 04/06/24 09:44 Ipratropium 0.5 Mg/Albuterol Sulfate 2.5 Mg Ampul.Neb 3 Ml INHALATION 3 ml Q6HRT DANE Administration Aspirin 81 mg 03/29/24 09:00 04/06/24 08:52 Aspirin 81 Mg Enteric Tablet PO 81 mg DAILY DANE Administration Atorvastatin Calcium 40 mg 03/28/24 11:05 04/06/24 08:52 Atorvastatin 40 Mg Tablet PO 40 mg DAILY DANE Administration Cefdinir 300 mg 04/03/24 21:00 04/06/24 08:52 Cefdinir 300 Mg Capsule PO 300 mg Q12HR DANE Administration Doxycycline Hyclate 100 mg 04/03/24 21:00 04/06/24 08:52 Doxycycline Hyclate 100 Mg Tablet PO 100 mg Q12HR DANE Administration Heparin Sodium (Porcine) 5,000 units 03/28/24 14:00 03/28/24 13:25 Heparin Sodium 5,000 Units/Ml Vial SUB-Q Not Given Q8HR [facility] Levothyroxine Sodium 112 mcg 03/28/24 11:05 04/06/24 06:11 Levothyroxine Sodium 112 Mcg Tablet PO 112 mcg DAILY@0630 DANE Administration Ondansetron HCl 4 mg 03/28/24 07:31 03/30/24 20:22 Ondansetron Inj 4 Mg/2 Ml Vial IV PUSH 4 mg Q4H PRN Administration Nausea Polyethylene Glycol 17 gm 04/02/24 09:00 04/06/24 08:53 Polyethylene Glycol 3350 17 Gm Powd.Pack PO Not Given QAM DANE Polyethylene Glycol 17 gm 04/02/24 12:56 04/02/24 17:41 Polyethylene Glycol 3350 17 Gm Powd.Pack PO 17 gm QAM PRN Administration Constipation Sodium Chloride 20 ml 03/28/24 08:28 04/02/24 05:15 Central Line Flush IV PUSH 20 ml PRN PRN Administration after blood draws Radiology Results: ITS Impressions Chest CTA 03/28/24 05:32 Impression: No evidence of pulmonary embolus, aortic dissection, or aortic aneurysm. No significant pulmonary abnormality. Mild to moderate left hydronephrosis and asymmetric left perinephric stranding. Consider more distal left ureteral stone. T12 compression fracture, age-indeterminate. Abdomen/Pelvis CT 03/28/24 06:01 Impression: 6 mm distal left ureteral stone with mild to moderate left hydroureteronephrosis and asymmetric left perinephric stranding/fluid. 5.6 cm right ovarian cyst. Gynecologic follow-up advised given patient age and size of the cystic lesion. T12 compression fracture, age-indeterminate. Chest X-Ray 04/01/24 09:41 IMPRESSION: 1. Interval decrease in opacities in bilateral mid and lower lung zones consistent with decreasing small bilateral pleural effusions with associated atelectasis and/or pneumonia. 2. Cardiomegaly. Labs Labs: Laboratory Results - last 24 hr 04/05/24 15:04 WBC 8.5 RBC 3.14 L Hgb 10.4 L Hct 32.5 L MCV 103.5 H MCH 33.1 MCHC 32.0 RDW 14.6 H Plt Count 382 H D MPV 9.2 Sodium 137 Potassium 3.2 L Chloride 101 Carbon Dioxide 31 H Anion Gap 5 BUN 6 L Creatinine 0.50 L Estim Creat Clear Calc 72 Estimated GFR > 60 Glucose 131 H Calcium 9.3
--- NOTE | 2024-04-06 14:10 | WPDUROPN2 ---
Progress Note: A&P Assessment and Plan (1) Calculus of distal left ureter: Code(s): N20.1 - Calculus of ureter Status: Acute Assessment and Plan: Left ureteral stent in place; will need definitive stone procedure as an outpatient in 2-3 weeks following rehab stay. (2) UTI (urinary tract infection): Code(s): N39.0 - Urinary tract infection, site not specified Status: Acute Assessment and Plan: E.Coli UTI present on admission Agree with culture-directed abx Plan - Void trial today, Marshall removal ordered - Renal function stable, no leukocytosis - Urologically cleared for discharge Subjective Subjective Date/Time Seen: 04/06/24 14:10 Interval history: NAEO; Patient OOB working with OT in the bathroom. Alert and ambulatory. Void trial has not been attempted since transitioning out of ICU. Plan is to discharge to rehab facility soon. Will proceed with void trial today. Discussed need for stone treatment/stent management. Per patient preference, will plan for outpatient intervention in 2-3 weeks. She wants to rehab before undergoing anesthesia. Exam Const: General: comfortable and no acute distress Eyes: General: appearance normal, both eyes and all related structures Resp: Effort & Inspection: normal respiratory effort Urinary Catheter: Urinary Catheter: patent and draining and urine clear Objective Data Vital Signs Vital Signs: Vital Signs - 24 hr 04/05/24 14:27 04/05/24 14:41 04/05/24 16:00 Temperature 97.8 F Pulse Rate 105 H 104 H 100 Respiratory Rate 22 H 22 H 18 Blood Pressure 128/73 Pulse Oximetry 93 Oxygen Delivery 04/05/24 20:00 04/05/24 20:35 04/05/24 23:00 Temperature 96.5 F L Pulse Rate 92 Respiratory Rate 20 Blood Pressure 151/86 H Pulse Oximetry 93 91 Oxygen Delivery Room Air Room Air 04/06/24 01:58 04/06/24 02:05 04/06/24 05:35 Temperature 97.1 F L Pulse Rate 98 99 96 Respiratory Rate 20 20 20 Blood Pressure 151/81 H Pulse Oximetry 92 Oxygen Delivery 04/06/24 08:45 04/06/24 09:44 04/06/24 09:44 Temperature Pulse Rate 103 H Respiratory Rate 20 Blood Pressure Pulse Oximetry 93 Oxygen Delivery Room Air Room Air 04/06/24 10:00 Temperature Pulse Rate 102 H Respiratory Rate 20 Blood Pressure Pulse Oximetry Oxygen Delivery Intake/Output Intake/Output: Intake & Output 04/03/24 04/04/24 04/05/24 04/06/24 23:59 23:59 23:59 23:59 Intake Total 2980 480 2146 750 Output Total 5100 2150 4000 1700 Balance -9181 -8150 -4964 -327 Meds/Results Medications: Active Medications Generic Name Dose Route Start Last Admin Trade Name Freq PRN Reason Stop Dose Admin Acetaminophen 650 mg 03/28/24 13:18 04/04/24 18:18 Acetaminophen 325 Mg Tablet PO 650 mg Q6H PRN Administration Mild Pain (1-3) or Fever Hydrocodone Bitart/Acetaminophen 1 tab 03/28/24 23:39 04/06/24 06:28 Hydrocodone/Acetaminophen (*Crx) 5-325 Mg Tablet PO 1 tab Q4H PRN Administration Pain Rated 4-6 Albuterol/Ipratropium 3 ml 04/01/24 14:00 04/06/24 09:44 Ipratropium 0.5 Mg/Albuterol Sulfate 2.5 Mg Ampul.Neb 3 Ml INHALATION 3 ml Q6HRT DANE Administration Aspirin 81 mg 03/29/24 09:00 04/06/24 08:52 Aspirin 81 Mg Enteric Tablet PO 81 mg DAILY DANE Administration Atorvastatin Calcium 40 mg 03/28/24 11:05 04/06/24 08:52 Atorvastatin 40 Mg Tablet PO 40 mg DAILY DANE Administration Cefdinir 300 mg 04/03/24 21:00 04/06/24 08:52 Cefdinir 300 Mg Capsule PO 04/06/24 23:59 300 mg Q12HR DANE Administration Doxycycline Hyclate 100 mg 04/03/24 21:00 04/06/24 08:52 Doxycycline Hyclate 100 Mg Tablet PO 04/06/24 23:59 100 mg Q12HR DANE Administration Heparin Sodium (Porcine) 5,000 units 03/28/24 14:00 03/28/24 13:25 Heparin Sodium 5,000 Units/Ml Vial SUB-Q Not Given Q8HR DANE Levothyroxine Sodium 112 mcg 03/28/24 11:05 04/06/24 06:11 Levothyroxine Sodium 112 Mcg Tablet PO 112 mcg DAILY@0630 DANE Administration Ondansetron HCl 4 mg 03/28/24 07:31 03/30/24 20:22 Ondansetron Inj 4 Mg/2 Ml Vial IV PUSH 4 mg Q4H PRN Administration Nausea Polyethylene Glycol 17 gm 04/02/24 09:00 04/06/24 08:53 Polyethylene Glycol 3350 17 Gm Powd.Pack PO Not Given QAM DANE Polyethylene Glycol 17 gm 04/02/24 12:56 04/02/24 17:41 Polyethylene Glycol 3350 17 Gm Powd.Pack PO 17 gm QAM PRN Administration Constipation Sodium Chloride 20 ml 03/28/24 08:28 04/02/24 05:15 Central Line Flush IV PUSH 20 ml PRN PRN Administration after blood draws Radiology Results: ITS Impressions Chest CTA 03/28/24 05:32 Impression: No evidence of pulmonary embolus, aortic dissection, or aortic aneurysm. No significant pulmonary abnormality. Mild to moderate left hydronephrosis and asymmetric left perinephric stranding. Consider more distal left ureteral stone. T12 compression fracture, age-indeterminate. Abdomen/Pelvis CT 03/28/24 06:01 Impression: 6 mm distal left ureteral stone with mild to moderate left hydroureteronephrosis and asymmetric left perinephric stranding/fluid. 5.6 cm right ovarian cyst. Gynecologic follow-up advised given patient age and size of the cystic lesion. T12 compression fracture, age-indeterminate. Chest X-Ray 04/01/24 09:41 IMPRESSION: 1. Interval decrease in opacities in bilateral mid and lower lung zones consistent with decreasing small bilateral pleural effusions with associated atelectasis and/or pneumonia. 2. Cardiomegaly. Labs Labs: Laboratory Results - last 24 hr 04/05/24 15:04 WBC 8.5 RBC 3.14 L Hgb 10.4 L Hct 32.5 L MCV 103.5 H MCH 33.1 MCHC 32.0 RDW 14.6 H Plt Count 382 H D MPV 9.2 Sodium 137 Potassium 3.2 L Chloride 101 Carbon Dioxide 31 H Anion Gap 5 BUN 6 L Creatinine 0.50 L Estim Creat Clear Calc 72 Estimated GFR > 60 Glucose 131 H Calcium 9.3
[2024-04-07] VITALS (12 sets, daily range): BP systolic 134–151; BP diastolic 74–83; PULSE 94–110; RESP 16–20; TEMP 36.4–36.8; O2SAT 91–95
[2024-04-07] MEDS: ONDANSETRON INJ 4 MG/2 ML VIAL IV PUSH (00:05)
[2024-04-07] MEDS: HYDROcodone/acetaminophen (*CRX) 5-325 MG TABLET 1 TAB PO ×2 (00:05→20:55)
[2024-04-07] MEDS: IPRATROPIUM 0.5 MG/ALBUTEROL SULFATE 2.5 MG AMPUL.NEB 3 ML INHALATION ×4 (02:12→20:27)
[2024-04-07] MEDS: LEVOTHYROXINE SODIUM 112 MCG TABLET PO (05:23)
[2024-04-07] MEDS: ATORVASTATIN 40 MG TABLET PO (08:29)
[2024-04-07] MEDS: ASPIRIN 81 MG ENTERIC TABLET PO (08:29)
--- NOTE | 2024-04-07 08:44 | PM.IMPN ---
Progress Note: A&P Assessment and Plan (1) RICHARD (acute kidney injury): Code(s): N17.9 - Acute kidney failure, unspecified Status: Acute (2) Acute kidney injury superimposed on stage 1 chronic kidney disease: Code(s): N17.9 - Acute kidney failure, unspecified; N18.1 - Chronic kidney disease, stage 1 Status: Acute (3) Septic shock: Code(s): A41.9 - Sepsis, unspecified organism; R65.21 - Severe sepsis with septic shock Status: Acute Plan Septic shock: Code(s): A41.9 - Sepsis, unspecified organism; R65.21 - Severe sepsis with septic shock Status: Acute Assessment and Plan: Patient presented with back pain, left flank pain. UA reflective of UTI, patient has left ureteral stone with hydronephrosis -03/28: Status post cystoscopy, left retrograde pyelogram, left ureteral stent insertion, Marshall catheter insertion -received 3 L IV fluid bolus in the ER despite which she was hypotensive, central line was inserted and patient started on Levophed OFF LEVOPHED since 2:00 p.m. on 03/30/2024 Urine cultures growing E coli, susceptible to ceftriaxone continue ceftriaxone 2 g IV Q 24 hours, 03/29: DC vancomycin vancomycin change to cefepime due to PNA 04/01 change to cefdinir and doxy po 04/03 Patient will finish the course of antibiotics today sepsis resolved RICHARD (acute kidney injury): Code(s): N17.9 - Acute kidney failure, unspecified Status: Acute Assessment and Plan: Acute kidney injury likely related to septic shock, hypotension, UTI, pyelonephritis Received fluid resuscitation and finish antibiotic treatment of UTI RICHARD has resolved Calculus of distal left ureter: Code(s): N20.1 - Calculus of ureter Status: Acute Assessment and Plan: Status post cystoscopy, left retrograde pyelogram, left ureteral stent insertion, Marshall catheter insertion Appreciate urologist consultation, continue folic catheter, stent in place. Removed Marshall catheter today, on void trial Hydronephrosis of left kidney: Code(s): N13.30 - Unspecified hydronephrosis Status: Acute Assessment and Plan: As above UTI (urinary tract infection): Code(s): N39.0 - Urinary tract infection, site not specified Status: Acute Assessment and Plan: Urine was reflective of UTI, antibiotics as above Acute respiratory failure, acute heart failure 04/01 Patient has respiratory distress today, hypoxemia Coarse breath sound bilateral base Suspecting acute heart failure due to fluid overload Provide Lasix 40 mg IV push once Follow-up chest x-ray Interval decrease in opacities in bilateral mid and lower lung zones consistent with decreasing small bilateral pleural effusions with associated atelectasis and/or pneumonia. ABG: Hypoxemic respiratory failure Continue Lasix of 20 mg b.i.d. IV push 04/01- now pt is on room air, dc lasix iv Multifocal pneumonia Changed to cefepime and add doxycycline IV. Discontinue ceftriaxone change to cefdinir and doxy po 04/03 Patient will finish antibiotics today April 06 HLD (hyperlipidemia): Code(s): E78.5 - Hyperlipidemia, unspecified Status: Acute Assessment and Plan: Continue statin (6) History of hypertension: Code(s): Z86.79 - Personal history of other diseases of the circulatory system Status: Acute Assessment and Plan: hold all antihypertensives for now BP stable Hypothyroidism: Code(s): E03.9 - Hypothyroidism, unspecified Status: Acute Assessment and Plan: Continue levothyroxine Thrombocytopenia: Code(s): D69.6 - Thrombocytopenia, unspecified Status: Acute Assessment and Plan: Thrombocytopenia likely related to septic shock, Resolved Patient is ready to be discharged, patient is waiting for [facility] [place] Subjective Date/time seen: 04/07/24 08:44 Interval history: Patient has no new issue or event over the night,. Patient is afebrile, blood pressure stable. Condition continue to improve, still has weakness. Denies chest pain abdomen pain nausea vomiting diarrhea Exam Narrative: GENERAL: in no acute distress. Well-nourished. - EYES: EOMI. Anicteric. - HENT: Moist mucous membranes. - LUNGS: Lungs clear - CARDIOVASCULAR: Regular rate and rhythm. No murmur. No JVD. - ABDOMEN: Soft, non-tender and non-distended. No palpable masses. - EXTREMITIES: No edema. Peripheral pulses 2+. Non-tender. - NEUROLOGIC: No focal neurological deficits. CN II-XII grossly intact. - PSYCHIATRIC: Awake, Alert and oriented x 3. Appropriate mood and affect. - SKIN: No rashes or lesions. Warm. - LYMPH: No cervical lymphadenopathy. Objective Data Vital Signs Vital Signs: Vital Signs - 24 hr 04/06/24 08:45 04/06/24 09:44 04/06/24 09:44 Temperature Pulse Rate 103 H Respiratory Rate 20 Blood Pressure Pulse Oximetry 93 Oxygen Delivery Room Air Room Air Fraction of Inspired Oxygen 04/06/24 10:00 04/06/24 14:11 04/06/24 14:22 Temperature Pulse Rate 102 H 104 H 103 H Respiratory Rate 20 20 20 Blood Pressure Pulse Oximetry Oxygen Delivery Fraction of Inspired Oxygen 04/06/24 16:00 04/06/24 20:00 04/06/24 20:28 Temperature 98.3 F Pulse Rate 103 H 103 H Respiratory Rate 20 18 Blood Pressure 140/77 Pulse Oximetry 93 Oxygen Delivery Room Air Fraction of Inspired Oxygen 04/06/24 20:47 04/06/24 21:50 04/07/24 02:12 Temperature 98.4 F Pulse Rate 100 109 H 102 H Respiratory Rate 18 18 18 Blood Pressure 112/64 Pulse Oximetry 92 Oxygen Delivery Fraction of Inspired Oxygen 04/07/24 02:22 04/07/24 05:37 04/07/24 08:36 Temperature 98.2 F Pulse Rate 110 H 106 H Respiratory Rate 18 18 Blood Pressure 134/78 Pulse Oximetry 93 94 Oxygen Delivery Room Air Fraction of Inspired Oxygen 04/07/24 08:36 Temperature Pulse Rate 94 Respiratory Rate 20 Blood Pressure Pulse Oximetry Oxygen Delivery Fraction of Inspired Oxygen Intake/Output Intake/Output: Intake & Output 04/04/24 04/05/24 04/06/24 04/07/24 23:59 23:59 23:59 23:59 Intake Total 480 2146 1640 250 Output Total 2150 4000 2600 Balance -1670 -1854 -960 250 Meds/Results Medications: Active Medications Generic Name Dose Route Start Last Admin Trade Name Freq PRN Reason Stop Dose Admin Acetaminophen 650 mg 03/28/24 13:18 04/04/24 18:18 Acetaminophen 325 Mg Tablet PO 650 mg Q6H PRN Administration Mild Pain (1-3) or Fever Hydrocodone Bitart/Acetaminophen 1 tab 03/28/24 23:39 04/07/24 00:05 Hydrocodone/Acetaminophen (*Crx) 5-325 Mg Tablet PO 1 tab Q4H PRN Administration Pain Rated 4-6 Albuterol/Ipratropium 3 ml 04/01/24 14:00 04/07/24 08:36 Ipratropium 0.5 Mg/Albuterol Sulfate 2.5 Mg Ampul.Neb 3 Ml INHALATION 3 ml Q6HRT DANE Administration Aspirin 81 mg 03/29/24 09:00 04/07/24 08:29 Aspirin 81 Mg Enteric Tablet PO 81 mg DAILY DANE Administration Atorvastatin Calcium 40 mg 03/28/24 11:05 04/07/24 08:29 Atorvastatin 40 Mg Tablet PO 40 mg DAILY DANE Administration Heparin Sodium (Porcine) 5,000 units 03/28/24 14:00 03/28/24 13:25 Heparin Sodium 5,000 Units/Ml Vial SUB-Q Not Given Q8HR DANE Levothyroxine Sodium 112 mcg 03/28/24 11:05 04/07/24 05:23 Levothyroxine Sodium 112 Mcg Tablet PO 112 mcg DAILY@0630 DANE Administration Miscellaneous Information 0 each 04/07/24 00:01 [place] Renew If Still Needs Or Will Auto D/C XX 05/07/24 00:00 [facility] Ondansetron HCl 4 mg 03/28/24 07:31 04/07/24 00:05 Ondansetron Inj 4 Mg/2 Ml Vial IV PUSH 4 mg Q4H PRN Administration Nausea Polyethylene Glycol 17 gm 04/02/24 09:00 04/07/24 08:31 Polyethylene Glycol 3350 17 Gm Powd.Pack PO Not Given QAM DANE Polyethylene Glycol 17 gm 04/02/24 12:56 04/02/24 17:41 Polyethylene Glycol 3350 17 Gm Powd.Pack PO 17 gm QAM PRN Administration Constipation Sodium Chloride 20 ml 03/28/24 08:28 04/02/24 05:15 Central Line Flush IV PUSH 20 ml PRN PRN Administration after blood draws Radiology Results: ITS Impressions Chest CTA 03/28/24 05:32 Impression: No evidence of pulmonary embolus, aortic dissection, or aortic aneurysm. No significant pulmonary abnormality. Mild to moderate left hydronephrosis and asymmetric left perinephric stranding. Consider more distal left ureteral stone. T12 compression fracture, age-indeterminate. Abdomen/Pelvis CT 03/28/24 06:01 Impression: 6 mm distal left ureteral stone with mild to moderate left hydroureteronephrosis and asymmetric left perinephric stranding/fluid. 5.6 cm right ovarian cyst. Gynecologic follow-up advised given patient age and size of the cystic lesion. T12 compression fracture, age-indeterminate. Chest X-Ray 04/01/24 09:41 IMPRESSION: 1. Interval decrease in opacities in bilateral mid and lower lung zones consistent with decreasing small bilateral pleural effusions with associated atelectasis and/or pneumonia. 2. Cardiomegaly.
[2024-04-07] MEDS: guaiFENesin 12 HR 600 MG TABCR 1200 MG PO (20:54)
[2024-04-07] MEDS: polyethylene glycoL 3350 17 GM POWD.PACK PO (21:02)
[2024-04-08] MEDS: LEVOTHYROXINE SODIUM 112 MCG TABLET PO (05:44)
[2024-04-08 06:00] VITALS: BP 146/76; PULSE 109; RESP 18; TEMP 36.4; O2SAT 96
[2024-04-08 08:11] VITALS: PULSE 98; RESP 20
[2024-04-08] MEDS: IPRATROPIUM 0.5 MG/ALBUTEROL SULFATE 2.5 MG AMPUL.NEB 3 ML INHALATION ×2 (08:11→20:00)
[2024-04-08] MEDS: guaiFENesin 12 HR 600 MG TABCR 1200 MG PO ×2 (08:51→20:53)
[2024-04-08] MEDS: TAMSULOSIN HCL 0.4 MG CAPSULE PO (08:52)
[2024-04-08] MEDS: ASPIRIN 81 MG ENTERIC TABLET PO (08:52)
[2024-04-08] MEDS: ATORVASTATIN 40 MG TABLET PO (08:52)
[2024-04-08] MEDS: polyethylene glycoL 3350 17 GM POWD.PACK PO (08:52)
--- NOTE | 2024-04-08 08:57 | PM.IMPN ---
Progress Note: A&P Assessment and Plan (1) RICHARD (acute kidney injury): Code(s): N17.9 - Acute kidney failure, unspecified Status: Acute (2) Acute kidney injury superimposed on stage 1 chronic kidney disease: Code(s): N17.9 - Acute kidney failure, unspecified; N18.1 - Chronic kidney disease, stage 1 Status: Acute (3) Septic shock: Code(s): A41.9 - Sepsis, unspecified organism; R65.21 - Severe sepsis with septic shock Status: Acute Plan Septic shock: Code(s): A41.9 - Sepsis, unspecified organism; R65.21 - Severe sepsis with septic shock Status: Acute Assessment and Plan: Patient presented with back pain, left flank pain. UA reflective of UTI, patient has left ureteral stone with hydronephrosis -03/28: Status post cystoscopy, left retrograde pyelogram, left ureteral stent insertion, Marshall catheter insertion -received 3 L IV fluid bolus in the ER despite which she was hypotensive, central line was inserted and patient started on Levophed OFF LEVOPHED since 2:00 p.m. on 03/30/2024 Urine cultures growing E coli, susceptible to ceftriaxone continue ceftriaxone 2 g IV Q 24 hours, 03/29: DC vancomycin vancomycin change to cefepime due to PNA 04/01 change to cefdinir and doxy po 04/03 Patient will finish the course of antibiotics today sepsis resolved RICHARD (acute kidney injury): Code(s): N17.9 - Acute kidney failure, unspecified Status: Acute Assessment and Plan: Acute kidney injury likely related to septic shock, hypotension, UTI, pyelonephritis Received fluid resuscitation and finish antibiotic treatment of UTI RICHARD has resolved Calculus of distal left ureter: Code(s): N20.1 - Calculus of ureter Status: Acute Assessment and Plan: Status post cystoscopy, left retrograde pyelogram, left ureteral stent insertion, Marshall catheter insertion Appreciate urologist consultation, continue folic catheter, stent in place. Removed Marshall catheter today, on void trial Hydronephrosis of left kidney: Code(s): N13.30 - Unspecified hydronephrosis Status: Acute Assessment and Plan: As above UTI (urinary tract infection): Code(s): N39.0 - Urinary tract infection, site not specified Status: Acute Assessment and Plan: Urine was reflective of UTI, antibiotics as above Acute respiratory failure, acute heart failure 04/01 Patient has respiratory distress today, hypoxemia Coarse breath sound bilateral base Suspecting acute heart failure due to fluid overload Provide Lasix 40 mg IV push once Follow-up chest x-ray Interval decrease in opacities in bilateral mid and lower lung zones consistent with decreasing small bilateral pleural effusions with associated atelectasis and/or pneumonia. ABG: Hypoxemic respiratory failure Continue Lasix of 20 mg b.i.d. IV push 04/01- now pt is on room air, dc lasix iv Multifocal pneumonia Changed to cefepime and add doxycycline IV. Discontinue ceftriaxone change to cefdinir and doxy po 04/03 Patient will finish antibiotics today April 06 HLD (hyperlipidemia): Code(s): E78.5 - Hyperlipidemia, unspecified Status: Acute Assessment and Plan: Continue statin (6) History of hypertension: Code(s): Z86.79 - Personal history of other diseases of the circulatory system Status: Acute Assessment and Plan: hold all antihypertensives for now BP stable Hypothyroidism: Code(s): E03.9 - Hypothyroidism, unspecified Status: Acute Assessment and Plan: Continue levothyroxine Thrombocytopenia: Code(s): D69.6 - Thrombocytopenia, unspecified Status: Acute Assessment and Plan: Thrombocytopenia likely related to septic shock, Resolved Patient is ready to be discharged, [facility] Subjective Date/time seen: 04/08/24 08:57 Interval history: Patient has no new issue or event over the night,. Patient is afebrile, blood pressure stable. Patient denies headache, focal weakness, chest pain abdomen pain nausea vomiting diarrhea Exam Narrative: GENERAL: in no acute distress. Well-nourished. - EYES: EOMI. Anicteric. - HENT: Moist mucous membranes. - LUNGS: Lungs clear - CARDIOVASCULAR: Regular rate and rhythm. No murmur. No JVD. - ABDOMEN: Soft, non-tender and non-distended. No palpable masses. - EXTREMITIES: No edema. Peripheral pulses 2+. Non-tender. - NEUROLOGIC: No focal neurological deficits. CN II-XII grossly intact. - PSYCHIATRIC: Awake, Alert and oriented x 3. Appropriate mood and affect. - SKIN: No rashes or lesions. Warm. - LYMPH: No cervical lymphadenopathy. Objective Data Vital Signs Vital Signs: Vital Signs - 24 hr 04/07/24 13:59 04/07/24 13:59 04/07/24 14:00 Temperature 97.8 F Pulse Rate 100 102 H Respiratory Rate 20 16 Blood Pressure 137/74 Pulse Oximetry 91 93 Oxygen Delivery Room Air Fraction of Inspired Oxygen 04/07/24 14:07 04/07/24 20:00 04/07/24 20:27 Temperature Pulse Rate 101 H 98 Respiratory Rate 20 20 Blood Pressure Pulse Oximetry Oxygen Delivery Room Air Fraction of Inspired Oxygen 04/07/24 20:29 04/07/24 20:36 04/07/24 21:58 Temperature 97.5 F L Pulse Rate 98 99 106 H Respiratory Rate 20 18 Blood Pressure 151/83 H Pulse Oximetry 91 95 Oxygen Delivery Room Air Fraction of Inspired Oxygen 04/08/24 06:00 04/08/24 08:11 Temperature 97.6 F Pulse Rate 109 H 98 Respiratory Rate 18 20 Blood Pressure 146/76 H Pulse Oximetry 96 Oxygen Delivery Fraction of Inspired Oxygen Intake/Output Intake/Output: Intake & Output 04/05/24 04/06/24 04/07/24 04/08/24 23:59 23:59 23:59 23:59 Intake Total 2146 1640 730 550 Output Total 4000 2600 Balance -1854 -960 730 550 Meds/Results Medications: Active Medications Generic Name Dose Route Start Last Admin Trade Name Freq PRN Reason Stop Dose Admin Acetaminophen 650 mg 03/28/24 13:18 04/04/24 18:18 Acetaminophen 325 Mg Tablet PO 650 mg Q6H PRN Administration Mild Pain (1-3) or Fever Albuterol/Ipratropium 3 ml 04/01/24 14:00 04/08/24 08:11 Ipratropium 0.5 Mg/Albuterol Sulfate 2.5 Mg Ampul.Neb 3 Ml INHALATION 3 ml Q6HRT DANE Administration Aspirin 81 mg 03/29/24 09:00 04/07/24 08:29 Aspirin 81 Mg Enteric Tablet PO 81 mg DAILY DANE Administration Atorvastatin Calcium 40 mg 03/28/24 11:05 04/07/24 08:29 Atorvastatin 40 Mg Tablet PO 40 mg DAILY DANE Administration Guaifenesin 1,200 mg 04/07/24 21:00 04/07/24 20:54 Guaifenesin 12 Hr 600 Mg Tabcr PO 1,200 mg Q12HR DANE Administration Heparin Sodium (Porcine) 5,000 units 03/28/24 14:00 03/28/24 13:25 Heparin Sodium 5,000 Units/Ml Vial SUB-Q Not Given Q8HR [facility] Levothyroxine Sodium 112 mcg 03/28/24 11:05 04/08/24 05:44 Levothyroxine Sodium 112 Mcg Tablet PO 112 mcg DAILY@0630 [facility] Administration Miscellaneous Information 0 each 04/07/24 00:01 [place] Renew If Still Needs Or Will Auto D/C XX 05/07/24 00:00 [facility]IFY [facility] Ondansetron HCl 4 mg 03/28/24 07:31 04/07/24 00:05 Ondansetron Inj 4 Mg/2 Ml Vial IV PUSH 4 mg Q4H PRN Administration Nausea Polyethylene Glycol 17 gm 04/02/24 09:00 04/07/24 08:31 Polyethylene Glycol 3350 17 Gm Powd.Pack PO Not Given QAM [facility] Polyethylene Glycol 17 gm 04/02/24 12:56 04/07/24 21:02 Polyethylene Glycol 3350 17 Gm Powd.Pack PO 17 gm QAM PRN Administration Constipation Sodium Chloride 20 ml 03/28/24 08:28 04/02/24 05:15 Central Line Flush IV PUSH 20 ml PRN PRN Administration after blood draws Tamsulosin HCl 0.4 mg 04/08/24 09:00 Tamsulosin Hcl 0.4 [facility] [place] Results: ITS Impressions Chest CTA 03/28/24 05:32 Impression: No evidence of pulmonary embolus, aortic dissection, or aortic aneurysm. No significant pulmonary abnormality. Mild to moderate left hydronephrosis and asymmetric left perinephric stranding. Consider more distal left ureteral stone. T12 compression fracture, age-indeterminate. Abdomen/Pelvis CT 03/28/24 06:01 Impression: 6 mm distal left ureteral stone with mild to moderate left hydroureteronephrosis and asymmetric left perinephric stranding/fluid. 5.6 cm right ovarian cyst. Gynecologic follow-up advised given patient age and size of the cystic lesion. T12 compression fracture, age-indeterminate. Chest X-Ray 04/01/24 09:41 IMPRESSION: 1. Interval decrease in opacities in bilateral mid and lower lung zones consistent with decreasing small bilateral pleural effusions with associated atelectasis and/or pneumonia. 2. Cardiomegaly.
[2024-04-08 09:30] LABS: Hematocrit 33.4 % (37.0-47.0); Hemoglobin 10.5 g/dL (12.0-15.0); Mean Corpuscular HGB Conc 31.4 g/dl (32-36); Mean Corpuscular Hemoglobin 33.5 pg (26-34); Mean Corpuscular Volume 106.7 fl (80-100); Mean Platelet Volume 9.1 fl (7.4-10.4); Platelet Count Result 520 k/mm3 (150-375); Red Blood Count 3.13 M/mm3 (4.2-5.4); Red Cell Distribution Width 14.6 % (11.5-14.5); White Blood Count 6.2 K/mm3 (4.5-10.0)
[2024-04-08 09:49] LABS: Anion Gap 10 mmol/L (4-12); Blood Urea Nitrogen 11 mg/dL (7-17); Calcium 9.4 mg/dL (8.4-10.2); Carbon Dioxide 25 mmol/L (22-30); Chloride 103 mmol/L (98-107); Estimated CRCL calculation 59 ml/min; Estimated Glomerular Filt Rate > 60; Glucose 118 mg/dL (65-110); Potassium 3.8 mmol/L (3.4-5.0); Sodium 138 mmol/L (137-145)
[2024-04-08 14:00] VITALS: BP 151/84; PULSE 96; RESP 16; TEMP 36.2; O2SAT 92
--- NOTE | 2024-04-08 16:06 | PCRCNOTE ---
Window of time for administration has passed. See next scheduled administration.
[2024-04-08] MEDS: HYDROcodone/acetaminophen (*CRX) 5-325 MG TABLET 1 TAB PO (16:40)
--- NOTE | 2024-04-08 19:00 | PC.NURSE ---
On 04/09/24, the [facility], Carey Ramirez, provided care and [facility]. I have reviewed the [facility]'s documentation and agree with the findings.
[2024-04-08 20:00] VITALS: PULSE 100; RESP 20; O2SAT 93
[2024-04-08 20:08] VITALS: PULSE 96; RESP 20
--- NOTE | 2024-04-08 20:49 | PC.NURSE ---
Straight cath completed with 910 ml clear yellow urine returned. Sample sent for U/A/.
[2024-04-08 21:07] LABS: Add Urine Microscopic? YES; Appearance Urine Clear (Clear); Bacteria Urine None Seen /hpf; Bilirubin Urine Negative (Negative); Blood Urine Negative (Negative); Color Urine Yellow (Yellow); Glucose Urine UA Negative (Negative); Ketones Urine Negative (Negative); Leukocyte Esterase Ur 1+ LEU/UL (Negative); Need Manual Microscopic Reviewed; Nitrate Urine Negative (Negative); Non Pathogenic Casts 0-2; Protein Urine Negative (Negative); RBC Urine 0-2 /hpf (0-2); Specific Grav Ur 1.005 (1.001-1.035); Squamous Epithelial Cell Urine Few /hpf (Few); Urobilinogen Urine 0.2 mg/dL (<2.0); WBC Urine 0-5 /hpf (0-3); pH Urine 7.5 (5.0-9.0)
[2024-04-08 22:00] VITALS: BP 137/51; PULSE 105; RESP 18; TEMP 36.3; O2SAT 94
[2024-04-09] MEDS: IPRATROPIUM 0.5 MG/ALBUTEROL SULFATE 2.5 MG AMPUL.NEB 3 ML INHALATION ×2 (01:44→08:01)
[2024-04-09 01:45] VITALS: PULSE 92; RESP 20
[2024-04-09 01:55] VITALS: PULSE 95; RESP 20
[2024-04-09] MEDS: LEVOTHYROXINE SODIUM 112 MCG TABLET PO (05:39)
[2024-04-09 06:00] VITALS: BP 137/78; PULSE 108; RESP 16; TEMP 36.7; O2SAT 91
[2024-04-09 08:00] VITALS: PULSE 116; RESP 20; O2SAT 95
[2024-04-09 08:03] VITALS: PULSE 111; RESP 20; O2SAT 95
[2024-04-09 08:20] VITALS: PULSE 116; RESP 20
--- NOTE | 2024-04-09 09:01 | P.PNIM_ITS ---
Progress Note: A&P Assessment and Plan (1) RICHARD (acute kidney injury): Code(s): N17.9 - Acute kidney failure, unspecified Status: Acute (2) Acute kidney injury superimposed on stage 1 chronic kidney disease: Code(s): N17.9 - Acute kidney failure, unspecified; N18.1 - Chronic kidney disease, stage 1 Status: Acute (3) Septic shock: Code(s): A41.9 - Sepsis, unspecified organism; R65.21 - Severe sepsis with septic shock Status: Acute Plan Septic shock: Code(s): A41.9 - Sepsis, unspecified organism; R65.21 - Severe sepsis with septic shock Status: Acute Assessment and Plan: Patient presented with back pain, left flank pain. UA reflective of UTI, patient has left ureteral stone with hydronephrosis -03/28: Status post cystoscopy, left retrograde pyelogram, left ureteral stent insertion, Marshall catheter insertion -received 3 L IV fluid bolus in the ER despite which she was hypotensive, central line was inserted and patient started on Levophed OFF LEVOPHED since 2:00 p.m. on 03/30/2024 Urine cultures growing E coli, susceptible to ceftriaxone continue ceftriaxone 2 g IV Q 24 hours, 03/29: DC vancomycin vancomycin change to cefepime due to PNA 04/01 change to cefdinir and doxy po 04/03 Patient will finish the course of antibiotics today sepsis resolved RICHARD (acute kidney injury): Code(s): N17.9 - Acute kidney failure, unspecified Status: Acute Assessment and Plan: Acute kidney injury likely related to septic shock, hypotension, UTI, pyelonephritis Received fluid resuscitation and finish antibiotic treatment of UTI RICHARD has resolved Calculus of distal left ureter: Code(s): N20.1 - Calculus of ureter Status: Acute Assessment and Plan: Status post cystoscopy, left retrograde pyelogram, left ureteral stent insertion, Marshall catheter insertion Appreciate urologist consultation, continue folic catheter, stent in place. Removed Marshall catheter today, on void trial Hydronephrosis of left kidney: Code(s): N13.30 - Unspecified hydronephrosis Status: Acute Assessment and Plan: As above UTI (urinary tract infection): Code(s): N39.0 - Urinary tract infection, site not specified Status: Acute Assessment and Plan: Urine was reflective of UTI, antibiotics as above Acute respiratory failure, acute heart failure 04/01 Patient has respiratory distress today, hypoxemia Coarse breath sound bilateral base Suspecting acute heart failure due to fluid overload Provide Lasix 40 mg IV push once Follow-up chest x-ray Interval decrease in opacities in bilateral mid and lower lung zones consistent with decreasing small bilateral pleural effusions with associated atelectasis and/or pneumonia. ABG: Hypoxemic respiratory failure Continue Lasix of 20 mg b.i.d. IV push 04/01- now pt is on room air, dc lasix iv Multifocal pneumonia Changed to cefepime and add doxycycline IV. Discontinue ceftriaxone change to cefdinir and doxy po 04/03 Patient will finish antibiotics today April 06 HLD (hyperlipidemia): Code(s): E78.5 - Hyperlipidemia, unspecified Status: Acute Assessment and Plan: Continue statin (6) History of hypertension: Code(s): Z86.79 - Personal history of other diseases of the circulatory system Status: Acute Assessment and Plan: hold all antihypertensives for now BP stable Hypothyroidism: Code(s): E03.9 - Hypothyroidism, unspecified Status: Acute Assessment and Plan: Continue levothyroxine Thrombocytopenia: Code(s): D69.6 - Thrombocytopenia, unspecified Status: Acute Assessment and Plan: Thrombocytopenia likely related to septic shock, Resolved Patient is ready to be discharged, patient is waiting for placement in [facility] Subjective Date/time seen: 04/09/24 09:01 Interval history: Patient has no new issue event waiting for placement. Patient is afebrile, blood pressure stable. Patient denies headache, focal weakness, chest pain abdomen pain nausea vomiting diarrhea Exam Narrative: GENERAL: in no acute distress. Well-nourished. - EYES: EOMI. Anicteric. - HENT: Moist mucous membranes. - LUNGS: Lungs clear - CARDIOVASCULAR: Regular rate and rhyth m. No murmur. No JVD. - ABDOMEN: Soft, non-tender and non-dist ended. No palpable masses. - EXTREMITIES: No edema. Peripheral puls es 2+. Non-tender. - NEUROLOGIC: No focal neurological defi cits. CN II-XII grossly intact. - PSYCHIATRIC: Awake, Alert and oriented x 3. Appropriate mood and affect. - SKIN: No rashes or lesions. Warm. - LYMPH: No cervical lymphadenopathy. Objective Data Vital Signs Vital Signs: Vital Signs - 24 hr 04/08/24 14:00 04/08/24 20:00 04/08/24 20:00 Temperature 97.1 F L Pulse Rate 96 100 Respiratory Rate 16 20 Blood Pressure 151/84 H Pulse Oximetry 92 93 Oxygen Delivery Room Air 04/08/24 20:00 04/08/24 20:08 04/08/24 22:00 Temperature 97.3 F L Pulse Rate 96 105 H Respiratory Rate 20 18 Blood Pressure 137/51 L Pulse Oximetry 94 Oxygen Delivery Room Air 04/09/24 01:45 04/09/24 01:55 04/09/24 06:00 Temperature 98.1 F Pulse Rate 92 95 108 H Respiratory Rate 20 20 16 Blood Pressure 137/78 Pulse Oximetry 91 Oxygen Delivery 04/09/24 08:03 04/09/24 08:03 04/09/24 08:20 Temperature Pulse Rate 111 H 111 H 116 H Respiratory Rate 20 20 20 Blood Pressure Pulse Oximetry 95 Oxygen Delivery Room Air Intake/Output Intake/Output: Intake & Output 04/06/24 04/07/24 04/08/24 04/09/24 23:59 23:59 23:59 23:59 Intake Total 1640 730 910 100 Output Total 2600 910 650 Balance -960 730 0 -550 Meds/Results Medications: Active Medications Generic Name Dose Route Start Last Admin Trade Name Freq PRN Reason Stop Dose Admin Acetaminophen 650 mg 03/28/24 13:18 04/04/24 18:18 Acetaminophen 325 Mg Tablet PO 650 mg Q6H PRN Administration Mild Pain (1-3) or Fever Hydrocodone Bitart/Acetaminophen 1 tab 04/08/24 10:31 04/08/24 16:40 Hydrocodone/Acetaminophen (*Crx) 5-325 Mg Tablet PO 1 tab Q6H PRN Administration Pain Rated 4-6 Albuterol/Ipratropium 3 ml 04/01/24 14:00 04/09/24 08:01 Ipratropium 0.5 Mg/Albuterol Sulfate 2.5 Mg Ampul.Neb 3 Ml INHALATION 3 ml Q6HRT DANE Administration Aspirin 81 mg 03/29/24 09:00 04/08/24 08:52 Aspirin 81 Mg Enteric Tablet PO 81 mg DAILY DANE Administration Atorvastatin Calcium 40 mg 03/28/24 11:05 04/08/24 08:52 Atorvastatin 40 Mg Tablet PO 40 mg DAILY DANE Administration Guaifenesin 1,200 mg 04/07/24 21:00 04/08/24 20:53 Guaifenesin 12 Hr 600 Mg Tabcr PO 1,200 mg Q12HR DANE Administration Heparin Sodium (Porcine) 5,000 units 03/28/24 14:00 03/28/24 13:25 Heparin Sodium 5,000 Units/Ml Vial SUB-Q Not Given Q8HR [facility] Levothyroxine Sodium 112 mcg 03/28/24 11:05 04/09/24 05:39 Levothyroxine Sodium 112 Mcg Tablet PO 112 mcg DAILY@0630 DANE Administration Ondansetron HCl 4 mg 03/28/24 07:31 04/07/24 00:05 Ondansetron Inj 4 Mg/2 Ml Vial IV PUSH 4 mg Q4H PRN Administration Nausea Polyethylene Glycol 17 gm 04/02/24 09:00 04/08/24 08:52 Polyethylene Glycol 3350 17 Gm Powd.Pack PO 17 gm QAM DANE Administration Polyethylene Glycol 17 gm 04/02/24 12:56 04/07/24 21:02 Polyethylene Glycol 3350 17 Gm Powd.Pack PO 17 gm QAM PRN Administration Constipation Sodium Chloride 20 ml 03/28/24 08:28 04/02/24 05:15 Central Line Flush IV PUSH 20 ml PRN PRN Administration after blood draws Tamsulosin HCl 0.4 mg 04/08/24 09:00 04/08/24 08:52 Tamsulosin Hcl 0.4 Mg Capsule PO 0.4 mg QAM DANE Administration Radiology Results: ITS Impressions Chest CTA 03/28/24 05:32 Impression: No evidence of pulmonary embolus, aortic dissection, or aortic aneurysm. No significant pulmonary abnormality. Mild to moderate left hydronephrosis and asymmetric left perinephric stranding. Consider more distal left ureteral stone. T12 compression fracture, age-indeterminate. Abdomen/Pelvis CT 03/28/24 06:01 Impression: 6 mm distal left ureteral stone with mild to moderate left hydroureteronephrosis and asymmetric left perinephric stranding/fluid. 5.6 cm right ovarian cyst. Gynecologic follow-up advised given patient age and size of the cystic lesion. T12 compression fracture, age-indeterminate. Chest X-Ray 04/01/24 09:41 IMPRESSION: 1. Interval decrease in opacities in bilateral mid and lower lung zones consistent with decreasing small bilateral pleural effusions with associated atelectasis and/or pneumonia. 2. Cardiomegaly. Labs Labs: Laboratory Results - last 24 hr 04/08/24 04/08/24 09:09 20:46 WBC 6.2 RBC 3.13 L Hgb 10.5 L Hct 33.4 L MCV 106.7 H MCH 33.5 MCHC 31.4 L RDW 14.6 H Plt Count 520 H MPV 9.1 Sodium 138 Potassium 3.8 Chloride 103 Carbon Dioxide 25 Anion Gap 10 BUN 11 D Creatinine 0.63 L Estim Creat Clear Calc 59 Estimated GFR > 60 Glucose 118 H Calcium 9.4 Urine Color Yellow Urine Appearance Clear Urine pH 7.5 Ur Specific [place] 1.005 Urine Protein Negative Urine Glucose (UA) Negative Urine Ketones Negative Ur Blood (Man) Negative Urine Nitrate Negative Urine Bilirubin Negative Urine Urobilinogen 0.2 Ur Leukocyte Esterase 1+ H Add Ur Microanalysis Reviewed Urine RBC 0-2 Urine WBC 0-5 Ur Squamous Epith Cells Few Urine Bacteria None seen Urine Casts 0-2
--- NOTE | 2024-04-09 09:01 | PM.DS ---
DS: Admitting Diagnosis Discharge Date 03/09/24 Admitting Diagnosis (1) RICHARD (acute kidney injury): Code(s): N17.9 - Acute kidney failure, unspecified Status: Acute (2) Acute kidney injury superimposed on stage 1 chronic kidney disease: Code(s): N17.9 - Acute kidney failure, unspecified; N18.1 - Chronic kidney disease, stage 1 Status: Acute (3) Septic shock: Code(s): A41.9 - Sepsis, unspecified organism; R65.21 - Severe sepsis with septic shock Status: Acute DS: Discharge Diagnosis Discharge Diagnosis (1) RICHARD (acute kidney injury): Code(s): N17.9 - Acute kidney failure, unspecified Status: Acute (2) Acute kidney injury superimposed on stage 1 chronic kidney disease: Code(s): N17.9 - Acute kidney failure, unspecified; N18.1 - Chronic kidney disease, stage 1 Status: Acute (3) Septic shock: Code(s): A41.9 - Sepsis, unspecified organism; R65.21 - Severe sepsis with septic shock Status: Acute DS: Summary Hospital Course Hospital Course: 88 years old lady with history of hypertension, CKD, IgA nephropathy, hypothyroidism, hyperlipidemia, present ED with a chief complaint of back. Patient had sudden bilateral flank pain yesterday, associated with nausea denies vomiting diarrhea. Patient also has chills, denies fever. Patient has dysuria, cannot pass urine. Patient denies chest pain shortness breath, headache, focal weakness. Patient feels generally weak. Patient was brought to ED for evaluation treatment. Upon arrival to ED, patient has low-grade fever 99.3, tachycardia 104, tachycardia 129 hypertension 80/57, lab showed leukocytosis 1600,, ABG showed hypoxemic respiratory failure, chemistry showed hyponatremia 131, hypokalemia 3.1, elevated BUN creatinine ratio 32/1.47, baseline creatinine 1.1 April 21, UA shows pyuria and microscopic hematuria, cloudy urine, elevated troponin, elevated BNP 4320, I read the EKG, EKG shows sinus tachycardia 121, no specific ST or T-wave changes. X-ray showed cardiomegaly, atelectasis in mid and lower lung zone. CT scan showed left hydronephrosis, pyelonephritis, distal urethral stone. Patient received antibiotics, vasopressors, and patient underwent emergent cystoscope, left ureter stone insertion The following med issues have been addressed during hospitalization Septic shock: Code(s): A41.9 - Sepsis, unspecified organism; R65.21 - Severe sepsis with septic shock Status: Acute Assessment and Plan: Patient presented with back pain, left flank pain. UA reflective of UTI, patient has left ureteral stone with hydronephrosis -03/28: Status post cystoscopy, left retrograde pyelogram, left ureteral stent insertion, Marshall catheter insertion -received 3 L IV fluid bolus in the ER despite which she was hypotensive, central line was inserted and patient started on Levophed OFF LEVOPHED since 2:00 p.m. on 03/30/2024 Urine cultures growing E coli, susceptible to ceftriaxone continue ceftriaxone 2 g IV Q 24 hours, 03/29: DC vancomycin vancomycin change to cefepime due to PNA 04/01 change to cefdinir and doxy po 04/03 Patient will finish the course of antibiotics today sepsis resolved RICHARD (acute kidney injury): Code(s): N17.9 - Acute kidney failure, unspecified Status: Acute Assessment and Plan: Acute kidney injury likely related to septic shock, hypotension, UTI, pyelonephritis Received fluid resuscitation and finish antibiotic treatment of UTI RICHARD has resolved Calculus of distal left ureter: Code(s): N20.1 - Calculus of ureter Status: Acute Assessment and Plan: Status post cystoscopy, left retrograde pyelogram, left ureteral stent insertion, Marshall catheter insertion Appreciate urologist consultation, continue folic catheter, stent in place. Removed Marshall catheter today, on void trial, and patient passed a void trial Continue Flomax 0.4 mg daily p.o. Hydronephrosis of left kidney: Code(s): N13.30 - Unspecified hydronephrosis Status: Acute Assessment and Plan: As above UTI (urinary tract infection): Code(s): N39.0 - Urinary tract infection, site not specified Status: Acute Assessment and Plan: Urine was reflective of UTI, antibiotics as above Acute respiratory failure, acute heart failure 04/01 Patient has respiratory distress today, hypoxemia Coarse breath sound bilateral base Suspecting acute heart failure due to fluid overload Provide Lasix 40 mg IV push once Follow-up chest x-ray Interval decrease in opacities in bilateral mid and lower lung zones consistent with decreasing small bilateral pleural effusions with associated atelectasis and/or pneumonia. ABG: Hypoxemic respiratory failure Continue Lasix of 20 mg b.i.d. IV push 04/01- now pt is on room air, dc lasix iv Multifocal pneumonia Changed to cefepime and add doxycycline IV. Discontinue ceftriaxone change to cefdinir and doxy po 04/03 Patient will finish antibiotics today April 06 HLD (hyperlipidemia): Code(s): E78.5 - Hyperlipidemia, unspecified Status: Acute Assessment and Plan: Continue statin (6) History of hypertension: Code(s): Z86.79 - Personal history of other diseases of the circulatory system Status: Acute Assessment and Plan: hold all antihypertensives for now BP stable Hypothyroidism: Code(s): E03.9 - Hypothyroidism, unspecified Status: Acute Assessment and Plan: Continue levothyroxine Thrombocytopenia: Code(s): D69.6 - Thrombocytopenia, unspecified Status: Acute Assessment and Plan: Thrombocytopenia likely related to septic shock, Resolved Patient is ready to be discharged, patient will be discharged to a shelter for rehab Time Spent with Patient Time attestation: Total time spent providing and/or coordinating discharge services: Exam Narrative: GENERAL: in no acute distress. Well-nourished. - EYES: EOMI. Anicteric. - HENT: Moist mucous membranes. - LUNGS: Lungs clear - CARDIOVASCULAR: Regular rate and rhythm. No murmur. No JVD. - ABDOMEN: Soft, non-tender and non-distended. No palpable masses. - EXTREMITIES: No edema. Peripheral pulses 2+. Non-tender. - NEUROLOGIC: No focal neurological deficits. CN II-XII grossly intact. - PSYCHIATRIC: Awake, Alert and oriented x 3. Appropriate mood and affect. - SKIN: No rashes or lesions. Warm. - LYMPH: No cervical lymphadenopathy. DS: Data Data Completed and Pending Labs on day of discharge: Labs from last 24 hours 04/08/24 04/08/24 20:46 09:09 WBC 6.2 RBC 3.13 L Hgb 10.5 L Hct 33.4 L MCV 106.7 H MCH 33.5 MCHC 31.4 L RDW 14.6 H Plt Count 520 H MPV 9.1 Sodium 138 Potassium 3.8 Chloride 103 Carbon Dioxide 25 Anion Gap 10 BUN 11 D Creatinine 0.63 L Estim Creat Clear Calc 59 Estimated GFR > 60 Glucose 118 H Calcium 9.4 Urine Color Yellow Urine Appearance Clear Urine pH 7.5 Ur Specific [place] 1.005 Urine Protein Negative Urine Glucose (UA) Negative Urine Ketones Negative Ur Blood (Man) Negative Urine Nitrate Negative Urine Bilirubin Negative Urine Urobilinogen 0.2 Ur Leukocyte Esterase 1+ H Add Ur Microanalysis Reviewed Urine RBC 0-2 Urine WBC 0-5 Ur Squamous Epith Cells Few Urine Bacteria None seen Urine Casts 0-2 Discharge Plan Discharge Attending physician on discharge: Wali Middleton Consulting providers: Shaun Diego; Lyle Lewis; Basilia Mccurdy Discharging Clinician: Wali Middleton Anticipated Discharge Date/Time: 04/09/24 09:09 Patient Disposition: [facility] Activity: as tolerated Diet: as tolerated and heart healthy Patient Language: Maltese Stand Alone Forms: General Discharge Information Follow-up/Referrals: Julián Wells MD [Primary Care Provider] - 1 Week Basilia Mccurdy MD [Physician] - 2 Weeks (follow up in 2-3 weeks for stent removal. ) Discharge Medications: New polyethylene glycol 3350 [Miralax] 17 gram Powder In Packet 17 g PO QAM PRN (Reason: Constipation) Qty: 30 0RF tamsulosin 0.4 mg Capsule 0.4 mg PO QAM Qty: 60 0RF Continued aspirin [Bogdan Low Dose Aspirin] 81 mg Tablet,Delayed Release (Dr/Ec) 81 mg PO DAILY omega [id number] oil [Fish Oil] 1,200 (144-216) mg capsule 3 cap PO DAILY Qty: 1 0RF tramadol 50 mg tablet 50 mg PO Q12H PRN (Reason: pain) Qty: 60 0RF Patient Comments: patient has but does not take unless absolutely necessary. Patient has not taken in months. naloxone [Narcan] 4 mg/actuation spray,non-aerosol 4 mg intranasal Q3M PRN (Reason: opioid overdose) Qty: 2 0RF Rx Instructions: spray 1 dose into ONE nostril; alternate nostrils w each dose until help arrives ergocalciferol (vitamin D2) 1,250 mcg (50,000 unit) capsule 50,000 unit PO MONTHLY Qty: 12 3RF calcium 500 mg tablet 1,000 mg PO DAILY vinia capsule Patient Comments: helps with cardiovascular health 1 daily relaxium Patient Comments: helps with sleep melatonin, magnesium, valerian root, passion flower, [place]hwag[place]ha, and lizzy prednisone 2.5 mg tablet 2.5 mg PO DAILY Qty: 90 1RF irbesartan 300 mg tablet See Rx Instructions .ROUTE .COMPLEX Qty: 90 2RF Dose Instruction: TAKE 1 TABLET BY MOUTH EVERY DAY Rx Instructions: TAKE 1 TABLET BY MOUTH EVERY DAY levothyroxine 112 mcg tablet See Rx Instructions .ROUTE .COMPLEX Qty: 90 2RF Dose Instruction: TAKE 1 TABLET BY MOUTH DAILY Rx Instructions: TAKE 1 TABLET BY MOUTH DAILY amlodipine 10 mg tablet 10 mg PO DAILY Qty: 90 2RF atorvastatin 40 mg tablet See Rx Instructions .ROUTE .COMPLEX Qty: 90 2RF Dose Instruction: TAKE 1 TABLET BY MOUTH EVERY DAY Rx Instructions: TAKE 1 TABLET BY MOUTH EVERY DAY furosemide 40 mg tablet See Rx Instructions .ROUTE .COMPLEX Qty: 90 2RF Dose Instruction: TAKE 1 TABLET BY MOUTH EVERY DAY Rx Instructions: TAKE 1 TABLET BY MOUTH EVERY DAY potassium chloride 10 mEq capsule, extended release See Rx Instructions .ROUTE .COMPLEX Qty: 90 2RF Dose Instruction: TAKE 1 CAPSULE BY MOUTH EVERY DAY Rx Instructions: TAKE 1 CAPSULE BY MOUTH EVERY DAY sertraline 50 mg tablet 75 mg PO DAILY 90 Days Qty: 135 2RF carvedilol 12.5 mg tablet 12.5 mg PO Q12H Qty: 60 2RF Rx Instructions: must administer with a meal/food Date of admission: 03/28/24 08:06 Primary Care Provider: Julián Wells Admitting Provider: Magali Vergara Attending physician on admission: Raissa Reyna Condition: Critical
[2024-04-09] MEDS: polyethylene glycoL 3350 17 GM POWD.PACK PO (09:16)
[2024-04-09] MEDS: guaiFENesin 12 HR 600 MG TABCR 1200 MG PO (09:16)
[2024-04-09] MEDS: TAMSULOSIN HCL 0.4 MG CAPSULE PO (09:16)
[2024-04-09] MEDS: ATORVASTATIN 40 MG TABLET PO (09:17)
[2024-04-09] MEDS: ASPIRIN 81 MG ENTERIC TABLET PO (09:17)
[2024-04-09] MEDS: ACETAMINOPHEN 325 MG TABLET 650 MG PO (09:20)
[2024-04-09] MEDS: carvediloL 12.5 MG TABLET PO (09:21)
--- NOTE | 2024-04-09 15:52 | PC.NURSE ---
Patient and family given discharge instruction [facility] instructions and follow up with urology reviewed, questions answered. Patient able to SB transfer to w/c and car. Ao-4 on RA. No c/o pain.
== END 2024-04-09 15:50 | DRG 853 ==
LOC: ANHED 03-28 07:38 → ANHICU 03-28 08:13 → ANHIMU 03-31 18:01 → ANH3MEDSUR 04-02 15:07
PROVIDERS: Family Medicine; Internal Medicine; Internal Medicine Cardiovascular Disease; Urology; Admitting Provider Internal Medicine; Emergency Provider Student in an Organized Health Care Education/Training Program; PCP Family Medicine; Visit Provider Hospitalist
PROC: 0T778DZ Dilation of Left Ureter with Intraluminal Device, Via Natural or Artificial Opening Endoscopic (ICD-10-PCS; CPT 52352; principal; 2024-03-28 09:30)
DX: A41.9 Sepsis, unspecified organism (principal); J18.9 Pneumonia, unspecified organism; J96.01 Acute respiratory failure with hypoxia; R65.21 Severe sepsis with septic shock; N13.6 Pyonephrosis; N17.9 Acute kidney failure, unspecified; E87.1 Hypo-osmolality and hyponatremia; I13.0 Hypertensive heart and chronic kidney disease with heart failure and stage 1 through stage 4 chronic kidney disease, or unspecified chronic kidney disease; I24.89 Other forms of acute ischemic heart disease; B96.20 Unspecified Escherichia coli [E. coli] as the cause of diseases classified elsewhere; D69.6 Thrombocytopenia, unspecified; E03.9 Hypothyroidism, unspecified; E78.5 Hyperlipidemia, unspecified; E87.6 Hypokalemia; E55.9 Vitamin D deficiency, unspecified; I50.9 Heart failure, unspecified; I95.9 Hypotension, unspecified; R31.29 Other microscopic hematuria; N18.1 Chronic kidney disease, stage 1
CPT/HCPCS: 36415; 36600; 71045; 71275; 74177; 74420; 80048; 80053; 81001; 82550; 82805; 83605; 83690; 83735; 83880; 84100; 84443; 84484; 85018; 85025; 85027; 85055; 85380; 85610; 85730; 87040; 87086; 87186; 87637; 87641; 88108; 93005; 94640; 96361; 96365; 96375; 97110; 97162; 97165; 97530; 97535; 99285; A9270; C1751; C1758; C1769; C2617; C8929; J0692; J0696; J1644; J1940; J2405; J3010; J3370; J3475; J3480; J7030; J7040; J7120; P9047; Q9957; Q9967

== ENCOUNTER 2024-04-19 08:15 | Outpatient (CLI) | payer MEDICARE, SELFPAY ==
[2024-04-19 09:30] LABS: INR 1.1; Partial Thromboplastin Time 26.9 Seconds (22.3-36.8)
== END 2024-04-19 08:16 | disposition home or self-care (01) ==
LOC: ANHSURGERY 08:19
PROVIDERS: Anesthesiology; PCP Family Medicine; Visit Provider Urology
DX: Z01.818 Encounter for other preprocedural examination (principal); N20.1 Calculus of ureter; N18.9 Chronic kidney disease, unspecified
CPT/HCPCS: 36415; 85610; 85730; 87077; 87086; 87186

== ENCOUNTER 2024-05-01 00:58 | Day surgery (SDC) | payer MEDICARE, SELFPAY ==
[2024-04-18 14:14] VITALS: BMI 27.3
--- NOTE | 2024-04-18 14:49 | PC.NURSE ---
Report to the Outpatient Waiting Room, entrance under the green pavilion located off [facility], at time ___11:00AM____ on date ___04/24/24____. Planned Procedure Time: ___1:00PM .? Time changes happen often and if your time is changed the preop area will call you the afternoon before. - You and your visitor will be asked to self-screen and do not enter if you have any COVID symptoms. Please call surgeon if you need to reschedule. - A mask is optional within the hospital at this time. Patients may have clear liquids (water, carbonated beverages, clear teas, apple juice) until 3 hours prior to surgery (10:00AM) with a maximum of 20 ounces. - No food from midnight until time of surgery and no smoking, or chewing tobacco (or any form of nicotine). No chewing gum, candy or mints. Take only the following medications with a SIP of water on the morning of surgery: AMLODIPINE, CARVEDILOL, LEVOTHYROXINE, PREDNISONE DO NOT STOP ANY OF YOUR OTHER PRESCRIPTION MEDICATIONS PRIOR TO SURGERY EXCEPT THE FOLLOWING Hold all vitamins and supplements for 3 days per anesthesiologist.-LAST DOSE 04/20/24 Medications to discontinue per physician _HOLD ASPIRIN 7 DAYS PRE-OP PER DR SILVA Date to take last dose 04/20/24 Please no make-up, nail tajik, hairspray, perfume, deodorant, or body powder the day of surgery.? No jewelry (including any body piercings) or valuables the day of surgery, leave them at home.? Please take a shower or bath the night before, or the morning of, surgery with an antibacterial soap.? Wear comfortable, loose fitting clothing.? - Jewelry must be removed prior to entering the operating room.? Rings and piercings that are not removed may be cut off. - The hospital will not accept responsibility for valuables.? - Please leave all valuables, including medications, at home the day of surgery. If you are going home after surgery, a licensed star route mail driver must drive you home.? - NO public transportation without another adult if you receive anesthesia. - We recommend that an adult stay with you for 24 hours following discharge. - We also recommend that you do not drive, make important decision, drink alcoholic beverages, or take any drugs that were not prescribed by your health care provider for at least 24 hours after your discharge time. Follow any additional instructions given to you from your surgeon. Telephone instructions given to ___PATIENT'S GRANDDAUGHTER,ELIF and asked if any additional questions and then verbalized understanding. Patient advised to call surgeon office or pre surgery nurse liaison [phone] if any additional questions.
--- NOTE | 2024-04-23 15:55 | PC.NURSE ---
Report to the Outpatient Waiting Room, entrance under the green pavilion located off [facility], at time ___6:00AM____ on date ____05/01/24___. Planned Procedure Time: ___7:30AM____.? Time changes happen often and if your time is changed the preop area will call you the afternoon before. - You and your visitor will be asked to self-screen and do not enter if you have any COVID symptoms. Please call surgeon if you need to reschedule. - A mask is optional within the hospital at this time. Patients may have clear liquids (water, carbonated beverages, clear teas, apple juice) until 3 hours prior to surgery (4:30AM) with a maximum of 20 ounces. - No food from midnight until time of surgery and no smoking, or chewing tobacco (or any form of nicotine). No chewing gum, candy or mints. Take only the following medications with a SIP of water on the morning of surgery: __AMLODIPINE, CARVEDILOL, LEVOTHYROXINE, PREDNISONE, MACROBID DO NOT STOP ANY OF YOUR OTHER PRESCRIPTION MEDICATIONS PRIOR TO SURGERY EXCEPT THE FOLLOWING Hold all vitamins and supplements for 3 days per anesthesiologist- LAST DOSE 04/27/24. Medications to discontinue per physician HOLD ASPIRIN 7 DAYS PRE-OP PER DR SILVA Date to take last dose 04/23/24 Please no make-up, nail ghanaian, hairspray, perfume, deodorant, or body powder the day of surgery.? No jewelry (including any body piercings) or valuables the day of surgery, leave them at home.? Please take a shower or bath the night before, or the morning of, surgery with an antibacterial soap.? Wear comfortable, loose fitting clothing.? - Jewelry must be removed prior to entering the operating room.? Rings and piercings that are not removed may be cut off. - The hospital will not accept responsibility for valuables.? - Please leave all valuables, including medications, at home the day of surgery. If you are going home after surgery, a licensed scoop driver must drive you home.? - NO public transportation without another adult if you receive anesthesia. - We recommend that an adult stay with you for 24 hours following discharge. - We also recommend that you do not drive, make important decision, drink alcoholic beverages, or take any drugs that were not prescribed by your health care provider for at least 24 hours after your discharge time. Follow any additional instructions given to you from your surgeon. Telephone instructions given to ____PATIENT and asked if any additional questions and then verbalized understanding. Patient advised to call surgeon office or pre surgery nurse liaison [phone] if any additional questions.
[2024-05-01] VITALS (12 sets, daily range): BP systolic 116–196; BP diastolic 67–130; PULSE 67–96; RESP 10–93; TEMP 36.3–37.1; O2SAT 93–100
--- NOTE | ~2024-05-01 | XR_ITS ---
EXAMINATION: XR retrograde pyelo w/stent LT DATE: 05/01/2024 09:48 INDICATION: Left hydronephrosis. TECHNIQUE: 4 intraoperative fluoroscopic views of the abdomen and pelvis were obtained. I was not pre sent. Fluoroscopy exposure time was 8 seconds. COMPARISON: CT abdomen and pelvis 03/28/2024 FINDINGS: The left-sided retrograde pyelogram demonstrates moderate hydronephrosis. The final images demonstrate a left internal ureteral stent in expected position. IMPRESSION: 1. Moderate left hydronephrosis. Left internal ureteral stent in expected position. Reviewed, dictated and finalized at location B. IMPRESSION: 1. Moderate left hydronephrosis. Left internal ureteral stent in expected posit ion.
--- OUTSIDE RECORDS SUMMARY | 2024-05-01 01:02 | XMS_ITS | Patient Health Record ---
Author Organization [facility] Address [address] [place] [address] Care Team Providers Care Room Cleaner Name Role Phone Beck Ramírez Unavailable [phone] REASON FOR REFERRAL No Information MEDICATIONS Medication SIG (Take, Route, Fr equency, Duration) Notes Start Date End Date Status predniSONE 2.5 MG 1 tablet Orally Once a day for 30 days Active Calcitriol 0.25 MCG TAKE 1 CAPSULE BY MO UT EVERY DAY FOR 90 DAYS for 90 Active Estradiol 0.1 MG/GM Apply before bed nig htly for 4 weeks Vaginal for 30 days Active PROBLEMS Problem Type ICD Code Onset Dates Problem Status W/U Status Risk SNOMED Code Notes Problem Unspecified Escherichia coli [E. 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) Active confirmed Chronic kidne y disease stage 2 (069449421) Problem Renal osteodystrophy (N25.0) Active confirmed Renal osteodyst rophy (41706392) Problem Urinary tract infection, site not specified (N39.0) Active confirmed Urinary tract infectious disease (disorder) (08509930) Problem Proteinuria, unspecified (R80.9) Active confirmed Proteinuria (04214134) Problem Chronic kidney disease, stage 3a (N18.31) Active confirmed Chronic kidney disease stage 3A (disorder) (085466187) Encounters Encounter Location Date Provider Diagnosis [place] [facility] [address] [place] [address] 06/17/2023 Beck Ramírez Chronic kidney disea se, stage 3a N18.31 ; Essential (primary) hypertension I10 ; Proteinuria, unspecified R80.9 ; Renal osteodystrophy N25.0 ; Secondary hyperparathyroidism, not elsewhere classified E21.1 and Urinary tract infection, site not specified N39.0 [place] [facility] [address] [place] [address] 09/02/2023 Beck Ramírez Chronic kidney disea se, stage 3a N18.31 ; Essential (primary) hypertension I10 ; Proteinuria, unspecified R80.9 ; Renal osteodystrophy N25.0 ; Secondary hyperparathyroidism, not elsewhere classified E21.1 and Urinary tract infection, site not specified N39.0 [place] [facility] [address] [place] [address] 11/25/2023 Beck Ramírez Chronic kidney disea se, stage 3a N18.31 ; Chronic kidney disease, stage 2 (mild) N18.2 ; Essential (primary) hypertension I10 ; Proteinuria, unspecified R80.9 ; Renal osteodystrophy N25.0 ; Secondary hyperparathyroidism, not elsewhere classified E21.1 and Urinary tract infection, site not specified N39.0 [place] [facility] [address] [place] [address] 03/02/2024 Beck Ramírez Chronic kidney disea se, stage 3a N18.31 ; Unspecified Escherichia coli [E. coli] as the cause of diseases classified elsewhere B96.20 ; Type 2 diabetes mellitus with diabetic chronic kidney disease E11.22 ; Secondary hyperparathyroidism, not elsewhere classified E21.1 and Proteinuria, unspecified R80.9 [place] [facility] [address] [place] [address] [facility] [address] [place] [address] 03/02/[address] [facility] [address] [place] [address] 06/17/[address] [facility] [address] [place] [address] 06/21/[address] [facility] [address] [facility] [address] [place] [address] 09/02/2023 Beck Ramírez ASSESSMENTS Encounter Date Diagnosis Assessment Notes Treatment Notes Treatment Clinical Notes Section Notes 06/17/2023 Chronic kidney disease, stage 3a (ICD-10 - N18.31) 09/02/2023 Chronic kidney disease, stage 3a (ICD-10 - N18.31) 11/25/2023 Chronic kidney disease, stage 2 (mild) (ICD-10 - N18.2) 11/25/2023 Chronic kidney disease, stage 3a (ICD-10 - N18.31) 03/02/2024 Chronic kidney disease, stage 3a (ICD-10 - N18.31) 03/02/2024 Unspecified Escherichia coli [E. coli] as the cause of diseases classified elsewhere (ICD-10 - B96.20) 11/25/2023 Essential (primary) hypertension (ICD-10 - I10) 09/02/2023 Essential (primary) hypertension (ICD-10 - I10) 06/17/2023 Essential (primary) hypertension (ICD-10 - I10) 06/17/2023 Proteinuria, unspecified (ICD-10 - R80.9) 09/02/2023 Proteinuria, unspecified (ICD-10 - R80.9) 03/02/2024 Type 2 diabetes mellitus with diabetic chronic kidney disease (ICD-10 - E11.22) 11/25/2023 Proteinuria, unspecified (ICD-10 - R80.9) 03/02/2024 Secondary hyperparathyroidism , not elsewhere classified (ICD-10 - E21.1) 11/25/2023 Renal osteodystrophy (ICD-10 - N25.0) 09/02/2023 Renal osteodystrophy (ICD-10 - N25.0) 06/17/2023 Renal osteodystrophy (ICD-10 - N25.0) 06/17/2023 Secondary hyperparathyroidism , not elsewhere classified (ICD-10 - E21.1) 09/02/2023 Secondary hyperparathyroidism , not elsewhere classified (ICD-10 - E21.1) 11/25/2023 Secondary hyperparathyroidism , not elsewhere classified (ICD-10 - E21.1) 03/02/2024 Proteinuria, unspecified (ICD-10 - R80.9) 09/02/2023 Urinary tract infection, site not specified (ICD-10 - N39.0) 11/25/2023 Urinary tract infection, site not specified (ICD-10 - N39.0) 06/17/2023 Urinary tract infection, site not specified (ICD-10 - N39.0) PLAN OF TREATMENT No Information
--- OUTSIDE RECORDS SUMMARY | 2024-05-01 01:02 | XMS_ITS | Referral Summary ---
Author Organization [facility] [address] [facility] [address] Address [address] [place] [address] Care Team Providers Care Lead Mechanical Engineer Name Role Phone Julián Wells MD Primary Care Provider Encounters Date Type Department Care Team Description 03/30/2024 Orders Only [facility] Cardiology [address] [place] [address] Shaun Diego MD from Last 3 Months Social History Tobacco Use Types Packs/Day Years Used Date Smoking Tobacco: Never Assessed Personal Safety Answer Date Recorded Getting School Help Needed Not on file 05/05 Comments Unknown Sex and Gender Information Value Date Recorded Sex Assigned at Not on file Legal Sex Female 9:16 PM KEYBOARD OPERATOR Gender Identity Not on file Sexual Orientation Not on file Last Filed Vital Signs Vital Sign Reading Time Taken Comments Blood Pressure 127/76 12/31/2014 8:14 AM KEYBOARD OPERATOR Pulse 95 12/31/2014 8:14 AM KEYBOARD OPERATOR Temperature - - Respiratory Rate - - Oxygen Saturation - - Inhaled Oxygen Concentration - - Weight 66.8 kg (147 lb 4.3 oz) 12/30/2014 3:34 P M KEYBOARD OPERATOR Height 170.2 cm (5' 7.01 ) 12/30/2014 3:34 PM CS T Body Mass Index 23.06 12/30/2014 3:34 PM KEYBOARD OPERATOR Plan of Treatment Not on file Procedures Procedure Name Priority Date/Time Associated Diagnosis Comments CARDIOLOGY DOCUMENT SCAN Routine 03/28/2024 2:06 PM KEYBOARD OPERATOR from Last 3 Months Results * Cardiology Document Scan (03/28/2024 2:06 PM KEYBOARD OPERATOR) Anatomical Region Laterality Modality Other us Shaun Diego MD CV CARDIAC SERVICES PROCE PADMA Final Result from Last 3 Months Insurance [employer] [facility] ADV REF [facility] AD[facility] REF Care Teams Lead Mechanical Engineer Relationship Specialty Start Date End Date Julián Wells MD [address] [facility] [address] [place] [address] PCP - General Family Medicine 11/06/20
--- OUTSIDE RECORDS SUMMARY | 2024-05-01 01:02 | XMS_ITS | Clinical Summary ---
Author Organization [facility] [place] [address] [facility] [address] Address [address] [place] [address] Care Team Providers Care Dowel Pointer Name Role Phone Julián Wells MD Primary Care Provider Encounters Date Type Department Care Team Description 03/30/2024 Orders Only [facility] Cardiology [address] [place] [address] Shaun Diego MD from Last 3 Months Social History Tobacco Use Types Packs/Day Years Used Date Smoking Tobacco: Never Assessed Personal Safety Answer Date Recorded Getting School Help Needed Not on file 05/05 Comments Unknown Sex and Gender Information Value Date Recorded Sex Assigned at Not on file Legal Sex Female 9:16 PM MANAGER OF ADMINISTRATION Gender Identity Not on file Sexual Orientation Not on file Last Filed Vital Signs Vital Sign Reading Time Taken Comments Blood Pressure 127/76 12/31/2014 8:14 AM MANAGER OF ADMINISTRATION Pulse 95 12/31/2014 8:14 AM MANAGER OF ADMINISTRATION Temperature - - Respiratory Rate - - Oxygen Saturation - - Inhaled Oxygen Concentration - - Weight 66.8 kg (147 lb 4.3 oz) 12/30/2014 3:34 P M MANAGER OF ADMINISTRATION Height 170.2 cm (5' 7.01 ) 12/30/2014 3:34 PM CS T Body Mass Index 23.06 12/30/2014 3:34 PM MANAGER OF ADMINISTRATION Plan of Treatment Not on file Procedures Procedure Name Priority Date/Time Associated Diagnosis Comments CARDIOLOGY DOCUMENT SCAN Routine 03/28/2024 2:06 PM MANAGER OF ADMINISTRATION from Last 3 Months Results * Cardiology Document Scan (03/28/2024 2:06 PM MANAGER OF ADMINISTRATION) Anatomical Region Laterality Modality Other us Shaun Diego MD CV CARDIAC SERVICES PROCE PADMA Final Result from Last 3 Months Insurance [employer] [facility] ADV REF [facility] ADV REF Care Teams Dowel Pointer Relationship Specialty Start Date End Date Julián Wells MD [address] [facility] [address] [place] [address] PCP - General Family Medicine 11/06/20
--- OUTSIDE RECORDS SUMMARY | 2024-05-01 01:03 | XMS_ITS | Patient Health Summary ---
Author Organization [facility] Address [address] [place] [address] Care Team Providers Care [employer] Dean Name Role Phone Unavailable Primary Care Provider Unavailabl e Note from [facility],non-owned Affiliates and Associated Physician Practices is amultiple site organization consisting of ambulatory clinics and hospital sitesin [place], [place], [place] and [place]. This disclosure is being madepursuant to the Care Everywhere program and may not contain all information available regarding this patient. Last updated 17.[facility] Allergies No known active allergies Medications * [...]
--- OUTSIDE RECORDS SUMMARY | 2024-05-01 01:03 | XMS_ITS ---
Author Organization [facility] Address [address] [facility] [address] [facility] [address] [place] [address] Care Team Providers Care Automobile Contract Clerk Name Role Phone DarrellFarheenBeck Unavailable [phone] PROBLEMS Problem Type ICD Code Onset Dates Problem Status W/U Status Risk SNOMED Code Notes Problem Unspecified Escherichia coli [E. coli] as the cause of diseases classified elsewhere (B96.20) Active confirmed Infection caused by Escherichia coli (25778145) Problem Type 2 diabetes mellitus with diabetic chronic kidney disease (E11.22) Active confirmed Diabetic renal disease (292135751) Encounters Encounter Location Date Provider Diagnosis [place] [facility] [address] [facility] [address] [place] [address] 03/02/2024 Beck Ramírez Chronic kidney disease, stage 3a N18.31 ; Unspecified Escherichia coli [E. coli] as the cause of diseases classified elsewhere B96.20 ; Type 2 diabetes mellitus with diabetic chronic kidney disease E11.22 ; Secondary hyperparathyroidism, not elsewhere classified E21.1 and Proteinuria, unspecified R80.9 ASSESSMENTS Encounter Date Diagnosis Assessment Notes Treatment [...] E21.1) 03/02/2024 Proteinuria, unspecified (ICD-10 - R80.9) PLAN OF TREATMENT No Information Progress Notes * JAGRUTI HENLEY:1935 (88 yo F)Acc No.[id number]:03/02/2024 Patient: TRACI HENLEY Provider: MD REY, Janet.oKta.Sal.P, F.A.S.N. :1935 Age:88 Y Sex:Female Date:03/02/2024 Address:[address] [place] [address] Subjective: * Chief Complaints: Objective: Assessment: * Assessment: 1. Chronic kidney disease, stage 3a - N18.31 (Primary) 2. Unspecified Escherichia coli [E. coli] as the cause of diseases classified elsewhere - B96.20 3. Type 2 diabetes mellitus with diabetic chronic kidney disease - E11.22 4. Secondary hyperparathyroidism, not elsewhere classified - E21.1 5. Proteinuria, unspecified - R80.9 Plan: * Billing Information: * Visit Code: 53384 Office Visit, Est Pt., Level 5. * Procedure Codes: * Sign off status: Pending * Provider: MD REY, SagrarioP, F.A.S.N. Date: 03/02/2024
--- OUTSIDE RECORDS SUMMARY | 2024-05-01 01:03 | XMS_ITS | Clinical Summary ---
Author Organization Unknown Care Team Providers Care Packing Line Worker Name Role Phone NATALY ANDINO, ANAY Unavailable Unavailable YAMILKA RN, CHERELLE Unavailable Unavailable DIAZ PT, GALILEA Unavailable Unavailable YEE NORMANN, JOSEPH Unavailable Unavailable DELONTE OT, JERSEY Unavailable Unavailable ISAI COMMUNICATIONS EQUIPMENT OPERATOR, COMPA Unavailable Unavailable Payers Payer Name Policy Type Policy Number Effective Date Expira tion Date [facility]FORMERLY [facility] [id number] Problems Condition Name Condition Details Condition Category Status Onset Date Resolution Date Last Treatment Date Treating Clinician Comments PYONEPHROSIS Active 2-04 00:00: 00 UNSP ESCHERICHIA COLI THE CAUSE OF DISEASES CLASSD ELSWHR Active 2-04 00:00: 00 CALCULUS OF URETER Active 2-04 00:00: 00 ACUTE KIDNEY FAILURE, UNSPECIFIED Active 2-04 00:00: 00 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 1-4/UNSP CHR KDNY Active 2-04 00:00: 00 HEART FAILURE, UNSPECIFIED Active 2-04 00:00: 00 CHRONIC KIDNEY DISEASE, UNSPECIFIED Active 2-04 00:00: 00 ANEMIA IN CHRONIC KIDNEY DISEASE Active 2-04 00:00: 00 NON-ST ELEVATION (NSTEMI) MYOCARDIAL INFARCTION Active 2-04 00:00: 00 THROMBOCYTOP ENIA, UNSPECIFIED Active 2-04 00:00: 00 COLLAPSED VERT, NEC, THOR REGION, SUBS FOR FX W ROUTN HEAL Active 2-04 00:00: 00 HYPOTHYROIDI SM, UNSPECIFIED Active 1- 00:00: 00 HYPERLIPIDEM IA, UNSPECIFIED Active 1- 00:00: 00 PERSONAL HISTORY OF PNEUMONIA (RECURRENT) Active 2- 00:00: 00 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 Active 02-21 00:00: 00 PRESENCE OF UROGENITAL IMPLANTS Active - 00:00: 00 Allergies, Adverse Reactions, Alerts Allergy Name Allergy Type Status Severity Reaction(s) Onset Date Inactive Date Treating Clinician Comments NITROFURONTO IN Propensity to adverse reactions Active 04-20 16:21: 25 Vital Signs Vital Name Observation Time Observation Value Commen ts Temperature 2024-04-26 14:43:00.000 96.8 [degF] Temperature 2024-04-23 10:30:00.000 97.5 [degF] Temperature 2024-04-19 13:16:00.000 98.2 [degF] Temperature 2024-04-19 10:12:00.000 98.2 [degF] Temperature 2024-04-18 14:20:00.000 98.3 [degF] BMI (%) 2024-04-18 14:20:00.000 27 kg/m2 Height 2024-04-18 14:20:00.000 65 [in_us] Pulse 2024-04-26 14:43:00.000 74 /min Pulse 2024-04-23 10:30:00.000 75 /min Pulse 2024-04-19 13:16:00.000 62 /min Pulse 2024-04-19 10:12:00.000 62 /min Pulse 2024-04-18 14:20:00.000 69 /min O2 Saturation (%) 2024-04-23 10:30:00.000 97 % O2 Saturation (%) 2024-04-19 13:16:00.000 94 % O2 Saturation (%) 2024-04-19 10:12:00.000 94 % O2 Saturation (%) 2024-04-18 14:20:00.000 98 % Respirations 2024-04-26 14:43:00.000 18 /min Respirations 2024-04-23 10:30:00.000 18 /min Respirations 2024-04-19 13:16:00.000 18 /min Respirations 2024-04-19 10:12:00.000 18 /min Respirations 2024-04-18 14:20:00.000 16 /min Weight (lbs) 2024-04-18 14:20:00.000 166 [lb_av] Systolic Blood Pressure 2024-04-26 14:43:00.000 124 mm [Hg] Systolic Blood Pressure 2024-04-23 10:30:00.000 142 mm [Hg] Systolic Blood Pressure 2024-04-19 13:16:00.000 124 mm [Hg] Systolic Blood Pressure 2024-04-19 10:12:00.000 124 mm [Hg] Systolic Blood Pressure 2024-04-18 14:20:00.000 124 mm [Hg] Diastolic Blood Pressure 2024-04-26 14:43:00.000 76 mm [Hg] Diastolic Blood Pressure 2024-04-23 10:30:00.000 82 mm [Hg] Diastolic Blood Pressure 2024-04-19 13:16:00.000 68 mm [Hg] Diastolic Blood Pressure 2024-04-19 10:12:00.000 68 mm [Hg] Diastolic Blood Pressure 2024-04-18 14:20:00.000 62 mm [Hg] Plan of Treatment Planned Activity Planned Date Details Comments Future Scheduled Test RN TO OBSE RVE, ASSESS, EVALUATE, AND DEVELOP AN INDIVIDUALIZED PLAN OF CARE. AGENCY MAY ACCEPT ORDERS FROM CONSULTING PHYSICIANS NATALY. RN TO OBSERVE AND ASSESS, LANG PATH THERAPIST/BURRER HAND TO OBSERVE FOR RISK FOR FALLS AND INSTRUCT IN FALL PREVENTION, HOME SAFETY, MEDICATION MANAGEMENT, INFECTION PREVENTION, AND NUTRITION MANAGEMENT. RN/LANG PATH THERAPIST/BURRER HAND NURSE MAY PERFORM O2 SATURATION LEVEL ON ADMISSION AND PRN FOR 1 FOR RN TO ASSESS/LANG PATH THERAPIST TO OBSERVE PATIENT, WITH NOTIFICATION TO THE PHYSICIAN IF SATURATION IS 90% IN THE ABSENCE OF MORE SPECIFIC PARAMETERS FROM THE PHYSICIAN. AGENCY MAY PERFORM A RESUMPTION OF CARE VISIT FOLLOWING ANY HOSPITAL ADMISSION. RN/LANG PATH THERAPIST/BURRER HAND TO MONITOR CO-MORBID CONDITIONS LISTED ON THE PLAN OF CARE AND ANY NEW CONDITIONS THAT PRESENT THEMSELVES DURING THIS EPISODE TO IDENTIFY CHANGES AND INTERVENE TO MINIMIZE COMPLICATIONS. PATIENT HAS PAST MEDICAL HISTORY OF HYPOTHYROID, HYPERLIPIDEMIA, CHRONIC KIDNEY DISEASE, SEPSIS, SEPTIC SHOCK, PYELONEPHRITIS, HYDRONEPHROSIS OF LEFT KIDNEY, NON ST. ELEVATION PA, HYPERTENSION, HEART FAILURE, MORAES ABNORMALITY, T12 COMPRESSION. FRACTURE. ACTION, PNEUMONIA . [facility] CLINIC[facility] WILL MONITOR PATIENT FOR SIGNS AND SYMPTOMS OF EXACERBATION OF THESE DIAGNOSES AND WILL NOTIFY PROVIDER OF ANY CONCERNS OR CHANGES THAT ARISE. [code = RN TO OBSERVE, ASSESS, EVALUATE, AND DEVELOP AN INDIVIDUALIZED PLAN OF CARE. AGENCY MAY ACCEPT ORDERS FROM CONSULTING PHYSICIANS NATALY. RN TO OBSERVE AND ASSESS, LANG PATH THERAPIST/BURRER HAND TO OBSERVE FOR RISK FOR FALLS AND INSTRUCT IN FALL PREVENTION, HOME SAFETY, MEDICATION MANAGEMENT, INFECTION PREVENTION, AND NUTRITION MANAGEMENT. RN/LANG PATH THERAPIST/BURRER HAND NURSE MAY PERFORM O2 SATURATION LEVEL ON ADMISSION AND PRN FOR 1 FOR RN TO ASSESS/LANG PATH THERAPIST TO OBSERVE PATIENT, WITH NOTIFICATION TO THE PHYSICIAN IF SATURATION IS 90% IN THE ABSENCE OF MORE SPECIFIC PARAMETERS FROM THE PHYSICIAN. AGENCY MAY PERFORM A RESUMPTION OF CARE VISIT FOLLOWING ANY HOSPITAL ADMISSION. RN/LANG PATH THERAPIST/BURRER HAND TO MONITOR CO-MORBID CONDITIONS LISTED ON THE PLAN OF CARE AND ANY NEW CONDITIONS THAT PRESENT THEMSELVES DURING THIS EPISODE TO IDENTIFY CHANGES AND INTERVENE TO MINIMIZE COMPLICATIONS. PATIENT HAS PAST MEDICAL HISTORY OF HYPOTHYROID, HYPERLIPIDEMIA, CHRONIC KIDNEY DISEASE, SEPSIS, SEPTIC SHOCK, PYELONEPHRITIS, HYDRONEPHROSIS OF LEFT KIDNEY, NON ST. ELEVATION PA, HYPERTENSION, HEART FAILURE, MORAES ABNORMALITY, T12 COMPRESSION. FRACTURE. ACTION, PNEUMONIA . [facility] CLIN[facility] WILL MONITOR PATIENT FOR SIGNS AND SYMPTOMS OF EXACERBATION OF THESE DIAGNOSES AND WILL NOTIFY PROVIDER OF ANY CONCERNS OR CHANGES THAT ARISE. ] Future Scheduled Test PHYSICAL T HERAPIST TO EVALUATE FOR WEAKNESS [code = PHYSICAL THERAPIST TO EVALUATE FOR WEAKNESS ] Future Scheduled Test OCCUPATION AL THERAPIST TO EVALUATE FOR WEAKNESS [code = OCCUPATIONAL THERAPIST TO EVALUATE FOR WEAKNESS ] Future Scheduled Test MEDICATION MANAGEMENT; RN/LANG PATH THERAPIST/BURRER HAND TO REVIEW MEDICATIONS FOR INTERACTIONS, EFFECTIVENESS OF DRUG THERAPY, AND SIGNS/SYMPTOMS OF ADVERSE REACTIONS. MAY INSTRUCT AND REINFORCE MEDICATION TEACHING RELATED TO THE USE OF MEDICATIONS, DOSAGE, FREQUENCY, PURPOSE, SIDE EFFECTS, AND TO REPORT COMPLICATIONS. [code = MEDICATION MANAGEMENT; RN/LANG PATH THERAPIST/BURRER HAND TO REVIEW MEDICATIONS FOR INTERACTIONS, EFFECTIVENESS OF DRUG THERAPY, AND SIGNS/SYMPTOMS OF ADVERSE REACTIONS. MAY INSTRUCT AND REINFORCE MEDICATION TEACHING RELATED TO THE USE OF MEDICATIONS, DOSAGE, FREQUENCY, PURPOSE, SIDE EFFECTS, AND TO REPORT COMPLICATIONS.] Future Scheduled Test FALL REDUC TION MANAGEMENT; RN TO ASSESS AND OBSERVE, LANG PATH THERAPIST/BURRER HAND TO OBSERVE FALL RISK FACTORS AND EDUCATE PATIENT/CAREGIVER ON STRATEGIES TO MINIMIZE THE RISK OF FALLING. [code = FALL REDUCTION MANAGEMENT; RN TO ASSESS AND OBSERVE, LANG PATH THERAPIST/BURRER HAND TO OBSERVE FALL RISK FACTORS AND EDUCATE PATIENT/CAREGIVER ON STRATEGIES TO MINIMIZE THE RISK OF FALLING.] Future Scheduled Test AGENCY MAY PERFORM A RESUMPTION OF CARE VISIT FOLLOWING ANY HOSPITAL ADMISSION. PT TO EVALUATE, OBSERVE / ASSESS, AND MONITOR, COMMUNICATIONS EQUIPMENT OPERATOR TO OBSERVE AND MONITOR, PROVIDE SKILLED THERAPEUTIC INTERVENTION, ACTIVITY, EDUCATION, AND TRAINING TO ADDRESS; PT/COMMUNICATIONS EQUIPMENT OPERATOR TO PROVIDE GAIT TRAINING FOR IMPROVED MOBILITY AND /OR TO NORMALIZE GAIT PATTERN NEUROMUSCULAR RE-EDUCATION / BALANCE / POSTURAL CONTROL (PT) THERAPEUTIC EXERCISES AND ESTABLISHING A HOME EXERCISE PROGRAM (PT/COMMUNICATIONS EQUIPMENT OPERATOR) PT/COMMUNICATIONS EQUIPMENT OPERATOR TO PROVIDE STAIR TRAINING SIT TO/FROM STAND TRANSFERS (PT/COMMUNICATIONS EQUIPMENT OPERATOR) PT / COMMUNICATIONS EQUIPMENT OPERATOR TO MONITOR AND EDUCATE ON OXYGEN SATURATION DURING ADLS/IADLS, NOTIFY PHYSICIAN AND/OR THE RN CLINICAL TRAVEL RN OR FOR PHYSICIAN NOTIFICATION AND IF O2 SATS BELOW PHYSICIAN ORDERED PARAMETERS AFTER 10 MIN OF REST PT / COMMUNICATIONS EQUIPMENT OPERATOR MAY EDUCATE ON PAIN MANAGEMENT CLINICALLY INDICATED, INCLUDING NON-PHARMACOLOGICAL PAIN REDUCTION TECHNIQUES. PT / COMMUNICATIONS EQUIPMENT OPERATOR TO INSTRUCT PATIENT/CAREGIVER ON RISK FOR HOSPITALIZATION/EMERGENCY ROOM VISITS, TEACH SIGNS AND SYMPTOMS THAT PUT PATIENT AT RISK, WHEN TO NOTIFY NURSE/PHYSICIAN OF COMPLICATIONS/DECLINE, AND WHEN TO CALL 911. PT / COMMUNICATIONS EQUIPMENT OPERATOR TO EDUCATE ON HEART FAILURE SELF-MANAGEMENT PT TO ASSESS / COMMUNICATIONS EQUIPMENT OPERATOR TO MONITOR FOR HEART FAILURE EXACERBATION AND RECORD PATIENT REPORTED WEIGHT, AND NOTIFY THE PHYSICIAN AND/OR THE RN CLINICAL TRAVEL RN OR FOR PHYSICIAN NOTIFICATION OF HF EXACERBATION (2LB WEIGHT GAIN IN 1 DAY, 5LBS IN A WEEK OR 5 LBS OVER BASELINE; INCREASED SOB, EDEMA, NEEDING MORE PILLOWS AT NIGHT, CRACKLES IN BASIS OF THE LUNGS OR PMI SHIFT) PT TO ASSESS / COMMUNICATIONS EQUIPMENT OPERATOR TO MONITOR CARDIO/RESPIRATORY SYSTEM; AND NOTIFY THE PHYSICIAN AND/OR THE RN CLINICAL TRAVEL RN OR FOR PHYSICIAN NOTIFICATION FOR EARLY SIGNS AND SYMPTOMS OF EXACERBATION OR DETERIORATION. PT/COMMUNICATIONS EQUIPMENT OPERATOR TO IDENTIFY FALL RISK FACTORS; EDUCATE THE PATIENT/CAREGIVER ON WAYS TO REDUCE FALL RISK FACTORS AND ESTABLISH HOME EXERCISE PROGRAM TO MINIMIZE FALL RISK. MAY TEACH THE PATIENT FLOOR RECOVERY WHEN CLINICALLY APPROPRIATE PT / COMMUNICATIONS EQUIPMENT OPERATOR TO MONITOR FOR SIGNS AND SYMPTOMS OF UTI AND EDUCATE PATIENT/CAREGIVER TO MINIMIZE RISK OF DEVELOPING A UTI. [code = AGENCY MAY PERFORM A RESUMPTION OF CARE VISIT FOLLOWING ANY HOSPITAL ADMISSION. PT TO EVALUATE, OBSERVE / ASSESS, AND MONITOR, COMMUNICATIONS EQUIPMENT OPERATOR TO OBSERVE AND MONITOR, PROVIDE SKILLED THERAPEUTIC INTERVENTION, ACTIVITY, EDUCATION, AND TRAINING TO ADDRESS; PT/COMMUNICATIONS EQUIPMENT OPERATOR TO PROVIDE GAIT TRAINING FOR IMPROVED MOBILITY AND /OR TO NORMALIZE GAIT PATTERN NEUROMUSCULAR RE-EDUCATION / BALANCE / POSTURAL CONTROL (PT) THERAPEUTIC EXERCISES AND ESTABLISHING A HOME EXERCISE PROGRAM (PT/COMMUNICATIONS EQUIPMENT OPERATOR) PT/COMMUNICATIONS EQUIPMENT OPERATOR TO PROVIDE STAIR TRAINING SIT TO/FROM STAND TRANSFERS (PT/COMMUNICATIONS EQUIPMENT OPERATOR) PT / COMMUNICATIONS EQUIPMENT OPERATOR TO MONITOR AND EDUCATE ON OXYGEN SATURATION DURING ADLS/IADLS, NOTIFY PHYSICIAN AND/OR THE RN CLINICAL TRAVEL RN OR FOR PHYSICIAN NOTIFICATION AND IF O2 SATS BELOW PHYSICIAN ORDERED PARAMETERS AFTER 10 MIN OF REST PT / COMMUNICATIONS EQUIPMENT OPERATOR MAY EDUCATE ON PAIN MANAGEMENT CLINICALLY INDICATED, INCLUDING NON-PHARMACOLOGICAL PAIN REDUCTION TECHNIQUES. PT / COMMUNICATIONS EQUIPMENT OPERATOR TO INSTRUCT PATIENT/CAREGIVER ON RISK FOR HOSPITALIZATION/EMERGENCY ROOM VISITS, TEACH SIGNS AND SYMPTOMS THAT PUT PATIENT AT RISK, WHEN TO NOTIFY NURSE/PHYSICIAN OF COMPLICATIONS/DECLINE, AND WHEN TO CALL 911. PT / COMMUNICATIONS EQUIPMENT OPERATOR TO EDUCATE ON HEART FAILURE SELF-MANAGEMENT PT TO ASSESS / COMMUNICATIONS EQUIPMENT OPERATOR TO MONITOR FOR HEART FAILURE EXACERBATION AND RECORD PATIENT REPORTED WEIGHT, AND NOTIFY THE PHYSICIAN AND/OR THE RN CLINICAL TRAVEL RN OR FOR PHYSICIAN NOTIFICATION OF HF EXACERBATION (2LB WEIGHT GAIN IN 1 DAY, 5LBS IN A WEEK OR 5 LBS OVER BASELINE; INCREASED SOB, EDEMA, NEEDING MORE PILLOWS AT NIGHT, CRACKLES IN BASIS OF THE LUNGS OR PMI SHIFT) PT TO ASSESS / COMMUNICATIONS EQUIPMENT OPERATOR TO MONITOR CARDIO/RESPIRATORY SYSTEM; AND NOTIFY THE PHYSICIAN AND/OR THE RN CLINICAL TRAVEL RN OR FOR PHYSICIAN NOTIFICATION FOR EARLY SIGNS AND SYMPTOMS OF EXACERBATION OR DETERIORATION. PT/COMMUNICATIONS EQUIPMENT OPERATOR TO IDENTIFY FALL RISK FACTORS; EDUCATE THE PATIENT/CAREGIVER ON WAYS TO REDUCE FALL RISK FACTORS AND ESTABLISH HOME EXERCISE PROGRAM TO MINIMIZE FALL RISK. MAY TEACH THE PATIENT FLOOR RECOVERY WHEN CLINICALLY APPROPRIATE PT / COMMUNICATIONS EQUIPMENT OPERATOR TO MONITOR FOR SIGNS AND SYMPTOMS OF UTI AND EDUCATE PATIENT/CAREGIVER TO MINIMIZE RISK OF DEVELOPING A UTI. ] Future Scheduled Test GENITOURIN MARYLU MANAGEMENT; RN TO ASSESS AND TEACH, LANG PATH THERAPIST/BURRER HAND TO OBSERVE AND TEACH RELATED TO ALTERED GENITOURINARY STATUS TO MINIMIZE COMPLICATIONS AND REDUCE HOSPITALIZATION. [code = GENITOURINARY MANAGEMENT; RN TO ASSESS AND TEACH, LANG PATH THERAPIST/BURRER HAND TO OBSERVE AND TEACH RELATED TO ALTERED GENITOURINARY STATUS TO MINIMIZE COMPLICATIONS AND REDUCE HOSPITALIZATION.] Future Scheduled Test PAIN MANAG EMENT; RN TO ASSESS AND TEACH, BURRER HAND/LANG PATH THERAPIST TO OBSERVE AND TEACH AND PROVIDE EDUCATION ON PAIN MANAGEMENT TECHNIQUES. [code = PAIN MANAGEMENT; RN TO ASSESS AND TEACH, BURRER HAND/LANG PATH THERAPIST TO OBSERVE AND TEACH AND PROVIDE EDUCATION ON PAIN MANAGEMENT TECHNIQUES.] Future Scheduled Test PRN VISITS ; NUMBER OF RN/LANG PATH THERAPIST/BURRER HAND VISITS: 1 RN/LANG PATH THERAPIST/BURRER HAND TO PERFORM: ELECTRICIAN YARD FOR THE FOLLOWING REASONS: URINE MOLECULAR [code = PRN VISITS; NUMBER OF RN/LANG PATH THERAPIST/BURRER HAND VISITS: 1 RN/LANG PATH THERAPIST/BURRER HAND TO PERFORM: ELECTRICIAN YARD FOR THE FOLLOWING REASONS: URINE MOLECULAR ] Future Scheduled Test RISK FOR H OSPITALIZATION; RN TO ASSESS/TEACH, BURRER HAND/LANG PATH THERAPIST TO OBSERVE/TEACH PATIENT/CAREGIVER ON RISK FOR HOSPITALIZATION/EMERGENCY ROOM VISITS, TEACH SIGNS AND SYMPTOMS THAT PUT PATIENT AT RISK, WHEN TO NOTIFY NURSE/PHYSICIAN OF COMPLICATIONS/DECLINE, AND WHEN TO CALL 911. [code = RISK FOR HOSPITALIZATION; RN TO ASSESS/TEACH, BURRER HAND/LANG PATH THERAPIST TO OBSERVE/TEACH PATIENT/CAREGIVER ON RISK FOR HOSPITALIZATION/EMERGENCY ROOM VISITS, TEACH SIGNS AND SYMPTOMS THAT PUT PATIENT AT RISK, WHEN TO NOTIFY NURSE/PHYSICIAN OF COMPLICATIONS/DECLINE, AND WHEN TO CALL 911.] Future Scheduled Test CARDIOVASC ULAR SYSTEM; RN TO ASSESS/TEACH, LANG PATH THERAPIST/BURRER HAND TO OBSERVE/TEACH RELATED TO ALTERED CARDIOVASCULAR STATUS TO MINIMIZE COMPLICATIONS AND REDUCE HOSPITALIZATION. [code = CARDIOVASCULAR SYSTEM; RN TO ASSESS/TEACH, LANG PATH THERAPIST/BURRER HAND TO OBSERVE/TEACH RELATED TO ALTERED CARDIOVASCULAR STATUS TO MINIMIZE COMPLICATIONS AND REDUCE HOSPITALIZATION.] Future Scheduled Test HYPERTENSI ON MANAGEMENT; RN TO ASSESS AND TEACH, LANG PATH THERAPIST/BURRER HAND TO OBSERVE AND TEACH WARNING SIGNS AND SYMPTOMS TO AVOID HOSPITALIZATION. [code = HYPERTENSION MANAGEMENT; RN TO ASSESS AND TEACH, LANG PATH THERAPIST/BURRER HAND TO OBSERVE AND TEACH WARNING SIGNS AND SYMPTOMS TO AVOID HOSPITALIZATION. ] Future Scheduled Test URINARY MO LECULAR TESTING PROTOCOL UP TO 2 PRN RN/LANG PATH THERAPIST/BURRER HAND VISITS MAY BE PERFORMED FOR S/S OF UTI. RN TO ASSESS, LANG PATH THERAPIST/BURRER HAND TO OBSERVE INITIATION OF UTI PROTOCOL. RN/BURRER HAND/LANG PATH THERAPIST TO INSTRUCT PATIENT AND/OR CAREGIVER ON S/S OF UTI TO REPORT TO RN/BURRER HAND/LANG PATH THERAPIST IF NEW OR WORSENING SYMPTOMS. DRINK PLENTY OF WATER THROUGHOUT THE DAY TO MAINTAIN HYDRATION (UNLESS CONTRAINDICATED.) URINATE WHEN THE URGE IS FELT, DO NOT WAIT. WASH GENITALS DAILY. WIPE FROM FRONT TO BACK AFTER HAVING A BOWEL MOVEMENT. RN/BURRER HAND/LANG PATH THERAPIST TO OBTAIN MOLECULAR URINE TESTING BY OPTION 1 OR OPTION 2 (OPTION 1) RN/BURRER HAND/LANG PATH THERAPIST TO OBTAIN U/A WITH REFLEX TO UTI PANEL (MOLECULAR) VIA CLEAN CATCH URINE AND IF UNABLE TO OBTAIN MAY PERFORM AN IN AND OUT CATH. IF PATIENT HAS INDWELLING CATHETER MAY OBTAIN FROM SAMPLING PORT. (OPTION 2) RN/BURRER HAND/LANG PATH THERAPIST TO OBTAIN UTI PANEL (MOLECULAR) VIA SWAB COLLECTION METHOD FROM ADULT BRIEF/DIAPER OR PAD IF PATIENT IS INCONTINENT. NOTIFY PROVIDER OF RESULTS AND OBTAIN FURTHER ORDERS. [code = URINARY MOLECULAR TESTING PROTOCOL UP TO 2 PRN RN/LANG PATH THERAPIST/BURRER HAND VISITS MAY BE PERFORMED FOR S/S OF UTI. RN TO ASSESS, LANG PATH THERAPIST/BURRER HAND TO OBSERVE INITIATION OF UTI PROTOCOL. RN/BURRER HAND/LANG PATH THERAPIST TO INSTRUCT PATIENT AND/OR CAREGIVER ON S/S OF UTI TO REPORT TO RN/BURRER HAND/LANG PATH THERAPIST IF NEW OR WORSENING SYMPTOMS. DRINK PLENTY OF WATER THROUGHOUT THE DAY TO MAINTAIN HYDRATION (UNLESS CONTRAINDICATED.) URINATE WHEN THE URGE IS FELT, DO NOT WAIT. WASH GENITALS DAILY. WIPE FROM FRONT TO BACK AFTER HAVING A BOWEL MOVEMENT. RN/BURRER HAND/LANG PATH THERAPIST TO OBTAIN MOLECULAR URINE TESTING BY OPTION 1 OR OPTION 2 (OPTION 1) RN/BURRER HAND/LANG PATH THERAPIST TO OBTAIN U/A WITH REFLEX TO UTI PANEL (MOLECULAR) VIA CLEAN CATCH URINE AND IF UNABLE TO OBTAIN MAY PERFORM AN IN AND OUT CATH. IF PATIENT HAS INDWELLING CATHETER MAY OBTAIN FROM SAMPLING PORT. (OPTION 2) RN/BURRER HAND/LANG PATH THERAPIST TO OBTAIN UTI PANEL (MOLECULAR) VIA SWAB COLLECTION METHOD FROM ADULT BRIEF/DIAPER OR PAD IF PATIENT IS INCONTINENT. NOTIFY PROVIDER OF RESULTS AND OBTAIN FURTHER ORDERS.] Future Scheduled Test OCCUPATION AL THERAPY EVALUATION PERFORMED. NO ADDITIONAL VISITS REQUIRED. PROVIDED SKILLED INTERVENTION INCLUDING TASK/PERFORMANCE ANALYSIS, SIMULATION, PATIENT/CG REPORT AND CLINICAL JUDGEMENT TO DETERMINE CLOF IN HOME ENVIRONMENT. [code = OCCUPATIONAL THERAPY EVALUATION PERFORMED. NO ADDITIONAL VISITS REQUIRED. PROVIDED SKILLED INTERVENTION INCLUDING TASK/PERFORMANCE ANALYSIS, SIMULATION, PATIENT/CG REPORT AND CLINICAL JUDGEMENT TO DETERMINE CLOF IN HOME ENVIRONMENT. ] Goal Patient Goal - G ET WELL. INCREASED STRENGTH AND ENDURANCE Goal Provider Goal - A PLAN OF CARE WILL BE ESTABLISHED THAT MEETS THE PATIENTS NEEDS. PATIENT WILL DEMONSTRATE OXYGEN SATURATION WITHIN NORMAL LIMITS OR PATIENTS OPTIMAL LEVEL ESTABLISHED BY THE PHYSICIAN THROUGHOUT CARE. CHANGES TO CO-MORBID CONDITIONS AND ANY NEW CONDITIONS WILL BE IDENTIFIED AND REPORTED TO THE PHYSICIAN. Goal Provider Goal - PATIENT WILL BENEFIT FROM PT SERVICES BY 4.26.25 Goal Provider Goal - PATIENT WILL BENEFIT FROM OT SERVICES BY 4.26.25 Goal Provider Goal - PATIENT/CAREGIVER TO VERBALIZE, AND CONSISTENTLY DEMONSTRATE EFFECTIVE, SAFE MANAGEMENT OF MEDICATION INCLUDING KNOWLEDGE OF EFFECTIVENESS, POTENTIAL SIDE EFFECTS AND DRUG REACTIONS AND WHEN TO CONTACT THE APPROPRIATE CARE PROVIDER. PATIENT/CAREGIVER WILL BE ABLE TO VERBALIZE UNDERSTANDING OF MEDICATION REGIMEN AND ACCURATELY TAKE MEDICATIONS PRESCRIBED WITHOUT ADVERSE EFFECTS BY 4.26.25 Goal Provider Goal - PATIENT/CAREGIVER WILL VERBALIZE/DEMONSTRATE UNDERSTANDING OF FALL RISK FACTORS AND IMPLEMENT STRATEGIES TO MINIMIZE FALL RISK. PATIENT/CAREGIVER WILL VERBALIZE/DEMONSTRATE AN ABILITY TO ADHERE TO FALL REDUCTION SELF-MANAGEMENT AND LIFE-STYLE CHANGES BY 4.26.25 Goal Provider Goal - PATIENT / CAREGIVER WILL VERBALIZE/DEMONSTRATE UNDERSTANDING OF MEASURES TO MANAGE ALTERED GENITOURINARY STATUS BY 4.26.25 Goal Provider Goal - PATIENT / CAREGIVER WILL VERBALIZE / DEMONSTRATE UNDERSTANDING OF PAIN CONTROL MEASURES BY 4.26.25 Goal Provider Goal - PATIENT WILL UTILIZE PRN VISITS TO PREVENT HOSPITALIZATION BY 4.26.25 Goal Provider Goal - PATIENT/CAREGIVER WILL VERBALIZE UNDERSTANDING OF SIGNS AND SYMPTOMS THAT PUT THE PATIENT AT RISK FOR HOSPITALIZATION /EMERGENCY ROOM VISITS, WHEN TO NOTIFY NURSE/PHYSICIAN OF COMPLICATIONS/DECLINE AND WHEN TO CALL 911. Goal Provider Goal - PATIENT / CAREGIVER WILL VERBALIZE/DEMONSTRATE UNDERSTANDING OF MEASURES TO MANAGE ALTERED CARDIOVASCULAR STATUS BY 4.26.25 Goal Provider Goal - PATIENT / CAREGIVER WILL VERBALIZE/DEMONSTRATE AN ABILITY TO ADHERE TO SELF-MANAGEMENT OF HTN TO MINIMIZE COMPLICATIONS AND AVOID HOSPITALIZATION BY 4.26.25 Goal Provider Goal - PATIENT WILL DEMONSTRATE IMPROVEMENT IN S/S OF UTI TO AVOID HOSPITALIZATION. Goal Provider Goal - PT LTG: PATIENT WILL DEMONSTRATE REDUCED GAIT DEVIATIONS TO REDUCE THE RISK FOR FALLING AND MINIMIZE STRAIN ON KNEES/HIPS AND BACK EVIDENCED BY IMPROVED STEP LENGTH AND POSTURE USING QUAD CANE TO WALK 250 FT OF LEVEL SURFACE INDEPENDENTLY FROM CGA WITH FRONT WHEELED WALKER IN ORDER TO ACCESS MD OFFICE WITHIN 9 WEEKS. PT LTG: PATIENT WILL DEMONSTRATE REDUCED FALL RISK EVIDENCED BY TINETTI TEST IMPROVING FROM 10 TO 21 WITHIN 9 WEEKS. PT LTG: PATIENT WILL DEMONSTRATE IMPROVED POSTURAL CONTROL AND SENSORY INTEGRATION OF THEIR BALANCE SYSTEMS EVIDENCED BY MCTSIB IMPROVING FROM 0 TO 2 WITHIN 9 WEEKS. PT STG: PATIENT WILL SAFELY PERFORM HEP WITH SUPERVISION WITHIN 3WEEKS. PT LTG: PATIENT WILL DEMONSTRATE INCREASED STRENGTH OF B LE FROM 4-/5 TO 4+/5 WITHIN 9 WEEKS IN ORDER TO AMBULATE INDEPENDENTLY. PT LTG: PATIENT WILL DEMONSTRATE IMPROVED ABILITY TO SAFELY NEGOTIATE STAIRS FROM UNABLE TO INDEPENDENT WITH HANDRAILS IN ORDER TO GO IN AND OUT OF THE HOUSE WITHIN 9 WEEKS. PT STG: PATIENT WILL DEMONSTRATE IMPROVED ABILITY TO PERFORM SIT TO/FROM STAND TRANSFERS TO REDUCE THE RISK OF SKIN BREAKDOWN AND REDUCE FALL RISK FROM CGA TO INDEPENDENT WITHIN 4 WEEKS. PT LTG: PATIENT WILL MAINTAIN OXYGEN SATURATION WITHIN PHYSICIAN ORDERED PARAMETERS THROUGHOUT EPISODE OF CARE. PT GOAL: PATIENT WILL DEMONSTRATE UNDERSTANDING OF PAIN MANAGEMENT TECHNIQUES EVIDENCED BY ABSENCE OF PAIN AT THE END OF THE EPISODE. PT GOAL: PATIENT/CAREGIVER WILL VERBALIZE UNDERSTANDING OF SIGNS AND SYMPTOMS THAT PUT THE PATIENT AT RISK FOR HOSPITALIZATION /EMERGENCY ROOM VISITS, WHEN TO NOTIFY NURSE/PHYSICIAN OF COMPLICATIONS/DECLINE AND WHEN TO CALL 911. PT LTG: PATIENT/CAREGIVER WILL BE ABLE TO IDENTIFY SIGNS OF EXACERBATION OF HEART FAILURE AND VERBALIZE / DEMONSTRATE HOW TO MANAGE SYMPTOMS AND HOW TO ADHERE TO HEART FAILURE SELF-MANAGEMENT AND LIFE-STYLE CHANGES BY END OF EPISODE. PT GOAL: PATIENTS HEART FAILURE WILL REMAIN WELL CONTROLLED THROUGHOUT EPISODE OF CARE. PT LTG: PATIENT WILL NOT EXPERIENCE CARDIAC OR RESPIRATORY COMPLICATIONS THROUGHOUT THE EPISODE OF CARE. PT LTG: PATIENT/CAREGIVER WILL DEMONSTRATE ADHERENCE TO FALL REDUCTION SELF-MANAGEMENT AND REDUCING FALL RISK FACTORS TO MINIMIZE FALL RISK BY END OF EPISODE. PT LTG: PATIENT WILL BE INDEPENDENT WITH IMPLEMENTATION OF HEP WITHIN 9 WEEKS. PT GOAL: PATIENT WILL NOT EXHIBIT SIGNS AND SYMPTOMS OF UTI. Goal Provider Goal - PATIENT / CAREGIVER WITHIN 1 VISIT WILL BE ABLE TO VERBALIZE / DEMONSTRATE UNDERSTANDING OF SAFEY IN HOME. Encounters Start Date/Time End Date/Time Encounter Type Admission Type Attending [facility] Care Department Encounter ID Discharge Date Discharge Status Discharge Condition Discharge Reason Percent Goals Met 2024-04-18 00:00:00 2024-06-16 00:00:00 Outpatient NEW ADMISSION [facility] [place] [id number] 20.00
--- OUTSIDE RECORDS SUMMARY | 2024-05-01 01:03 | XMS_ITS ---
Author Organization [facility] Address [address] [place] [address] Care Team Providers Care Assignment Agent Name Role Phone Beck Ramírez [phone] MEDICATIONS Medication SIG (Take, Route, Fr equency, Duration) Notes Start Date End Date Status Cipro 250 MG 1 tablet Orally ever y 12 hrs for 10 days 03/02/2024 03/12/2024 Active Encounters Encounter Location Date Provider Diagnosis [place] [facility] [address] [facility] [address] [place] [address] 03/02/2024 Beck Ramírez PLAN OF TREATMENT Medication Medication Name Sig Start Date Stop Date Notes Cipro 250 MG 1 tablet Orally every 12 hrs for 10 days 02/2103/12/2024 Progress Notes * LORYLIBBY SHARMAMELODYB:1935 (88 yo F)Acc No.[id number]:03/02/2024 Patient: TRACI HENLEY :1935 Age:88 Y Sex:Female Address:[address] [place] [address], [place] [address] * Refills Start Cipro Tablet, 250 MG, Orally, 20, 1 tablet, every 12 hrs, 10 days * * Date:
--- OUTSIDE RECORDS SUMMARY | 2024-05-01 01:03 | XMS_ITS | Data Portability ---
Author Organization [place] - S [employer] [facility], Main Office Address [address] [place] [address] Care Team Providers Care Polarity Tester Name Role Phone ANAY INGRAM Primary Care Provider [phone] Assessment Encounter Date Assessment Date Assessment LastModified by Organization Details LastModified Time 01/18/2023 01/18/2023 This note is dictated and transcribed by [employer]. Budget Examiner variances may occur. Despite proofreading, typographical errors may occur. Occasional wrong-word or 'iqigt-b-lwof' substitutions may have occurred due to the inherent limitations of voice recording. Read the chart carefully and recognize, using context, where substitutions have occurred. Not available 01/18/2023 14:16:35 08/09/2023 08/09/2023 This note is dictated and transcribed by [employer]. Budget Examiner variances may occur. Despite proofreading, typographical errors may occur. Occasional wrong-word or 'mlnok-c-okbm' substitutions may have occurred due to the inherent limitations of voice recording. Read the chart carefully and recognize, using context, where substitutions have occurred. Not available 08/09/2023 17:17:28 11/08/2023 11/08/2023 This note is dictated and transcribed by [employer]. Budget Examiner variances may occur. Despite proofreading, typographical errors may occur. Occasional wrong-word or 'enoie-r-yfmy' substitutions may have occurred due to the inherent limitations of voice recording. Read the chart carefully and recognize, using context, where substitutions have occurred. Not available 11/08/2023 16:52:19 03/13/2024 03/13/2024 This note is dictated and transcribed by [employer]. Budget Examiner variances may occur. Despite proofreading, typographical errors may occur. Occasional wrong-word or 'ozoef-f-uofy' substitutions may have occurred due to the [...] Orders clotrimaz ole 1 % [facility] 2023 024 [id number] [address] [place], [address], 04/19/2023 14:50:23 Miconazor b AF 2 % topical powder 2023 024 [id number], [address] [place], [address], 04/19/2023 14:50:24 clotrimaz ole 1 % topical cream 2022 023 [id number], [address] [place], [address], 01/18/2023 14:12:16 betametha sone dipropion ate 0.05 % topical cream 2022 023 [email or web address] [facility] #[id number], [address] [place], [address], 08/09/2023 15:13:22 Miconazor b AF 2 % topical powder 2022 023 [id number], [address] [place], [address], 01/18/2023 14:13:11 Patient TargetsNo targets recorded. Patient InstructionsNo instructions recorded. Reason for Referral None Reported. Problems Name Problem SNOMED Code Status Onset Date Resolution Date Notes Provider Name and Address Organization Details Recorded Time Dry skin 24820853 Active 2021 Not Available [facility] 3 15:17:16 Atopic dermatitis 84287906 Active 2021 Not Available [facility] 3 15:17:16 Onychomycosis of toenails 873889403 Active 2020 Not Available [facility] 3 15:17:16 Eczema 51960020 Active 2020 Not Available [facility] 3 15:17:16 Acute nephropathy 25412630 Active 2018 Not Available [facility] 3 15:17:16 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 Active 2021 Not Available [facility] 3 15:17:17 Pain in toe 202202380 Active 2022 Rodri Chacon DPM [address], [place], [address] , [employer] 3 11:42:25 Tinea pedis 8523389 Active 2022 Rodri Chacon DPM [address], [place], [address] , [employer] 3 14:11:10 Pain in toe 950796638 Active 2023 Rodri Chacon DPM [address], [place], [address] , [employer] 4 17:17:23 Unable to cut own toenails 682898464 Active 2023 Rodri Chacon DPM [address], [place], [address] , [facility] 4 13:54:19 Problem Notes None recorded. Procedures Surgical History Date Name Laterality Status Provider Name and Address Organization Details Recorded Time 5 Nail Debridement completed Rodri Chacon DPM [address], [place], [address], [place] [facility] [employer] 03/14/2024 10:37:32 4 Nail Debridement completed Rodri Chacon DPM [address], [place], [address], [facility] [employer] [facility] [employer] [facility] 11/08/2023 16:52:08 4 Nail Debridement completed Rodri Chacon DPM [address], [place], [address], [facility] [employer] [facility] 08/11/2023 13:54:04 4 Nail Debridement completed Rodri Chacon DPM [address], [place], [address], [facility] [employer] [facility] 04/19/2023 14:50:32 3 Nail Debridement completed Rodri Chacon DPM [address], [place], [address], [facility] [employer] [facility] 01/18/2023 14:15:01 3 Nail Debridement completed Rodri Chacon DPM [address], [place], [address], [facility] [employer] 05/11/2022 11:40:34 Imaging Results None recorded. Procedure [...] Not Available Not Avai lable Fluzone High-Dose 6608-8503 (PF) 180 mcg/0.5 mL intramuscu lar syringe 08/11 completed Not Available Not Available Not Available Shingrix (PF) 50 mcg/0.5 mL intramuscu lar suspension , kit TO BE ADMINIST ERED BY PHARMACI ST FOR IMMUNIZA TION 06/18 /2024 completed Not Available Not Available Not Available Fluzone High-Dose [id number] (PF) 180 mcg/0.5 mL intramuscu lar syringe [...] % 137 mm[Hg] 72 mm[Hg] Gisel Carroll [facility] 3 14:11:27 Date Recorded Body height Heart rate Respiratory rate Oxygen saturation Oxygen saturation in Arterial blood by Pulse oximetry Systolic blood pressure Diastolic blood pressure Provider Name and Address Organization Details Last Updated DateTime 4 165.1 cm 60 /min 14 /min 98 % 98 % 81 mm[Hg] 43 mm[Hg] Gisel Carroll [employer] [facility] 4 14:32:50 Date Recorded Body height Heart rate Respiratory rate Oxygen saturation Oxygen saturation in Arterial blood by Pulse oximetry Systolic blood pressure Diastolic blood pressure Provider Name and Address Organization Details Last Updated DateTime 4 165.1 cm 59 /min 14 /min 98 % 98 % 115 mm[Hg] 55 mm[Hg] Gisel Carroll [employer] [facility] 4 15:13:55 Date Recorded Body height Respiratory rate Body temperature Body mass index (BMI) Body weight Heart rate Oxygen saturation Oxygen saturation in Arterial blood by Pulse oximetry Systolic blood pressure Diastolic blood pressure Provider Name and Address Organization Details Last Updated DateTime 4 165.1 cm 14 /min 98.7 [degF] 27.6 kg/m2 10877.3 3 g 66 /min 97 % 97 % 120 mm[Hg] 82 mm[Hg] Xiao Villarreal [facility] 4 16:27:20 Date Recorded Body height Body mass index (BMI) Body weight Heart rate Respiratory rate Oxygen saturation Oxygen saturation in Arterial blood by Pulse oximetry Systolic blood pressure Diastolic blood pressure Provider Name and Address Organization Details Last Updated DateTime 5 165.1 cm 27.6 kg/m2 97194.3 3 g 64 /min 14 /min 97 % 97 % 94 mm[Hg] 55 mm[Hg] Gisel GAMA - Priti MA Agent [employer] [facility] 5 14:11:18 Social History Question Answer Notes LastModified by Organizat ion Details LastModified Time Tobacco Smoking Status Never Smoker Not Available [facility] 04/21/2022 15:14:07 What Is Your Level Of Alcohol Consumption? None [id number] Information not available 04/21/2022 What Is Your Level Of Caffeine Consumption? Occasional [id number] Information not available 04/21/2022 What Was The Date Of Your Most Recent Tobacco Screening? 09/22/2020 [id number] Information not available 04/21/2022 Do You Use Any Illicit Or Recreational Drugs? No [id number] Information not available 04/21/2022 Has Tobacco Cessation Counseling Been Provided? No [id number] Information not available 04/21/2022 Do You Or Have You Ever Used Any Other Forms Of Tobacco Or Nicotine? No [id number] Information not available 04/21/2022 Sex: Unknown Functional Status None recorded. Mental Status None recorded. Family History Relationship Description Onset Age of this Age Resolved Age Notes LastModified by Organization Details LastModified Time Father Diabetes mellitus [id number] Not available 04/21/2022 15:14:10 Mother Arthritis [id number] Not available 04/21/2022 15:14:10 Mother Heart disease [id number] Not available 04/21/2022 15:14:10 Medical History No medical history recorded. Gynecological HistoryNo gynecological history recorded. Obstetrics History GPAL:G 0 P 0 0 0 0 Immunizations Vaccine Type Date Status Note Provider Nam e and Address Organization Details Recorded Time influenza, unspecified formulation 8 completed Not Available [facility] 04/21/2022 15:20:53 Influenza, split virus, quadrivalent, preservative 9 completed Not Available [facility] 04/21/2022 15:20:53 pneumococcal polysaccharide PPV23 9 completed Not Available [facility] 04/21/2022 15:20:53 influenza, unspecified formulation 7 completed Not Available [facility] 04/21/2022 15:20:53 pneumococcal polysaccharide PPV23 7 completed Not Available [facility] 04/21/2022 15:20:53 Past Encounters Encounter ID Performer Location Encounter Start Date Encounter Closed Date Diagnosis/Indication Diagnosis SNOMED-CT Code Diagnosis ICD10 Code Diagnosis Note [id number] [facility] [address], [facility] [address] [place] [address] 09/22/2020 00:00:00 09/22/2020 11:26:04 [id number] [facility] [address], [address] [address] 10/06/2020 00:00:00 10/06/2020 12:06:59 [id number] [facility] [address], [address] [address] 12/22/2020 00:00:00 12/22/2020 11:48:02 [id number] [facility] [address], [facility] [address] [place] [address] 04/06/2021 00:00:00 04/06/2021 12:23:07 [id number] [facility] [address], [address] [address] 04/20/2021 00:00:00 04/20/2021 11:36:55 [id number] [facility] [address], [facility] [address] [place] [address] 05/21/2021 00:00:00 05/21/2021 11:10:36 [id number] [facility] [address], [address] [address] 06/04/2021 00:00:00 06/04/2021 11:40:48 [id number] [facility] [address], [address] [address] 09/10/2021 00:00:00 09/10/2021 13:51:09 [id number] [facility] [address] [facility], [address] [address] 12/10/2021 00:00:00 12/10/2021 14:56:21 [id number] Rodri Chacon DPM [facility] [address], [address] [address] 05/11/2022 11:22:01 05/11/2022 14:14:45 Onychomycosis of toenails 383019958 B35.1 reviewed treatment options with patientNai ls 1 through 10 were debrided with sharp mechanical debridemen t without incident. Nails were debrided and greater than 50% length and thickness where needed.Rx ketoconazo leFollow-u p in 3 months Pain in toe 206629022 M7 9.674 secondary to thickened toenailDeb rided todayConti nue offloading Educated on offloading optionsFol low-up in 3 months possible total nail avulsion if continues to be problemati c and painful [id number] Rodri Chacon DPM [facility] [address] [place] [address], [address] [address] 01/18/2023 14:00:16 01/19/2023 09:56:41 Tinea pedis 4999673 B35.3 educated on foot hygiene and shoe hygienefol low-up in 2 weeks if not resolved Onychomyco sis of toenails 494421544 B35.1 reviewed treatment options with patientNai ls 1 through 10 were debrided with sharp mechanical debridemen t without incident. Nails were debrided and greater than 50% length and thickness where needed.Rx clotrimazo le- apply to nails dailyFollo w-up in 3 months Atopic dermatitis 215295 01 L20.9 Rx betamethas one [id number] Rodri Chacon DPM [facility] [address], [address] [address] 04/19/2023 14:19:30 04/22/2023 08:03:54 Tinea pedis 7957514 B35.3 educated on foot hygiene and shoe hygienefol low-up in 2 weeks if not resolved Onychomyco sis of toenails 902184585 B35.1 reviewed treatment options with patientNai ls 1 through 10 were debrided with sharp mechanical debridemen t without incident. Nails were debrided and greater than 50% length and thickness where needed.Rx clotrimazo le- apply to nails dailyFollo w-up in 3 months [id number] Rodri Chacon DPM [facility] [address], [address] [address] 08/09/2023 15:08:07 08/12/2023 09:43:05 Dystrophia unguium 20824834 L60.3 nails debrided without incident Unable to cut own toenails 834021833 Z74.1 Pain in toe 003960413 M7 9.674 secondary to thickened toenailCon tinue offloading Educated on offloading optionsFol low-up in 3 months possible total nail avulsion if continues to be problemati c and painful [id number] Rodri Chacon DPM [facility] [address], [address] [address] 11/08/2023 15:59:27 11/09/2023 15:38:51 Pain in toe 428902473 M79.674 secondary to thickened toenailCon tinue offloading Educated on offloading optionsFol low-up in 3 months possible total nail avulsion if continues to be problemati c and painful Dystrophia unguium 32121 009 L60.3 nails debrided without incident Unable to cut own toenails 755821105 Z74.1 [id number] Rodri Chacon DPM [facility] Podiatry [address], [address] [address] 03/13/2024 13:56:30 03/19/2024 11:51:24 Dystrophia unguium 94504031 L60.3 nails debrided without incident Unable to cut own toenails 130050647 Z74.1 Health Concerns Section Related Observation LastModified by Organization Detai ls LastModified Time None Recorded Concern Status LastModified by Organization Details LastModified Time None Recorded Advance Directives Directive None Recorded Payers Encounter Date Sequence Insurance Name Policy Number Policy Parmar Covered Member ID Parmar Member ID Guarantor Name 01/18/2023 1 [employer] (MEDICARE REPLACEMENT HMO) [id number] Vianca M Evangelist [id number] Vianca M Evangelist 04/19/2023 1 [employer] (MEDICARE REPLACEMENT HMO) [id number] Vianca M Evangelist [id number] Vianca M Caputa 08/09/2023 1 [employer] (MEDICARE REPLACEMENT HMO) [id number] Vianca M Caputa [id number] Vianca M Evangelist 11/08/2023 1 [employer] (MEDICARE REPLACEMENT HMO) [id number] Vianca M Caputa [id number] Vianca M Evangelist 03/13/2024 1 [employer] (MEDICARE REPLACEMENT HMO) [id number] Vianca M Evangelist [id number] Vianca M Evangelist Notes Date Note Type Note Provider Name [...] Chacon DPM [address], [address], [place], [address], [facility] - S MA Agent [employer] 01/18/2023 14:16:51 04/19/2023 text/html . Patient is [...] Chacon DPM [address], [address], [place], [address], [employer] 04/21/2023 20:15:36 08/09/2023 text/html . Patient is [...] Chacon DPM [address], [place], [address], [employer] 08/11/2023 13:54:31 11/08/2023 text/html . Patient is an 87-year-old female who returns the office for painful thick toenails. Patient denies any open wounds or injury the foot. Patient denies any other complaints. Rodri Chacon DPM [address], [place], [address], [employer] 11/08/2023 16:52:31 03/13/2024 text/html . Patient is at 88-year-old female. She returns to the office for routine foot care. Patient denies any new complaints or wounds of the feet. She states that she has thick and painful toenails and is unable to cut them. Patient denies any other complaints. Rodri Chacon DPM [address], [place], [address], [employer] 03/14/2024 10:38:50 OBGyn Episode No OBEpisode recorded.
--- OUTSIDE RECORDS SUMMARY | 2024-05-01 01:03 | XMS_ITS | Clinical Summary ---
Author Organization [facility] Address [address] [place] [address] Care Team Providers Care Wood Club Neck Whipper Name Role Phone Unavailable Primary Care Provider Unavailabl e Source Comments [facility],non-owned Affiliates and Associated Physician Practices is amultiple site organization consisting of ambulatory clinics and hospital sitesin [place], [place], [place] and [place]. This disclosure is being madepursuant to the Care Everywhere program and may not contain all information available regarding this patient. Last updated 17.[facility] Allergies No known active allergies Medications * [...]
--- OUTSIDE RECORDS SUMMARY | 2024-05-01 01:03 | XMS_ITS | Referral Summary ---
Author Organization [facility] Address [address] [place] [address] Care Team Providers Care Information Scientist Name Role Phone Unavailable Primary Care Provider Unavailabl e Source Comments [facility],non-owned Affiliates and Associated Physician Practices is amultiple site organization consisting of ambulatory clinics and hospital sitesin [place], [place], [place] and [place]. This disclosure is being madepursuant to the Care Everywhere program and may not contain all information available regarding this patient. Last updated 11/11/17.88tc88 [facility] Allergies No known active allergies Medications * [...]
--- OUTSIDE RECORDS SUMMARY | 2024-05-01 01:03 | XMS_ITS ---
Author Organization [facility] Address [address] [place] [address] Care Team Providers Care Assistant Mechanic Name Role Phone Beck Ramírez Unavailable [phone] Encounters Encounter Location Date Provider Diagnosis [place] [facility] [address] [facility] [address] [place] [address] 04/27/2024 Beck Ramírez PLAN OF TREATMENT No Information Progress Notes * LIBBY HENLEYADOB:1935 (88 yo F)Acc No.[id number]:04/27/2024 Progress Notes Patient: TRACI HENLEY Provider: MD REY, Janet.Kota.C.P, F.A.S.N. :1935 Age:88 Y Sex:Female Date:04/27/2024 Address:[address] [place] [address] Subjective: * Chief Complaints: * * Medical History: Objective: Assessment: Plan: * Treatment: * Billing Information: * Visit Code: * Procedure Codes: * Sign off status: Pending * Provider: MD REY, F.Kota.C.P, F.A.S.N. Date: 04/27/2024
--- OUTSIDE RECORDS SUMMARY | 2024-05-01 01:03 | XMS_ITS | Clinical Summary ---
Author Organization Unknown Care Team Providers Care Linseed Oil Temperer Name Role Phone NATALY ANDINO, ANAY Unavailable Unavailable YAMILKA RN, CHERELLE Unavailable Unavailable DIAZ PT, GALILEA Unavailable Unavailable YEE NORMANN, JOSEPH Unavailable Unavailable DELONTE OT, JERSEY Unavailable Unavailable ISAI TOBACCO CLOTH RECLAIMER, COMPA Unavailable Unavailable Payers Payer Name Policy Type Policy Number Effective Date Expira tion Date [facility] [id number] Problems Condition Name Condition Details Condition Category [...] OF PNEUMONIA (RECURRENT) Active 2- 00:00: 00 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 RN TO OBSERVE AND ASSESS, RUBBER BLOCK LAYER/CERTIFIED PARALEGAL TO OBSERVE FOR RISK FOR FALLS AND INSTRUCT IN FALL PREVENTION, HOME SAFETY, MEDICATION MANAGEMENT, INFECTION PREVENTION, AND NUTRITION MANAGEMENT. RN/RUBBER BLOCK LAYER/CERTIFIED PARALEGAL NURSE MAY PERFORM O2 SATURATION LEVEL ON ADMISSION AND PRN FOR 1 FOR RN TO ASSESS/RUBBER BLOCK LAYER TO OBSERVE PATIENT, WITH NOTIFICATION TO THE PHYSICIAN IF SATURATION IS 90% IN THE ABSENCE OF MORE SPECIFIC PARAMETERS FROM THE PHYSICIAN. AGENCY MAY PERFORM A RESUMPTION OF CARE VISIT FOLLOWING ANY HOSPITAL ADMISSION. RN/RUBBER BLOCK LAYER/CERTIFIED PARALEGAL TO MONITOR CO-MORBID CONDITIONS LISTED ON THE PLAN OF CARE AND ANY NEW CONDITIONS THAT PRESENT THEMSELVES DURING THIS EPISODE TO IDENTIFY CHANGES AND INTERVENE TO MINIMIZE COMPLICATIONS. PATIENT HAS PAST MEDICAL HISTORY OF HYPOTHYROID, HYPERLIPIDEMIA, CHRONIC KIDNEY DISEASE, SEPSIS, SEPTIC SHOCK, PYELONEPHRITIS, HYDRONEPHROSIS OF LEFT KIDNEY, NON ST. [place]ATION [place], HYPERTENSION, HEART FAILURE, MORAES ABNORMALITY, T12 COMPRESSION. FRACTURE. ACTION, PNEUMONIA . [facility] WILL MONITOR PATIENT FOR SIGNS AND SYMPTOMS OF EXACERBATION OF THESE DIAGNOSES AND WILL NOTIFY PROVIDER OF ANY CONCERNS OR CHANGES THAT ARISE. [code = RN TO OBSERVE, ASSESS, EVALUATE, AND DEVELOP AN INDIVIDUALIZED PLAN OF CARE. AGENCY MAY ACCEPT ORDERS FROM CONSULTING PHYSICIANS NATALY. RN TO OBSERVE AND ASSESS, RUBBER BLOCK LAYER/CERTIFIED PARALEGAL TO OBSERVE FOR RISK FOR FALLS AND INSTRUCT IN FALL PREVENTION, HOME SAFETY, MEDICATION MANAGEMENT, INFECTION PREVENTION, AND NUTRITION MANAGEMENT. RN/RUBBER BLOCK LAYER/CERTIFIED PARALEGAL NURSE MAY PERFORM O2 SATURATION LEVEL ON ADMISSION AND PRN FOR 1 FOR RN TO ASSESS/RUBBER BLOCK LAYER TO OBSERVE PATIENT, WITH NOTIFICATION TO THE PHYSICIAN IF SATURATION IS 90% IN THE ABSENCE OF MORE SPECIFIC PARAMETERS FROM THE PHYSICIAN. AGENCY MAY PERFORM A RESUMPTION OF CARE VISIT FOLLOWING ANY HOSPITAL ADMISSION. RN/RUBBER BLOCK LAYER/CERTIFIED PARALEGAL TO MONITOR CO-MORBID CONDITIONS LISTED ON THE PLAN OF CARE AND ANY NEW CONDITIONS THAT PRESENT THEMSELVES DURING THIS EPISODE TO IDENTIFY CHANGES AND INTERVENE TO MINIMIZE COMPLICATIONS. PATIENT HAS PAST MEDICAL HISTORY OF HYPOTHYROID, HYPERLIPIDEMIA, CHRONIC KIDNEY DISEASE, SEPSIS, SEPTIC SHOCK, PYELONEPHRITIS, HYDRONEPHROSIS OF LEFT KIDNEY, NON [place]. [place]ATION [place], HYPERTENSION, HEART FAILURE, MORAES ABNORMALITY, T12 COMPRESSION. FRACTURE. ACTION, PNEUMONIA . [facility] WILL MONITOR PATIENT FOR SIGNS [...] WEAKNESS ] Future Scheduled Test MEDICATION MANAGEMENT; RN/RUBBER BLOCK LAYER/CERTIFIED PARALEGAL TO REVIEW MEDICATIONS FOR INTERACTIONS, EFFECTIVENESS OF DRUG THERAPY, AND SIGNS/SYMPTOMS OF ADVERSE REACTIONS. MAY INSTRUCT AND REINFORCE MEDICATION TEACHING RELATED TO THE USE OF MEDICATIONS, DOSAGE, FREQUENCY, PURPOSE, SIDE EFFECTS, AND TO REPORT COMPLICATIONS. [code = MEDICATION MANAGEMENT; RN/RUBBER BLOCK LAYER/CERTIFIED PARALEGAL TO REVIEW MEDICATIONS FOR INTERACTIONS, EFFECTIVENESS OF DRUG THERAPY, AND SIGNS/SYMPTOMS OF ADVERSE REACTIONS. MAY INSTRUCT AND REINFORCE MEDICATION TEACHING RELATED TO THE USE OF MEDICATIONS, DOSAGE, FREQUENCY, PURPOSE, SIDE EFFECTS, AND TO REPORT COMPLICATIONS.] Future Scheduled Test FALL REDUC TION MANAGEMENT; RN TO ASSESS AND OBSERVE, RUBBER BLOCK LAYER/CERTIFIED PARALEGAL TO OBSERVE FALL RISK FACTORS AND EDUCATE PATIENT/CAREGIVER ON STRATEGIES TO MINIMIZE THE RISK OF FALLING. [code = FALL REDUCTION MANAGEMENT; RN TO ASSESS AND OBSERVE, RUBBER BLOCK LAYER/CERTIFIED PARALEGAL TO OBSERVE FALL RISK FACTORS AND EDUCATE PATIENT/CAREGIVER ON STRATEGIES TO MINIMIZE THE RISK OF FALLING.] Future Scheduled Test AGENCY MAY PERFORM A RESUMPTION OF CARE VISIT FOLLOWING ANY HOSPITAL ADMISSION. PT TO EVALUATE, OBSERVE / ASSESS, AND MONITOR, TOBACCO CLOTH RECLAIMER TO OBSERVE AND MONITOR, PROVIDE SKILLED THERAPEUTIC INTERVENTION, ACTIVITY, EDUCATION, AND TRAINING TO ADDRESS; PT/TOBACCO CLOTH RECLAIMER TO PROVIDE GAIT TRAINING FOR IMPROVED MOBILITY AND /OR TO NORMALIZE GAIT PATTERN NEUROMUSCULAR RE-EDUCATION / BALANCE / POSTURAL CONTROL (PT) THERAPEUTIC EXERCISES AND ESTABLISHING A HOME EXERCISE PROGRAM (PT/TOBACCO CLOTH RECLAIMER) PT/TOBACCO CLOTH RECLAIMER TO PROVIDE STAIR TRAINING SIT TO/FROM STAND TRANSFERS (PT/TOBACCO CLOTH RECLAIMER) PT / TOBACCO CLOTH RECLAIMER TO MONITOR AND EDUCATE ON OXYGEN SATURATION DURING ADLS/IADLS, NOTIFY PHYSICIAN AND/OR THE RN CLINICAL MAPLE [employer]ODUCTS MAKER FOR PHYSICIAN NOTIFICATION AND IF O2 SATS BELOW PHYSICIAN ORDERED PARAMETERS AFTER 10 MIN OF REST PT / TOBACCO CLOTH RECLAIMER MAY EDUCATE ON PAIN MANAGEMENT CLINICALLY INDICATED, INCLUDING NON-PHARMACOLOGICAL PAIN REDUCTION TECHNIQUES. PT / TOBACCO CLOTH RECLAIMER TO INSTRUCT PATIENT/CAREGIVER ON RISK FOR HOSPITALIZATION/EMERGENCY ROOM VISITS, TEACH SIGNS AND SYMPTOMS THAT PUT PATIENT AT RISK, WHEN TO NOTIFY NURSE/PHYSICIAN OF COMPLICATIONS/DECLINE, AND WHEN TO CALL 911. PT / TOBACCO CLOTH RECLAIMER TO EDUCATE ON HEART FAILURE SELF-MANAGEMENT PT TO ASSESS / TOBACCO CLOTH RECLAIMER TO MONITOR FOR HEART FAILURE EXACERBATION AND RECORD PATIENT REPORTED WEIGHT, AND NOTIFY THE PHYSICIAN AND/OR THE RN CLINICAL MAPLE [employer]ODU[employer] MAKER FOR PHYSICIAN NOTIFICATION OF HF EXACERBATION (2LB WEIGHT GAIN IN 1 DAY, 5LBS IN A WEEK OR 5 LBS OVER BASELINE; INCREASED SOB, EDEMA, NEEDING MORE PILLOWS AT NIGHT, CRACKLES IN BASIS OF THE LUNGS OR PMI SHIFT) PT TO ASSESS / TOBACCO CLOTH RECLAIMER TO MONITOR CARDIO/RESPIRATORY SYSTEM; AND NOTIFY THE PHYSICIAN AND/OR THE RN CLINICAL MAPLE [employer]ODU[employer] MAKER FOR PHYSICIAN NOTIFICATION FOR EARLY SIGNS AND SYMPTOMS OF EXACERBATION OR DETERIORATION. PT/TOBACCO CLOTH RECLAIMER TO IDENTIFY FALL RISK FACTORS; EDUCATE THE PATIENT/CAREGIVER ON WAYS TO REDUCE FALL RISK FACTORS AND ESTABLISH HOME EXERCISE PROGRAM TO MINIMIZE FALL RISK. MAY TEACH THE PATIENT FLOOR RECOVERY WHEN CLINICALLY APPROPRIATE PT / TOBACCO CLOTH RECLAIMER TO MONITOR FOR SIGNS AND SYMPTOMS OF UTI AND EDUCATE PATIENT/CAREGIVER TO MINIMIZE RISK OF DEVELOPING A UTI. [code = AGENCY MAY PERFORM A RESUMPTION OF CARE VISIT FOLLOWING ANY HOSPITAL ADMISSION. PT TO EVALUATE, OBSERVE / ASSESS, AND MONITOR, TOBACCO CLOTH RECLAIMER TO OBSERVE AND MONITOR, PROVIDE SKILLED THERAPEUTIC INTERVENTION, ACTIVITY, EDUCATION, AND TRAINING TO ADDRESS; PT/TOBACCO CLOTH RECLAIMER TO PROVIDE GAIT TRAINING FOR IMPROVED MOBILITY AND /OR TO NORMALIZE GAIT PATTERN NEUROMUSCULAR RE-EDUCATION / BALANCE / POSTURAL CONTROL (PT) THERAPEUTIC EXERCISES AND ESTABLISHING A HOME EXERCISE PROGRAM (PT/TOBACCO CLOTH RECLAIMER) PT/TOBACCO CLOTH RECLAIMER TO PROVIDE STAIR TRAINING SIT TO/FROM STAND TRANSFERS (PT/TOBACCO CLOTH RECLAIMER) PT / TOBACCO CLOTH RECLAIMER TO MONITOR AND EDUCATE ON OXYGEN SATURATION DURING ADLS/IADLS, NOTIFY PHYSICIAN AND/OR THE RN CLINICAL MAPLE PRODUCTS MAKER FOR PHYSICIAN NOTIFICATION AND IF O2 SATS BELOW PHYSICIAN ORDERED PARAMETERS AFTER 10 MIN OF REST PT / TOBACCO CLOTH RECLAIMER MAY EDUCATE ON PAIN MANAGEMENT CLINICALLY INDICATED, INCLUDING NON-PHARMACOLOGICAL PAIN REDUCTION TECHNIQUES. PT / TOBACCO CLOTH RECLAIMER TO INSTRUCT PATIENT/CAREGIVER ON RISK FOR HOSPITALIZATION/EMERGENCY ROOM VISITS, TEACH SIGNS AND SYMPTOMS THAT PUT PATIENT AT RISK, WHEN TO NOTIFY NURSE/PHYSICIAN OF COMPLICATIONS/DECLINE, AND WHEN TO CALL 911. PT / TOBACCO CLOTH RECLAIMER TO EDUCATE ON HEART FAILURE SELF-MANAGEMENT PT TO ASSESS / TOBACCO CLOTH RECLAIMER TO MONITOR FOR HEART FAILURE EXACERBATION AND RECORD PATIENT REPORTED WEIGHT, AND NOTIFY THE PHYSICIAN AND/OR THE RN CLINICAL MAPLE PRODUCTS MAKER FOR PHYSICIAN NOTIFICATION OF HF EXACERBATION (2LB WEIGHT GAIN IN 1 DAY, 5LBS IN A WEEK OR 5 LBS OVER BASELINE; INCREASED SOB, EDEMA, NEEDING MORE PILLOWS AT NIGHT, CRACKLES IN BASIS OF THE LUNGS OR PMI SHIFT) PT TO ASSESS / TOBACCO CLOTH RECLAIMER TO MONITOR CARDIO/RESPIRATORY SYSTEM; AND NOTIFY THE PHYSICIAN AND/OR THE RN CLINICAL MAPLE PRODUCTS MAKER FOR PHYSICIAN NOTIFICATION FOR EARLY SIGNS AND SYMPTOMS OF EXACERBATION OR DETERIORATION. PT/TOBACCO CLOTH RECLAIMER TO IDENTIFY FALL RISK FACTORS; EDUCATE THE PATIENT/CAREGIVER ON WAYS TO REDUCE FALL RISK FACTORS AND ESTABLISH HOME EXERCISE PROGRAM TO MINIMIZE FALL RISK. MAY TEACH THE PATIENT FLOOR RECOVERY WHEN CLINICALLY APPROPRIATE PT / TOBACCO CLOTH RECLAIMER TO MONITOR FOR SIGNS AND SYMPTOMS OF UTI AND EDUCATE PATIENT/CAREGIVER TO MINIMIZE RISK OF DEVELOPING A UTI. ] Future Scheduled Test GENITOURIN MARYLU MANAGEMENT; RN TO ASSESS AND TEACH, RUBBER BLOCK LAYER/CERTIFIED PARALEGAL TO OBSERVE AND TEACH RELATED TO ALTERED GENITOURINARY STATUS TO MINIMIZE COMPLICATIONS AND REDUCE HOSPITALIZATION. [code = GENITOURINARY MANAGEMENT; RN TO ASSESS AND TEACH, RUBBER BLOCK LAYER/CERTIFIED PARALEGAL TO OBSERVE AND TEACH RELATED TO ALTERED GENITOURINARY STATUS TO MINIMIZE COMPLICATIONS AND REDUCE HOSPITALIZATION.] Future Scheduled Test PAIN MANAG EMENT; RN TO ASSESS AND TEACH, CERTIFIED PARALEGAL/RUBBER BLOCK LAYER TO OBSERVE AND TEACH AND PROVIDE EDUCATION ON PAIN MANAGEMENT TECHNIQUES. [code = PAIN MANAGEMENT; RN TO ASSESS AND TEACH, CERTIFIED PARALEGAL/RUBBER BLOCK LAYER TO OBSERVE AND TEACH AND PROVIDE EDUCATION ON PAIN MANAGEMENT TECHNIQUES.] Future Scheduled Test PRN VISITS ; NUMBER OF RN/RUBBER BLOCK LAYER/CERTIFIED PARALEGAL VISITS: 1 RN/RUBBER BLOCK LAYER/CERTIFIED PARALEGAL TO PERFORM: DATA SCIENTIST FOR THE FOLLOWING REASONS: URINE MOLECULAR [code = PRN VISITS; NUMBER OF RN/RUBBER BLOCK LAYER/CERTIFIED PARALEGAL VISITS: 1 RN/RUBBER BLOCK LAYER/CERTIFIED PARALEGAL TO PERFORM: DATA SCIENTIST FOR THE FOLLOWING REASONS: URINE MOLECULAR ] Future Scheduled Test RISK FOR H OSPITALIZATION; RN TO ASSESS/TEACH, CERTIFIED PARALEGAL/RUBBER BLOCK LAYER TO OBSERVE/TEACH PATIENT/CAREGIVER ON RISK FOR HOSPITALIZATION/EMERGENCY ROOM VISITS, TEACH SIGNS AND SYMPTOMS THAT PUT PATIENT AT RISK, WHEN TO NOTIFY NURSE/PHYSICIAN OF COMPLICATIONS/DECLINE, AND WHEN TO CALL 911. [code = RISK FOR HOSPITALIZATION; RN TO ASSESS/TEACH, CERTIFIED PARALEGAL/RUBBER BLOCK LAYER TO OBSERVE/TEACH PATIENT/CAREGIVER ON RISK FOR HOSPITALIZATION/EMERGENCY ROOM VISITS, TEACH SIGNS AND SYMPTOMS THAT PUT PATIENT AT RISK, WHEN TO NOTIFY NURSE/PHYSICIAN OF COMPLICATIONS/DECLINE, AND WHEN TO CALL 911.] Future Scheduled Test CARDIOVASC ULAR SYSTEM; RN TO ASSESS/TEACH, RUBBER BLOCK LAYER/CERTIFIED PARALEGAL TO OBSERVE/TEACH RELATED TO ALTERED CARDIOVASCULAR STATUS TO MINIMIZE COMPLICATIONS AND REDUCE HOSPITALIZATION. [code = CARDIOVASCULAR SYSTEM; RN TO ASSESS/TEACH, RUBBER BLOCK LAYER/CERTIFIED PARALEGAL TO OBSERVE/TEACH RELATED TO ALTERED CARDIOVASCULAR STATUS TO MINIMIZE COMPLICATIONS AND REDUCE HOSPITALIZATION.] Future Scheduled Test HYPERTENSI ON MANAGEMENT; RN TO ASSESS AND TEACH, RUBBER BLOCK LAYER/CERTIFIED PARALEGAL TO OBSERVE AND TEACH WARNING SIGNS AND SYMPTOMS TO AVOID HOSPITALIZATION. [code = HYPERTENSION MANAGEMENT; RN TO ASSESS AND TEACH, RUBBER BLOCK LAYER/CERTIFIED PARALEGAL TO OBSERVE AND TEACH WARNING SIGNS AND SYMPTOMS TO AVOID HOSPITALIZATION. ] Future Scheduled Test URINARY MO LECULAR TESTING PROTOCOL UP TO 2 PRN RN/RUBBER BLOCK LAYER/CERTIFIED PARALEGAL VISITS MAY BE PERFORMED FOR S/S OF UTI. RN TO ASSESS, RUBBER BLOCK LAYER/CERTIFIED PARALEGAL TO OBSERVE INITIATION OF UTI PROTOCOL. RN/CERTIFIED PARALEGAL/RUBBER BLOCK LAYER TO INSTRUCT PATIENT AND/OR CAREGIVER ON S/S OF UTI TO REPORT TO RN/CERTIFIED PARALEGAL/RUBBER BLOCK LAYER IF NEW OR WORSENING SYMPTOMS. DRINK PLENTY OF WATER THROUGHOUT THE DAY TO MAINTAIN HYDRATION (UNLESS CONTRAINDICATED.) URINATE WHEN THE URGE IS FELT, DO NOT WAIT. WASH GENITALS DAILY. WIPE FROM FRONT TO BACK AFTER HAVING A BOWEL MOVEMENT. RN/CERTIFIED PARALEGAL/RUBBER BLOCK LAYER TO OBTAIN MOLECULAR URINE TESTING BY OPTION 1 OR OPTION 2 (OPTION 1) RN/CERTIFIED PARALEGAL/RUBBER BLOCK LAYER TO OBTAIN U/A WITH REFLEX TO UTI PANEL (MOLECULAR) VIA CLEAN CATCH URINE AND IF UNABLE TO OBTAIN MAY PERFORM AN IN AND OUT CATH. IF PATIENT HAS INDWELLING CATHETER MAY OBTAIN FROM SAMPLING PORT. (OPTION 2) RN/CERTIFIED PARALEGAL/RUBBER BLOCK LAYER TO OBTAIN UTI PANEL (MOLECULAR) VIA SWAB COLLECTION METHOD FROM ADULT BRIEF/DIAPER OR PAD IF PATIENT IS INCONTINENT. NOTIFY PROVIDER OF RESULTS AND OBTAIN FURTHER ORDERS. [code = URINARY MOLECULAR TESTING PROTOCOL UP TO 2 PRN RN/RUBBER BLOCK LAYER/CERTIFIED PARALEGAL VISITS MAY BE PERFORMED FOR S/S OF UTI. RN TO ASSESS, RUBBER BLOCK LAYER/CERTIFIED PARALEGAL TO OBSERVE INITIATION OF UTI PROTOCOL. RN/CERTIFIED PARALEGAL/RUBBER BLOCK LAYER TO INSTRUCT PATIENT AND/OR CAREGIVER ON S/S OF UTI TO REPORT TO RN/CERTIFIED PARALEGAL/RUBBER BLOCK LAYER IF NEW OR WORSENING SYMPTOMS. DRINK PLENTY OF WATER THROUGHOUT THE DAY TO MAINTAIN HYDRATION (UNLESS CONTRAINDICATED.) URINATE WHEN THE URGE IS FELT, DO NOT WAIT. WASH GENITALS DAILY. WIPE FROM FRONT TO BACK AFTER HAVING A BOWEL MOVEMENT. RN/CERTIFIED PARALEGAL/RUBBER BLOCK LAYER TO OBTAIN MOLECULAR URINE TESTING BY OPTION 1 OR OPTION 2 (OPTION 1) RN/CERTIFIED PARALEGAL/RUBBER BLOCK LAYER TO OBTAIN U/A WITH REFLEX TO UTI PANEL (MOLECULAR) VIA CLEAN CATCH URINE AND IF UNABLE TO OBTAIN MAY PERFORM AN IN AND OUT CATH. IF PATIENT HAS INDWELLING CATHETER MAY OBTAIN FROM SAMPLING PORT. (OPTION 2) RN/CERTIFIED PARALEGAL/RUBBER BLOCK LAYER TO OBTAIN UTI PANEL (MOLECULAR) VIA SWAB [...] End Date/Time Encounter Type Admission Type Attending [facility] Care Department Encounter ID Discharge Date Discharge Status Discharge Condition Discharge Reason Percent Goals Met 2024-04-18 00:00:00 2024-06-16 00:00:00 Outpatient NEW ADMISSION [facility] [id number] 20.00
--- OUTSIDE RECORDS SUMMARY | 2024-05-01 01:04 | XMS_ITS | CONTINUITY OF CARE DOCUMENT ---
Author Name lauryn, lauryn Address Unknown Organization [facility] Address [address] [place] [address] Phone [phone] Care Team Providers Care Store Worker Name Role Phone Darrell ANDINO, Sugey Unavailable ASHOK PEDERSON MD Unavailable CHRISTY REYNOSO MD Unavailable PROBLEMS Condition Status Date Provider Notes Hypothyroidism active CHRISTY REYNOSO MD Anemia active CHRISTY REYNOSO MD Hyperlipidemia active CHRISTY REYNOSO MD Edema active CHRISTY REYNOSO MD Other and unspecified peripheral vertigo active 10/25 CHRISTY REYNOSO MD Unspecified hypothyroidism active ELBERT ZAMORA MD HTN essential active CHRISTY REYNOSO MD ENCOUNTERS Date Type Provider Location Encounter Diag nosis - In-person encounter Office Visit CHRISTY REYNOSO MD [facility] - In-person encounter Office Visit CHRISTY REYNOSO MD [facility] - In-person encounter Office Visit CHRISTY REYNSOO MD [facility] - In-person encounter Office Visit CHRISTY REYNOSO MD [facility] - In-person encounter Office Visit CHRISTY REYNOSO MD [facility] - In-person encounter Office Visit CHRISTY REYNOSO MD [facility] - In-person encounter Office Visit CHRISTY REYNOSO MD [facility] - In-person encounter Office Visit CHRISTY REYNOSO MD [facility] - In-person encounter Office Visit CHRISTY REYNOSO MD [facility] - In-person encounter Office Visit CHRISTY REYNOSO MD [facility] - In-person encounter Office Visit CHRISTY REYNOSO MD [facility] - In-person encounter Office Visit CHRISTY REYNOSO MD [facility] Hyperlipidemia - In-person encounter Office Visit CHRISTY REYNOSO MD [facility] - In-person encounter Office Visit CHRISTY REYNOSO MD [facility] - In-person encounter Office Visit CHRISTY REYNOSO MD [facility] - In-person encounter Office Visit CHRISTY REYNOSO MD [facility] - In-person encounter Office Visit CHRISTY REYNOSO MD [facility] - In-person encounter Office Visit CHRISTY REYNOSO MD [facility] - In-person encounter Office Visit CHRISTY REYNOSO MD [facility] - In-person encounter Office Visit CHRISTY REYNOSO MD [facility] - In-person encounter Office Visit CHRISTY REYNOSO MD [facility] - In-person encounter Office Visit CHRISTY REYNOSO MD [facility] - In-person encounter Office Visit CHRISTY REYNOSO MD [facility] - In-person encounter Office Visit CHRISTY REYNOSO MD [facility] - In-person encounter Office Visit CHRISTY REYNOSO MD [facility] - In-person encounter Office Visit CHRISTY REYNOSO MD [facility] - In-person encounter Office Visit CHRISTY REYNOSO MD [facility] - In-person encounter Office Visit CHRISTY REYNOSO MD [facility] - In-person encounter Office Visit CHRISTY REYNOSO MD [facility] - In-person encounter Office Visit CHRISTY REYNOSO MD [facility] Other and unspecified peripheral vertigoEdema - In-person encounter Office Visit CHRISTY REYNOSO MD [facility] - In-person encounter Office Visit CHRISTY REYNOSO MD [facility] HTN essentialUnspecified hypothyroidism - In-person encounter Office Visit [facility] - In-person encounter Office Visit [facility] - In-person encounter Office Visit [facility] - In-person encounter Office Visit [facility] - In-person encounter Office Visit [facility] - In-person encounter Office Visit [facility] - In-person encounter Office Visit [facility] - In-person encounter Office Visit [facility] - In-person encounter Office Visit [facility] - In-person encounter Office Visit [facility] - In-person encounter Office Visit [facility] - In-person encounter Office Visit [facility] ALLERGIES No Known Drug [...] 4.0-5.6 platelet count 194 THOUSAND /UL [employer] [id number] 4203/11 /16 Absolute Basophils 0.0 CELLS/UL [employer] 0.0-0.2 [...] cell distribution width, size density 54.2 fL [facility] - immature granulocytes, percentage of total cells, blood 0.3 % [facility] - nucleated red blood cells as percent of blood leukocytes 0.0 % [facility] - red blood cell (erythrocyte) count, per high power field 0.0 10*3/UL [facility] - eosinophils as percent of blood leukocytes 2.1 % [facility] - neutrophils as percent of blood leukocytes 57.0 % [facility] - Absolute Neutrophils 3.8 CELLS/UL [employer] 1.5 - 7.8 basophils as percent of blood leukocytes 0.8 % [facility] - Absolute Basophils 0.1 CELLS/UL [employer] 0.0 - 0.2 monocytes as percent of blood leukocytes 10.0 % [facility] hospital - Absolute Monocytes 0.7 CELLS/UL [employer] 0.2 - 1.0 lymphocytes as percent of blood leukocytes 29.8 % [facility] hospital - Absolute Lymphocytes 2.0 CELLS/UL [employer] 0.9 - 3.9 mean platelet volume 10.7 (?) Critical [facility] hospital - platelet count 214.0 THOUSAND /UL [employer] [...] NEEDED 8 CHRISTY REYNOSO MD VITAMIN [id number] UNIT ORAL CAPSULE active ONE CAPSULE TWICE [...] Payer name Policy type / Coverage type [place] [employer] party ID [id number] HMO Other [id number] TREATMENT PLAN Date Name HEMOGLOBIN A1c THYROID [...]
[2024-05-01] MEDS: LACTATED RINGERS 1,000 ML 30 ML IV CONT (06:30)
[2024-05-01 07:08] LABS: INR 1.1; Prothrombin Time 14.3 Seconds (11.1-14.7)
--- NOTE | 2024-05-01 08:20 | WPDANESEPPF ---
Anes - Initial Pre Proc Eval Procedure: Operation Date: 05/01/24 08:30 Proposed Procedures p Cystoscopy, Left Ureteroscopy, Holmium Laser Lithotripsy, Left Stone Extraction with Left Stent Exchange, Possible Left Retrograde Pyelogram - Ru Davis MD Date/Time: 05/01/24 08:20 Surgeon: Ru Davis MD Pre Op Diagnosis: Lt Ureteral Stone Patient Data Age: 88 Gender: F Height: 1.68 m Weight: 72.4 kg Last Vital Signs Temp 97.3 F L 05/01/24 06:05 Pulse 74 05/01/24 06:05 Resp 18 05/01/24 06:05 BP 152/80 H 05/01/24 06:05 Pulse Ox 96 05/01/24 06:05 O2 Del Method Room Air 05/01/24 06:05 Allergies Allergy/AdvReac Type Severity Reaction Status Date / Time No Known Allergies Allergy Verified 05/01/24 06:18 Home Medications ?Medication ?Instructions ?Recorded ?Confirmed ?Type aspirin 81 mg tablet,delayed 81 mg PO DAILY 01/08/19 05/01/24 History release (Bogadn Low Dose Aspirin) prednisone 2.5 mg tablet 2.5 mg PO DAILY #90 tabs 08/08/23 05/01/24 Rx ergocalciferol (vitamin D2) 1,250 50,000 unit PO MONTHLY #12 caps 08/12/23 05/01/24 Rx mcg (50,000 unit) capsule levothyroxine 112 mcg tablet See Rx Instructions .Route 08/15/23 05/01/24 Rx .COMPLEX #90 tabs atorvastatin 40 mg tablet See Rx Instructions .Route 11/18/23 05/01/24 Rx .COMPLEX #90 tabs furosemide 40 mg tablet See Rx Instructions .Route 12/23/23 05/01/24 Rx .COMPLEX #90 tabs potassium chloride 10 mEq See Rx Instructions .Route 12/23/23 05/01/24 Rx capsule,extended release .COMPLEX #90 caps sertraline 50 mg tablet 75 mg (1.5 x 50 mg) PO DAILY 90 02/10/24 05/01/24 Rx days #135 tabs naloxone 4 mg/actuation nasal 4 mg intranasal Q3M PRN opioid 03/22/24 04/18/24 Rx spray (Narcan) overdose #2 ea tramadol 50 mg tablet 50 mg PO Q12H PRN pain #60 tabs 03/22/24 04/18/24 Rx calcium 500 mg tablet 500 mg PO DAILY 03/28/24 05/01/24 History relaxium 2 cap PO HS 03/28/24 05/01/24 History vinia 1 cap PO DAILY 03/28/24 05/01/24 History carvedilol 12.5 mg tablet 12.5 mg PO Q12H #60 tabs 04/02/24 05/01/24 Rx polyethylene glycol 3350 17 gram 17 g PO QAM PRN Constipation #30 ea 04/09/24 04/18/24 Rx oral powder packet (Miralax) omega 3-hcp-drw-fish oil 1,200 mg 1 cap PO DAILY 04/18/24 05/01/24 History (144 mg-216 mg) capsule (Fish Oil) irbesartan 300 mg tablet See Rx Instructions .Route 04/25/24 05/01/24 Rx .COMPLEX #90 tabs Laboratory Tests 05/01/24 06:27 PT 14.3 Seconds (11.1-14.7) INR 1.1 Patient hx anesthesia problems: none Family hx anesthesia problems: none Results Review: All pre-operative results and documents have been reviewed as part of the pre-operative evaluation. [facility] Past Medical History Medical History Bradycardia T12 compression fracture Heart failure Sepsis Vitamin D deficiency Depression Hypothyroidism HLD (hyperlipidemia) CKD (chronic kidney disease) Hypertensive CKD (chronic kidney disease) IgA nephropathy Family History Family History Mother Hypertension Heart disease Social History Social History Social History: Has a son and daughter. Smoking status: Never smoker Second hand tobacco smoke exposure: No Alcohol intake: never Substance use: never Substance use type: does not use Do You Feel Safe in your Home?: Yes Lack of Transportation: YES Lack of Food: Never True Current Housing: I Have Housing Concerned About Future Housing: No Difficulty Paying Gas/Electric Bills: No Difficulty Paying for Meds: No Currently Unemployed: No Education: High School Diploma/GED Difficulty w/ Childcare or Family Care: No Living arrangements: alone Additional living arrangements comments: Granddaughter lives across the street Occupation/Education: retired Gender identity (if verbalized by the patient): Female Sexual Orientation (if Verbalized by the Patient): Straight or Heterosexual Spiritual care concerns: No Anes - Eval Final PreProcedure Day of Procedure 05/01/24 08:20 Patient weight: normal Lungs: normal air movement Airway: Mallampati scale class II Neurological: alert and oriented Last oral intake: >/= 8 hours ASA classification: III Emergent: no Anesthetic plan: proceed Anesthesia type and monitoring: general LMA and standard monitoring Results Review: All pre-operative results and documents have been reviewed as part of the pre-operative evaluation. HTN, hyperlipidemia, hypothyroidism, hx of heart failure,, LVEF by ECHO 2024 55%, mild . Informed Consent: The patient's anesthetic plan and its attendant risks and benefits were discussed with the patient/family/POA. Questions were solicited and answers provided to the satisfaction of the patient/family/POA.
[2024-05-01] MEDS: LIDOCAINE 2% GEL UROJET 10 ML PKG MUCOUS MEM (08:26)
--- NOTE | 2024-05-01 08:32 | PM.IMHP ---
H&P: HPI History of Present Illness Date/Time: 05/01/24 08:32 Chief Complaint: 6mm distal left ureteral calculus Narrative: 88 yr old female had a left stent placed by Dr Mccurdy on prior admission. Presents now for definitive treatment of 6mm distal left ureteral calculus. Review of Systems Review of Systems: All systems reviewed & are unremarkable except as noted in HPI and below PMFSH Past Medical History Medical History Bradycardia T12 compression fracture Heart failure Sepsis Vitamin D deficiency Depression Hypothyroidism HLD (hyperlipidemia) CKD (chronic kidney disease) Hypertensive CKD (chronic kidney disease) IgA nephropathy Family History Family History Mother Hypertension Heart disease Social History Social History Social History: Has a son and daughter. Smoking status: Never smoker Second hand tobacco smoke exposure: No Alcohol intake: never Substance use: never Substance use type: does not use Do You Feel Safe in your Home?: Yes Lack of Transportation: YES Lack of Food: Never True Current Housing: I Have Housing Concerned About Future Housing: No Difficulty Paying Gas/Electric Bills: No Difficulty Paying for Meds: No Currently Unemployed: No Education: High School Diploma/GED Difficulty w/ Childcare or Family Care: No Living arrangements: alone Additional living arrangements comments: Granddaughter lives across the street Occupation/Education: retired Gender identity (if verbalized by the patient): Female Sexual Orientation (if Verbalized by the Patient): Straight or Heterosexual Spiritual care concerns: No Meds Home Medications and Allergies Home Medications ?Medication ?Instructions ?Recorded ?Confirmed ?Type aspirin 81 mg tablet,delayed 81 mg PO DAILY 01/08/19 05/01/24 History release (Bogdan Low Dose Aspirin) prednisone 2.5 mg tablet 2.5 mg PO DAILY #90 tabs 08/08/23 05/01/24 Rx ergocalciferol (vitamin D2) 1,250 50,000 unit PO MONTHLY #12 caps 08/12/23 05/01/24 Rx mcg (50,000 unit) capsule levothyroxine 112 mcg tablet See Rx Instructions .Route 08/15/23 05/01/24 Rx .COMPLEX #90 tabs atorvastatin 40 mg tablet See Rx Instructions .Route 11/18/23 05/01/24 Rx .COMPLEX #90 tabs furosemide 40 mg tablet See Rx Instructions .Route 12/23/23 05/01/24 Rx .COMPLEX #90 tabs potassium chloride 10 mEq See Rx Instructions .Route 12/23/23 05/01/24 Rx capsule,extended release .COMPLEX #90 caps sertraline 50 mg tablet 75 mg (1.5 x 50 mg) PO DAILY 90 02/10/24 05/01/24 Rx days #135 tabs naloxone 4 mg/actuation nasal 4 mg intranasal Q3M PRN opioid 03/22/24 04/18/24 Rx spray (Narcan) overdose #2 ea tramadol 50 mg tablet 50 mg PO Q12H PRN pain #60 tabs 03/22/24 04/18/24 Rx calcium 500 mg tablet 500 mg PO DAILY 03/28/24 05/01/24 History relaxium 2 cap PO HS 03/28/24 05/01/24 History vinia 1 cap PO DAILY 03/28/24 05/01/24 History carvedilol 12.5 mg tablet 12.5 mg PO Q12H #60 tabs 04/02/24 05/01/24 Rx polyethylene glycol 3350 17 gram 17 g PO QAM PRN Constipation #30 ea 04/09/24 04/18/24 Rx oral powder packet (Miralax) omega 6-roi-fmd-fish oil 1,200 mg 1 cap PO DAILY 04/18/24 05/01/24 History (144 mg-216 mg) capsule (Fish Oil) irbesartan 300 mg tablet See Rx Instructions .Route 04/25/24 05/01/24 Rx .COMPLEX #90 tabs Allergies Allergy/AdvReac Type Severity Reaction Status Date / Time No Known Allergies Allergy Verified 05/01/24 06:18 Vital Signs Vital Signs - 24 hr 05/01/24 06:05 Temperature 36.3 C L Pulse Rate 74 Respiratory Rate 18 Blood Pressure 152/80 H Pulse Oximetry 96 Oxygen Delivery Room Air Exam Const: General: cooperative and comfortable Resp: Effort & Inspection: normal respiratory effort Cardio: Rate: regular rate Rhythm: regular rhythm Assessment and Plan Assessment and plan (1) Left ureteral calculus: Code(s): N20.1 - Calculus of ureter Status: Acute Assessment and Plan: cystoscopy, left retrograde, left ureteroscopy with stone extraction, possible laser, stent exchange
--- NOTE | 2024-05-01 08:35 | WPDHPUPDATE1 ---
History and Physical Update Update Date/Time: 05/01/24 08:35 History and Physical has been reviewed, including an updated exam of the patient. There are NO changes in the patient's condition. Risks, benefits, and alternatives have been discussed and questions answered. Patient agrees to proceed with procedure.
[2024-05-01] MEDS: ceFAZolin 2 GM/D5W 50 ML 2 GM/50 ML BAG IVPB (09:22)
--- NOTE | 2024-05-01 09:49 | W.PM.PROC2 ---
Procedure Note - Detailed Date of Procedure 05/01/24 Pre-op Diagnosis Lt Ureteral Stone Post-op Diagnosis Same Procedure Performed Cystoscopy, left retrograde, left ureteroscopy with holmium laser, stone extraction, stent exchange Surgeon Ru Davis MD Anesthesia General Description of Procedure Patient was taken the operative suite correctly identified. Once anesthesia was obtained she was placed in dorsal lithotomy position and prepped and draped usual sterile fashion. Twenty-two Faroese scope was inserted into the urethra. There were no tumors noted. Left ureteral stent was grasped and brought out meatus. Sensor wire was passed into it. Rigid ureteral scope was then inserted. The stone was visualized in the distal ureter. It was too large to retrieved in 1 piece. Using a 200 micron laser fiber the stone was fragmented into multiple small pieces. The largest ones were sent for analysis. Reinspection revealed no residual stones. Pyelogram was then performed confirm placement of the stent. 4.8 Faroese contour stent was then placed with the proximal end coiled in the renal pelvis and the distal in the bladder. Bladder was drained. 2% viscous lidocaine was inserted into the urethra. Patient is taken recovery stable condition. She will follow-up in a week's time for stent. This completes dictation. Please send a copy of op note to my office. Estimated Blood Loss 0 Drains Yes Packing No Pathology Yes Complications No immediate complications Condition Stable Disposition PACU
[2024-05-01] MEDS: LABETALOL HCL INJ 100 MG/20 ML VIAL IV PUSH ×2 (10:52→11:06)
[2024-05-01] MEDS: ACETAMINOPHEN 500 MG TABLET 1000 MG PO (11:01)
== END 2024-05-01 11:45 | disposition home or self-care (01) ==
PROVIDERS: Anesthesiology; PCP Family Medicine; Visit Provider Urology
PROC: (CPT 52352; principal; 2024-05-01 08:30)
DX: N20.1 Calculus of ureter (principal); I12.9 Hypertensive chronic kidney disease with stage 1 through stage 4 chronic kidney disease, or unspecified chronic kidney disease; N18.9 Chronic kidney disease, unspecified
CPT/HCPCS: 52356; 36415; 74420; 82365; 85610; 88300; A9270; C1758; C1769; C2617; J0690; J2003; J2405; J2704; J3010; J7120; Q9966

== ENCOUNTER 2024-12-17 12:15 | Outpatient (CLI) | payer MEDICARE, SELFPAY ==
--- OUTSIDE RECORDS SUMMARY | 2023-09-02 08:30 | XMS_ITS ---
Author Organization [facility] Office Address [address] [place] [address] Care Team Providers Care Personal Clothing Laundry Aide Name Role Phone Beck Ramírez Unavailable [phone] Medications Medication SIG (Take, Route, Frequency, Duration) Notes Start Date End Date Status Estradiol 0.1 MG/GM as directed Vaginal once a month; Duration: 90 days 06/17/2023 Active Ergocalciferol 1.25 MG (32054 UT) 1 capsule Orally once a month; Duration: 90 day(s) 06/17/2023 03/12/2024 Active Calcitriol 0.25 MCG 1 capsule Orally Onc e a day; Duration: 90 day(s) 01/07/2023 10/04/2023 Active predniSONE 2.5 MG 1 tablet Orally Once a day; Duration: 30 days Active predniSONE 5 MG 1/2 tablet Orally On ce a day; Duration: 90 days 12/15/2022 12/10/2023 Active Encounters Encounter Location Date Provider Diagnosis [place] [facility] [address] [facility] [address] [place] [address] 09/02/2023 Beck Ramírez Chronic kidney disea se, stage 3a N18.31 ; Essential (primary) hypertension I10 ; Proteinuria, unspecified R80.9 ; Renal osteodystrophy N25.0 ; Secondary hyperparathyroidism, not elsewhere classified E21.1 and Urinary tract infection, site not specified N39.0 Assessments Encounter Date Diagnosis (ICD Code) Assessment Notes Treatment Notes Treatment Clinical Notes Section Notes 09/02/2023 Chronic kidney disease, stage 3a (ICD-10 - N18.31) 09/02/2023 Essential (primary) hypertension (ICD-10 - I10) 09/02/2023 Proteinuria, unspecified (ICD-10 - R80.9) 09/02/2023 Renal osteodystrophy (ICD-10 - N25.0) 09/02/2023 Secondary hyperparathyroidism , not elsewhere classified (ICD-10 - E21.1) 09/02/2023 Urinary tract infection, site not specified (ICD-10 - N39.0) Plan Of Treatment No Information Progress Notes * LIBBY HENLEYADOB:1935 (89 yo F)Acc No.[id number]:09/02/2023 Progress Notes Patient: TRACI MARTINEZ Provider: Yamilex CARMEN MD, F.A.C.P, F.A.S.N. :1935 A ge:87 Y S ex:Female Date:09/02/2023 Address:[address] [place] [address] Subjective: * Chief Complaints: * * Medical History: * Medications: T aking predniSONE 5 MG Tablet 1/2 tablet Orally Once a day , stop date 12/10/2023, Taking predniSONE 2.5 MG Tablet 1 tablet Orally Once a day , Taking Calcitriol 0.25 MCG Capsule 1 capsule Orally Once a day , stop date 10/04/2023, Taking Ergocalciferol 1.25 MG (08711 UT) Capsule 1 capsule Orally once a month , stop date 03/12/2024, Taking Estradiol 0.1 MG/GM Cream as directed Vaginal once a month Objective: * Vitals: Assessment: * Assessment: 1. C hronic kidney disease, stage 3a - N18.31 (Primary) 2 . E ssential (primary) hypertension - I10 3 . P roteinuria, unspecified - R80.9 4 . R enal osteodystrophy - N25.0 5 . S econdary hyperparathyroidism, not elsewhere classified - E21.1 6 . U rinary tract infection, site not specified - N39.0 Plan: * Treatment: * Billing Information: * Visit Code: 74695 Office Visit, Est Pt., Level 4. * Procedure Codes: * Electronic signature of Sugey Ramírez MD on 12/17/2024 at 01:38 PM CDT Sign off status: Pending * Provider: Yamilex CARMEN MDSagrarioP, F.A.S.N. Date: 0 09/02/2023 Generated for Printing/Faxing/eTransmitting on: 1 01:38 PM CDT
--- OUTSIDE RECORDS SUMMARY | 2023-11-25 07:30 | XMS_ITS ---
Author Organization [facility] Office Address [address] [address] [place] [address] Care Team Providers Care Meat Market Manager Name Role Phone Beck Ramírez Unavailable [phone] Medications Medication SIG (Take, Route, Frequency, Duration) Notes Start Date End Date Status predniSONE 2.5 MG 1 tablet Orally Once a day; Duration: 30 days Active Ergocalciferol 1.25 MG (32664 UT) 1 capsule Orally once a month; Duration: 90 day(s) 06/17/2023 03/12/2024 Active Calcitriol 0.25 MCG TAKE 1 CAPSULE BY [facility] EVERY DAY FOR 90 DAYS; Duration: 90 Active Estradiol 0.1 MG/GM Apply before bed nightly for 4 weeks Vaginal; Duration: 30 days Active predniSONE 5 MG 1/2 tablet Orally On ce a day; Duration: 90 days 12/15/2022 12/10/2023 Active Problems Problem Type SNOMED Code ICD Code Onset Dates Problem Status W/U Status Risk Notes Problem Chronic kidney disease stage 2 (741604688) Chronic kidney disease, 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) Active confirmed Encounters Encounter Location Date Provider Diagnosis [place] [facility] [address] [facility] [address] [place] [address] 11/25/2023 Beck Ramírez Chronic kidney disea se, stage 3a N18.31 ; Chronic kidney disease, stage 2 (mild) N18.2 ; Essential (primary) hypertension I10 ; Proteinuria, unspecified R80.9 ; Renal osteodystrophy N25.0 ; Secondary hyperparathyroidism, not elsewhere classified E21.1 and Urinary tract infection, site not specified N39.0 Assessments Encounter Date Diagnosis (ICD Code) Assessment Notes Treatment Notes Treatment Clinical Notes Section Notes 11/25/2023 Chronic kidney disease, stage 3a (ICD-10 - N18.31) 11/25/2023 Chronic kidney disease, stage 2 (mild) (ICD-10 - N18.2) 11/25/2023 Essential (primary) hypertension (ICD-10 - I10) 11/25/2023 Proteinuria, unspecified (ICD-10 - R80.9) 11/25/2023 Renal osteodystrophy (ICD-10 - N25.0) 11/25/2023 Secondary hyperparathyroidism , not elsewhere classified (ICD-10 - E21.1) 11/25/2023 Urinary tract infection, site not specified (ICD-10 - N39.0) Plan Of Treatment No Information Progress Notes * LIBBY HENLEYADOB:1935 (89 yo F)Acc No.[id number]:11/25/2023 Progress Notes Patient: TRACI MARTINEZ Provider: Yamilex CARMEN MD, FJulio, F.AAnnikaSAnnikaNAnnika :1935 A ge:88 Y S ex:Female Date:11/25/2023 Address:[address] [place] [address] Subjective: * Chief Complaints: * * Medical History: * Medications: T aking predniSONE 5 MG Tablet 1/2 tablet Orally Once a day , stop date 12/10/2023, Taking predniSONE 2.5 MG Tablet 1 tablet Orally Once a day , Taking Ergocalciferol 1.25 MG (24323 UT) Capsule 1 capsule Orally once a month , stop date 03/12/2024, Taking Calcitriol 0.25 MCG Capsule TAKE 1 CAPSULE BY MOUTH EVERY DAY FOR 90 DAYS , Taking Estradiol 0.1 MG/GM Cream Apply before bed nightly for 4 weeks Vaginal Objective: * Vitals: Assessment: * Assessment: 1. C hronic kidney disease, stage 3a - N18.31 (Primary) 2 . C hronic kidney disease, stage 2 (mild) - N18.2 3 . E ssential (primary) hypertension - I10? 4. P roteinuria, unspecified - R80.9 5 . R enal osteodystrophy - N25.0 6 . S econdary hyperparathyroidism, not elsewhere classified - E21.1? 7. U rinary tract infection, site not specified - N39.0 Plan: * Treatment: * Billing Information: * Visit Code: 64129 Office Visit, Est Pt., Level 4. * Procedure Codes: * Electronic signature of Sugey Ramírez MD on 12/17/2024 at 01:39 PM CDT Sign off status: Pending * Provider: Yamilex CARMEN MD, F.A.C.P, F.A.S.N. Date: Generated for Printing/Faxing/eTransmitting on: 01:39 PM CDT
--- OUTSIDE RECORDS SUMMARY | 2024-03-02 07:45 | XMS_ITS ---
Author Organization [facility] Office Address [address] [facility] [address] [facility] [address] [place] [address] Care Team Providers Care [employer] Skills Name Role Phone DarrellFarheenBeck Unavailable [phone] Problems Problem Type SNOMED Code ICD Code Onset Dates Problem Status W/U Status Risk Notes Problem Infection caused by Escherichia coli (30815367) Unspecified Escherichia coli [E. coli] as the cause of diseases classified elsewhere (B96.20) Active confirmed Problem Diabetic renal disease (147337610) Type 2 diabetes mellitus with diabetic chronic kidney disease (E11.22) Active confirmed Encounters Encounter Location Date Provider Diagnosis [place] [facility] [address] [facility] [address] [place] [address] 03/02/2024 Beck Ramírez Chronic kidney disease, stage 3a N18.31 ; Unspecified Escherichia coli [E. coli] as the cause of diseases classified elsewhere B96.20 ; Type 2 diabetes mellitus with diabetic chronic kidney disease E11.22 ; Secondary hyperparathyroidism, not elsewhere classified E21.1 and Proteinuria, unspecified R80.9 Assessments Encounter Date Diagnosis (ICD Code) Assessment Notes Treatment Notes Treatment Clinical Notes Section Notes 03/02/2024 Chronic kidney disease, stage 3a (ICD-10 - N18.31) 03/02/2024 Unspecified Escherichia coli [E. coli] as the cause of diseases classified elsewhere (ICD-10 - B96.20) 03/02/2024 Type 2 diabetes mellitus with diabetic chronic kidney disease (ICD-10 - E11.22) 03/02/2024 Secondary hyperparathyroid ism, not elsewhere classified (ICD-10 - E21.1) 03/02/2024 Proteinuria, unspecified (ICD-10 - R80.9) Plan Of Treatment No Information Progress Notes * JAGRUTI HENLEY:1935 (89 yo F)Acc No.[id number]:03/02/2024 Patient: TRACI MARTINEZ Provider: Yamilex CARMEN MD, F.Kota.C.P, F.A.S.N. :1935 A ge:88 Y S ex:Female Date:03/02/2024 Address:[address] [place] [address] Subjective: * Chief Complaints: Objective: Assessment: * Assessment: 1. C hronic kidney disease, stage 3a - N18.31 (Primary) 2 . U nspecified Escherichia coli [E. coli] as the cause of diseases classified elsewhere - B96.20 3 .?Type 2 diabetes mellitus with diabetic chronic kidney disease - E11.22 4 . S econdary hyperparathyroidism, not elsewhere classified - E21.1 5 . P roteinuria, unspecified - R80.9 Plan: * Billing Information: * Visit Code: 08901 Office Visit, Est Pt., Level 5. * Procedure Codes: * Electronic signature of Sugey Ramírez MD on 12/17/2024 at 01:38 PM CDT Sign off status: Pending * Provider: Yamilex CARMEN MD, F.Kota.Sal.P, F.A.S.N. Date: 0 03/02/2024 Generated for Printing/Faxing/eTransmitting on: 1 01:38 PM CDT
--- OUTSIDE RECORDS SUMMARY | 2024-04-27 11:30 | XMS_ITS ---
Author Organization [facility] Address [address] [facility] [address] [facility] [address] [place], [place] [address] Care Team Providers Care Pier Runner Name Role Phone Darrell Beck Unavailable [phone] Encounters Encounter Location Date Provider Diagnosis [place] [facility] [address] [facility] [address] [place] [address] 04/27/2024 Beck Ramírez Plan Of Treatment No Information Progress Notes * LIBBY HENLEYADOB:1935 (89 yo F)Acc No.[id number]:04/27/2024 Progress Notes Patient: TRACI MARTINEZ Provider: Yamilex CARMEN MD, Janet.Kota.Sal.P, F.A.S.N. :1935 A ge:88 Y S ex:Female Date:04/27/2024 Address:[address] [place] [address] Subjective: * Chief Complaints: * * Medical History: Objective: * Vitals: Assessment: Plan: * Treatment: * Billing Information: * Visit Code: * Procedure Codes: * Electronic signature of Sugey Ramírez MD on 12/17/2024 at 01:38 PM CDT Sign off status: Pending * Provider: Yamilex CARMEN MD, Janet.Kota.C.P, F.A.S.N. Date: 0 04/27/2024 Generated for Printing/Faxing/eTransmitting on: 01:38 PM CDT
--- NOTE | ~2024-12-17 | DEXA_ITS ---
Bone Density Report Name: TRACI HENLEY Age: 89 Sex: Female Ethnicity: White Date of : 1935 Indication: postmenopausal; screening for osteoporosis; height loss; Referring Provider: POLINA MEJIA Study: Bone densitometry was performed. Exam Date: December 17, 2024 Accession number: [id number] Bone Density: Region BMD T-score Z-score Classification AP Spine(L1-L4) 1.321 2.5 5.4 Normal Femoral Neck (Left) 0.707 -1.3 1.2 Osteopenia Total Hip (Left) 0.857 -0.7 1.6 Normal Femoral Neck (Right) 0.769 -0.7 1.8 Normal Total Hip (Right) 0.782 -1.3 1.0 Osteopenia Total Hip Mean 0.819 -1.0 1.3 Normal World Health Organization criteria for BMD impression classify patients as: Normal (T-score at or above -1.0), Osteopenia (T-score between -1.0 and -2.5), or Osteoporosis (T-score at or below -2.5). 10-year Fracture Risk(1): Major Osteoporotic Fracture 11% Hip Fracture 2.9% Reported Risk Factors: [place] (), Neck BMD=0.707, BMI=30.7 (1) FRAX(R) Version 3.08. Fracture probability calculated for an untreated patient. Fracture probability may be lower if the patient has received treatment. Clinical Information Provided by Patient: Has used the following medications: Vitamin D, Calcium Patient maximum height was 67.0 Menopause Age: 49 No regular weight bearing exercise Drinks caffeinated beverages Onset of menses at age 13 Number of children 4 Impression: The patient has low bone mass, based on the Right Total Hip T-score. The patient has an estimated ten-year risk of hip fracture of 2.9% and an estimated ten-year risk of major fracture of 11%, based on the WHO FRAX algorithm. Discussion: BONE DENSITY IS LOW AT ONE OR MORE SKELETAL SITES. This patient's lowest T-score is low at one or more skeletal sites. It meets the World Health Organization's (WHO) criteria for ?low bone mass? (T-score between -1.0 and -2.5). The patient's 10-year risk of fracture as calculated by FRAX is less than the threshold where pharmacological therapy is recommended by the National Osteoporosis Foundation (NOF). However, all treatment decisions require clinical judgment and consideration of individual patient factors, including patient preferences, comorbidities, previous drug use, risk factors not captured in the FRAX model (e.g., frailty, falls, vitamin D deficiency, increased bone turnover, interval significant decline in bone density) and possible under or overestimation of fracture risk by FRAX. The patient should follow a healthful lifestyle (good nutrition with adequate calcium and vitamin D, and appropriate weight-bearing exercise). Follow-Up: Consider repeating this study in 2 to 3 years to reassess this patient's status, or sooner if there is some new clinical indication. Reported by: KAYLA on 12/17/2024 1:00:00 PM. Reviewed, dictated and finalized at location A.
--- OUTSIDE RECORDS SUMMARY | 2024-12-17 13:38 | XMS_ITS | Patient Health Record ---
Author Organization [facility] Address [address] [place] [address] Care Team Providers Care Valve And Regulator Repairer Name Role Phone Beck Ramírez Unavailable [phone] Reason For Referral No Information Medications Medication SIG (Take, Route, Frequency, Duration) Notes Start Date End Date Status predniSONE 2.5 MG 1 tablet Orally Once a day; Duration: 30 days Active Calcitriol 0.25 MCG TAKE 1 CAPSULE BY MO UTH EVERY DAY FOR 90 DAYS; Duration: 90 Active Estradiol 0.1 MG/GM Apply before bed nig htly for 4 weeks Vaginal; Duration: 30 days Active Vitamin D (Ergocalciferol) 1.25 MG (27842 UT) TAKE 1 CAPSULE BY MOUTH ONCE MONTHLY; Duration: 84 Activ e Problems Problem Type SNOMED Code ICD Code Onset Dates Problem Status W/U Status Risk Notes Problem Infection caused by Escherichia coli (09455116) Unspecified Escherichia coli [E. 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 Problem Secondary hyperparathyroidism (14577627) Secondary hyperparathyroid ism, not elsewhere classified (E21.1) Active confirmed Problem Essential hypertension (83889301) Essential (primary) hypertension (I10) Active confirmed Problem Chronic kidney disease stage 2 (447905427) Chronic kidney disease, 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) Active confirmed Problem Renal osteodystrophy (95525399) Renal osteodystrophy (N25.0) Active confirmed Problem Urinary tract infectious disease (disorder) (08503348) Urinary tract infection, site not specified (N39.0) Active confirmed Problem Proteinuria (19731553) Proteinuria, unspecified (R80.9) Active confirmed Problem Chronic kidney disease stage 3A (disorder) (454213169) Chronic kidney disease, stage 3a (N18.31) Active confirmed Encounters Encounter Location Date Provider Diagnosis [facility] [address] [address] 03/02/2024 Beck Ramírez Chronic kidney disease, stage 3a N18.31 ; Unspecified Escherichia coli [E. coli] as the cause of diseases classified elsewhere B96.20 ; Type 2 diabetes mellitus with diabetic chronic kidney disease E11.22 ; Secondary hyperparathyroidism, not elsewhere classified E21.1 and Proteinuria, unspecified R80.9 [facility] [address] [address] 03/02/2024 Beck Ramírez Assessments Encounter Date Diagnosis (ICD Code) Assessment [...]
--- OUTSIDE RECORDS SUMMARY | 2024-12-17 13:38 | XMS_ITS | Clinical Summary ---
Author Organization [facility] [address] [facility] [address] Address [address] [place] [address] Care Team Providers Care Heat Treater Name Role Phone Julián Wells MD Primary Care Provider Social History Tobacco Use Types Packs/Day Years Used Date Smoking Tobacco: Never Assessed Personal Safety Answer Date Recorded Getting School Help Needed Not on file 05/05 Comments Unknown Sex and Gender Information Value Date Recorded Sex Assigned at Not on file Legal Sex Female 9:16 PM CARPENTER HELPER Gender Identity Not on file Sexual Orientation Not on file Last Filed Vital Signs Vital Sign Reading Time Taken Comments Blood Pressure 127/76 12/31/2014 8:14 AM CARPENTER HELPER Pulse 95 12/31/2014 8:14 AM CARPENTER HELPER Temperature - - Respiratory Rate - - Oxygen Saturation - - Inhaled Oxygen Concentration - - Weight 66.8 kg (147 lb 4.3 oz) 12/30/2014 3:34 P M CARPENTER HELPER Height 170.2 cm (5' 7.01) 12/30/2014 3:34 PM CS T Body Mass Index 23.06 12/30/2014 3:34 PM CARPENTER HELPER Plan of Treatment Not on file Insurance AETNA [facility] ADV REF AETNA MCR ADV REF Care Teams Heat Treater Relationship Specialty Start Date End Date Julián Wells MD [address] [facility] [address] [place] [address] PCP - General Family Medicine 11/06/20
--- OUTSIDE RECORDS SUMMARY | 2024-12-17 13:39 | XMS_ITS | Clinical Summary ---
Author Organization [facility] Address [address] [place] [address] Care Team Providers Care Lean Coach Name Role Phone Unavailable Primary Care Provider Unavailabl e Source Comments [facility],non-owned Affiliates and Associated Physician Practices is amultiple site organization consisting of ambulatory clinics and hospital sitesin [place], [place], [place] and [place]. This disclosure is being madepursuant to the Care Everywhere program and may not contain all information available regarding this patient. Last updated 17.[facility] Allergies No known active allergies Medications * Be aware that medications may not be up to date on this document. Alwaysverify current medications with the patient. diclofenac sodium (VOLTAREN) 75 MG tablet Take [...] drink = 0.6 oz pur e alcohol) Comments Unknown Sex and Gender Information Value Date Recorded Sex Assigned at Not on file Legal Sex Female 11:36 AM PODOPEDIATRICIAN Gender Identity Not on file Sexual Orientation Not on file Last Filed Vital Signs Vital Sign Reading Time Taken Comments Blood Pressure - - Pulse - - Temperature - - Respiratory Rate - - Oxygen Saturation - - Inhaled Oxygen Concentration - - Weight 75.8 kg (167 lb) 07/06/2010 9:59 AM CDT Height 170.2 cm (5' 7) 07/06/2010 9:59 AM CDT Body Mass Index 26.16 07/06/2010 9:59 AM CDT Plan of Treatment Health Maintenance Due Date Last Done Comments BONE DENSITY TESTING 1935 DTAP/TDAP/TD VACCINES (1 - Tdap) 11/18/1955 PNEUMOCOCCAL VACCINE 50+ (1 of 1 - PCV) 1986 ZOSTER VACCINE (1 of 2) 1986 Respiratory Syncytial Virus (RSV) Vaccine Pt: or over 60 yrs (1 - 1-dose 75+ series) 11/18/2011 DEPRESSION SCREENING 02/22/2024 MEDICARE AWV CALENDAR YEAR 2024 COVID-19 VACCINE (1 - 2023-2 5 season) 2024 INFLUENZA VACCINE (#1) 2024 HEPATITIS B VACCINE Aged Out No longe r eligible based on patient's age to complete this topic HIB VACCINE Aged Out No longer eligi ble based on patient's age to complete this topic HPV VACCINE Aged Out No longer eligi ble based on patient's age to complete this topic MENINGOCOCCAL (Group B) VACC INE SHARED DECISION-MAKING Aged Out No longer eligibl e based on patient's age to complete this topic MENINGOCOCCAL GROUPS A/C/Y/W VACCINE Aged Out No longer eligible b ased on patient's age to complete this topic Insurance [employer] MEDICARE ADV SELF PAY NO INSURANCE Member Subscriber Plan / Payer (Ef fective for All Dates) Name:Traci Henley Member ID:Not on file Relation to Subscriber:Not on file Name:TRACI HENLEY Subscriber ID:Not on file (Home) Address: [address] [place] [id number] Payer ID:Not on file Group ID:Not on file Type:Self Pay Address: [place], [place]
== END 2024-12-17 12:16 | disposition home or self-care (01) ==
LOC: ANHFOHIMG 12:16
PROVIDERS: PCP Family Medicine; Visit Provider Physician Assistant
DX: S22.080A Wedge compression fracture of T11-T12 vertebra, initial encounter for closed fracture (principal); Z78.0 Asymptomatic menopausal state; X58.XXXA Exposure to other specified factors, initial encounter; M85.852 Other specified disorders of bone density and structure, left thigh; M85.851 Other specified disorders of bone density and structure, right thigh
CPT/HCPCS: 77080